=== PATIENT | female | born 1940 | race Caucasian/White ===

== ENCOUNTER 2018-03-06 11:32 | Emergency (ER) | payer OTHER, SELFPAY ==
--- NOTE | 2018-03-06 11:37 | PC.NURSE ---
States SX were on February 23 or . To BR prior to rooming as states uti sx
[2018-03-06 11:47] VITALS: BP 144/57; PULSE 60; RESP 12; O2SAT 98; BMI 25.4
--- NOTE | 2018-03-06 12:02 | DI.CT.S_ITS ---
PROCEDURE: CT HEAD/BRAIN WO CON INDICATIONS: States weakness and changes in ability to function, resolved TECHNIQUE: Noncontrast 4.5 mm thick angled axial sections acquired from the foramen magnum to the vertex, with coronal and sagittal reformats. For radiation dose reduction, the following was used: automated exposure control, adjustment of mA and/or kV according to patient size. COMPARISON: [facility], CT, HEAD WITHOUT CONTRAST, 06/03/2015, 12:02. FINDINGS: Image quality: Excellent. CSF spaces: Basal cisterns are patent. No extra-axial fluid collections. The ventricles are symmetric in size and shape. Brain: No intracranial bleeds or masses. There is cerebral volume loss for age, with resultant ventricular and sulcal prominence. There are periventricular and deep white matter chronic small vessel ischemic changes. There is intracranial internal carotid artery atherosclerosis. Skull and face: Calvarium and visualized facial bones appear intact, without suspicious lesions. Sinuses: Visualized sinuses and mastoids are clear. IMPRESSION: No acute intracranial disease process. Dictated by: Mayra Humphries MD, PhD on 03/06/2018 at 12:18 Approved by: Mayra Humphries MD, PhD on 03/06/2018 at 12:19
[2018-03-06 12:10] VITALS: BP 123/52; PULSE 60; RESP 16; O2SAT 99
[2018-03-06 12:13] LABS: Urine Amphetamines Negative (Negative); Urine Barbiturates Negative (Negative); Urine Benzodiazepines Negative (Negative); Urine Cocaine Negative (Negative); Urine MDMA Negative (Negative); Urine Methadone Negative (Negative); Urine Methamphetamines Negative (Negative); Urine Morphine/Opi cutoff 2000 Negative (Negative); Urine Oxycodone Negative (Negative); Urine Phencyclidine Negative (Negative); Urine Tetrahydrocannabinol Negative (Negative); Urine Tricyclic Antidepressant Negative (Negative)
[2018-03-06 12:17] LABS: RBC Urine 10-30/HPF (0-5/HPF); WBC Urine >100/HPF (0-5/HPF)
[2018-03-06 12:18] LABS: INR 3.2 (0.9-1.3); Prothrombin Time 33.9 SECONDS (10.1-12.7)
[2018-03-06 12:18] LABS: Bacteria Urine Many (>30); Culture Indicated Urine Specimen Cultured
[2018-03-06 12:21] LABS: PTT Partial Thromboplastin Tim 51 SECONDS (26.4-36.2)
[2018-03-06] MEDS: SODIUM CHLORIDE 0.9% 1,000 ML 150 ML IV (12:24)
[2018-03-06 12:26] LABS: BUN Creatinine Ratio 25.7 (6-22); Blood Urea Nitrogen 18 mg/dL (7-17); Calcium 8.7 mg/dL (8.4-10.2); Carbon Dioxide 27 mmol/L (22-32); Chloride 104 mmol/L (98-107); Estimated Glomerular Filt Rate > 60.0 mL/min (>60); Glucose 116 mg/dL (80-110); HEMOLYSIS < 15 (0-50); Potassium 3.9 mmol/L (3.4-5.1); Sodium 140 mmol/L (137-145)
[2018-03-06 13:00] VITALS: BP 138/62; PULSE 60; RESP 18; O2SAT 99
--- NOTE | 2018-03-06 13:19 | ED_ITS ---
HPI - Neuro Symptoms/Deficit <VIDHYA Hernandez - Last Filed: 03/06/18 19:41> General Chief Complaint: Neuro Symptoms/Deficit Stated Complaint: POSSIBLE STROKE Time Seen by Provider: 03/06/18 11:55 History of Present Illness HPI Narrative: 78-year-old female with history of pacemaker and mitral valve repair currently on Coumadin here for complaint of having a 5 min. Approximately on the 24 of February where she felt like she had a hard time controlling her head and felt weakness she states that this resolved. She was trying to get into her primary care provider and call the office and due to symptoms was told to come to the emergency room for further evaluation she denies any weakness at this time. She was able to ambulate into the emergency room with no complications. She states her symptoms felt as she was having weakness and a hard time holding her head up and also felt like her upper body was also having weakness. Her symptoms were bilateral. She denied any headache. She denied any stressors relievers of her symptoms when she had then. She has not had any symptoms since this timeframe. No shortness of breath no chest pain. She also has a complaint of having some urinary discomfort over the past few days. No fevers or chills no flank pain no abdominal pain On Anticoagulants: No Related Data Home Medications Medication Instructions Recorded Confirmed lisinopril 10 mg PO QNOON #0 03/30/11 03/06/18 Fish Oil 1,200 mg PO BID #0 04/08/13 03/06/18 Calcium Citrate + D 1 tab PO BID 03/06/18 03/06/18 metoprolol succinate 12.5 mg PO BEDTIME 03/06/18 03/06/18 multivitamin with minerals 1 tab PO DAILY 03/06/18 03/06/18 ropinirole [Requip] 0.5 mg PO BEDTIME 03/06/18 03/06/18 simvastatin [Zocor] 10 mg PO BEDTIME 03/06/18 03/06/18 vit C-vit S-vcetmc-igti-lutein 1 cap PO DAILY 03/06/18 03/06/18 [PreserVision Lutein] warfarin 1 tab PO SUMOTUWEFRSA 03/06/18 03/06/18 warfarin 3.75 mg PO TH 03/06/18 03/06/18 Previous Rx's Medication Instructions Recorded fluoxetine 10 mg PO QDAY #90 tab 09/30/17 trospium 60 mg PO QAM #90 cer 10/09/17 levothyroxine 88 mcg PO QDAY #30 tab 11/27/17 nitrofurantoin monohyd/m-cryst 1 cap PO Q12H 7 Days #14 cap 03/06/18 Allergies Allergy/AdvReac Type Severity Reaction Status Date / Time codeine [CODEINE] Allergy Mild NAUSEA Verified 03/06/18 12:23 tramadol [TRAMADOL] Allergy Unknown Verified 03/06/18 12:23 Review of Systems <VIDHYA Hernandez - Last Filed: 03/06/18 19:41> Constitutional Denies fatigue and Reports weakness Eyes Denies change in vision, Denies eye discharge, Denies irritation and Denies loss of vision ENT Ears, Nose, Mouth, and Throat: Denies change in voice, Denies neck pain and Denies sore throat Cardiovascular Denies dyspnea and Denies dyspnea on exertion Respiratory Denies cough, Denies dyspnea, Denies dyspnea on exertion and Denies wheezing Gastrointestinal Gastrointestinal: Denies abdominal pain, Denies change in bowel habits, Denies diarrhea, Denies nausea and Denies vomiting Genitourinary Denies hematuria, Denies flank pain, Denies urinary incontinence and Denies urinary urgency Musculoskeletal Denies neck pain Integumentary/Breasts Denies pruritus, Denies erythema, Denies rash and Denies wounds Neurologic Denies confusion, Denies loss of vision and Reports weakness Psychiatric Denies anxiety, Denies confusion, Denies depression, Denies homicidal ideation and Denies suicidal ideation Endocrine Denies fatigue and Denies flushing Hematologic/Lymphatic Denies easy bruising Allergic/Immunologic Denies wheezing Exam <VIDHYA Hernandez - Last Filed: 03/06/18 19:41> Initial Vital Signs Initial Vital Signs: Vital Signs Pulse Rate 60 03/06/18 11:47 Respiratory Rate 12 03/06/18 11:47 Blood Pressure 144/57 H 03/06/18 11:47 Pulse Oximetry 98 03/06/18 11:47 Const General: cooperative and well developed Nutritional Appearance: well nourished Orientation: alert, awake, oriented x3 and not confused HENTN Mouth: oral mucosae normal, oropharynx normal and moist mucous membranes Eyes General: appearance normal, both eyes and all related structures Eyelids: eyelids normal Conjunctivae: conjunctivae normal Sclera: sclerae normal Pupils: PERRL EOM: EOM intact bilaterally Neck Neck: normal visual inspection, trachea midline, No lymphadenopathy, No midline deformity and No JVD Lymphatic: No lymphedema Resp Effort & Inspection: normal respiratory effort, able to speak in complete sentences, no respiratory distress and no use of accessory muscles Auscultation: clear to auscultation bilaterally, no rales, no rhonchi and no wheezes Cardio Rate: regular rate Rhythm: regular rhythm Heart Sounds: no click, no gallops, no murmurs and no rubs Skin General: no rashes or lesions noted, No jaundice and No petechiae Neuro General: alert, awake and oriented x3 Cranial Nerves: CN's II-XI intact bilaterally Cognition: normal cognition Speech: speech normal Gait: normal gait Motor: muscle tone normal throughout and strength 5/5 throughout Sensory Exam: no sensory deficits noted <Christina Hernandez DO - Last Filed: 03/07/18 08:23> Initial Vital Signs Initial Vital Signs: Vital Signs Pulse Rate 60 03/06/18 11:47 Respiratory Rate 12 03/06/18 11:47 Blood Pressure 144/57 H 03/06/18 11:47 Pulse Oximetry 98 03/06/18 11:47 Scores <VIDHYA Hernandez - Last Filed: 03/06/18 19:41> HEART Score Heart Score history: Slightly Suspicious Heart Score EKG: Normal Heart Score Age: > or = 65 years old Heart Score risk factors: 1-2 risk factors Heart Score troponin: < or = to normal limit Heart Score Total: 3 NIH Stroke Scale Level of Conciousness: Alert, keenly responsive Ask month/age: Answers both questions correctly. Open/close eyes, close hand: Performs both tasks correctly Best gaze horizontal: Normal Visual carr: No visual loss Facial palsy: Normal symetrical movement Left arm drift: No drift for full 10 sec Right arm drift: No drift for full 10 sec Left leg drift: No drift for full 10 sec Right leg drift: No drift for full 10 sec Limb ataxia: Absent Sensory on face/arms/legs: Normal, no sensory loss Best language: No aphasia, normal Dysarthria: Normal Extinction or inattention: No abnormality Total NIH Stroke scale score: 0 Course <VIDHYA Hernandez - Last Filed: 03/06/18 19:41> Orders Ordered: Discontinued Medications Sodium Chloride (Normal Saline 0.9%) 1,000 mls @ 150 mls/hr IV CONT MAYRA Last Infusion: 03/06/18 15:27 Dose: 0 mls/hr Admin: 03/06/18 12:24 Dose: 150 mls/hr Vital Signs - 8 hr 03/06/18 11:47 03/06/18 12:10 03/06/18 13:00 Pulse Rate 60 60 60 Respiratory Rate 12 16 18 Blood Pressure 144/57 H Blood Pressure [Right Arm] 123/52 H 138/62 H Pulse Oximetry 98 99 99 03/06/18 14:00 03/06/18 15:05 Pulse Rate 60 60 Respiratory Rate 11 L 21 Blood Pressure Blood Pressure [Right Arm] 136/64 H 149/71 H Pulse Oximetry 97 100 <Christina Hernandez DO - Last Filed: 03/07/18 08:23> Orders Ordered: Discontinued Medications Sodium Chloride (Normal Saline 0.9%) 1,000 mls @ 150 mls/hr IV CONT MAYRA Last Infusion: 03/06/18 15:27 Dose: 0 mls/hr Admin: 03/06/18 12:24 Dose: 150 mls/hr Vital Signs - 8 hr 03/06/18 11:47 03/06/18 12:10 03/06/18 13:00 Pulse Rate 60 60 60 Respiratory Rate 12 16 18 Blood Pressure 144/57 H Blood Pressure [Right Arm] 123/52 H 138/62 H Pulse Oximetry 98 99 99 03/06/18 14:00 03/06/18 15:05 Pulse Rate 60 60 Respiratory Rate 11 L 21 Blood Pressure Blood Pressure [Right Arm] 136/64 H 149/71 H Pulse Oximetry 97 100 MDM - Neuro Symptoms/Deficit <VIDHYA Hernandez - Last Filed: 03/06/18 19:41> Lab Data Result diagrams: 03/06/18 12:00 Lab Results 03/06/18 03/06/18 03/06/18 Range/Units 11:57 11:57 12:00 PT 33.9 H (10.1-12.7) SECONDS INR 3.2 H (0.9-1.3) APTT 51 H (26.4-36.2) SECONDS Sodium (137-145) mmol/L Potassium (3.4-5.1) mmol/L Chloride (98-107) mmol/L Carbon Dioxide (22-32) mmol/L BUN (7-17) mg/dL Creatinine (0.52-1.04) mg/dL Estimated GFR (>60) mL/min BUN/Creatinine Ratio (6-22) Glucose (80-110) mg/dL Calcium (8.4-10.2) mg/dL Troponin I (0.01-0.034) ng/mL Urine RBC 10-30/hpf H (0-5/HPF) Urine WBC >100/hpf H (0-5/HPF) Urine Bacteria Many (>30) H (None) Ur Culture Indicated? Specimen cultured Micro UA Comment Not Reportable Urine Opiates Screen Negative (Negative) Ur Oxycodone Screen Negative (Negative) Urine Methadone Screen Negative (Negative) Ur Barbiturates Screen Negative (Negative) U Tricyclic Antidepress Negative (Negative) Ur Phencyclidine Scrn Negative (Negative) Ur Amphetamines Screen Negative (Negative) U Methamphetamines Scrn Negative (Negative) Ur MDMA Scrn (Ecstasy) Negative (Negative) U Benzodiazepines Scrn Negative (Negative) Urine Cocaine Screen Negative (Negative) U Marijuana (THC) Screen Negative (Negative) 03/06/18 03/06/18 Range/Units 12:00 13:43 PT (10.1-12.7) SECONDS INR (0.9-1.3) APTT (26.4-36.2) SECONDS Sodium 140 (137-145) mmol/L Potassium 3.9 (3.4-5.1) mmol/L Chloride 104 (98-107) mmol/L Carbon Dioxide 27 (22-32) mmol/L BUN 18 H (7-17) mg/dL Creatinine 0.70 (0.52-1.04) mg/dL Estimated GFR > 60.0 (>60) mL/min BUN/Creatinine Ratio 25.7 H (6-22) Glucose 116 H (80-110) mg/dL Calcium 8.7 (8.4-10.2) mg/dL Troponin I < 0.012 (0.01-0.034) ng/mL Urine RBC (0-5/HPF) Urine WBC (0-5/HPF) Urine Bacteria (None) Ur Culture Indicated? Micro UA Comment Urine Opiates Screen (Negative) Ur Oxycodone Screen (Negative) Urine Methadone Screen (Negative) Ur Barbiturates Screen (Negative) U Tricyclic Antidepress (Negative) Ur Phencyclidine Scrn (Negative) Ur Amphetamines Screen (Negative) U Methamphetamines Scrn (Negative) Ur MDMA Scrn (Ecstasy) (Negative) U Benzodiazepines Scrn (Negative) Urine Cocaine Screen (Negative) U Marijuana (THC) Screen (Negative) Imaging Data CT scan - head: Radiologist's impression: PROCEDURE: CT HEAD/BRAIN WO CON INDICATIONS: States weakness and changes in ability to function, resolved TECHNIQUE: Noncontrast 4.5 mm thick angled axial sections acquired from the foramen magnum to the vertex, with coronal and sagittal reformats. For radiation dose reduction, the following was used: automated exposure control, adjustment of mA and/or kV according to patient size. COMPARISON: [facility], CT, HEAD WITHOUT CONTRAST, 06/03/2015, 12:02. FINDINGS: Image quality: Excellent. CSF spaces: Basal cisterns are patent. No extra-axial fluid collections. The ventricles are symmetric in size and shape. Brain: No intracranial bleeds or masses. There is cerebral volume loss for age , with resultant ventricular and sulcal prominence. There are periventricular and deep white matter chronic small vessel ischemic changes. There is intracranial internal carotid artery atherosclerosis. Skull and face: Calvarium and visualized facial bones appear intact, without suspicious lesions. Sinuses: Visualized sinuses and mastoids are clear. IMPRESSION: No acute intracranial disease process. Dictated by: Mayra Humphries MD, PhD on 03/06/2018 at 12:18 Approved by: Mayra Humphries MD, PhD on 03/06/2018 at 12:19 Chest x-ray: Radiologist's impression: PROCEDURE: XR CHEST 1V INDICATIONS: weakness TECHNIQUE: One view of the chest was acquired. COMPARISON: [facility], CR, CHEST 2 VIEW, 04/09/2012, 12:01. FINDINGS: Surgical changes and devices: Pacemaker, valve replacement and sternal wires are again noted. Lungs and pleura: No pleural effusions or pneumothorax. Mild increased pulmonary vascularity is present. Mediastinum: Mediastinal contours appear normal. Heart size is minimally prominent. Bones and chest wall: No suspicious bony lesions. Overlying soft tissues appear unremarkable. IMPRESSION: Mild increased pulmonary vascularity suggestive of edema. Dictated by: Dina Valle M.D. on 03/06/2018 at 14:14 Approved by: Dina Valle M.D. on 03/06/2018 at 14:16 ECG Data Interpretation: EKG shows paced rhythm with no ST elevation or depression. Ventricular rate of 60. Pr interval of 287. QRS duration of 102. QT of 427. MDM Narrative Medical decision making narrative: Head CT was obtained was negative for any acute findings. Chest x-ray shows increased vascularity suggestive of mild edema. Patient was in no acute distress. EKG shows paced rhythm with no ST elevation or depression. CBC and Chem panel were obtained were unremarkable. INR was at 3.2. Signs and symptoms presents as a TIA 10 days ago. She is referred to her primary care provider here in the next few days for re- evaluation. Recommend obtaining Doppler of her carotids and also echo if no recent echo has been performed. For any worsening symptoms return to the emergency room. Urinalysis indicates urinary tract infection. She is placed on Macrobid. <Christina Hernandez, - Last Filed: 03/07/18 08:23> Medical Records Attestation: I reviewed the patient's medical records. Lab Data Attestation: I reviewed the patient's lab results. Lab Results 03/06/18 03/06/18 03/06/18 Range/Units 11:57 11:57 12:00 PT 33.9 H (10.1-12.7) SECONDS INR 3.2 H (0.9-1.3) APTT 51 H (26.4-36.2) SECONDS Sodium (137-145) mmol/L Potassium (3.4-5.1) mmol/L Chloride (98-107) mmol/L Carbon Dioxide (22-32) mmol/L BUN (7-17) mg/dL Creatinine (0.52-1.04) mg/dL Estimated GFR (>60) mL/min BUN/Creatinine Ratio (6-22) Glucose (80-110) mg/dL Calcium (8.4-10.2) mg/dL Troponin I (0.01-0.034) ng/mL Urine RBC 10-30/hpf H (0-5/HPF) Urine WBC >100/hpf H (0-5/HPF) Urine Bacteria Many (>30) H (None) Ur Culture Indicated? Specimen cultured Micro UA Comment Not Reportable Urine Opiates Screen Negative (Negative) Ur Oxycodone Screen Negative (Negative) Urine Methadone Screen Negative (Negative) Ur Barbiturates Screen Negative (Negative) U Tricyclic Antidepress Negative (Negative) Ur Phencyclidine Scrn Negative (Negative) Ur Amphetamines Screen Negative (Negative) U Methamphetamines Scrn Negative (Negative) Ur MDMA Scrn (Ecstasy) Negative (Negative) U Benzodiazepines Scrn Negative (Negative) Urine Cocaine Screen Negative (Negative) U Marijuana (THC) Screen Negative (Negative) 03/06/18 03/06/18 Range/Units 12:00 13:43 PT (10.1-12.7) SECONDS INR (0.9-1.3) APTT (26.4-36.2) SECONDS Sodium 140 (137-145) mmol/L Potassium 3.9 (3.4-5.1) mmol/L Chloride 104 (98-107) mmol/L Carbon Dioxide 27 (22-32) mmol/L BUN 18 H (7-17) mg/dL Creatinine 0.70 (0.52-1.04) mg/dL Estimated GFR > 60.0 (>60) mL/min BUN/Creatinine Ratio 25.7 H (6-22) Glucose 116 H (80-110) mg/dL Calcium 8.7 (8.4-10.2) mg/dL Troponin I < 0.012 (0.01-0.034) ng/mL Urine RBC (0-5/HPF) Urine WBC (0-5/HPF) Urine Bacteria (None) Ur Culture Indicated? Micro UA Comment Urine Opiates Screen (Negative) Ur Oxycodone Screen (Negative) Urine Methadone Screen (Negative) Ur Barbiturates Screen (Negative) U Tricyclic Antidepress (Negative) Ur Phencyclidine Scrn (Negative) Ur Amphetamines Screen (Negative) U Methamphetamines Scrn (Negative) Ur MDMA Scrn (Ecstasy) (Negative) U Benzodiazepines Scrn (Negative) Urine Cocaine Screen (Negative) U Marijuana (THC) Screen (Negative) ECG Data Attestation: I personally reviewed and interpreted this ECG as follows: Prior ECG tracings: available for review Interpretation: Paced rhythm rate 60 similar to previous no ST changes Discharge Plan Departure Patient Disposition: Home, Self-Care Clinical Impression: TIA (transient ischemic attack), Urinary tract infection Discharge Date/Time: 03/06/18 15:27 Interventions: ED Discharge Assessment Last Done: 03/06/18 15:26 Instructions: DI for Transient Ischemic Attack Activity Restrictions/Additional Instructions: CT the head was obtained today and was unremarkable. EKG was normal. Laboratory results were unremarkable. With exception of urinary tract infection. Signs and symptoms presents as a transient ischemic attack. Follow up with her primary care provider in the next few days for further evaluation and treatment such as Doppler of the carotid arteries and also echo cardiogram if not recent. To treat the urinary tract infection been placed on an antibiotic called Macrobid use as directed. For any worsening symptoms return to the emergency room. Prescriptions: New nitrofurantoin monohyd/m-cryst 100 mg capsule 1 cap PO Q12H 7 Days Qty: 14 RF: 0 No Action lisinopril 10 MG tablet 10 mg PO QNOON Qty: 0 RF: 0 Fish Oil 1,200 mg PO BID Qty: 0 RF: 0 fluoxetine 10 MG tablet 10 mg PO QDAY Qty: 90 RF: 3 trospium 60 MG capsule,extended release 24hr 60 mg PO QAM Qty: 90 RF: 3 levothyroxine 88 MCG tablet 88 mcg PO QDAY Qty: 30 RF: 5 warfarin 2.5 mg tablet 1 tab PO SUMOTUWEFRSA RF: 0 warfarin 2.5 mg Tablet 3.75 mg PO TH RF: 0 metoprolol succinate 25 mg tablet extended release 24 hr 12.5 mg PO BEDTIME RF: 0 multivitamin with minerals Tablet 1 tab PO DAILY RF: 0 vit C-vit N-atuhaq-okae-lutein [PreserVision Lutein] 226 mg-200 unit -5 mg- 0.8 mg Capsule 1 cap PO DAILY RF: 0 Calcium Citrate + D 1 tab PO BID RF: 0 simvastatin [Zocor] 10 MG tablet 10 mg PO BEDTIME RF: 0 ropinirole [Requip] 0.5 MG tablet 0.5 mg PO BEDTIME RF: 0 Referrals: Peyton Roy DO [Primary Care Provider] - <Christina Hernandez DO - Last Filed: 03/07/18 08:23> Cosign ED Attending [place] Attestation: I was immediately available in the department for consultation. Documentation has been reviewed. I agree with assessment and plan.
[2018-03-06 14:00] VITALS: BP 136/64; PULSE 60; RESP 11; O2SAT 97
[2018-03-06 14:32] LABS: Troponin I < 0.012 ng/mL (0.01-0.034)
[2018-03-06 15:05] VITALS: BP 149/71; PULSE 60; RESP 21; O2SAT 100
--- NOTE | 2018-03-10 11:50 | PC.NURSE ---
Called patient to follow up and ensure antibiotics. Pt is on Macrobid 100 mg capsules and has been taking since 03/06. Reports still feeling very tired, no focal neuro symptoms or weakness. No fever. Has not been able to get into Dr. Roy for follow up. Called Dr. Roy's nurse (Jamil, x [phone]) and requested pt be seen by Dr. Roy. He will call pt and arrange follow up.
== END 2018-03-06 15:27 | disposition home or self-care (01) ==
PROVIDERS: Emergency Medicine; Emergency Provider Nurse Practitioner Family; PCP Family Medicine
DX: G45.9 Transient cerebral ischemic attack, unspecified (principal); N39.0 Urinary tract infection, site not specified
CPT/HCPCS: 36415; 36591; 70450; 71045; 80048; 80305; 81003; 81015; 82962; 84484; 85610; 85730; 87077; 87086; 87186; 93005; 93041; 96360; 96361; 99285; 99291

== ENCOUNTER → 2018-05-05 16:49 | Outpatient (CLI) | payer SELFPAY | PROVIDERS: PCP Family Medicine; Visit Provider Family Medicine | DX: R30.0 Dysuria (principal) ==

== ENCOUNTER → 2018-05-22 13:48 | Outpatient (CLI) | payer OTHER, SELFPAY ==
--- NOTE | 2018-05-22 13:50 | DI.US.S_ITS ---
PROCEDURE: US PELVIC COMPLETE INDICATIONS: PAIN TECHNIQUE: Real-time scanning was performed of the pelvic organs, with image documentation. Additional endovaginal scanning was necessary due to incomplete visualization of the adnexal and endometrial structures by transabdominal scanning. COMPARISON: [facility], , BREAST RIGHT, 05/03/2011, 15:04. FINDINGS: Transabdominal scanning: Limited scanning through the kidneys shows no hydronephrosis. No pathologic free abdominal or pelvic fluid. Endovaginal scanning: Uterus: Surgically absent. Ovaries: Not seen IMPRESSION: Hysterectomy. The ovaries are not identified and cannot be evaluated. Dictated by: Nam Nino M.D. on 05/22/2018 at 14:54 Approved by: Nam Nino M.D. on 05/22/2018 at 14:54
== END ==
PROVIDERS: PCP Family Medicine; Visit Provider Specialist
DX: R10.2 Pelvic and perineal pain (principal); Z90.710 Acquired absence of both cervix and uterus
CPT/HCPCS: 76830; 76856

== ENCOUNTER → 2018-05-28 11:20 | Outpatient (CLI) | payer OTHER, SELFPAY ==
[2018-05-28 12:20] LABS: Appearance Urine UA CLOUDY; Bilirubin Urine UA NEGATIVE (NEGATIVE); Color Urine UA YELLOW; Glucose Urine UA NEGATIVE (Normal); Ketones Urine UA NEGATIVE (NEGATIVE); Leukocyte Esterase Urine UA 3+ (NEGATIVE); Nitrite Urine UA Negative (Negative); Occult Blood Urine UA 2+ (Negative); Protein Urine UA TRACE (Negative); Urobilinogen Urine UA 0.2 E.U./dL (0.2); pH Urine UA 5.5 (4.5-8.0)
[2018-05-28 12:33] LABS: Bacteria Urine Many (>30); Culture Indicated Urine Specimen Cultured; RBC Urine 10-30/HPF (0-5/HPF); WBC Urine >100/HPF (0-5/HPF)
[2018-05-28 15:57] LABS: TSH w/ Reflex to FT4 2.09 uIU/mL (0.47-4.68)
== END ==
PROVIDERS: PCP Family Medicine; Visit Provider Family Medicine
DX: E03.9 Hypothyroidism, unspecified (principal); Z87.440 Personal history of urinary (tract) infections
CPT/HCPCS: 36415; 81001; 84443; 87077; 87086

== ENCOUNTER → 2018-07-03 17:03 | Outpatient (CLI) | payer OTHER, SELFPAY ==
[2018-07-03 17:15] LABS: Bilirubin Urine UA NEGATIVE (NEGATIVE); Color Urine UA YELLOW; Glucose Urine UA NEGATIVE (Normal); Ketones Urine UA TRACE (NEGATIVE); Leukocyte Esterase Urine UA 3+ (NEGATIVE); Nitrite Urine UA POSITIVE (Negative); Occult Blood Urine UA 2+ (Negative); Protein Urine UA TRACE (Negative); Specific Gravity Urine UA 1.025 (1.000-1.035); Urobilinogen Urine UA 0.2 E.U./dL (0.2); pH Urine UA 5.5 (4.5-8.0)
[2018-07-03 18:17] LABS: Appearance Urine UA Slightly Cloudy
[2018-07-03 18:18] LABS: Bacteria Urine Many (>30); Culture Indicated Urine Specimen Cultured; Mucus Urine 1+ (Negative); RBC Urine 5-10/HPF (0-5/HPF); Squamous Epithelial Cell Urine 0-1 /HPF; WBC Urine >100/HPF (0-5/HPF)
== END ==
PROVIDERS: PCP Family Medicine; Visit Provider Family Medicine
DX: R39.89 Other symptoms and signs involving the genitourinary system (principal)
CPT/HCPCS: 81001; 87077; 87086; 87186

== ENCOUNTER → 2018-08-05 10:55 | Outpatient (CLI) | payer OTHER, SELFPAY ==
[2018-08-05 12:00] LABS: Erythrocyte Sedimentation Rate 11 MM/HR (0-20)
[2018-08-05 12:21] LABS: Appearance Urine UA CLOUDY; Bilirubin Urine UA NEGATIVE (NEGATIVE); Color Urine UA YELLOW; Glucose Urine UA NEGATIVE (Normal); Ketones Urine UA TRACE (NEGATIVE); Leukocyte Esterase Urine UA 2+ (NEGATIVE); Nitrite Urine UA NEGATIVE (Negative); Occult Blood Urine UA 2+ (Negative); Protein Urine UA TRACE (Negative); Specific Gravity Urine UA 1.025 (1.000-1.035); Urobilinogen Urine UA 0.2 E.U./dL (0.2)
[2018-08-05 13:06] LABS: Bacteria Urine Moderate (10-30); RBC Urine 1-5/HPF (0-5/HPF); Squamous Epithelial Cell Urine 0-1 /HPF; WBC Urine >100/HPF (0-5/HPF)
[2018-08-05 13:07] LABS: Culture Indicated Urine Specimen Cultured
[2018-08-05 13:29] LABS: C-Reactive Protein Quant 1.9 mg/dL (<1.0)
== END ==
PROVIDERS: PCP Family Medicine; Visit Provider Registered Nurse
DX: G45.3 Amaurosis fugax (principal); N39.0 Urinary tract infection, site not specified
CPT/HCPCS: 36415; 81001; 85651; 86140; 87077; 87086; 87186

== ENCOUNTER → 2018-08-06 11:27 | Outpatient (CLI) | payer OTHER, SELFPAY | PROVIDERS: PCP Family Medicine; Visit Provider Family Medicine | DX: Z53.8 Procedure and treatment not carried out for other reasons (principal) ==

== ENCOUNTER → 2018-08-13 11:33 | Outpatient (CLI) | payer OTHER, SELFPAY ==
[2018-08-13 13:17] LABS: BUN Creatinine Ratio 18.8 (6-22); Blood Urea Nitrogen 15 mg/dL (7-17); Estimated Glomerular Filt Rate > 60.0 mL/min (>60)
== END ==
PROVIDERS: PCP Family Medicine; Visit Provider Psychiatry & Neurology Neurology
DX: R42 Dizziness and giddiness (principal); G45.3 Amaurosis fugax; R25.1 Tremor, unspecified
CPT/HCPCS: 82565; 84520

== ENCOUNTER → 2018-08-18 15:38 | Outpatient (CLI) | payer OTHER, SELFPAY ==
--- NOTE | 2018-08-18 | DI.CT.S_ITS ---
PROCEDURE: CT ANGIO HEAD AND NECK INDICATIONS: AMAUROSIS FUGAX OF LEFT EYE, ALSO EPISODE OF VERTIGO TECHNIQUE: Pre-contrast 4.5 mm thick sections acquired from the foramen magnum to the vertex. After the administration of intravenous contrast, 1 mm thick sections acquired from the aortic arch through the [place] of [place]. Post-contrast 4.5 mm thick sections then re-acquired from the foramen magnum to the vertex. 3-dimensional avgovhe-eubcsjtaz-sojwapgfms (MIP) and/or volume rendering reformats were acquired of the central intracranial vasculature and neck separately. COMPARISON: [facility], CT, CT HEAD/BRAIN WO CON, 03/06/2018, 12:01. [facility], CT, HEAD WITHOUT CONTRAST, 06/20/2017, 1:34. [facility], [place], CAROTID ARTERY DOPPLER BILAT, 07/27/2010, 8:40. FINDINGS: Image quality: Excellent. BRAIN: CSF spaces: Ventricles are normal in size and shape. Basal cisterns are patent. No extra-axial fluid collections. Brain: No midline shift. No intracranial bleeds or masses. [place]-white matter interface appears intact. Skull and face: Calvarium and facial bones appear intact, without suspicious lesions. Orbits appear normal. Sinuses: Sinuses and mastoids are clear. HEAD CT ANGIOGRAPHY: Anterior circulation: Intracranial internal carotid arteries are normal in size and flow. The flow within the paired anterior cerebral arteries is normal and symmetric. The flow within the middle cerebral arteries is normal and symmetric. The anterior communicating artery is seen. No aneurysms are seen. Posterior circulation: Visualized portions of the vertebral arteries demonstrate asymmetric caliber, right vertebral artery dominant, and join to form a normal appearing basilar artery. Flow within the posterior cerebral arteries is normal, with a normal anatomic variant origin of the left posterior cerebral artery, and symmetric in size. No aneurysms are seen. NECK CT ANGIOGRAPHY: Carotid system: The great vessels demonstrate a conventional anatomy as they arise from the aortic arch. The origins of the common carotid arteries appear patent. The common carotid arteries demonstrate normal caliber and courses. The bifurcation regions are both widely patent. The internal carotid arteries demonstrate normal calibers and courses with mild atherosclerotic plaquing and no significant stenosis. Posterior circulation: The origins of the vertebral arteries both appear widely patent. The more superior extracranial portions of both vertebral arteries also demonstrate normal courses and normal anatomic variant asymmetric right vertebral dominant calibers. They join to form a normal appearing basilar artery. Soft tissues: Visualized neck soft tissues demonstrate no suspicious abnormalities. Bones: No suspicious bony lesions. Visualized cervical spine appears normally aligned. IMPRESSION: The brain parenchyma appears excellent for age. No prior stroke is found. No aneurysm or vascular malformation through the brain parenchyma is seen. Note is made of a normal anatomic variant dominance of the right vertebral artery, and posterior circulation arterial flow is patent bilaterally. A normal variant origin of the left posterior cerebral artery is present, without stenosis bilaterally into the posterior circulation. Source of reported amaurosis fugax is not identified. Any quantitative measurements of stenosis were performed using NASCET criteria. Dictated by: Kahlil Sahu M.D. on 08/18/2018 at 16:54 Approved by: Kahlil Sahu M.D. on 08/18/2018 at 17:06
== END ==
PROVIDERS: PCP Family Medicine; Visit Provider Psychiatry & Neurology Neurology
DX: G45.3 Amaurosis fugax (principal); R42 Dizziness and giddiness
CPT/HCPCS: 70496; 70498; Q9967

== ENCOUNTER → 2018-08-20 11:39 | Outpatient (CLI) | payer OTHER, SELFPAY ==
[2018-08-20 12:43] LABS: BUN Creatinine Ratio 23.8 (6-22); Blood Urea Nitrogen 19 mg/dL (7-17); Estimated Glomerular Filt Rate > 60.0 mL/min (>60)
== END ==
PROVIDERS: PCP Family Medicine; Visit Provider Psychiatry & Neurology Neurology
DX: R42 Dizziness and giddiness (principal); G45.3 Amaurosis fugax; R25.1 Tremor, unspecified
CPT/HCPCS: 36415; 82565; 84520

== ENCOUNTER → 2018-08-21 10:58 | Outpatient (CLI) | payer OTHER, SELFPAY ==
[2018-08-21 13:10] LABS: Appearance Urine UA CLEAR; Bilirubin Urine UA NEGATIVE (NEGATIVE); Color Urine UA YELLOW; Glucose Urine UA NEGATIVE (Normal); Ketones Urine UA NEGATIVE (NEGATIVE); Leukocyte Esterase Urine UA NEGATIVE (NEGATIVE); Nitrite Urine UA NEGATIVE (Negative); Occult Blood Urine UA 1+ (Negative); Protein Urine UA NEGATIVE (Negative); Specific Gravity Urine UA 1.025 (1.000-1.035); Urobilinogen Urine UA 0.2 E.U./dL (0.2); pH Urine UA 5.5 (4.5-8.0)
[2018-08-21 13:26] LABS: RBC Urine 1-5/HPF (0-5/HPF); Renal Epithelial Cells Urine 0-1/HPF; Squamous Epithelial Cell Urine 1-5 /HPF; WBC Urine 1-5/HPF (0-5/HPF)
[2018-08-21 13:27] LABS: Amorphous Sediment Urine 1+; Bacteria Urine Occasional (0-1); Culture Indicated Urine Cult Not Indicated; Mucus Urine 1+ (Negative)
== END ==
PROVIDERS: PCP Family Medicine; Visit Provider Registered Nurse
DX: Z87.440 Personal history of urinary (tract) infections (principal); R31.9 Hematuria, unspecified
CPT/HCPCS: 81001

== ENCOUNTER → 2018-10-08 12:11 | Outpatient (CLI) | payer OTHER, SELFPAY ==
--- NOTE | 2018-10-08 | DI.MG.S_ITS ---
BILATERAL DIGITAL SCREENING MAMMOGRAM 3D/2D WITH CAD: 10/08/2018 CLINICAL: Routine screening. Family history of breast cancer. Comparison is made to exams dated: 09/07/2017 mammogram, 09/03/2016 mammogram, and 09/01/2015 mammogram - [facility]. The tissue of both breasts is heterogeneously dense. This may lower the sensitivity of mammography. Current study was also evaluated with a Computer Aided Detection (CAD) system. There is a mole marker on the right breast. There are mole markers on the left breast. There are linear scar markers on both breasts. Left superior chest wall cardiac pacemaker results in imaging artifact that obscures the upper left breast. No significant masses, calcifications, or other findings are seen in either breast. There has been no significant interval change. IMPRESSION: NEGATIVE There is no mammographic evidence of malignancy. A 1 year screening mammogram is recommended. This exam was interpreted at Station ID: [id number]. NOTE: For mammograms, a report in lay terms will be sent to the patient. Approximately 15% of breast malignancies will not be visualized mammographically. In the management of a palpable breast mass, a negative mammogram must not discourage biopsy of a clinically suspicious lesion. Electronically Signed By: Momo Bond M.D. ecl/:10/09/2018 07:42:54 letter sent: Normal Exam ACR BI-RADS Category 1: Negative [id number]
== END ==
PROVIDERS: PCP Family Medicine; Visit Provider Family Medicine
DX: Z12.31 Encounter for screening mammogram for malignant neoplasm of breast (principal); Z80.3 Family history of malignant neoplasm of breast
CPT/HCPCS: 77063; 77067

== ENCOUNTER → 2018-11-07 11:01 | Outpatient (CLI) | payer OTHER, SELFPAY ==
[2018-11-07 12:35] LABS: BUN Creatinine Ratio 26.3 (6-22); Blood Urea Nitrogen 21 mg/dL (7-17); Estimated Glomerular Filt Rate > 60.0 mL/min (>60)
== END ==
PROVIDERS: PCP Family Medicine; Visit Provider Urology
DX: R31.29 Other microscopic hematuria (principal)
CPT/HCPCS: 36415; 82565; 84520

== ENCOUNTER → 2018-11-11 10:43 | Outpatient (CLI) | payer OTHER, SELFPAY ==
--- NOTE | 2018-11-11 | DI.CT.S_ITS ---
PROCEDURE: CT ABDOMEN PELVIS WO/W CON INDICATIONS: Painless, gross hematuria TECHNIQUE: Optional 5 mm thick noncontrast images acquired from the diaphragm to the symphysis pubis. After the administration of intravenous contrast, 5 mm thick images acquired from the diaphragm to the symphysis pubis after a 10-minute delay. 2 mm thick coronal and sagittal reformats were then performed of the kidneys and ureters. For radiation dose reduction, the following was used: automated exposure control, adjustment of mA and/or kV according to patient size. COMPARISON: None. FINDINGS: Image quality: Excellent. Lung bases: Lung bases are clear. Heart size is normal. Pacer leads are seen. Urinary system: Both kidneys are normal in size, without hydronephrosis or nephrolithiasis on pre-contrast images. No perinephric fat stranding. There is normal bilateral renal enhancement. Renal calyces appear normal in morphology when filled with contrast. Opacified portions of both ureters demonstrate normal caliber. Bladder wall thickness is normal. No calcified bladder stones. Other solid organs: Liver is normal in size and enhancement. Gallbladder demonstrates a lamellated gallstone within its lumen. Biliary system is non dilated. Pancreas enhances normally. Spleen is normal in size and enhancement. No adrenal nodules. Peritoneum and bowel: Bowel loops demonstrate normal wall thickness and caliber. No free fluid or air. Incidental note is made of a normal-appearing appendix. Nodes and vessels: No retroperitoneal or mesenteric adenopathy by size criteria. Aorta and inferior vena cava are normal in size. Atherosclerotic calcification is noted. Abdominal wall: A mild periumbilical hernia is seen, containing fat. Pelvis: No pathologic free pelvic fluid. No inguinal hernias or adenopathy. This patient is status post hysterectomy. No adnexal masses are seen. Bones: No suspicious bony lesions. No vertebral body compression fractures. Age-appropriate bony degenerative changes are seen. IMPRESSION: A cause of hematuria is not observed. Specifically, no renal stones or masses are seen. No ureteral or bladder abnormality is seen. Incidental note is made of: Pacer leads Gallstone Mild periumbilical hernia Normal appendix Hysterectomy Dictated by: eTddy Worrell M.D. on 11/11/2018 at 15:11 Approved by: Teddy Worrell M.D. on 11/11/2018 at 15:15
== END ==
PROVIDERS: PCP Family Medicine; Visit Provider Urology
DX: R31.0 Gross hematuria (principal); K80.80 Other cholelithiasis without obstruction; K42.9 Umbilical hernia without obstruction or gangrene; Z95.0 Presence of cardiac pacemaker
CPT/HCPCS: 74178; Q9967

== ENCOUNTER → 2019-01-06 15:21 | Outpatient (CLI) | payer OTHER, SELFPAY ==
[2019-01-06 16:24] LABS: Erythrocyte Sedimentation Rate 7 MM/HR (0-20)
[2019-01-06 17:10] LABS: C-Reactive Protein Quant 0.6 mg/dL (<1.0)
== END ==
PROVIDERS: Family Provider Psychiatry & Neurology Neurology; PCP Family Medicine; Visit Provider Family Medicine
DX: H53.9 Unspecified visual disturbance (principal)
CPT/HCPCS: 36415; 85651; 86140

== ENCOUNTER → 2019-04-24 12:06 | Outpatient (CLI) | payer OTHER, SELFPAY ==
--- NOTE | 2019-04-24 12:10 | DI.US.S_ITS ---
PROCEDURE: US PERIPH VENOUS LOW EXTREM RT INDICATIONS: RT LOWER EXT PAIN, SWELLING, HX OF A-FIB TECHNIQUE: Real-time imaging, as well as color and pulse Doppler interrogation, were performed of the lower extremity deep veins from the inguinal ligament to the popliteal fossa. COMPARISON: None. FINDINGS: The common femoral, femoral and popliteal veins are normally compressible, and free of intraluminal thrombus. Color and pulse Doppler demonstrate normal phasic intraluminal flow. There is normal augmentation response to distal compression maneuver. The distal right lower extremity veins are noted to be enlarged. IMPRESSION: Negative for deep venous thrombosis. Dictated by: Teddy Worrell M.D. on 04/24/2019 at 12:35 Approved by: Teddy Worrell M.D. on 04/24/2019 at 12:37
== END ==
PROVIDERS: Family Provider Family Medicine; PCP Family Medicine; Visit Provider Nurse Practitioner Family
DX: M79.604 Pain in right leg (principal); M79.89 Other specified soft tissue disorders; M25.561 Pain in right knee; I48.91 Unspecified atrial fibrillation
CPT/HCPCS: 93971

== ENCOUNTER → 2019-08-14 11:43 | Outpatient (CLI) | payer OTHER, SELFPAY ==
[2019-08-14 12:53] LABS: Hemoglobin A1C% w Est Avg Glu 5.5 % (4.0-6.0)
[2019-08-14 13:12] LABS: Alanine Aminotransferase 21 IU/L (<35); Albumin 4.1 g/dL (3.5-5.0); Albumin Globulin Ratio 1.6 (1.0-2.8); Alkaline Phosphatase 104 U/L (38-126); Aspartate Aminotransferase 29 IU/L (14-36); BUN Creatinine Ratio 26.3 (6-22); Bilirubin Total 0.6 mg/dL (0.2-1.3); Blood Urea Nitrogen 21 mg/dL (7-17); Carbon Dioxide 33 mmol/L (22-32); Chloride 103 mmol/L (98-107); Cholesterol 135 mg/dL (140-199); Estimated Glomerular Filt Rate > 60.0 mL/min (>60); Globulin 2.6 g/dL (1.7-4.1); Glucose 81 mg/dL (80-110); HDL Cholesterol 52 mg/dL (40-60); HEMOLYSIS < 15 (0-50); LDL Cholesterol Calculated 58 mg/dL (<100); Potassium 5.5 mmol/L (3.4-5.1); Sodium 143 mmol/L (137-145); Total Protein 6.7 g/dL (6.3-8.2); Triglycerides 127 mg/dL (35-150)
[2019-08-14 13:27] LABS: Free T3, Triiodothyronine Free 3.06 pg/mL (2.77-5.27); Free T4, Direct Thyroxine 1.38 ng/dL (0.78-2.19)
[2019-08-14 13:40] LABS: Thyroid Stimulating Hormone 1.71 uIU/mL (0.47-4.68)
== END ==
PROVIDERS: PCP Family Medicine; Visit Provider Family Medicine
DX: E03.9 Hypothyroidism, unspecified (principal); E78.5 Hyperlipidemia, unspecified; I48.91 Unspecified atrial fibrillation
CPT/HCPCS: 36415; 80053; 80061; 83036; 84439; 84443; 84481

== ENCOUNTER → 2019-09-01 12:15 | Outpatient (CLI) | payer OTHER, SELFPAY ==
[2019-09-01 13:05] LABS: Blood Urea Nitrogen 20 mg/dL (7-17); Calcium 9.2 mg/dL (8.4-10.2); Carbon Dioxide 31 mmol/L (22-32); Chloride 103 mmol/L (98-107); Estimated Glomerular Filt Rate > 60.0 mL/min (>60); Glucose 80 mg/dL (80-110); HEMOLYSIS < 15 (0-50); Potassium 4.3 mmol/L (3.4-5.1); Sodium 139 mmol/L (137-145)
== END ==
PROVIDERS: PCP Family Medicine; Visit Provider Family Medicine
DX: E03.9 Hypothyroidism, unspecified (principal); E78.5 Hyperlipidemia, unspecified; I48.91 Unspecified atrial fibrillation
CPT/HCPCS: 36415; 80048

== ENCOUNTER → 2019-10-12 11:38 | Outpatient (CLI) | payer OTHER, SELFPAY ==
[2019-10-12 13:19] LABS: Appearance Urine UA CLEAR; Bilirubin Urine UA NEGATIVE (NEGATIVE); Color Urine UA YELLOW; Glucose Urine UA NEGATIVE (Negative); Ketones Urine UA NEGATIVE (NEGATIVE); Leukocyte Esterase Urine UA TRACE (NEGATIVE); Nitrite Urine UA NEGATIVE (Negative); Occult Blood Urine UA 1+ (Negative); Protein Urine UA NEGATIVE (Negative); Urobilinogen Urine UA 0.2 E.U./dL (0.2)
[2019-10-12 13:55] LABS: Bacteria Urine Few (2-10); Culture Indicated Urine Specimen Cultured; RBC Urine 0-1/HPF (0-5/HPF); Squamous Epithelial Cell Urine 1-5 /HPF (0-5/HPF); WBC Urine 30-100/HPF (0-5/HPF)
== END ==
PROVIDERS: PCP Family Medicine; Visit Provider Family Medicine
DX: R30.0 Dysuria (principal)
CPT/HCPCS: 81001; 87077; 87086; 87186

== ENCOUNTER 2019-10-21 13:29 | Day surgery (SDC) | payer OTHER, SELFPAY ==
[2019-10-21 13:50] VITALS: BMI 24.6
[2019-10-21 14:14] VITALS: BP 145/63; PULSE 63; RESP 15; TEMP 36.2; O2SAT 98
[2019-10-21] MEDS: LACTATED RINGERS 1,000 ML 42 ML IV (14:15)
--- NOTE | 2019-10-21 16:15 | PM.HP.1 ---
History of Present Illness History of Present Illness Date Patient Seen: 10/21/19 Time Patient Seen: 16:15 Chief complaint: [id number] Narrative: This is an 79-year-old woman with history of hemorrhoids, atrial fibrillation recently switched from Eliquis to Coumadin, mitral valve repair, pacemaker in place, urinary incontinence, and chronic constipation. About 2 months ago she had food poisoning which led to significant diarrhea which was bloody per her report. She reports hard stools and stabbing pain in her anal area on a frequent basis. She occasionally sees some blood on the toilet paper. She denies any prolapsing anal tissue. She does sit on the toilet for prolonged periods of time to have a bowel movement. Usually after she has had a hard stool that she then has diarrhea afterwards. She denies using any bowel regimen, specifically no fiber supplement. She denies unexplained weight loss, night sweats or other abdominal pain. On her last visit to see me I recommended Metamucil. She has not started it, and has had no change in her constipation. She denies any further episodes of rectal bleeding. ROS: She does report fatigue joint pain muscle aches dizziness weakness anxiety depression and easy bruising. Thirteen system review is negative other than as mentioned below and in HPI. PE: GENERAL: Well groomed and cooperative. Appears stated age. Answers questions promptly and appropriately. Vital signs noted. HENT: Normocephalic, atraumatic. Hearing intact. Oral mucosa is pink and moist. EYES: Conjunctiva pink, sclera white, no periorbital swelling. CARDIOVASCULAR: Regular rate. No pedal edema. RESPIRATORY: Non tachypneic, breathing comfortably on room air. GASTROINTESTINAL: Abdomen soft and non-distended; no masses Perianal: Very small external hemorrhoids, no stool staining, no blood present JORDAN: Normal tone, no tenderness, no masses GENITALURINARY: No flank tenderness. MUSCULOSKELETAL: Equal tone and mass bilaterally. SKIN: Warm, dry, soft, appropriate color for ethnicity. No other lesions, rashes, or wounds. NEURO: Alert and Oriented X 3. No gross sensory deficits, or cognitive issues. PSYCH: Appropriate affect and mood. 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) Mumps (Resolved 1944) 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) RLS (restless legs syndrome) (Chronic 1969) Sleep apnea (Chronic 2012) Stroke (Resolved 2015) Tinnitus (Chronic 1969) Urinary incontinence (Chronic 2007) Vertigo (Chronic 1969) Vitiligo (Chronic 1977) Surgical History (Updated 09/10/19 @ 13:36 by Taylor Weaver RN) Anesthesia (Resolved) H/O mitral valve repair (Resolved 10/2009) History of cardiac radiofrequency ablation (RFA) (Resolved 2015) Hx of tonsillectomy (Acute) Presence of cardiac pacemaker (Resolved 2014) Status post hysterectomy (Resolved) Family & Social History Family History (Updated 09/10/19 @ 13:43 by Taylor Weaver RN) Brother Age: 80 Heart disease Prostate disease Irregular heartbeat Father Heart disease Hypertension Gallstones Diabetes mellitus Mother Ovarian cancer Heart disease Grandfather Tuberculosis Family/Other Colon cancer Social History: household members spouse Tobacco & Substance use: Smoking Status Never smoker alcohol intake current alcohol intake frequency a few times a month Substance Use Type does not use Meds Home Medications and Allergies Home Medications Medication Instructions Recorded Confirmed Type lisinopril 10 mg PO QNOON #0 03/30/11 10/21/19 History Fish Oil 1,200 mg PO BID #0 04/08/13 10/21/19 History Calcium Citrate + D 1 tab PO BID 03/06/18 10/21/19 History multivitamin with minerals 1 tab PO DAILY 03/06/18 10/21/19 History vit C-vit R-dbmoix-mxwx-lutein 1 cap PO DAILY 03/06/18 10/21/19 History [PreserVision Lutein] metoprolol succinate 25 mg See Rx Instructions PO .COMPLEX 10/18/18 10/21/19 History tablet,extended release 24 hr tab ropinirole 0.5 mg tablet 0.5 mg PO BEDTIME #90 tab 01/06/19 10/21/19 Rx simvastatin 40 mg tablet 40 mg PO BEDTIME #90 tab 03/19/19 10/21/19 Rx flunisolide 25 mcg (0.025 %) nasal 1 spray NASAL BID PRN ml 04/24/19 10/21/19 History spray levothyroxine 88 mcg tablet 88 mcg PO QDAY #90 tab 06/22/19 10/21/19 Rx trospium 60 mg capsule,extended 60 mg PO QAM #90 cer 07/16/19 10/21/19 Rx release 24 hr fluoxetine 10 mg capsule 10 mg PO DAILY #90 cap 09/28/19 10/21/19 Rx Allergies Allergy/AdvReac Type Severity Reaction Status Date / Time codeine [CODEINE] Allergy Mild NAUSEA Verified 10/21/19 14:16 tramadol [TRAMADOL] Allergy Unknown Verified 10/21/19 14:16 Exam Vital Signs (past 8 hours): - 10/21/19 14:14 Temperature 97.1 F L Pulse Rate 63 Respiratory Rate 15 Blood Pressure 145/63 H Pulse Oximetry 98 Oxygen Delivery Method Room Air Assessment & Plan Assessment and plan (1) Internal hemorrhoids: Current visit: No Status: Acute (2) Pain with bowel movements: Current visit: No Status: Acute (3) Hard stool: Current visit: No Status: Acute (4) Constipation: Current visit: No Status: Acute (5) Rectal bleeding: Current visit: No Status: Acute (6) Anal pain: Current visit: No Status: Acute (7) Atrial fibrillation: Problem details: cardioversion 07/2013, 02/2014 Does not tolerate beta blockers with bradycardia Qualifiers: Atrial fibrillation type: chronic Qualified Code(s): I48.2 - Chronic atrial fibrillation Current visit: No Status: None (8) Anticoagulated by anticoagulation treatment: Current visit: Yes Status: Acute Assessment & Plan narrative: Risks and benefits of colonoscopy and polypectomy were discussed, including bleeding, perforation, need for additional procedures, risk of anesthesia. The patient desires to proceed with her colonoscopy procedure Time Spent With Patient Time with patient: 15-24 minutes Quality VTE Deep Vein Thrombosis/Pulmonary Embolism Present on Admission: No
--- NOTE | 2019-10-21 16:51 | PM.OP.ENDO ---
Operative Date/Time/Diagnoses Date of procedure: 10/21/19 Time of procedure: 16:51 Pre-op diagnosis: rectal bleeding Post-op diagnosis: other (diverticulosis, non bleeding hemorrhoids, no polyps or masses seen, no source of active bleeding) Procedure & Clinicians Study performed: Diagnostic colonoscopy Same procedure as scheduled: Yes Indications: Rectal bleeding, constipation Surgeon: Josette Sandhu Procedure Notes SCOAP/Timeout: Performed Procedure in detail: The patient was brought to the room and placed in left lateral decubitus position with all bony prominences padded. A time-out was performed and then the patient was put under monitored anesthesia care by the anesthesiologist. Vitals were monitored throughout the procedure and remained stable. Once adequately sedated the procedure was begun. A rectal exam was performed revealing moderate external hemorrhoids, with no thrombosis, no sign of bleeding, no obvious fissure. The colonoscope was then introduced to the rectum and advanced to the cecum in the usual fashion. []The cecum was identified by the appendiceal orifice, the mucosal tri-fold, and the ileocecal valve. The scope was then retracted while rotating side to side and examining each mucosal fold. [Moderate diverticulosis seen in the descending and sigmoid colon. No signs of active bleeding, or stigmata of recent bleeding were seen.] At the conclusion of the procedure retroflexion was performed and [grade 2-3 internal hemorrhoids without stigmata of bleeding were seen]. The scope was then withdrawn from the rectum the procedure was concluded. The patient tolerated the procedure well and was transferred to the PACU in stable condition. Scope withdrawal time: 10 Findings: diverticulosis and internal hemorrhoids Specimen(s): none sent Complications: none Impression: The patient is rectal bleeding is likely from irritation of her hemorrhoids. Post-procedure Recommendations: Colonscopy in 10 years (If patient is an appropriate health for colonoscopy at that time, or sooner if any new symptoms arise.) and Other recommendation (Recommend to the patient that she use fiber supplement such as Metamucil 1-2 times daily) Follow up: as needed Disposition: PACU
[2019-10-21 16:52] VITALS: BP 130/58; PULSE 60; RESP 13; TEMP 36.2; O2SAT 98
[2019-10-21 16:57] VITALS: BP 140/60; PULSE 60; RESP 14; O2SAT 98
[2019-10-21 17:02] VITALS: BP 149/62; PULSE 60; RESP 15; O2SAT 97
[2019-10-21 17:44] VITALS: BP 161/67; PULSE 60; RESP 15; TEMP 36.8; O2SAT 100
== END 2019-10-21 18:00 | disposition home or self-care (01) ==
PROVIDERS: Family Provider Family Medicine; PCP Family Medicine; Visit Provider Surgery
PROC: 0DJD8ZZ Inspection of Lower Intestinal Tract, Via Natural or Artificial Opening Endoscopic (ICD-10-PCS; CPT 45378; principal; 2019-10-21 14:45)
DX: K62.5 Hemorrhage of anus and rectum (principal); K59.00 Constipation, unspecified; Z79.01 Long term (current) use of anticoagulants; E03.9 Hypothyroidism, unspecified; E78.5 Hyperlipidemia, unspecified; G25.81 Restless legs syndrome; Z95.0 Presence of cardiac pacemaker; I49.5 Sick sinus syndrome; I48.20 Chronic atrial fibrillation, unspecified; K64.1 Second degree hemorrhoids; K57.30 Diverticulosis of large intestine without perforation or abscess without bleeding
CPT/HCPCS: 45378; J2704; J3010

== ENCOUNTER → 2019-10-29 10:59 | Outpatient (CLI) | payer OTHER, SELFPAY ==
--- NOTE | 2019-10-29 | DI.MG.S_ITS ---
BILATERAL DIGITAL SCREENING MAMMOGRAM 3D/2D WITH CAD: 10/29/2019 CLINICAL: Routine screening. Family history of breast cancer. Comparison is made to exams dated: 10/08/2018 mammogram, 09/07/2017 mammogram, and 09/03/2016 mammogram - [facility]. The tissue of both breasts is heterogeneously dense. This may lower the sensitivity of mammography. Current study was also evaluated with a Computer Aided Detection (CAD) system. There are mole markers on the left breast. No significant masses, calcifications, or other findings are seen in either breast. There has been no significant interval change. IMPRESSION: NEGATIVE There is no mammographic evidence of malignancy. A 1 year screening mammogram is recommended. This exam was interpreted at Station ID: [id number]. NOTE: For mammograms, a report in lay terms will be sent to the patient. Approximately 15% of breast malignancies will not be visualized mammographically. In the management of a palpable breast mass, a negative mammogram must not discourage biopsy of a clinically suspicious lesion. Electronically Signed By: Vinita chang/norm:10/30/2019 13:56:41 letter sent: Normal Exam ACR BI-RADS Category 1: Negative [id number]
--- NOTE | 2019-10-29 11:01 | DI.US.S_ITS ---
PROCEDURE: US ABDOMEN LIMITED INDICATIONS: RULE OUT HERNIA TECHNIQUE: Real-time focused scanning was performed of the abdomen, with image documentation. COMPARISON: None. FINDINGS: On the right, there is a small fat containing indirect inguinal hernia seen, which changes minimally with Valsalva maneuver. It is not reducible. Noncompressible with probe pressure. IMPRESSION: Small fat-containing right indirect inguinal hernia. Dictated by: Teddy Worrell M.D. on 10/29/2019 at 13:01 Approved by: Teddy Worrell M.D. on 10/29/2019 at 13:02
== END ==
PROVIDERS: Family Provider Family Medicine; PCP Family Medicine; Referring Provider Family Medicine; Visit Provider Family Medicine
DX: Z12.31 Encounter for screening mammogram for malignant neoplasm of breast (principal); Z80.3 Family history of malignant neoplasm of breast; R10.31 Right lower quadrant pain; K40.90 Unilateral inguinal hernia, without obstruction or gangrene, not specified as recurrent; G89.29 Other chronic pain
CPT/HCPCS: 76705; 77063; 77067

== ENCOUNTER → 2019-11-02 14:48 | Outpatient (CLI) | payer OTHER, SELFPAY | PROVIDERS: Family Provider Family Medicine; PCP Family Medicine; Referring Provider Family Medicine; Visit Provider Family Medicine | DX: N39.0 Urinary tract infection, site not specified (principal) | CPT/HCPCS: 87086 ==

== ENCOUNTER 2019-11-03 10:31 | Day surgery (SDC) | payer OTHER, SELFPAY ==
[2019-11-03 10:54] VITALS: BP 140/66; PULSE 69; RESP 15; TEMP 36.7; O2SAT 100
[2019-11-03] MEDS: PROPARACAINE 0.5% OPHTH SOL 2 DROPS EYE-OP (11:10)
[2019-11-03] MEDS: CATARACT EYE COMPOUND (10 DROPS/SYRINGE) 3 DROPS EYE-OP (11:12)
--- NOTE | 2019-11-03 11:34 | PM.PREOP ---
Pre-operative Note Interval Note History & Physical reviewed/Exam performed by Physician: Yes Changes to H&P: No
--- NOTE | 2019-11-03 11:34 | PM.OP.1 ---
Operative Date/Time/Diagnoses Pre-op diagnosis: Nuclear Cataract Left eye Post-op diagnosis: same Procedure & Clinicians Same procedure as scheduled: Yes Surgeon: Oscar Wilson Anesthesia Type: MAC +/- and Sedation Operative Notes Procedure in detail: Patient brought to the operating suite. Tetracaine drops placed in the left eye. The vertical and horizontal meridians were marked with marking instrument. Patient was prepped and draped in sterile manner. Wire lid speculum was placed in the eye. Betadine drops were placed on the eye. This was irrigated. Lidocaine jelly was placed on the eye. A paracentesis port was created with a side-port blade. 0.1 mL 1% preservative free lidocaine was injected into the anterior chamber. The anterior chamber was deepened with viscoelastic. 2.6 mm keratome was used to create a temporal clear corneal incision. Cystotome and Utrata forceps were used to create continuous tear capsulorrhexis. Balanced salt solution was used to hydro dissect the nucleus. The phacoemulsification handpiece was inserted and the nucleus was removed using the stop and chop technique. The irrigation aspiration handpiece was inserted and the remaining cortex was removed. Anterior chamber was deepened with viscoelastic. An Morrell [id number] intraocular lens with a power of 23.0 was injected into the capsular bag. Irrigation aspiration handpiece was inserted and the remaining viscoelastic was removed. The lens was rotated to the 180 degree meridian. Incision was hydrated with balanced salt solution and found to be leak free with pressure with Weck-Kaia sponges. 0.1 mL Vigamox injected anterior chamber. 0.3 mL Kenalog 10 mg was injected subconjunctivally. Lid speculum was removed. The patient left the operating room in excellent condition. Complications: none Post-operative Condition: stable Disposition: same day surgery
[2019-11-03] MEDS: MOXIFLOXACIN INJ 5 MG/ML VIAL EYE-OP (11:52)
[2019-11-03] MEDS: LIDOCAINE JELLY 2% 5 ML 1 APPLIC TOP (11:52)
[2019-11-03] MEDS: CHONDROIDTIN/SOD HYALURONATE 1.05 ML SYRINGE INTRAOCULA (11:52)
[2019-11-03] MEDS: TRIAMCINOLONE 50 MG/5 ML VIAL INJ (11:53)
[2019-11-03] MEDS: PHENYLEPHRINE/LIDOCAINE VIAL (OR) 0.2 ML EYE-OP (11:53)
[2019-11-03] MEDS: TETRACAINE 0.5% OPHTH DROPS 4 ML 2 DROPS EYE-OP (11:53)
[2019-11-03] MEDS: BALANCED SALT IRRIG SOLN NO.2 500 ML, EPINEPHrine 1 MG IRR (11:54)
[2019-11-03 12:09] VITALS: BP 142/80; PULSE 60; RESP 16; TEMP 36.9; O2SAT 98
--- NOTE | 2019-11-03 12:10 | SUR.PHASEII ---
returned from the OR on a stretcher, very sleepy, arouses easily to voice. Allowed to sleep.
--- NOTE | 2019-11-03 12:16 | SUR.PHASEII ---
Pt drank 4 oz juice, very sleepy, desires to sleep prior to calling for ride. Call light given. Report off to Marichuy James RN
[2019-11-03 13:15] VITALS: BP 157/78; PULSE 60; RESP 16; TEMP 36.4; O2SAT 100
== END 2019-11-03 13:20 | disposition home or self-care (01) ==
PROVIDERS: Family Provider Family Medicine; PCP Family Medicine; Referring Provider Ophthalmology; Visit Provider Ophthalmology
PROC: (CPT 66984; principal; 2019-11-03 12:15)
DX: H25.12 Age-related nuclear cataract, left eye (principal)
CPT/HCPCS: 66984; J0171; J2250; J3010; J3301; V2787

== ENCOUNTER 2019-11-17 08:24 | Day surgery (SDC) | payer OTHER, SELFPAY ==
[2019-11-17] MEDS: PROPARACAINE 0.5% OPHTH SOL 2 DROPS EYE-OP (09:25)
[2019-11-17] MEDS: CATARACT EYE COMPOUND (10 DROPS/SYRINGE) 3 DROPS EYE-OP (09:27)
[2019-11-17 09:30] VITALS: BP 123/68; PULSE 60; RESP 18; TEMP 36.4; O2SAT 98
[2019-11-17 09:31] VITALS: BMI 25.0
[2019-11-17 09:52] VITALS: BMI 25.0
--- NOTE | 2019-11-17 10:02 | PM.PREOP ---
Pre-operative Note Interval Note History & Physical reviewed/Exam performed by Physician: Yes Changes to H&P: No
--- NOTE | 2019-11-17 10:02 | PM.OP.1 ---
Operative Date/Time/Diagnoses Pre-op diagnosis: Nuclear cataract right eye Procedure & Clinicians Procedure: Cataract Surgery Same procedure as scheduled: Yes Surgeon: Oscar Wilson Anesthesia Type: MAC +/- and Sedation Operative Notes Procedure in detail: Patient brought to the operating suite. Tetracaine drops placed in the right eye. Marking instrument was used to jessica the vertical and horizontal merdians. Patient was prepped and draped in sterile manner. Wire lid speculum was placed in the eye. Marking instrument was used to jessica the 10 degree meridian. Betadine drops were placed on the eye. This was irrigated. Lidocaine jelly was placed on the eye. A paracentesis port was created with a side-port blade. 0.1 mL 1% preservative free lidocaine was injected into the anterior chamber. The anterior chamber was deepened with viscoelastic. 2.6 mm keratome was used to create a temporal clear corneal incision. Cystotome and Utrata forceps were used to create continuous tear capsulorrhexis. Balanced salt solution was used to hydro dissect the nucleus. The phacoemulsification handpiece was inserted and the nucleus was removed using the stop and chop technique. The irrigation aspiration handpiece was inserted and the remaining cortex was removed. Anterior chamber was deepened with viscoelastic. An Morrell [id number] intraocular lens with a power of 23.0 was injected into the capsular bag. Irrigation aspiration handpiece was inserted and the remaining viscoelastic was removed. The lens was rotated to the 10 degree meridian. Incision was hydrated with balanced salt solution and found to be leak free with pressure with Weck-Kaia sponges. 0.1 mL Vigamox injected anterior chamber. 0.3 mL Kenalog 10 mg was injected subconjunctivally. Lid speculum was removed. The patient left the operating room in excellent condition. Complications: none Post-operative Condition: stable Disposition: same day surgery
[2019-11-17] MEDS: PHENYLEPHRINE/LIDOCAINE VIAL (OR) 0.2 ML EYE-OP (10:20)
[2019-11-17] MEDS: CHONDROIDTIN/SOD HYALURONATE 1.05 ML SYRINGE INTRAOCULA (10:21)
[2019-11-17] MEDS: TETRACAINE 0.5% OPHTH DROPS 4 ML 2 DROPS EYE-OP (10:21)
[2019-11-17] MEDS: LIDOCAINE JELLY 2% 5 ML 1 APPLIC TOP (10:21)
[2019-11-17] MEDS: MOXIFLOXACIN INJ 5 MG/ML VIAL EYE-OP (10:21)
[2019-11-17] MEDS: TRIAMCINOLONE 50 MG/5 ML VIAL INJ (10:21)
[2019-11-17] MEDS: BALANCED SALT IRRIG SOLN NO.2 500 ML, EPINEPHrine 1 MG IRR (10:22)
[2019-11-17 10:32] VITALS: BP 118/68; PULSE 60; RESP 12; TEMP 36.3; O2SAT 93
[2019-11-17 10:50] VITALS: BP 107/67; PULSE 60; RESP 12; TEMP 36.4; O2SAT 95
[2019-11-17 11:20] VITALS: BP 122/68; PULSE 60; RESP 12; TEMP 36.2; O2SAT 99
[2019-11-17 11:40] VITALS: BP 120/60; PULSE 60; RESP 16; TEMP 36.2; O2SAT 99
== END 2019-11-17 11:45 | disposition home or self-care (01) ==
PROVIDERS: Family Provider Family Medicine; PCP Family Medicine; Referring Provider Family Medicine; Visit Provider Ophthalmology
PROC: (CPT 66984; principal; 2019-11-17 10:15)
DX: H25.11 Age-related nuclear cataract, right eye (principal)
CPT/HCPCS: 66984; J0171; J2250; J3010; J3301; V2787

== ENCOUNTER → 2020-03-28 13:57 | Outpatient (CLI) | payer OTHER, SELFPAY ==
[2020-03-28 16:35] LABS: TSH w/ Reflex to FT4 1.72 uIU/mL (0.47-4.68)
== END ==
PROVIDERS: Family Provider Family Medicine; PCP Family Medicine; Referring Provider Family Medicine; Visit Provider Family Medicine
DX: E03.9 Hypothyroidism, unspecified (principal)
CPT/HCPCS: 36415; 84443

== ENCOUNTER → 2020-03-29 15:01 | Outpatient (CLI) | payer OTHER, SELFPAY ==
[2020-03-29 19:15] LABS: Bilirubin Urine UA NEGATIVE (NEGATIVE); Color Urine UA YELLOW; Glucose Urine UA NEGATIVE (Negative); Ketones Urine UA NEGATIVE (NEGATIVE); Leukocyte Esterase Urine UA 3+ (NEGATIVE); Nitrite Urine UA NEGATIVE (Negative); Occult Blood Urine UA 1+ (Negative); Protein Urine UA NEGATIVE (Negative); Specific Gravity Urine UA 1.025 (1.000-1.035); Urobilinogen Urine UA 0.2 E.U./dL (0.2)
[2020-03-29 20:17] LABS: Appearance Urine UA Cloudy; RBC Urine 1-5/HPF (0-5/HPF)
[2020-03-29 20:18] LABS: Amorphous Sediment Urine 2+; Bacteria Urine Many (>30); Calcium Oxalate Crystals Urine Moderate; Culture Indicated Urine Specimen Cultured; Renal Epithelial Cells Urine 1-5/HPF (0-1/HPF); Squamous Epithelial Cell Urine 0-1 /HPF (0-5/HPF); Transitional Epi Cells Urine 1-5/HPF (0-5/HPF); WBC Urine 30-100/HPF (0-5/HPF)
== END ==
PROVIDERS: Family Provider Family Medicine; PCP Family Medicine; Visit Provider Nurse Practitioner
DX: R82.90 Unspecified abnormal findings in urine (principal); R82.998 Other abnormal findings in urine
CPT/HCPCS: 81001; 87086

== ENCOUNTER → 2020-04-20 12:20 | Outpatient (CLI) | payer OTHER, SELFPAY ==
[2020-04-20 19:04] LABS: Appearance Urine UA SL CLOUDY; Bilirubin Urine UA NEGATIVE (NEGATIVE); Color Urine UA YELLOW; Glucose Urine UA NEGATIVE (Negative); Ketones Urine UA NEGATIVE (NEGATIVE); Leukocyte Esterase Urine UA 1+ (NEGATIVE); Nitrite Urine UA POSITIVE (Negative); Occult Blood Urine UA 1+ (Negative); Protein Urine UA NEGATIVE (Negative); Urobilinogen Urine UA 0.2 E.U./dL (0.2)
[2020-04-20 19:05] LABS: pH Urine UA 5.5 (4.5-8.0)
[2020-04-20 19:08] LABS: RBC Urine 5-10/HPF (0-5/HPF)
[2020-04-20 19:09] LABS: Bacteria Urine Many (>30); Culture Indicated Urine Specimen Cultured; WBC Urine 10-30/HPF (0-5/HPF)
== END ==
PROVIDERS: Family Provider Family Medicine; PCP Family Medicine; Visit Provider Nurse Practitioner
DX: N39.0 Urinary tract infection, site not specified (principal)
CPT/HCPCS: 81001; 87077; 87086; 87186

== ENCOUNTER → 2020-04-22 14:16 | Outpatient (CLI) | payer OTHER, SELFPAY ==
--- NOTE | 2020-04-22 14:19 | DI.US.S_ITS ---
PROCEDURE: US ABDOMEN LIMITED INDICATIONS: RIGHT FLANK LUMP TECHNIQUE: Real-time focused scanning was performed of the abdomen, with image documentation. COMPARISON: [facility], , US ABDOMEN LIMITED, 10/29/2019, 11:33. FINDINGS: 1.1 x 1.2 x 2.3 cm isoechoic subcutaneous soft tissue mass corresponding to the palpable abnormality. Color-flow Doppler demonstrates no vascularity. IMPRESSION: Possible subcutaneous lipoma; however differential diagnosis would include both benign and malignant etiologies. Recommend clinical correlation and management. Dictated by: Tico Cherry [facility] Interpreted: Warner Bhardwaj MD on 04/22/2020 at 14:45 Approved by: Warner Bhardwaj M.D. on 04/22/2020 at 15:03
== END ==
PROVIDERS: Family Provider Family Medicine; PCP Family Medicine; Referring Provider Nurse Practitioner; Visit Provider Nurse Practitioner
DX: R22.2 Localized swelling, mass and lump, trunk (principal)
CPT/HCPCS: 76705

== ENCOUNTER → 2020-05-25 11:31 | Outpatient (CLI) | payer OTHER, SELFPAY ==
[2020-05-25 12:21] LABS: Appearance Urine UA CLEAR; Bilirubin Urine UA NEGATIVE (NEGATIVE); Color Urine UA YELLOW; Glucose Urine UA NEGATIVE (Negative); Ketones Urine UA NEGATIVE (NEGATIVE); Leukocyte Esterase Urine UA NEGATIVE (NEGATIVE); Nitrite Urine UA NEGATIVE (Negative); Occult Blood Urine UA 1+ (Negative); Protein Urine UA NEGATIVE (Negative); Specific Gravity Urine UA 1.025 (1.000-1.035); Urobilinogen Urine UA 0.2 E.U./dL (0.2)
[2020-05-25 12:59] LABS: Bacteria Urine Occasional (0-1); Culture Indicated Urine Cult Not Indicated; RBC Urine 0-1/HPF (0-5/HPF); Squamous Epithelial Cell Urine 0-1 /HPF (0-5/HPF); WBC Urine 0-1/HPF (0-5/HPF)
== END ==
PROVIDERS: Family Provider Family Medicine; PCP Family Medicine; Referring Provider Nurse Practitioner; Visit Provider Nurse Practitioner
DX: Z87.440 Personal history of urinary (tract) infections (principal)
CPT/HCPCS: 81003; 81015

== ENCOUNTER → 2020-08-15 09:59 | Outpatient (CLI) | payer OTHER, SELFPAY ==
[2020-08-15 11:22] LABS: BUN Creatinine Ratio 21.3 (6-22); Blood Urea Nitrogen 17 mg/dL (7-17); Calcium 9.4 mg/dL (8.4-10.2); Carbon Dioxide 32 mmol/L (22-32); Chloride 103 mmol/L (98-107); Estimated Glomerular Filt Rate > 60.0 mL/min (>60); Glucose 85 mg/dL (80-110); HEMOLYSIS < 15 (0-50); Potassium 4.2 mmol/L (3.4-5.1); Sodium 139 mmol/L (137-145)
== END ==
PROVIDERS: Family Provider Family Medicine; PCP Family Medicine; Referring Provider Specialist; Visit Provider Specialist
DX: N28.9 Disorder of kidney and ureter, unspecified (principal)
CPT/HCPCS: 36415; 80048

== ENCOUNTER → 2020-08-15 10:03 | Outpatient (CLI) | payer OTHER, SELFPAY ==
--- NOTE | 2020-08-15 11:27 | DI.CT.S_ITS ---
PROCEDURE: CT ABDOMEN PELVIS WO/W CON INDICATIONS: hematuria TECHNIQUE: Optional 5 mm thick noncontrast images acquired from the diaphragm to the symphysis pubis. After the administration of intravenous contrast, 5 mm thick images acquired from the diaphragm to the symphysis pubis after a 10-minute delay. 2 mm thick coronal and sagittal reformats were then performed of the kidneys and ureters. For radiation dose reduction, the following was used: automated exposure control, adjustment of mA and/or kV according to patient size. COMPARISON: [facility], CT, CT ABDOMEN PELVIS WO/W CON, 11/11/2018, 10:52. FINDINGS: Image quality: Excellent. Lung bases: Lung bases are clear. Heart size is normal. Urinary system: Both kidneys are normal in size, without hydronephrosis or nephrolithiasis on pre-contrast images. No perinephric fat stranding. There is normal bilateral renal enhancement. Renal calyces appear normal in morphology when filled with contrast. Opacified portions of both ureters demonstrate normal caliber. Bladder wall thickness is normal. No calcified bladder stones. Other solid organs: Liver is normal in size and enhancement. Gallbladder contains a 2.2 cm maximal dimension peripherally calcified gallstone without evidence of acute cholecystitis or biliary obstruction. Biliary system is non dilated. Pancreas enhances normally. Spleen is normal in size and enhancement. No adrenal nodules. Peritoneum and bowel: Bowel loops demonstrate normal wall thickness and caliber. No free fluid or air. Nodes and vessels: No retroperitoneal or mesenteric adenopathy by size criteria. Aorta and inferior vena cava are normal in size. Abdominal wall: No ventral hernias. Pelvis: No pathologic free pelvic fluid. No inguinal hernias or adenopathy. Bones: No suspicious bony lesions. No vertebral body compression fractures. IMPRESSION: No hydronephrosis or nephrolithiasis found. There is no evidence of renal cortical mass lesion or urothelial neoplasm. A urinary tract stone is not seen. Incidental note is made of a 2.2 cm large gallstone within the gallbladder lumen which shows no evidence of acute cholecystitis or associated biliary obstruction. Dictated by: Kahlil Sahu M.D. on 08/15/2020 at 12:43 Approved by: Kahlil Sahu M.D. on 08/15/2020 at 12:46
== END ==
PROVIDERS: Family Provider Family Medicine; PCP Family Medicine; Referring Provider Specialist; Visit Provider Specialist
DX: R31.9 Hematuria, unspecified (principal); N28.9 Disorder of kidney and ureter, unspecified; K80.20 Calculus of gallbladder without cholecystitis without obstruction
CPT/HCPCS: 36415; 74178; 80048; Q9967

== ENCOUNTER → 2020-12-29 11:17 | Outpatient (CLI) | payer OTHER, SELFPAY ==
--- NOTE | 2020-12-29 | DI.MG.S_ITS ---
BILATERAL DIGITAL SCREENING MAMMOGRAM 3D/2D WITH CAD: 12/29/2020 CLINICAL: Routine screening. Family history of breast cancer. Comparison is made to exams dated: 10/29/2019 mammogram, 10/08/2018 mammogram, and 09/07/2017 mammogram - [facility]. The tissue of both breasts is heterogeneously dense. This may lower the sensitivity of mammography. Current study was also evaluated with a Computer Aided Detection (CAD) system. There are benign calcifications in both breasts. There are mole markers on the left breast. No significant masses, calcifications, or other findings are seen in either breast. There has been no significant interval change. IMPRESSION: BENIGN There is no mammographic evidence of malignancy. A 1 year screening mammogram is recommended. This exam was interpreted at Station ID: [id number]. NOTE: For mammograms, a report in lay terms will be sent to the patient. Approximately 15% of breast malignancies will not be visualized mammographically. In the management of a palpable breast mass, a negative mammogram must not discourage biopsy of a clinically suspicious lesion. Electronically Signed By: Hiro olmedo/norm:12/29/2020 11:45:39 letter sent: Normal Exam ACR BI-RADS Category 2: Benign Finding(s) 3342F
== END ==
PROVIDERS: Family Provider Family Medicine; PCP Family Medicine; Referring Provider Family Medicine; Visit Provider Family Medicine
DX: Z12.31 Encounter for screening mammogram for malignant neoplasm of breast (principal); Z80.3 Family history of malignant neoplasm of breast
CPT/HCPCS: 77063; 77067

== ENCOUNTER → 2021-05-12 08:22 | Outpatient (CLI) | payer OTHER, SELFPAY ==
--- NOTE | 2021-05-12 08:23 | DI.RAD.S_ITS ---
PROCEDURE: XR KNEE LT 3V INDICATIONS: left knee pain TECHNIQUE: 3 views of the knee were acquired. COMPARISON: [place], [place], BONE SCAN WHOLE BODY, 05/27/2014, 12:53. [facility], FEMUR TWO OR MORE VIEWS LEFT, 01/13/2018, 14:51. [place], [place] BONE SCAN WHOLE BODY, 01/22/2018, 11:59. FINDINGS: Bones: No acute fractures or dislocations. Chronic bowing, subcortical lucency and cortical thickening of the posterior medial cortex of the distal femoral metadiaphysis appear unchanged from 01/13/2018. Bone scan showed no abnormal uptake in the area. No periosteal reaction. Moderate osteoarthritic changes, most pronounced in the medial femorotibial compartment and patellofemoral compartment. Soft tissues: No joint effusion. No suspicious soft tissue calcifications. IMPRESSION: 1. Moderate osteoarthritis. 2. Chronic abnormality posterior medial aspect of the distal femoral metadiaphysis, stable since 01/16/2018. Previous comparison bone scan showed no abnormal uptake in the area. The findings likely benign and may be secondary to fibrous cortical defect, enchondroma or nonossifying fibroma. Dictated by: Mikey Hughes M.D. on 05/12/2021 at 10:24 Approved by: Mikey Hughes M.D. on 05/12/2021 at 10:32
== END ==
PROVIDERS: Family Provider Family Medicine; PCP Family Medicine; Referring Provider Family Medicine; Visit Provider Family Medicine
DX: M25.562 Pain in left knee (principal); M17.12 Unilateral primary osteoarthritis, left knee
CPT/HCPCS: 73562

== ENCOUNTER → 2021-07-12 13:43 | Outpatient (CLI) | payer OTHER, SELFPAY ==
--- NOTE | 2021-07-12 13:44 | DI.CT.S_ITS ---
PROCEDURE: CT HEAD/BRAIN WO CON INDICATIONS: fall, anticoagulation TECHNIQUE: Noncontrast 4.5 mm thick angled axial sections acquired from the foramen magnum to the vertex, with coronal and sagittal reformats. For radiation dose reduction, the following was used: automated exposure control, adjustment of mA and/or kV according to patient size. COMPARISON: CT, CT ANGIO HEAD AND NECK, 08/18/2018, 15:44. [facility], CT, CT HEAD/BRAIN WO CON, 03/06/2018, 12:01. Former[facility], CT, HEAD WITHOUT CONTRAST, 06/20/2017, 1:34. FINDINGS: Image quality: Excellent. CSF spaces: Basal cisterns are patent. No extra-axial fluid collections. The ventricles are symmetric in size and shape. Brain: No intracranial bleeds or masses. There is cerebral volume loss for age, with resultant ventricular and sulcal prominence. There are periventricular and deep white matter chronic small vessel ischemic changes. There is intracranial internal carotid artery atherosclerosis. Skull and face: Calvarium and visualized facial bones appear intact, without suspicious lesions. Sinuses: Visualized sinuses and mastoids are clear. IMPRESSION: No acute intracranial disease process. Dictated by: Mayra Humphries MD, PhD on 07/12/2021 at 15:34 Approved by: Mayra Humphries MD, PhD on 07/12/2021 at 15:36
== END ==
PROVIDERS: PCP Family Medicine; Referring Provider Family Medicine; Visit Provider Family Medicine
DX: S09.90XA Unspecified injury of head, initial encounter (principal); I48.91 Unspecified atrial fibrillation; Z79.01 Long term (current) use of anticoagulants; W19.XXXA Unspecified fall, initial encounter
CPT/HCPCS: 70450

== ENCOUNTER → 2021-07-19 13:55 | Outpatient (CLI) | payer OTHER, SELFPAY ==
[2021-07-19 15:51] LABS: TSH w/ Reflex to FT4 8.63 uIU/mL (0.47-4.68)
[2021-07-19 17:52] LABS: Free T4, Direct Thyroxine 1.34 ng/dL (0.78-2.19)
== END ==
PROVIDERS: PCP Family Medicine; Referring Provider Family Medicine; Visit Provider Family Medicine
DX: E03.9 Hypothyroidism, unspecified (principal)
CPT/HCPCS: 36415; 84439; 84443

== ENCOUNTER 2021-08-01 10:30 | Outpatient (RCR) | payer OTHER, SELFPAY ==
--- NOTE | 2021-05-23 18:00 | PT.OPPOC ---
Physical, Occupational & Speech Therapy At [facility] Current Diagnoses Other chronic pain (05/23/21) Pain in left knee (05/23/21) Muscle weakness (generalized) (05/23/21) Other bursitis of knee, left knee (05/23/21) Unsteadiness on feet (05/23/21) Visit Care Team Role Provider Type Peyton Roy DO Primary Care Provider Physician Specialty: [facility] Address: [address] [place] [address], [address], [place], [facility] Email: [email or web address] Woody Telels MD Attending Provider Physician Referring Provider Specialty: [facility] Address: [address] [place] [address], [facility] Email: [email or web address] Plan Of Care PT-OP-T Assessment and Plan Start: 05/21/21 13:18 Freq: Status: Active Protocol: Document 05/23/21 08:17 LRN (Rec: 05/23/21 09:09 LRN [id number]) Physical Therapy Assessment Rehab Potential Rehabilitation Potential Excellent Evaluation Complexity Number of Personal Factors/Comorbidities 0 Number of Body Systems Impaired 4 or More Clinical Presentation at Evaluation Evolving Impairments Impairments Activity Tolerance,Gait,Pain, ROM,Soft Tissue Mobility, Strength Goals Three Impairment Decreased L knee AROM Impairment L knee AROM: flex - 75 deg's, ext - lacks 10 deg's Short Term Goal (STG) Improve L knee AROM 0-90 deg's for improved ablity to dress and to be able to lay with legs straight at nighttime. normalize gait. STG Duration 07/03/21 Correction Goal (LTG) Improve L knee AROM 0-125 with pt able to sleep at night at prior level and improve function per TUG or gait speed . LTG Duration 08/21/21 Two Impairment L medial knee pain rated 7/10 limiting mobility. Short Term Goal (STG) Decrease L medial knee pain to 4/10 with pt able to move easier getting out of bed. STG Duration 07/03/21 Correction Goal (LTG) Decrease pain to 3/10, with pt able to ambulate on level or stairs with normal gait pattern. LTG Duration 08/21/21 One Impairment HEP Correction Goal (LTG) Pt will be educated in a self care HEP. LTG Duration 08/21/21 Assessment Summary Assessment Pt presents with possible MCL or meniscus injury per Valgus Stress Test and Kayy Test. Further medical testing would be needed to rule out soft tissue dysfunction. Functionally she is limited ( mobility/gait) due to limitation L knee AROM and strength, and swelling in the L knee is visible present. The pt will benefit from skilled physical therapy to achieve the above stated goals . Physical Therapy Plan Frequency and Duration Frequency of Treatment 2x/Week Plan of Care Start Date 05/23/21 Plan of Care End Date 08/21/21 Therapeutic Interventions Therapeutic Interventions Aquatic Therapy,Balance Training,Gait Training,Home Exercise Program,Manual Therapy,Neuromuscular Re- education,Patient/Caregiver Education,Self-Care/Home Management,Soft Tissue Mobilization,Taping, Therapeutic Activities, Therapeutic Exercises Modalities Cold Pack/Ice Massage,Hot Packs Other Referrals/Consults Referrals/Consults Recommended Further medical testing of the L knee if poor progression in physical therapy rehabilitation. Next Visit Focus/Plan Next Note Type Treatment Note Next Visit Plan Educate pt in L LE self care lymphedema massage, start gentle L knee AROM and isometric strengthening progressing to Conc/ECC. Start ankle ROM & strengthening ex's (PF/DF/EV). Gait training with cane. Progressive gait & balance training on level and stairs when appropriate. End modalities of ice (Note: pt has pacemaker) Plan of Care Dates Plan of Care Start Date 05/23/21 Plan of Care End Date 08/21/21 Electronically Signed by: Vinita Weaver, PT 05/23/21 [id number] Please Sign and Return: I have reviewed this Plan of Care and certify that the skilled therapy services above are required to meet the patient?s needs. Physician Signature Date Printed Name and Credentials Clinical Instructor Signature Printed Name and Credentials
--- NOTE | 2021-05-23 18:00 | PT.OIE ---
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) Depression (1968) Disorder of nasal sinus Dry eye syndrome Family history of nephrolithiasis Foot arch pain (1984) H/O breast biopsy H/O hernia repair H/O mitral valve repair (10/2009) Hematuria Hemorrhoids Hx of tonsillectomy Hyperlipidemia Hypertension Hypothyroidism Infertility Inguinal hernia of right side without obstruction or gangrene Lower urinary tract symptoms (LUTS) Measles (1945) Meniere's disease Migraines 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) Mumps (1944) Nuclear sclerosis of both eyes Postmenopausal atrophic vaginitis Postmenopausal status (03/30/11) Ptosis Retinal drusen of both eyes Right thigh pain RLS (restless legs syndrome) (1969) Sleep apnea (2012) Somatic dysfunction of lower extremity Stroke (2015) Tinnitus (1969) Urinary incontinence (2007) Uterine prolapse Vaginal stricture Vertigo (1969) Vitiligo (1977) Past Surgical History (Last Reviewed 08/25/20 @ 13:32 by Gray Limon MD) Anesthesia H/O breast biopsy H/O hernia repair H/O mitral valve repair (10/2009) History of cardiac radiofrequency ablation (RFA) (2015) Hx of tonsillectomy Presence of cardiac pacemaker (2014) Status post hysterectomy Visit Care Team Role Provider Type Peyton oRy DO Primary Care Provider Physician Specialty: Family Practice Address: [address] [place] [address], [address], [place], [address] Email: [email or web address] Woody Telles MD Attending Provider Physician Referring Provider Specialty: [facility] Practice Address: [address] [place] [address], [id number] Email: [email or web address] Physical Therapy Initial Evaluation PT-OP-A Visit Information Start: 05/21/21 13:18 Freq: Status: Active Protocol: Document 05/23/21 08:17 LRN (Rec: 05/23/21 09:09 LRN [id number]) Out-Patient Physical Therapy Visit Information Visit Information Visit Type Initial Evaluation Visit Start Time 08:17 Visit Stop Time 09:07 Total Visit Minutes 52 Visit Number 1 Evaluation Information Evaluation Date 05/23/21 Precautions Precautions Pacemaker, Easily becomes SOB, arthritis, Mitral valve repair 2009, head surgery 2007 PT-OP-B Current Condition Start: 05/21/21 13:18 Freq: Status: Active Protocol: Document 05/23/21 08:17 LRN (Rec: 05/23/21 09:09 LRN [id number]) Current Condition History of Current Condition Onset Date 1 month ago Current Complaints L posteromedial & anteriomedial knee pain History of Current Condition Pain off/on through the years after falling off a horse 17 yrs ago. Has had gradual onset for the past year and all of a sudden a month ago, insidious onset, pain became severe in L medial or posterior knee that radiated into lower leg. Pain around medial tibial plateau. 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 Treatment Goals Patient/Caregiver Goals Pt goals: -Get rid of pain to be able to roll over in bed and touch knee without pain, -Improve ability to sleep at night (now lays on back and leg straight, but used to be able to lie on sides and bend knee. -Improve ease of getting out of bed (used to be able to get out of bed without worry) -Improve walking on level and stair (normal gait) -Improve gait speed or TUG Prior Functional Status Baseline Function- ADL's Independent Baseline Function- Mobility Independent Baseline Function- Gait Independent without antalgic gait. Baseline Function- Recreation/Hobbies Mentally difficulty getting up off the floor/gardening. Current Functional Impairments (Reported) Functional Limitations- ADL's Ambs with antalgic gait (stiff R knee) Difficulty getting out of bed, out of chair. Difficulty picking up objects or getting up off the floor/ gardening. Difficulty putting on underwear, pants, socks, shoes . Difficulty sleeping. Functional Limitations- Mobility/Gait Antalgic gait due to L knee pain. Personal Factors Other Personal Factors That May Effect , Mitral valve repaired Therapy/Recovery in 2009 with dizziness and SOB easily - controlled by medications, pacemaker, arthritis. PT-OP-C Subjective Start: 05/21/21 13:18 Freq: Status: Active Protocol: Document 05/23/21 08:17 LRN (Rec: 05/23/21 09:09 LRN [id number]) Patient Questionnaires Lower Extremity Functional Scale LEFS Score 16 LEFS Impairment 80 to 99% Impaired (Score 1-16 ) OP-PT Pain Assessment Pain Assessment Grid Paper Pain Assessment Grid Completed Yes Location L knee Pain Location Details L medial and posterior KNEE Intensity 7 Scale Used Numeric (0 - 10) Description Sharp Frequency Frequent Variations/Patterns Pain with any movement. Pain Aggravating Factors Changing Position,Activity Other Pain Alleviating Factors No movement. Tylenol & mineral ice. PT-OP-G Mobility & Gait Start: 05/21/21 13:18 Freq: Status: Active Protocol: Document 05/23/21 08:17 LRN (Rec: 05/23/21 09:09 LRN [id number]) OP Gait Assessment Gait Gait Assistance Required: Independent Assistive Devices Assistive Device None Gait Deviations General Gait Pattern Antalgic,Decreased Stride Length Factors Limiting Gait Function Factors Limiting Gait Function Pain Comments Gait Comments Ambs slowly with stiff R knee to decrease jarring on painful L knee. Stair Climbing Evaluation Evaluation Level of Assist On Stairs Independent Technique/Endurance Stair Climbing Direction Ascend and Descend Stair Climbing Technique Step to Step Comments Stair Climbing Comments Railing or hand hold on 1 side used (R side ascending). PT-OP-H Neuro Start: 05/21/21 13:18 Freq: Status: Active Protocol: Document 05/23/21 08:17 LRN (Rec: 05/23/21 09:09 LRN [id number]) Sensation Evaluation Comments Summary Comments L LE - Normal sensation except at medial knee at medial fat pad location. PT-OP-J Posture/Palpation/Skin Start: 05/21/21 13:18 Freq: Status: Active Protocol: Document 05/23/21 08:17 LRN (Rec: 05/23/21 09:09 LRN [id number]) Palpation Assessment Location L knee Palpation Location Medial to patella and posterior knee/hamstring tendon, medial jt Palpation Findings Edema,Tenderness PT-OP-K Range of Motion Start: 05/21/21 13:18 Freq: Status: Active Protocol: Document 05/23/21 08:17 LRN (Rec: 05/23/21 09:09 LRN [id number]) Knee Goniometric Range of Motion Knee Right Knee ROM WFL Yes Patient Position Supine Flexion Active (degrees) 125 Flexion Passive (degrees) 128 Extension Active (degrees) 0 Extension Passive (degrees) 0 Left Knee ROM WFL No Patient Position Supine Flexion Active (degrees) 75 Flexion Passive (degrees) 75 Extension Passive (degrees) 0 Comments L knee extension ROM is lacking 10 deg's to neutral. Ankle and Foot Goniometric Range of Motion Ankle and Foot Right Active Ankle/Foot ROM WFL Yes Testing Position Supine Dorsiflexion with Knee Extended 8 Plantarflexion 47 Inversion 25 Eversion 20 Left Active Ankle/Foot ROM WFL No Testing Position Supine Plantarflexion 40 Inversion 25 Eversion 10 Comments Ankle DF lacks 10 deg's PT-OP-L Special Tests Start: 05/21/21 13:18 Freq: Status: Active Protocol: Document 05/23/21 08:17 LRN (Rec: 05/23/21 09:09 LRN [id number]) Special Tests Knee Special Tests Patellar Grind Test Test Results - left Kayy Test Test Results + left Comments Pain medial knee with pt noting a click indicates possible meniscus injury Galo's Test Results - left Anterior Draw Test Results - left Posterior Draw Test Results - left Valgus- 25 Degrees Test Results + left Comments Pain medial and lateral knee indicating possible MCL injury PT-OP-M Strength Start: 05/21/21 13:18 Freq: Status: Active Protocol: Document 05/23/21 08:17 LRN (Rec: 05/23/21 09:09 LRN [id number]) Knee Strength Knee Manual Muscle Testing Right Flexion (S2) 5 Normal Extension (L3) 4+ Good+ Left Flexion (S2) 3- Fair- Extension (L3) 3- Fair- Comments Deferred formal testing due to pain, but pt had trouble moving knee against gravity ( due to pain) Ankle/Foot Strength Ankle and Foot Manual Muscle Testing Right Comments Generally 5/5 Left Comments Generally 5/5 PT-OP-Q Treatments Start: 05/21/21 13:18 Freq: Status: Active Protocol: Document 05/23/21 08:17 LRN (Rec: 05/23/21 09:09 LRN [id number]) Self-Care/Home Management Treatment Education Other Education Discussed at length results of evaluation, and goals. Discusse plan of care and care if further testing is needed. Activities Self-Care/Home Management Activities Issued & reviewed self care with written HEP on Edema management handout (MALLIKA). Home ex's of ankle pumps and EV/IV AROM, and Quad sets with discussion of reps and times per day. PT-OP-T Assessment and Plan Start: 05/21/21 13:18 Freq: Status: Active Protocol: Document 05/23/21 08:17 LRN (Rec: 05/23/21 09:09 LRN [id number]) Physical Therapy Assessment Rehab Potential Rehabilitation Potential Excellent Evaluation Complexity Number of Personal Factors/Comorbidities 0 Number of Body Systems Impaired 4 or More Clinical Presentation at Evaluation Evolving Impairments Impairments Activity Tolerance,Gait,Pain, ROM,Soft Tissue Mobility, Strength Goals Three Impairment Decreased L knee AROM Impairment L knee AROM: flex - 75 deg's, ext - lacks 10 deg's Short Term Goal (STG) Improve L knee AROM 0-90 deg's for improved ablity to dress and to be able to lay with legs straight at nighttime. normalize gait. STG Duration 07/03/21 Physical Therapy Asst Goal (LTG) Improve L knee AROM 0-125 with pt able to sleep at night at prior level and improve function per TUG or gait speed . LTG Duration 08/21/21 Two Impairment L medial knee pain rated 7/10 limiting mobility. Short Term Goal (STG) Decrease L medial knee pain to 4/10 with pt able to move easier getting out of bed. STG Duration 07/03/21 Physical Therapy Asst Goal (LTG) Decrease pain to 3/10, with pt able to ambulate on level or stairs with normal gait pattern. LTG Duration 08/21/21 One Impairment HEP Physical Therapy Asst Goal (LTG) Pt will be educated in a self care HEP. LTG Duration 08/21/21 Assessment Summary Assessment Pt presents with possible MCL or meniscus injury per Valgus Stress Test and Kayy Test. Further medical testing would be needed to rule out soft tissue dysfunction. Functionally she is limited ( mobility/gait) due to limitation L knee AROM and strength, and swelling in the L knee is visible present. The pt will benefit from skilled physical therapy to achieve the above stated goals . Physical Therapy Plan Frequency and Duration Frequency of Treatment 2x/Week Plan of Care Start Date 05/23/21 Plan of Care End Date 08/21/21 Therapeutic Interventions Therapeutic Interventions Aquatic Therapy,Balance Training,Gait Training,Home Exercise Program,Manual Therapy,Neuromuscular Re- education,Patient/Caregiver Education,Self-Care/Home Management,Soft Tissue Mobilization,Taping, Therapeutic Activities, Therapeutic Exercises Modalities Cold Pack/Ice Massage,Hot Packs Other Referrals/Consults Referrals/Consults Recommended Further medical testing of the L knee if poor progression in physical therapy rehabilitation. Next Visit Focus/Plan Next Note Type Treatment Note Next Visit Plan Educate pt in L LE self care lymphedema massage, start gentle L knee AROM and isometric strengthening progressing to Conc/ECC. Start ankle ROM & strengthening ex's (PF/DF/EV). Gait training with cane. Progressive gait & balance training on level and stairs when appropriate. End modalities of ice (Note: pt has pacemaker)
--- NOTE | 2021-05-25 17:00 | PT.OTN ---
Current Diagnoses Other chronic pain (05/25/21) Pain in left knee (05/25/21) Muscle weakness (generalized) (05/25/21) Other bursitis of knee, left knee (05/25/21) Unsteadiness on feet (05/25/21) Physical Therapy Treatment Note PT-OP-A Visit Information Start: 05/21/21 13:18 Freq: Status: Active Protocol: Document 05/25/21 09:05 LRN (Rec: 05/25/21 10:36 LRN [id number]) Out-Patient Physical Therapy Visit Information Visit Information Visit Type Treatment Note Visit Start Time 09:05 Visit Stop Time 09:45 Total Visit Minutes 40 Visit Number 2 Evaluation Information Evaluation Date 05/23/21 Precautions Precautions Pacemaker, Easily becomes SOB, arthritis, Mitral valve repair 2009, head surgery 2007 PT-OP-B Current Condition Start: 05/21/21 13:18 Freq: Status: Active Protocol: Document 05/23/21 08:17 LRN (Rec: 05/23/21 09:09 LRN [id number]) Current Condition History of Current Condition Onset Date 1 month ago Current Complaints L posteromedial & anteriomedial knee pain History of Current Condition Pain off/on through the years after falling off a horse 17 yrs ago. Has had gradual onset for the past year and all of a sudden a month ago, insidious onset, pain became severe in L medial or posterior knee that radiated into lower leg. Pain around medial tibial plateau. 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 Treatment Goals Patient/Caregiver Goals Pt goals: -Get rid of pain to be able to roll over in bed and touch knee without pain, -Improve ability to sleep at night (now lays on back and leg straight, but used to be able to lie on sides and bend knee. -Improve ease of getting out of bed (used to be able to get out of bed without worry) -Improve walking on level and stair (normal gait) -Improve gait speed or TUG Prior Functional Status Baseline Function- ADL's Independent Baseline Function- Mobility Independent Baseline Function- Gait Independent without antalgic gait. Baseline Function- Recreation/Hobbies Mentally difficulty getting up off the floor/gardening. Current Functional Impairments (Reported) Functional Limitations- ADL's Ambs with antalgic gait (stiff R knee) Difficulty getting out of bed, out of chair. Difficulty picking up objects or getting up off the floor/ gardening. Difficulty putting on underwear, pants, socks, shoes . Difficulty sleeping. Functional Limitations- Mobility/Gait Antalgic gait due to L knee pain. Personal Factors Other Personal Factors That May Effect , Mitral valve repaired Therapy/Recovery in 2009 with dizziness and SOB easily - controlled by medications, pacemaker, arthritis. PT-OP-C Subjective Start: 05/21/21 13:18 Freq: Status: Active Protocol: Document 05/25/21 09:05 LRN (Rec: 05/25/21 10:36 LRN [id number]) OP-PT Subjective Patient Comments Patient Comments Same. Was moving toes up/down the night before and it caused sudden onset of pain at the L knee. Ice helped with pain. States she has horrible dreams and kicks at night. PT-OP-G Mobility & Gait Start: 05/21/21 13:18 Freq: Status: Active Protocol: Document 05/23/21 08:17 LRN (Rec: 05/23/21 09:09 LRN [id number]) OP Gait Assessment Gait Gait Assistance Required: Independent Assistive Devices Assistive Device None Gait Deviations General Gait Pattern Antalgic,Decreased Stride Length Factors Limiting Gait Function Factors Limiting Gait Function Pain Comments Gait Comments Ambs slowly with stiff R knee to decrease jarring on painful L knee. Stair Climbing Evaluation Evaluation Level of Assist On Stairs Independent Technique/Endurance Stair Climbing Direction Ascend and Descend Stair Climbing Technique Step to Step Comments Stair Climbing Comments Railing or hand hold on 1 side used (R side ascending). PT-OP-H Neuro Start: 05/21/21 13:18 Freq: Status: Active Protocol: Document 05/23/21 08:17 LRN (Rec: 05/23/21 09:09 LRN [id number]) Sensation Evaluation Comments Summary Comments L LE - Normal sensation except at medial knee at medial fat pad location. PT-OP-J Posture/Palpation/Skin Start: 05/21/21 13:18 Freq: Status: Active Protocol: Document 05/23/21 08:17 LRN (Rec: 05/23/21 09:09 LRN [id number]) Palpation Assessment Location L knee Palpation Location Medial to patella and posterior knee/hamstring tendon, medial jt Palpation Findings Edema,Tenderness PT-OP-K Range of Motion Start: 05/21/21 13:18 Freq: Status: Active Protocol: Document 05/25/21 09:05 LRN (Rec: 05/25/21 10:36 LRN [id number]) Knee Goniometric Range of Motion Knee Left Knee ROM WFL No Patient Position Supine Flexion Active (degrees) 85 Comments PSLR 20-40 deg's causes increased L medial knee pain. PT-OP-L Special Tests Start: 05/21/21 13:18 Freq: Status: Active Protocol: Document 05/23/21 08:17 LRN (Rec: 05/23/21 09:09 LRN [id number]) Special Tests Knee Special Tests Patellar Grind Test Test Results - left Kayy Test Test Results + left Comments Pain medial knee with pt noting a click indicates possible meniscus injury Galo's Test Results - left Anterior Draw Test Results - left Posterior Draw Test Results - left Valgus- 25 Degrees Test Results + left Comments Pain medial and lateral knee indicating possible MCL injury PT-OP-M Strength Start: 05/21/21 13:18 Freq: Status: Active Protocol: Document 05/23/21 08:17 LRN (Rec: 05/23/21 09:09 LRN [id number]) Knee Strength Knee Manual Muscle Testing Right Flexion (S2) 5 Normal Extension (L3) 4+ Good+ Left Flexion (S2) 3- Fair- Extension (L3) 3- Fair- Comments Deferred formal testing due to pain, but pt had trouble moving knee against gravity ( due to pain) Ankle/Foot Strength Ankle and Foot Manual Muscle Testing Right Comments Generally 5/5 Left Comments Generally 5/5 PT-OP-Q Treatments Start: 05/21/21 13:18 Freq: Status: Active Protocol: Document 05/25/21 09:05 LRN (Rec: 05/25/21 10:36 LRN [id number]) Therapeutic Exercises Supine Exercises LE lymphedema massage Supine Exercise Name LE lympedema massage protocol Side left Reps/Minutes 28' Heel slides Supine Exercise Name Assisted heel slide Side left Equipment Used Gait belt Reps/Minutes 20 x 8 Comments Extra time taken to determine max ROM and cuing needed throughout ex QS Supine Exercise Name Quad Set Side left Reps/Minutes 10 x 10 Comments Extra time taken to determine max jennifer contraction w/multi position changes Self-Care/Home Management Treatment Education Patient Education Home Exercise Program Activities Self-Care/Home Management Activities Issued & reviewed HEP: Self care LLE lymphedema massage PT-OP-T Assessment and Plan Start: 05/21/21 13:18 Freq: Status: Active Protocol: Document 05/25/21 09:05 LRN (Rec: 05/25/21 10:36 LRN [id number]) Physical Therapy Assessment Goals Three Impairment Decreased L knee AROM Impairment L knee AROM: flex - 75 deg's, ext - lacks 10 deg's Short Term Goal (STG) Improve L knee AROM 0-90 deg's for improved ablity to dress and to be able to lay with legs straight at nighttime. normalize gait. STG Duration 07/03/21 Records Administrator Goal (LTG) Improve L knee AROM 0-125 with pt able to sleep at night at prior level and improve function per TUG or gait speed . LTG Duration 08/21/21 Two Impairment L medial knee pain rated 7/10 limiting mobility. Short Term Goal (STG) Decrease L medial knee pain to 4/10 with pt able to move easier getting out of bed. STG Duration 07/03/21 Records Administrator Goal (LTG) Decrease pain to 3/10, with pt able to ambulate on level or stairs with normal gait pattern. LTG Duration 08/21/21 One Impairment HEP Usp Goal (LTG) Pt will be educated in a self care HEP. LTG Duration 08/21/21 (05/25/21: Progressed ) Progress Towards Goals Progress Comments Progressed home program Assessment Summary Assessment Pt has possible L knee MCL or meniscus injury that may need further assessment if not able to progress with therapy. Pt may need soft brace to knee to improve stability. Fair tolerance to ex, questionable understanding of LLE lymphedema self care HEP. Will need to review next visit . Pt limited with L knee ext and flex; very painful. Physical Therapy Plan Frequency and Duration Frequency of Treatment 2x/Week Plan of Care Start Date 05/23/21 Plan of Care End Date 08/21/21 Next Visit Focus/Plan Next Note Type Treatment Note Next Visit Plan Gait training with cane, Review L LE self care lymphedema massage, start gentle L knee AROM and isometric strengthening progressing to Conc/ECC. Start ankle ROM & strengthening ex's (PF/DF/EV). Progressive gait & balance training on level and stairs when appropriate. End modalities of ice (Note: pt has pacemaker)
--- NOTE | 2021-06-05 14:35 | PT.OTN ---
Current Diagnoses Other chronic pain (06/05/21) Pain in left knee (06/05/21) Muscle weakness (generalized) (06/05/21) Other bursitis of knee, left knee (06/05/21) Unsteadiness on feet (06/05/21) Physical Therapy Treatment Note PT-OP-A Visit Information Start: 05/21/21 13:18 Freq: Status: Active Protocol: Document 06/05/21 13:49 SP (Rec: 06/05/21 14:36 SP [id number]) Out-Patient Physical Therapy Visit Information Visit Information Visit Type Treatment Note Visit Start Time 13:49 Visit Stop Time 14:35 Total Visit Minutes 46 Visit Number 3 Number of BRAIDER TENDER Visits 1 Evaluation Information Evaluation Date 05/23/21 Precautions Precautions Pacemaker, Easily becomes SOB, arthritis, Mitral valve repair 2009, head surgery 2007 PT-OP-B Current Condition Start: 05/21/21 13:18 Freq: Status: Active Protocol: Document 05/23/21 08:17 LRN (Rec: 05/23/21 09:09 LRN [id number]) Current Condition History of Current Condition Onset Date 1 month ago Current Complaints L posteromedial & anteriomedial knee pain History of Current Condition Pain off/on through the years after falling off a horse 17 yrs ago. Has had gradual onset for the past year and all of a sudden a month ago, insidious onset, pain became severe in L medial or posterior knee that radiated into lower leg. Pain around medial tibial plateau. 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 Treatment Goals Patient/Caregiver Goals Pt goals: -Get rid of pain to be able to roll over in bed and touch knee without pain, -Improve ability to sleep at night (now lays on back and leg straight, but used to be able to lie on sides and bend knee. -Improve ease of getting out of bed (used to be able to get out of bed without worry) -Improve walking on level and stair (normal gait) -Improve gait speed or TUG Prior Functional Status Baseline Function- ADL's Independent Baseline Function- Mobility Independent Baseline Function- Gait Independent without antalgic gait. Baseline Function- Recreation/Hobbies Mentally difficulty getting up off the floor/gardening. Current Functional Impairments (Reported) Functional Limitations- ADL's Ambs with antalgic gait (stiff R knee) Difficulty getting out of bed, out of chair. Difficulty picking up objects or getting up off the floor/ gardening. Difficulty putting on underwear, pants, socks, shoes . Difficulty sleeping. Functional Limitations- Mobility/Gait Antalgic gait due to L knee pain. Personal Factors Other Personal Factors That May Effect , Mitral valve repaired Therapy/Recovery in 2009 with dizziness and SOB easily - controlled by medications, pacemaker, arthritis. PT-OP-C Subjective Start: 05/21/21 13:18 Freq: Status: Active Protocol: Document 06/05/21 13:49 SP (Rec: 06/05/21 14:36 SP [id number]) OP-PT Subjective Patient Comments Patient Comments Pt states her leg is about the same, swelling isn't much different from last tx but is able to bend knee little more today and doesn't hurt as much standing. Did try to proper it up last night on pillow full length of her leg and was pretty painful when woke up after 3 hrs. Pt states does proper her leg up occasionally during day and helps with pain relief. Compliant with HEp and no adverse affects. Pt states is out of town [place] app[place]. PT-OP-G Mobility & Gait Start: 05/21/21 13:18 Freq: Status: Active Protocol: Document 05/23/21 08:17 LRN (Rec: 05/23/21 09:09 LRN [id number]) OP Gait Assessment Gait Gait Assistance Required: Independent Assistive Devices Assistive Device None Gait Deviations General Gait Pattern Antalgic,Decreased Stride Length Factors Limiting Gait Function Factors Limiting Gait Function Pain Comments Gait Comments Ambs slowly with stiff R knee to decrease jarring on painful L knee. Stair Climbing Evaluation Evaluation Level of Assist On Stairs Independent Technique/Endurance Stair Climbing Direction Ascend and Descend Stair Climbing Technique Step to Step Comments Stair Climbing Comments Railing or hand hold on 1 side used (R side ascending). PT-OP-H Neuro Start: 05/21/21 13:18 Freq: Status: Active Protocol: Document 05/23/21 08:17 LRN (Rec: 05/23/21 09:09 LRN [id number]) Sensation Evaluation Comments Summary Comments L LE - Normal sensation except at medial knee at medial fat pad location. PT-OP-J Posture/Palpation/Skin Start: 05/21/21 13:18 Freq: Status: Active Protocol: Document 05/23/21 08:17 LRN (Rec: 05/23/21 09:09 LRN [id number]) Palpation Assessment Location L knee Palpation Location Medial to patella and posterior knee/hamstring tendon, medial jt Palpation Findings Edema,Tenderness PT-OP-K Range of Motion Start: 05/21/21 13:18 Freq: Status: Active Protocol: Document 05/25/21 09:05 LRN (Rec: 05/25/21 10:36 LRN [id number]) Knee Goniometric Range of Motion Knee Left Knee ROM WFL No Patient Position Supine Flexion Active (degrees) 85 Comments PSLR 20-40 deg's causes increased L medial knee pain. PT-OP-L Special Tests Start: 05/21/21 13:18 Freq: Status: Active Protocol: Document 05/23/21 08:17 LRN (Rec: 05/23/21 09:09 LRN [id number]) Special Tests Knee Special Tests Patellar Grind Test Test Results - left Kayy Test Test Results + left Comments Pain medial knee with pt noting a click indicates possible meniscus injury Galo's Test Results - left Anterior Draw Test Results - left Posterior Draw Test Results - left Valgus- 25 Degrees Test Results + left Comments Pain medial and lateral knee indicating possible MCL injury PT-OP-M Strength Start: 05/21/21 13:18 Freq: Status: Active Protocol: Document 05/23/21 08:17 LRN (Rec: 05/23/21 09:09 LRN [id number]) Knee Strength Knee Manual Muscle Testing Right Flexion (S2) 5 Normal Extension (L3) 4+ Good+ Left Flexion (S2) 3- Fair- Extension (L3) 3- Fair- Comments Deferred formal testing due to pain, but pt had trouble moving knee against gravity ( due to pain) Ankle/Foot Strength Ankle and Foot Manual Muscle Testing Right Comments Generally 5/5 Left Comments Generally 5/5 PT-OP-Q Treatments Start: 05/21/21 13:18 Freq: Status: Active Protocol: Document 06/05/21 13:49 SP (Rec: 06/05/21 14:36 SP [id number]) Therapeutic Exercises Supine Exercises ankle ROM Supine Exercise Name IV/ EV supine Side left Resistance AROM Equipment Used HEP review Reps/Minutes x5 Comments cued knee straight, thigh still, painfree ROM SLR Supine Exercise Name HEP review Side left Resistance AROM Reps/Minutes 2 sec hold 5 reps 2x/day Comments cued quad fac BKFO> adductor stretch Supine Exercise Name HEP review Side bilateral Reps/Minutes AROM x2 reps, then hold stretch 10 sec + diaphramatic breath Supine Exercise Name HEP review Reps/Minutes 5 reps, rest 1-2 sec Comments hands on belly LE lymphedema massage Supine Exercise Name LE lympedema massage protocol Side left Resistance HEp review Reps/Minutes 5 min Heel slides Supine Exercise Name HEP review Side left Resistance AROM Reps/Minutes x5 reps Comments good form, pain free Manual Therapy Treatment Taping K taping Body Location L vinicio medial knee Treatment Focus lymphedema circulation return Type of Tape Kinesio Tape Skin Inspection intact, normal color Comments basket weave, very light tension 10% tension. PT-OP-T Assessment and Plan Start: 05/21/21 13:18 Freq: Status: Active Protocol: Document 06/05/21 13:49 SP (Rec: 06/05/21 14:36 SP [id number]) Physical Therapy Assessment Goals Three Impairment Decreased L knee AROM Impairment L knee AROM: flex - 75 deg's, ext - lacks 10 deg's Short Term Goal (STG) Improve L knee AROM 0-90 deg's for improved ablity to dress and to be able to lay with legs straight at nighttime. normalize gait. STG Duration 07/03/21 Detention Goal (LTG) Improve L knee AROM 0-125 with pt able to sleep at night at prior level and improve function per TUG or gait speed . LTG Duration 08/21/21 Two Impairment L medial knee pain rated 7/10 limiting mobility. Short Term Goal (STG) Decrease L medial knee pain to 4/10 with pt able to move easier getting out of bed. STG Duration 07/03/21 Outside Salesman Goal (LTG) Decrease pain to 3/10, with pt able to ambulate on level or stairs with normal gait pattern. LTG Duration 08/21/21 One Impairment HEP Outside Salesman Goal (LTG) Pt will be educated in a self care HEP. LTG Duration 08/21/21 (05/25/21: Progressed ) Assessment Summary Assessment , better understanding. Tx focused on HEP review including self care massage for increased confidence. Cued at times for set up and proper form. Provided cuing and added comments to pt's hand outs for assist in performance and recall, improved demonstration and understanding. Initiated K taping basketweave for swelling anteromedial L knee with 15% tension, no adverse affects end tx post ther ex. Pt understood side affects to taping and remove immediately if experiences: redness, itchy , discomfort otherwise can leave on for 2 days and wear in shower to assist lymphedema . Provided instruction when donning and pt will take a pic when gets home to reapply if prefers with 1 day rest between if wishes. If not beneficial then not to use. Pt responded well to HEP review, very minimal discomfort during heel slide and once came to standing end of tx. Pt stated felt pretty good end of tx. Physical Therapy Plan Frequency and Duration Frequency of Treatment 2x/Week Plan of Care Start Date 05/23/21 Plan of Care End Date 08/21/21 Therapeutic Interventions Therapeutic Interventions Aquatic Therapy,Balance Training,Gait Training,Home Exercise Program,Manual Therapy,Neuromuscular Re- education,Patient/Caregiver Education,Self-Care/Home Management,Soft Tissue Mobilization,Taping, Therapeutic Activities, Therapeutic Exercises Modalities Cold Pack/Ice Massage,Hot Packs Next Visit Focus/Plan Next Note Type Treatment Note Next Visit Plan Next tx: HEP review including self care massage, ask how K taping if helpful for swelling . POC: Gait training with cane, start gentle L knee AROM and isometric strengthening progressing to Conc/ECC. Start ankle ROM & strengthening ex's (PF/DF/EV). Progressive gait & balance training on level and stairs when appropriate. End modalities of ice (Note: pt has pacemaker)
--- NOTE | 2021-06-13 14:02 | PT.OTN ---
Current Diagnoses Other chronic pain (06/13/21) Pain in left knee (06/13/21) Muscle weakness (generalized) (06/13/21) Other bursitis of knee, left knee (06/13/21) Unsteadiness on feet (06/13/21) Physical Therapy Treatment Note PT-OP-A Visit Information Start: 05/21/21 13:18 Freq: Status: Active Protocol: Document 06/13/21 08:16 LRN (Rec: 06/13/21 09:49 LRN [id number]) Out-Patient Physical Therapy Visit Information Visit Information Visit Type Treatment Note Visit Start Time 08:16 Visit Stop Time 09:00 Total Visit Minutes 45 Visit Number 4 Evaluation Information Evaluation Date 05/23/21 Precautions Precautions Pacemaker, Easily becomes SOB, arthritis, Mitral valve repair 2009, head surgery 2007 PT-OP-B Current Condition Start: 05/21/21 13:18 Freq: Status: Active Protocol: Document 05/23/21 08:17 LRN (Rec: 05/23/21 09:09 LRN [id number]) Current Condition History of Current Condition Onset Date 1 month ago Current Complaints L posteromedial & anteriomedial knee pain History of Current Condition Pain off/on through the years after falling off a horse 17 yrs ago. Has had gradual onset for the past year and all of a sudden a month ago, insidious onset, pain became severe in L medial or posterior knee that radiated into lower leg. Pain around medial tibial plateau. 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 Treatment Goals Patient/Caregiver Goals Pt goals: -Get rid of pain to be able to roll over in bed and touch knee without pain, -Improve ability to sleep at night (now lays on back and leg straight, but used to be able to lie on sides and bend knee. -Improve ease of getting out of bed (used to be able to get out of bed without worry) -Improve walking on level and stair (normal gait) -Improve gait speed or TUG Prior Functional Status Baseline Function- ADL's Independent Baseline Function- Mobility Independent Baseline Function- Gait Independent without antalgic gait. Baseline Function- Recreation/Hobbies Mentally difficulty getting up off the floor/gardening. Current Functional Impairments (Reported) Functional Limitations- ADL's Ambs with antalgic gait (stiff R knee) Difficulty getting out of bed, out of chair. Difficulty picking up objects or getting up off the floor/ gardening. Difficulty putting on underwear, pants, socks, shoes . Difficulty sleeping. Functional Limitations- Mobility/Gait Antalgic gait due to L knee pain. Personal Factors Other Personal Factors That May Effect , Mitral valve repaired Therapy/Recovery in 2009 with dizziness and SOB easily - controlled by medications, pacemaker, arthritis. PT-OP-C Subjective Start: 05/21/21 13:18 Freq: Status: Active Protocol: Document 06/13/21 08:16 LRN (Rec: 06/13/21 09:49 LRN [id number]) OP-PT Subjective Patient Comments Patient Comments Got back from [place] yesterday and drove. L leg bothered, not as much as expected. At night it hurts. Had to go up/ down tri-level house. PT-OP-G Mobility & Gait Start: 05/21/21 13:18 Freq: Status: Active Protocol: Document 05/23/21 08:17 LRN (Rec: 05/23/21 09:09 LRN [id number]) OP Gait Assessment Gait Gait Assistance Required: Independent Assistive Devices Assistive Device None Gait Deviations General Gait Pattern Antalgic,Decreased Stride Length Factors Limiting Gait Function Factors Limiting Gait Function Pain Comments Gait Comments Ambs slowly with stiff R knee to decrease jarring on painful L knee. Stair Climbing Evaluation Evaluation Level of Assist On Stairs Independent Technique/Endurance Stair Climbing Direction Ascend and Descend Stair Climbing Technique Step to Step Comments Stair Climbing Comments Railing or hand hold on 1 side used (R side ascending). PT-OP-H Neuro Start: 05/21/21 13:18 Freq: Status: Active Protocol: Document 05/23/21 08:17 LRN (Rec: 05/23/21 09:09 LRN [id number]) Sensation Evaluation Comments Summary Comments L LE - Normal sensation except at medial knee at medial fat pad location. PT-OP-J Posture/Palpation/Skin Start: 05/21/21 13:18 Freq: Status: Active Protocol: Document 05/23/21 08:17 LRN (Rec: 05/23/21 09:09 LRN [id number]) Palpation Assessment Location L knee Palpation Location Medial to patella and posterior knee/hamstring tendon, medial jt Palpation Findings Edema,Tenderness PT-OP-K Range of Motion Start: 05/21/21 13:18 Freq: Status: Active Protocol: Document 05/25/21 09:05 LRN (Rec: 05/25/21 10:36 LRN [id number]) Knee Goniometric Range of Motion Knee Left Knee ROM WFL No Patient Position Supine Flexion Active (degrees) 85 Comments PSLR 20-40 deg's causes increased L medial knee pain. PT-OP-L Special Tests Start: 05/21/21 13:18 Freq: Status: Active Protocol: Document 05/23/21 08:17 LRN (Rec: 05/23/21 09:09 LRN [id number]) Special Tests Knee Special Tests Patellar Grind Test Test Results - left Kayy Test Test Results + left Comments Pain medial knee with pt noting a click indicates possible meniscus injury Galo's Test Results - left Anterior Draw Test Results - left Posterior Draw Test Results - left Valgus- 25 Degrees Test Results + left Comments Pain medial and lateral knee indicating possible MCL injury PT-OP-M Strength Start: 05/21/21 13:18 Freq: Status: Active Protocol: Document 05/23/21 08:17 LRN (Rec: 05/23/21 09:09 LRN [id number]) Knee Strength Knee Manual Muscle Testing Right Flexion (S2) 5 Normal Extension (L3) 4+ Good+ Left Flexion (S2) 3- Fair- Extension (L3) 3- Fair- Comments Deferred formal testing due to pain, but pt had trouble moving knee against gravity ( due to pain) Ankle/Foot Strength Ankle and Foot Manual Muscle Testing Right Comments Generally 5/5 Left Comments Generally 5/5 PT-OP-Q Treatments Start: 05/21/21 13:18 Freq: Status: Active Protocol: Document 06/13/21 08:16 LRN (Rec: 06/13/21 09:49 LRN [id number]) Therapeutic Exercises Supine Exercises ankle ROM Supine Exercise Name IV/ EV supine Side left Resistance AROM Equipment Used HEP review Reps/Minutes x5 Comments cued knee straight, thigh still, painfree ROM SLR Supine Exercise Name SLR @ 12 & 10 O'Clock Side left Resistance AROM Reps/Minutes 2 sec hold 5 reps Comments cued quad fac Heel slides Side left Resistance AROM Reps/Minutes x5 reps Comments good form, pain free Sitting Exercises Ankle IV/EV strengthening Side left Equipment Used Lev 1 TB Reps/Minutes 10x Comments Extra time needed for proper movement and use of TB Ankle DF strengthening Side left Equipment Used Lev 1 TB Reps/Minutes 10x Comments Extra time needed for proper movement and use of TB Manual Therapy Treatment Taping K taping Body Location L anteromedial & medial knee Treatment Focus Stability & lymphedema circulation return Type of Tape Kinesio Tape Skin Inspection intact, normal color Comments 2 fan strips at anteromedial L knee, very light tension 10% tension. & 2 I-strips for mechanical correction at medial knee. Self-Care/Home Management Treatment Education Patient Education Home Exercise Program Other Education Reviewed manual strokes for LE lymph massage section of the exercise program. Pt has good understanding after education . Discussed different bed mattresses for comfort at night. Activities Self-Care/Home Management Activities Issued & reviewed HEP: Ankle DF, IV, EV with TB and issued Lev 1 TB. PT-OP-T Assessment and Plan Start: 05/21/21 13:18 Freq: Status: Active Protocol: Document 06/13/21 08:16 LRN (Rec: 06/13/21 09:49 LRN [id number]) Physical Therapy Assessment Goals Three Impairment Decreased L knee AROM Impairment L knee AROM: flex - 75 deg's, ext - lacks 10 deg's Short Term Goal (STG) Improve L knee AROM 0-90 deg's for improved ablity to dress and to be able to lay with legs straight at nighttime. normalize gait. STG Duration 07/03/21 Brand Engineer Goal (LTG) Improve L knee AROM 0-125 with pt able to sleep at night at prior level and improve function per TUG or gait speed . LTG Duration 08/21/21 Two Impairment L medial knee pain rated 7/10 limiting mobility. Short Term Goal (STG) Decrease L medial knee pain to 4/10 with pt able to move easier getting out of bed. STG Duration 07/03/21 Senior Care Goal (LTG) Decrease pain to 3/10, with pt able to ambulate on level or stairs with normal gait pattern. LTG Duration 08/21/21 One Impairment HEP Senior Care Goal (LTG) Pt will be educated in a self care HEP. (06/13/21: HEP for ankle strengthening issued) LTG Duration 08/21/21 (06/13/21: Progressed) Progress Towards Goals Progress Comments Progresssed HEP Assessment Summary Assessment Slow progress, ?age related. K-tape was helpful for pain, pt thought there is decreased swelling. Pt has good understanding of current HEP. L knee mobility is still painful. Physical Therapy Plan Frequency and Duration Frequency of Treatment 2x/Week Plan of Care Start Date 05/23/21 Plan of Care End Date 08/21/21 Next Visit Focus/Plan Next Note Type Treatment Note Next Visit Plan Review ankle ROM & strengthening ex's (PF/DF/EV). Gait training with cane, start gentle L knee AROM and isometric strengthening progressing to Conc/ECC. Progressive gait & balance training on level and stairs when appropriate. End modalities of ice (Note: pt has pacemaker)
--- NOTE | 2021-06-15 14:51 | PT.OTN ---
Current Diagnoses Other chronic pain (06/15/21) Pain in left knee (06/15/21) Muscle weakness (generalized) (06/15/21) Other bursitis of knee, left knee (06/15/21) Unsteadiness on feet (06/15/21) Physical Therapy Treatment Note PT-OP-A Visit Information Start: 05/21/21 13:18 Freq: Status: Active Protocol: Document 06/15/21 09:49 LRN (Rec: 06/15/21 10:33 LRN [id number]) Out-Patient Physical Therapy Visit Information Visit Information Visit Type Treatment Note Visit Start Time 09:49 Visit Stop Time 10:30 Total Visit Minutes 45 Visit Number 5 Evaluation Information Evaluation Date 05/23/21 Precautions Precautions Pacemaker, Easily becomes SOB, arthritis, Mitral valve repair 2009, head surgery 2007 PT-OP-B Current Condition Start: 05/21/21 13:18 Freq: Status: Active Protocol: Document 05/23/21 08:17 LRN (Rec: 05/23/21 09:09 LRN [id number]) Current Condition History of Current Condition Onset Date 1 month ago Current Complaints L posteromedial & anteriomedial knee pain History of Current Condition Pain off/on through the years after falling off a horse 17 yrs ago. Has had gradual onset for the past year and all of a sudden a month ago, insidious onset, pain became severe in L medial or posterior knee that radiated into lower leg. Pain around medial tibial plateau. 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 Treatment Goals Patient/Caregiver Goals Pt goals: -Get rid of pain to be able to roll over in bed and touch knee without pain, -Improve ability to sleep at night (now lays on back and leg straight, but used to be able to lie on sides and bend knee. -Improve ease of getting out of bed (used to be able to get out of bed without worry) -Improve walking on level and stair (normal gait) -Improve gait speed or TUG Prior Functional Status Baseline Function- ADL's Independent Baseline Function- Mobility Independent Baseline Function- Gait Independent without antalgic gait. Baseline Function- Recreation/Hobbies Mentally difficulty getting up off the floor/gardening. Current Functional Impairments (Reported) Functional Limitations- ADL's Ambs with antalgic gait (stiff R knee) Difficulty getting out of bed, out of chair. Difficulty picking up objects or getting up off the floor/ gardening. Difficulty putting on underwear, pants, socks, shoes . Difficulty sleeping. Functional Limitations- Mobility/Gait Antalgic gait due to L knee pain. Personal Factors Other Personal Factors That May Effect , Mitral valve repaired Therapy/Recovery in 2009 with dizziness and SOB easily - controlled by medications, pacemaker, arthritis. PT-OP-C Subjective Start: 05/21/21 13:18 Freq: Status: Active Protocol: Document 06/15/21 09:49 LRN (Rec: 06/15/21 10:33 LRN [id number]) OP-PT Subjective Patient Comments Patient Comments Fell out of bed 2 nights ago and hurt her L hip, L UE and hit her head on table leg. PT-OP-G Mobility & Gait Start: 05/21/21 13:18 Freq: Status: Active Protocol: Document 05/23/21 08:17 LRN (Rec: 05/23/21 09:09 LRN [id number]) OP Gait Assessment Gait Gait Assistance Required: Independent Assistive Devices Assistive Device None Gait Deviations General Gait Pattern Antalgic,Decreased Stride Length Factors Limiting Gait Function Factors Limiting Gait Function Pain Comments Gait Comments Ambs slowly with stiff R knee to decrease jarring on painful L knee. Stair Climbing Evaluation Evaluation Level of Assist On Stairs Independent Technique/Endurance Stair Climbing Direction Ascend and Descend Stair Climbing Technique Step to Step Comments Stair Climbing Comments Railing or hand hold on 1 side used (R side ascending). PT-OP-H Neuro Start: 05/21/21 13:18 Freq: Status: Active Protocol: Document 05/23/21 08:17 LRN (Rec: 05/23/21 09:09 LRN [id number]) Sensation Evaluation Comments Summary Comments L LE - Normal sensation except at medial knee at medial fat pad location. PT-OP-J Posture/Palpation/Skin Start: 05/21/21 13:18 Freq: Status: Active Protocol: Document 05/23/21 08:17 LRN (Rec: 05/23/21 09:09 LRN [id number]) Palpation Assessment Location L knee Palpation Location Medial to patella and posterior knee/hamstring tendon, medial jt Palpation Findings Edema,Tenderness PT-OP-K Range of Motion Start: 05/21/21 13:18 Freq: Status: Active Protocol: Document 05/25/21 09:05 LRN (Rec: 05/25/21 10:36 LRN [id number]) Knee Goniometric Range of Motion Knee Left Knee ROM WFL No Patient Position Supine Flexion Active (degrees) 85 Comments PSLR 20-40 deg's causes increased L medial knee pain. PT-OP-L Special Tests Start: 05/21/21 13:18 Freq: Status: Active Protocol: Document 05/23/21 08:17 LRN (Rec: 05/23/21 09:09 LRN [id number]) Special Tests Knee Special Tests Patellar Grind Test Test Results - left Kayy Test Test Results + left Comments Pain medial knee with pt noting a click indicates possible meniscus injury Galo's Test Results - left Anterior Draw Test Results - left Posterior Draw Test Results - left Valgus- 25 Degrees Test Results + left Comments Pain medial and lateral knee indicating possible MCL injury PT-OP-M Strength Start: 05/21/21 13:18 Freq: Status: Active Protocol: Document 05/23/21 08:17 LRN (Rec: 05/23/21 09:09 LRN [id number]) Knee Strength Knee Manual Muscle Testing Right Flexion (S2) 5 Normal Extension (L3) 4+ Good+ Left Flexion (S2) 3- Fair- Extension (L3) 3- Fair- Comments Deferred formal testing due to pain, but pt had trouble moving knee against gravity ( due to pain) Ankle/Foot Strength Ankle and Foot Manual Muscle Testing Right Comments Generally 5/5 Left Comments Generally 5/5 PT-OP-Q Treatments Start: 05/21/21 13:18 Freq: Status: Active Protocol: Document 06/15/21 09:49 LRN (Rec: 06/15/21 10:33 LRN [id number]) Therapeutic Exercises Supine Exercises SAQ Supine Exercise Name SAQ Side left Reps/Minutes 15x 0H, 15x 5H Heel slides Supine Exercise Name Stretch Side left Resistance AROM Equipment Used Strap Reps/Minutes 15x reps Comments good form, pain free Sitting Exercises L knee flex Sitting Exercise Name Active flex strengthening Side left Reps/Minutes 15x 2 Ankle IV/EV strengthening Side left Equipment Used Lev 1 TB Reps/Minutes 10x 3 Comments Extra time needed for proper movement and use of TB Ankle DF strengthening Side left Equipment Used Lev 1 TB Reps/Minutes 10x 3 Comments Extra time needed for proper movement and use of TB Standing Exercises L knee flex Standing Exercise Name Active flex strengthening Side left Reps/Minutes 15x Self-Care/Home Management Treatment Education Patient Education Safety Other Education Discussed pt's fall from bed and discussed symptoms that pt should monitor for and symptoms that would need immediate medical assessment for. (brain bleed or stroke). Activities Self-Care/Home Management Activities Issued & reviewed HEP: Active knee flex strengthening in supine, sit & stand: and active L knee ROM in supine ( heel slide). PT-OP-T Assessment and Plan Start: 05/21/21 13:18 Freq: Status: Active Protocol: Document 06/15/21 09:49 LRN (Rec: 06/15/21 10:33 LRN [id number]) Physical Therapy Assessment Goals Three Impairment Decreased L knee AROM Impairment L knee AROM: flex - 75 deg's, ext - lacks 10 deg's Short Term Goal (STG) Improve L knee AROM 0-90 deg's for improved ablity to dress and to be able to lay with legs straight at nighttime. normalize gait. STG Duration 07/03/21 Fpc Goal (LTG) Improve L knee AROM 0-125 with pt able to sleep at night at prior level and improve function per TUG or gait speed . LTG Duration 08/21/21 Two Impairment L medial knee pain rated 7/10 limiting mobility. Short Term Goal (STG) Decrease L medial knee pain to 4/10 with pt able to move easier getting out of bed. STG Duration 07/03/21 Customer Resolution Specialist Goal (LTG) Decrease pain to 3/10, with pt able to ambulate on level or stairs with normal gait pattern. LTG Duration 08/21/21 One Impairment HEP Customer Resolution Specialist Goal (LTG) Pt will be educated in a self care HEP. (06/15/21: HEP added: knee flex/ext AROM in sup, sit & stand) LTG Duration 08/21/21 (06/13/21: Progressed) Progress Towards Goals Progress Comments Progressed HEP. Assessment Summary Assessment Pt needed extra time with ankle ex's due to poor recall of positioning for the exercises. She moves slowly and cautiously through ex's. Physical Therapy Plan Frequency and Duration Frequency of Treatment 2x/Week Plan of Care Start Date 05/23/21 Plan of Care End Date 08/21/21 Next Visit Focus/Plan Next Note Type Treatment Note Next Visit Plan Review ankle ROM & strengthening ex's (PF/DF/EV) until independent and last issued home ex's. Gait training with cane, continue gentle L knee AROM and Conc/ ECC strengthening if tolerated (if not do isometric strengthening). Progressive gait & balance training on level and stairs when appropriate. End modalities of ice if needed (Note: pt has pacemaker)
--- NOTE | 2021-06-20 11:20 | PT.OTN ---
Current Diagnoses Other chronic pain (06/20/21) Pain in left knee (06/20/21) Muscle weakness (generalized) (06/20/21) Other bursitis of knee, left knee (06/20/21) Unsteadiness on feet (06/20/21) Physical Therapy Treatment Note PT-OP-A Visit Information Start: 05/21/21 13:18 Freq: Status: Active Protocol: Document 06/20/21 10:33 SP (Rec: 06/20/21 11:33 SP [id number]) Out-Patient Physical Therapy Visit Information Visit Information Visit Type Treatment Note Visit Note pt 10 min late for appt. Visit Start Time 10:40 Visit Stop Time 11:20 Total Visit Minutes 40 Visit Number 6 Number of HELICOPTER ENGINEER Visits 1 Evaluation Information Evaluation Date 05/23/21 Precautions Precautions Pacemaker, Easily becomes SOB, arthritis, Mitral valve repair 2009, head surgery 2007 PT-OP-B Current Condition Start: 05/21/21 13:18 Freq: Status: Active Protocol: Document 05/23/21 08:17 LRN (Rec: 05/23/21 09:09 LRN [id number]) Current Condition History of Current Condition Onset Date 1 month ago Current Complaints L posteromedial & anteriomedial knee pain History of Current Condition Pain off/on through the years after falling off a horse 17 yrs ago. Has had gradual onset for the past year and all of a sudden a month ago, insidious onset, pain became severe in L medial or posterior knee that radiated into lower leg. Pain around medial tibial plateau. 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 Treatment Goals Patient/Caregiver Goals Pt goals: -Get rid of pain to be able to roll over in bed and touch knee without pain, -Improve ability to sleep at night (now lays on back and leg straight, but used to be able to lie on sides and bend knee. -Improve ease of getting out of bed (used to be able to get out of bed without worry) -Improve walking on level and stair (normal gait) -Improve gait speed or TUG Prior Functional Status Baseline Function- ADL's Independent Baseline Function- Mobility Independent Baseline Function- Gait Independent without antalgic gait. Baseline Function- Recreation/Hobbies Mentally difficulty getting up off the floor/gardening. Current Functional Impairments (Reported) Functional Limitations- ADL's Ambs with antalgic gait (stiff R knee) Difficulty getting out of bed, out of chair. Difficulty picking up objects or getting up off the floor/ gardening. Difficulty putting on underwear, pants, socks, shoes . Difficulty sleeping. Functional Limitations- Mobility/Gait Antalgic gait due to L knee pain. Personal Factors Other Personal Factors That May Effect , Mitral valve repaired Therapy/Recovery in 2009 with dizziness and SOB easily - controlled by medications, pacemaker, arthritis. PT-OP-C Subjective Start: 05/21/21 13:18 Freq: Status: Active Protocol: Document 06/20/21 10:33 SP (Rec: 06/20/21 11:33 SP [id number]) OP-PT Subjective Patient Comments Patient Comments Pt arrived without AD. She stated L hip still sore and pretty bruised but compliant with HEP with no adverse affects, utilizes hand outs for recall as needed. I can bend my L knee with alot less pain. Patient Reported Progress Improving PT-OP-G Mobility & Gait Start: 05/21/21 13:18 Freq: Status: Active Protocol: Document 05/23/21 08:17 LRN (Rec: 05/23/21 09:09 LRN [id number]) OP Gait Assessment Gait Gait Assistance Required: Independent Assistive Devices Assistive Device None Gait Deviations General Gait Pattern Antalgic,Decreased Stride Length Factors Limiting Gait Function Factors Limiting Gait Function Pain Comments Gait Comments Ambs slowly with stiff R knee to decrease jarring on painful L knee. Stair Climbing Evaluation Evaluation Level of Assist On Stairs Independent Technique/Endurance Stair Climbing Direction Ascend and Descend Stair Climbing Technique Step to Step Comments Stair Climbing Comments Railing or hand hold on 1 side used (R side ascending). PT-OP-H Neuro Start: 05/21/21 13:18 Freq: Status: Active Protocol: Document 05/23/21 08:17 LRN (Rec: 05/23/21 09:09 LRN [id number]) Sensation Evaluation Comments Summary Comments L LE - Normal sensation except at medial knee at medial fat pad location. PT-OP-J Posture/Palpation/Skin Start: 05/21/21 13:18 Freq: Status: Active Protocol: Document 05/23/21 08:17 LRN (Rec: 05/23/21 09:09 LRN [id number]) Palpation Assessment Location L knee Palpation Location Medial to patella and posterior knee/hamstring tendon, medial jt Palpation Findings Edema,Tenderness PT-OP-K Range of Motion Start: 05/21/21 13:18 Freq: Status: Active Protocol: Document 05/25/21 09:05 LRN (Rec: 05/25/21 10:36 LRN [id number]) Knee Goniometric Range of Motion Knee Left Knee ROM WFL No Patient Position Supine Flexion Active (degrees) 85 Comments PSLR 20-40 deg's causes increased L medial knee pain. PT-OP-L Special Tests Start: 05/21/21 13:18 Freq: Status: Active Protocol: Document 05/23/21 08:17 LRN (Rec: 05/23/21 09:09 LRN [id number]) Special Tests Knee Special Tests Patellar Grind Test Test Results - left Kayy Test Test Results + left Comments Pain medial knee with pt noting a click indicates possible meniscus injury Galo's Test Results - left Anterior Draw Test Results - left Posterior Draw Test Results - left Valgus- 25 Degrees Test Results + left Comments Pain medial and lateral knee indicating possible MCL injury PT-OP-M Strength Start: 05/21/21 13:18 Freq: Status: Active Protocol: Document 05/23/21 08:17 LRN (Rec: 05/23/21 09:09 LRN [id number]) Knee Strength Knee Manual Muscle Testing Right Flexion (S2) 5 Normal Extension (L3) 4+ Good+ Left Flexion (S2) 3- Fair- Extension (L3) 3- Fair- Comments Deferred formal testing due to pain, but pt had trouble moving knee against gravity ( due to pain) Ankle/Foot Strength Ankle and Foot Manual Muscle Testing Right Comments Generally 5/5 Left Comments Generally 5/5 PT-OP-Q Treatments Start: 05/21/21 13:18 Freq: Status: Active Protocol: Document 06/20/21 10:33 SP (Rec: 06/20/21 11:33 SP [id number]) Therapeutic Exercises Supine Exercises SLR Supine Exercise Name SLR @ 12 & 10 O'Clock Side left Resistance AROM Reps/Minutes 2 sec hold 5 reps Comments cued quad fac BKFO> adductor stretch Supine Exercise Name HEP review Side bilateral Reps/Minutes AROM x2 reps, then hold stretch 10 sec + diaphramatic breath Supine Exercise Name HEP review Reps/Minutes 5 reps, rest 1-2 sec Comments hands on belly LE lymphedema massage Supine Exercise Name LE lympedema massage protocol Side left Resistance HEp review Reps/Minutes 5 min Heel slides Supine Exercise Name Stretch Side left Resistance AROM Equipment Used not needed strap Reps/Minutes 15x reps Comments good form, tolerant range ( approx 90 deg L knee) Sitting Exercises Ankle IV/EV strengthening Side left Equipment Used Lev 1 TB Reps/Minutes 10x 3 Comments occasional cue for set up, keep heel down/ knee still Ankle DF strengthening Side left Equipment Used Lev 1 TB Reps/Minutes 10x 3 Comments occasional cue for set up, keep heel down/ knee still Gait Training Gait Activity stair Description assess stair mgt Device Used L HR (modified rail on R at home) Level of Assistance S Surface 4 stairs x4 reps Treatment Focus eccentric control and ROM Comments Initial assessment step over step ascend/ step to descending due to lack strength and pain L knee eccentric step over step, increased pain to 5/ 10 but able to do with RHR descend. Cued heel press ascend with noted decreased momentum quick push with posterior chain support. PT-OP-T Assessment and Plan Start: 05/21/21 13:18 Freq: Status: Active Protocol: Document 06/20/21 10:33 SP (Rec: 06/20/21 11:33 SP [id number]) Physical Therapy Assessment Goals Three Impairment Decreased L knee AROM Impairment L knee AROM: flex - 75 deg's, ext - lacks 10 deg's Short Term Goal (STG) Improve L knee AROM 0-90 deg's for improved ablity to dress and to be able to lay with legs straight at nighttime. normalize gait. 06/20/21: progressing - L knee AROM 1-133deg STG Duration 07/03/21 (Progressing 06/20/21) Take Away Worker Goal (LTG) Improve L knee AROM 0-125 with pt able to sleep at night at prior level and improve function per TUG or gait speed . 06/20/21: progressing - L knee AROM 1-133deg LTG Duration 08/21/21 (Progressing 06/20/21) Two Impairment L medial knee pain rated 7/10 limiting mobility. Short Term Goal (STG) Decrease L medial knee pain to 4/10 with pt able to move easier getting out of bed. 06/20/21: Goal MET: 4/10 bending on/ of table and during AROM heel slides. STG Duration 07/03/21 (GOAL MET 06/20/21) Take Away Worker Goal (LTG) Decrease pain to 3/10, with pt able to ambulate on level or stairs with normal gait pattern. 06/20/21: progressing 4/10 bending on/ of table and during AROM heel slides. LTG Duration 08/21/21 (Progressing 06/20/21) One Impairment HEP Take Away Worker Goal (LTG) Pt will be educated in a self care HEP. (06/15/21: HEP added: knee flex/ext AROM in sup, sit & stand) LTG Duration 08/21/21 (06/13/21: Progressed) Progress Towards Goals Progress Towards Goals Progressing Toward Goals Progress Comments Pt progressing in L knee AROM 10-75 deg previously measured to 1-133 deg this tx. Her pain has decreased to 4/10 MET STG #2 Assessment Summary Assessment Pt improving in ROM and pain. Not screaming in pain anymore when move my L knee. Pt improved recall to HEP. Condensed HEP handouts, duplicates and numbered for assist completing all. Pt states little discomfort end feel 133 deg L knee flexion 4/ 10 but this is much better. Assessment stair mgt L HR receiprocal step ascend/ step to down very little pain but ableto perform receiprocal descend but causes pain and limited range/ strength on L. Physical Therapy Plan Frequency and Duration Frequency of Treatment 2x/Week Plan of Care Start Date 05/23/21 Plan of Care End Date 08/21/21 Therapeutic Interventions Therapeutic Interventions Aquatic Therapy,Balance Training,Gait Training,Home Exercise Program,Manual Therapy,Neuromuscular Re- education,Patient/Caregiver Education,Self-Care/Home Management,Soft Tissue Mobilization,Taping, Therapeutic Activities, Therapeutic Exercises Modalities Cold Pack/Ice Massage,Hot Packs Next Visit Focus/Plan Next Note Type Treatment Note Next Visit Plan Next tx: review stand, ankle ex until I, Initiate TKE standing, sit<>stands if toleranted. Assess TUG, 6MWT. POC: Gait training with cane, continue gentle L knee AROM and Conc/ECC strengthening if tolerated (if not do isometric strengthening). Progressive gait & balance training on level and stairs when appropriate. End modalities of ice if needed (Note: pt has pacemaker)
--- NOTE | 2021-06-22 09:23 | PT.OTN ---
Current Diagnoses Other chronic pain (06/22/21) Pain in left knee (06/22/21) Muscle weakness (generalized) (06/22/21) Other bursitis of knee, left knee (06/22/21) Unsteadiness on feet (06/22/21) Physical Therapy Treatment Note PT-OP-A Visit Information Start: 05/21/21 13:18 Freq: Status: Active Protocol: Document 06/22/21 08:21 LRN (Rec: 06/22/21 09:22 LRN [id number]) Out-Patient Physical Therapy Visit Information Visit Information Visit Type Treatment Note Visit Start Time 08:21 Visit Stop Time 09:11 Total Visit Minutes 50 Visit Number 7 Evaluation Information Evaluation Date 05/23/21 Precautions Precautions Pacemaker, Easily becomes SOB, arthritis, Mitral valve repair 2009, head surgery 2007 PT-OP-B Current Condition Start: 05/21/21 13:18 Freq: Status: Active Protocol: Document 05/23/21 08:17 LRN (Rec: 05/23/21 09:09 LRN [id number]) Current Condition History of Current Condition Onset Date 1 month ago Current Complaints L posteromedial & anteriomedial knee pain History of Current Condition Pain off/on through the years after falling off a horse 17 yrs ago. Has had gradual onset for the past year and all of a sudden a month ago, insidious onset, pain became severe in L medial or posterior knee that radiated into lower leg. Pain around medial tibial plateau. 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 Treatment Goals Patient/Caregiver Goals Pt goals: -Get rid of pain to be able to roll over in bed and touch knee without pain, -Improve ability to sleep at night (now lays on back and leg straight, but used to be able to lie on sides and bend knee. -Improve ease of getting out of bed (used to be able to get out of bed without worry) -Improve walking on level and stair (normal gait) -Improve gait speed or TUG Prior Functional Status Baseline Function- ADL's Independent Baseline Function- Mobility Independent Baseline Function- Gait Independent without antalgic gait. Baseline Function- Recreation/Hobbies Mentally difficulty getting up off the floor/gardening. Current Functional Impairments (Reported) Functional Limitations- ADL's Ambs with antalgic gait (stiff R knee) Difficulty getting out of bed, out of chair. Difficulty picking up objects or getting up off the floor/ gardening. Difficulty putting on underwear, pants, socks, shoes . Difficulty sleeping. Functional Limitations- Mobility/Gait Antalgic gait due to L knee pain. Personal Factors Other Personal Factors That May Effect , Mitral valve repaired Therapy/Recovery in 2009 with dizziness and SOB easily - controlled by medications, pacemaker, arthritis. PT-OP-C Subjective Start: 05/21/21 13:18 Freq: Status: Active Protocol: Document 06/22/21 08:21 LRN (Rec: 06/22/21 09:22 LRN [id number]) OP-PT Subjective Patient Comments Patient Comments Doing pretty good. Not using AD. Ex's are allowing more mobility, but pain is still in L medial knee, rated 4-5/10. C/O medial hamstring tendon pain. Had COVID booster shot yesterday. PT-OP-G Mobility & Gait Start: 05/21/21 13:18 Freq: Status: Active Protocol: Document 05/23/21 08:17 LRN (Rec: 05/23/21 09:09 LRN [id number]) OP Gait Assessment Gait Gait Assistance Required: Independent Assistive Devices Assistive Device None Gait Deviations General Gait Pattern Antalgic,Decreased Stride Length Factors Limiting Gait Function Factors Limiting Gait Function Pain Comments Gait Comments Ambs slowly with stiff R knee to decrease jarring on painful L knee. Stair Climbing Evaluation Evaluation Level of Assist On Stairs Independent Technique/Endurance Stair Climbing Direction Ascend and Descend Stair Climbing Technique Step to Step Comments Stair Climbing Comments Railing or hand hold on 1 side used (R side ascending). PT-OP-H Neuro Start: 05/21/21 13:18 Freq: Status: Active Protocol: Document 05/23/21 08:17 LRN (Rec: 05/23/21 09:09 LRN [id number]) Sensation Evaluation Comments Summary Comments L LE - Normal sensation except at medial knee at medial fat pad location. PT-OP-J Posture/Palpation/Skin Start: 05/21/21 13:18 Freq: Status: Active Protocol: Document 05/23/21 08:17 LRN (Rec: 05/23/21 09:09 LRN [id number]) Palpation Assessment Location L knee Palpation Location Medial to patella and posterior knee/hamstring tendon, medial jt Palpation Findings Edema,Tenderness PT-OP-K Range of Motion Start: 05/21/21 13:18 Freq: Status: Active Protocol: Document 06/22/21 08:21 LRN (Rec: 06/22/21 09:22 LRN [id number]) Knee Goniometric Range of Motion Knee Right Knee ROM WFL Yes Patient Position Supine Flexion Active (degrees) 125 Flexion Passive (degrees) 128 Extension Active (degrees) 0 Extension Passive (degrees) 0 Left Knee ROM WFL No Patient Position Supine Flexion Active (degrees) 120 Flexion Passive (degrees) 124 Extension Active (degrees) 0 Extension Passive (degrees) 0 PT-OP-L Special Tests Start: 05/21/21 13:18 Freq: Status: Active Protocol: Document 05/23/21 08:17 LRN (Rec: 05/23/21 09:09 LRN [id number]) Special Tests Knee Special Tests Patellar Grind Test Test Results - left Kayy Test Test Results + left Comments Pain medial knee with pt noting a click indicates possible meniscus injury Galo's Test Results - left Anterior Draw Test Results - left Posterior Draw Test Results - left Valgus- 25 Degrees Test Results + left Comments Pain medial and lateral knee indicating possible MCL injury PT-OP-M Strength Start: 05/21/21 13:18 Freq: Status: Active Protocol: Document 05/23/21 08:17 LRN (Rec: 05/23/21 09:09 LRN [id number]) Knee Strength Knee Manual Muscle Testing Right Flexion (S2) 5 Normal Extension (L3) 4+ Good+ Left Flexion (S2) 3- Fair- Extension (L3) 3- Fair- Comments Deferred formal testing due to pain, but pt had trouble moving knee against gravity ( due to pain) Ankle/Foot Strength Ankle and Foot Manual Muscle Testing Right Comments Generally 5/5 Left Comments Generally 5/5 PT-OP-Q Treatments Start: 05/21/21 13:18 Freq: Status: Active Protocol: Document 06/22/21 08:21 LRN (Rec: 06/22/21 09:22 LR [id number]) Therapeutic Exercises Supine Exercises SLR Supine Exercise Name SLR @ 12 & 10 O'Clock Side left Resistance AROM Reps/Minutes 15x, 6x @ 12 O'Clock & 6x3 at 10 O'Clock Comments cued quad fac Heel slides Supine Exercise Name Stretch Side left Resistance AROM Equipment Used not needed strap Reps/Minutes 15x reps Comments good form, tolerant range ( approx 90 deg L knee) Standing Exercises Soleus stretch Side left Reps/Minutes 3' Gastroc Stretch Side left Reps/Minutes 3' Manual Therapy Treatment Soft Tissue Mobilization L Medial Gastro/Soleus Body Location L medial gastroc/soleus Mobilization Type Myofascial Release,Strumming, Sustained Pressure Intensity/Depth Moderate Body Position Supine L medial hamstring Body Location L lateral & medial hamstring muscle & tendons Mobilization Type Strumming Intensity/Depth Moderate L knee Body Location Medial joint line Mobilization Type Myofascial Release,Strumming Intensity/Depth Superficial Body Position Supine Self-Care/Home Management Treatment Education Patient Education Home Exercise Program Activities Self-Care/Home Management Activities Issued & reviewed HEP: SLR at 12 & 10 O'Clock; and Gastroc/ soleus stretch. PT-OP-T Assessment and Plan Start: 05/21/21 13:18 Freq: Status: Active Protocol: Document 06/22/21 08:21 [facility] (Rec: 06/22/21 09:22 [facility] [id number]) Physical Therapy Assessment Goals Three Impairment Decreased L knee AROM Impairment L knee AROM: flex - 75 deg's, ext - lacks 10 deg's Short Term Goal (STG) Improve L knee AROM 0-90 deg's for improved ablity to dress and to be able to lay with legs straight at nighttime. normalize gait. (06/22/21: L knee AROM: 0-124 deg's, R is 0-125 deg's) 06/20/21: progressing - L knee AROM 1-133deg STG Duration 07/03/21 (06/22/21: MET GOAL) Geospatial Information Scientist Goal (LTG) Improve L knee AROM 0-125 with pt able to sleep at night at prior level and improve function per TUG or gait speed . 06/20/21: progressing - L knee AROM 1-133deg LTG Duration 08/21/21 (Progressing 06/22/21) Two Impairment L medial knee pain rated 7/10 limiting mobility. Short Term Goal (STG) Decrease L medial knee pain to 4/10 with pt able to move easier getting out of bed. 06/20/21: Goal MET: 4/10 bending on/ of table and during AROM heel slides. STG Duration 07/03/21 (GOAL MET 06/20/21) Geospatial Information Scientist Goal (LTG) Decrease pain to 3/10, with pt able to ambulate on level or stairs with normal gait pattern. 06/20/21: progressing 4/10 bending on/ of table and during AROM heel slides. LTG Duration 08/21/21 (Progressing 06/20/21) One Impairment HEP Geospatial Information Scientist Goal (LTG) Pt will be educated in a self care HEP. (06/15/21: HEP added: knee flex/ext AROM in sup, sit & stand) LTG Duration 08/21/21 (06/13/21: Progressed) Progress Towards Goals Progress Comments L knee AROM: 0-124 deg's, R is 0-125 deg's; initially was 10 -75 deg's. Assessment Summary Assessment L knee AROM improved (see above). + response to STM and LE stretch with pt having no c/o pain in medial L knee at end of treatment. Lateral L knee pain with active bending of knee in standing greater than ~60 deg's. Pt had no questions with ankle ex's. Physical Therapy Plan Frequency and Duration Frequency of Treatment 2x/Week Plan of Care Start Date 05/23/21 Plan of Care End Date 08/21/21 Next Visit Focus/Plan Next Note Type Treatment Note Next Visit Plan If pt pain is still down, assess TUG, 6MWT. Next tx: review standing gastoc/soleus stretch & SLR in different leg positions (12 & 10'OClock), Initiate TKE standing, sit<> stands if toleranted. POC: L knee AROM and Conc/ECC strengthening when tolerated. Progressive gait & balance training on level and stairs. End modalities of ice if needed (Note: pt has pacemaker ).
--- NOTE | 2021-06-27 10:30 | PT.OTN ---
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 Has had gradual onset for the past year and all of a sudden a month ago, insidious onset, pain became severe in L medial or posterior knee that radiated into lower leg. Pain around medial tibial plateau. 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 Treatment Goals Patient/Caregiver Goals Pt goals: -Get rid of pain to be able to roll over in bed and touch knee without pain, -Improve ability to sleep at night (now lays on back and leg straight, but used to be able to lie on sides and bend knee. -Improve ease of getting out of bed (used to be able to get out of bed without worry) -Improve walking on level and stair (normal gait) -Improve gait speed or TUG Prior Functional Status Baseline Function- ADL's Independent Baseline Function- Mobility Independent Baseline Function- Gait Independent without antalgic gait. Baseline Function- Recreation/Hobbies Mentally difficulty getting up off the floor/gardening. Current Functional Impairments (Reported) Functional Limitations- ADL's Ambs with antalgic gait (stiff R knee) Difficulty getting out of bed, out of chair. Difficulty picking up objects or getting up off the floor/ gardening. Difficulty putting on underwear, pants, socks, shoes . Difficulty sleeping. Functional Limitations- Mobility/Gait Antalgic gait due to L knee pain. Personal Factors Other Personal Factors That May Effect , Mitral valve repaired Therapy/Recovery in 2009 with dizziness and SOB easily - controlled by medications, pacemaker, arthritis. PT-OP-C Subjective Start: 05/21/21 13:18 Freq: Status: Active Protocol: Document 06/27/21 09:48 SP (Rec: 06/27/21 10:44 SP [id number]) OP-PT Subjective Patient Comments Patient Comments Pt stated thinks walking better, a bela. She states still has pain but better, and able to lay on her side with no pain. Pt states is so excited about to put pants on instanding while holding onto something. PT-OP-E Functional Tests Start: 05/21/21 13:18 Freq: Status: Active Protocol: Document 06/27/21 09:48 SP (Rec: 06/27/21 10:47 SP [id number]) Functional Tests 6 Minute Walk Test Distance 1334 Device Used 0 Comments deviations to R w/ L head turn looking, dev R during R turns , self recovery Timed Up and Go (TUG) Score 9s, 9s, 8s Comments slight L medial knee pain TUG Impairment Rating 0% Impaired (Score 10) PT-OP-G Mobility & Gait Start: 05/21/21 13:18 Freq: Status: Active Protocol: Document 05/23/21 08:17 LRN (Rec: 05/23/21 09:09 LRN [id number]) OP Gait Assessment Gait Gait Assistance Required: Independent Assistive Devices Assistive Device None Gait Deviations General Gait Pattern Antalgic,Decreased Stride Length Factors Limiting Gait Function Factors Limiting Gait Function Pain Comments Gait Comments Ambs slowly with stiff R knee to decrease jarring on painful L knee. Stair Climbing Evaluation Evaluation Level of Assist On Stairs Independent Technique/Endurance Stair Climbing Direction Ascend and Descend Stair Climbing Technique Step to Step Comments Stair Climbing Comments Railing or hand hold on 1 side used (R side ascending). PT-OP-H Neuro Start: 05/21/21 13:18 Freq: Status: Active Protocol: Document 05/23/21 08:17 LRN (Rec: 05/23/21 09:09 LRN [id number]) Sensation Evaluation Comments Summary Comments L LE - Normal sensation except at medial knee at medial fat pad location. PT-OP-J Posture/Palpation/Skin Start: 05/21/21 13:18 Freq: Status: Active Protocol: Document 05/23/21 08:17 LRN (Rec: 05/23/21 09:09 LRN [id number]) Palpation Assessment Location L knee Palpation Location Medial to patella and posterior knee/hamstring tendon, medial jt Palpation Findings Edema,Tenderness PT-OP-K Range of Motion Start: 05/21/21 13:18 Freq: Status: Active Protocol: Document 06/27/21 09:48 SP (Rec: 06/27/21 10:44 SP [id number]) Knee Goniometric Range of Motion Knee Right Knee ROM WFL Yes Patient Position Supine Flexion Active (degrees) 130 Flexion Passive (degrees) 134 Extension Active (degrees) 0 Extension Passive (degrees) 0 Left Knee ROM WFL No Patient Position Supine Flexion Active (degrees) 128 Flexion Passive (degrees) 133 Extension Active (degrees) 0 Extension Passive (degrees) 0 PT-OP-L Special Tests Start: 05/21/21 13:18 Freq: Status: Active Protocol: Document 05/23/21 08:17 LRN (Rec: 05/23/21 09:09 LRN [id number]) Special Tests Knee Special Tests Patellar Grind Test Test Results - left Kayy Test Test Results + left Comments Pain medial knee with pt noting a click indicates possible meniscus injury Galo's Test Results - left Anterior Draw Test Results - left Posterior Draw Test Results - left Valgus- 25 Degrees Test Results + left Comments Pain medial and lateral knee indicating possible MCL injury PT-OP-M Strength Start: 05/21/21 13:18 Freq: Status: Active Protocol: Document 05/23/21 08:17 LRN (Rec: 05/23/21 09:09 LRN [id number]) Knee Strength Knee Manual Muscle Testing Right Flexion (S2) 5 Normal Extension (L3) 4+ Good+ Left Flexion (S2) 3- Fair- Extension (L3) 3- Fair- Comments Deferred formal testing due to pain, but pt had trouble moving knee against gravity ( due to pain) Ankle/Foot Strength Ankle and Foot Manual Muscle Testing Right Comments Generally 5/5 Left Comments Generally 5/5 PT-OP-Q Treatments Start: 05/21/21 13:18 Freq: Status: Active Protocol: Document 06/27/21 09:48 SP (Rec: 06/27/21 10:44 SP [id number]) Therapeutic Exercises Supine Exercises SLR Supine Exercise Name SLR @ 12 & 10 O'Clock Side left Resistance AROM Reps/Minutes 20x, 6x @ 12 O'Clock & 6x3 at 10 O'Clock Comments cued hip rotation to 10 and quad fac- muscle work painfree L knee Heel slides Supine Exercise Name Stretch Side left Resistance AROM Equipment Used not needed strap Reps/Minutes 15x reps Comments good form, tolerant range ( approx 123 deg L knee) Sitting Exercises Ankle IV/EV strengthening Side left Equipment Used Tb Lev 1 TB> Lv 2 Reps/Minutes 10x 3 Comments cue xheel down/ knee still Ankle DF strengthening Side left Equipment Used Lev 1 TB> Lv 2 Reps/Minutes 10x 3 Comments cued x1 keep heel down/ knee still Gait Training Gait Activity 6MWT Device Used 0 Level of Assistance S- Mod I Surface firm Distance/Duration 1334 ft Treatment Focus endurance, gait assessment, balance Comments pt at times wt deviation to R when looks left and deviation to L during R turns self recovery. Initially challenged with elevated breath rate, improved with slow pacing control and awareness of slower controlled breath, improved stability at end. Neuro Re-Education Treatment Balance Activities TUG Surface firm Comments 9s, 9s, 8s (0% impaired) PT-OP-T Assessment and Plan Start: 05/21/21 13:18 Freq: Status: Active Protocol: Document 06/27/21 09:48 SP (Rec: 06/27/21 10:44 SP [id number]) Physical Therapy Assessment Goals Three Impairment Decreased L knee AROM Impairment L knee AROM: flex - 75 deg's, ext - lacks 10 deg's Short Term Goal (STG) Improve L knee AROM 0-90 deg's for improved ablity to dress and to be able to lay with legs straight at nighttime. normalize gait. (06/22/21: L knee AROM: 0-124 deg's, R is 0-125 deg's) 06/20/21: progressing - L knee AROM 1-133deg STG Duration 07/03/21 (06/22/21: MET GOAL) [facility] Goal (LTG) Improve L knee AROM 0-125 with pt able to sleep at night at prior level and improve function per TUG or gait speed . 06/20/21: progressing - L knee AROM 1-133deg 06/27/21: progressing L knee 0- 128 deg AROM and TUG 9s, 9s, 8s (0% impaired). LTG Duration 08/21/21 (Progressing 06/26/21) Two Impairment L medial knee pain rated 7/10 limiting mobility. Short Term Goal (STG) Decrease L medial knee pain to 4/10 with pt able to move easier getting out of bed. 06/20/21: Goal MET: 4/10 bending on/ of table and during AROM heel slides. STG Duration 07/03/21 (GOAL MET 06/20/21) [facility] Goal (LTG) Decrease pain to 3/10, with pt able to ambulate on level or stairs with normal gait pattern. 06/20/21: progressing 4/10 bending on/ of table and during AROM heel slides. 06/26/21: progressing: slight 2 -3/10 medial L knee pain end of 6MWT 1334 ft. LTG Duration 08/21/21 (Progressing 06/26/21) One Impairment HEP [facility] Goal (LTG) Pt will be educated in a self care HEP. (06/15/21: HEP added: knee flex/ext AROM in sup, sit & stand) LTG Duration 08/21/21 (06/13/21: Progressed) Progress Towards Goals Progress Towards Goals Progressing Toward Goals Progress Comments L knee AROM 0-128 degs, R 0- 130 deg. Assessment Summary Assessment Pt improving ROm and functional mobility. L knee improving: AROM 0-128, PROM 0- 133, TUG 9s, 9s, 8s (0% impaired), 6MWT 1334 ft with report of slight medial pain reported, improved . Pt able to stand with contact support to don pants. Physical Therapy Plan Frequency and Duration Frequency of Treatment 2x/Week Plan of Care Start Date 05/23/21 Plan of Care End Date 08/21/21 Therapeutic Interventions Therapeutic Interventions Aquatic Therapy,Balance Training,Gait Training,Home Exercise Program,Manual Therapy,Neuromuscular Re- education,Patient/Caregiver Education,Self-Care/Home Management,Soft Tissue Mobilization,Taping, Therapeutic Activities, Therapeutic Exercises Modalities Cold Pack/Ice Massage,Hot Packs Next Visit Focus/Plan Next Note Type Treatment Note Next Visit Plan Assess response to TUG, 6MWT. Next tx: review standing gastoc/soleus stretch & SLR in different leg positions (12 & 10'OClock), Initiate TKE standing, sit<>stands if toleranted. POC: L knee AROM and Conc/ECC strengthening when tolerated. Progressive gait & balance training on level and stairs. End modalities of ice if needed (Note: pt has pacemaker ).
--- NOTE | 2021-06-29 10:35 | PT.OTN ---
Current Diagnoses Other chronic pain (06/29/21) Pain in left knee (06/29/21) Muscle weakness (generalized) (06/29/21) Other bursitis of knee, left knee (06/29/21) Unsteadiness on feet (06/29/21) Physical Therapy Treatment Note PT-OP-A Visit Information Start: 05/21/21 13:18 Freq: Status: Active Protocol: Document 06/29/21 09:48 SP (Rec: 06/29/21 12:00 SP [id number]) Out-Patient Physical Therapy Visit Information Visit Information Visit Type Treatment Note Visit Start Time 09:48 Visit Stop Time 10:35 Total Visit Minutes 48 Visit Number 9 Number of VASCULAR SURGERY PHYSICIAN Visits 2 Evaluation Information Evaluation Date 05/23/21 Precautions Precautions Pacemaker, Easily becomes SOB, arthritis, Mitral valve repair 2009, head surgery 2007 PT-OP-B Current Condition Start: 05/21/21 13:18 Freq: Status: Active Protocol: Document 05/23/21 08:17 LRN (Rec: 05/23/21 09:09 LRN [id number]) Current Condition History of Current Condition Onset Date 1 month ago Current Complaints L posteromedial & anteriomedial knee pain History of Current Condition Pain off/on through the years after falling off a horse 17 yrs ago. Has had gradual onset for the past year and all of a sudden a month ago, insidious onset, pain became severe in L medial or posterior knee that radiated into lower leg. Pain around medial tibial plateau. 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 Treatment Goals Patient/Caregiver Goals Pt goals: -Get rid of pain to be able to roll over in bed and touch knee without pain, -Improve ability to sleep at night (now lays on back and leg straight, but used to be able to lie on sides and bend knee. -Improve ease of getting out of bed (used to be able to get out of bed without worry) -Improve walking on level and stair (normal gait) -Improve gait speed or TUG Prior Functional Status Baseline Function- ADL's Independent Baseline Function- Mobility Independent Baseline Function- Gait Independent without antalgic gait. Baseline Function- Recreation/Hobbies Mentally difficulty getting up off the floor/gardening. Current Functional Impairments (Reported) Functional Limitations- ADL's Ambs with antalgic gait (stiff R knee) Difficulty getting out of bed, out of chair. Difficulty picking up objects or getting up off the floor/ gardening. Difficulty putting on underwear, pants, socks, shoes . Difficulty sleeping. Functional Limitations- Mobility/Gait Antalgic gait due to L knee pain. Personal Factors Other Personal Factors That May Effect , Mitral valve repaired Therapy/Recovery in 2009 with dizziness and SOB easily - controlled by medications, pacemaker, arthritis. PT-OP-C Subjective Start: 05/21/21 13:18 Freq: Status: Active Protocol: Document 06/29/21 09:48 SP (Rec: 06/29/21 12:00 SP [id number]) OP-PT Subjective Patient Comments Patient Comments Pt stated her was seeing [facility] and hoped that can make appts at same time to help travel. Pt states was pretty sore in evening after last tx over medial L knee, found sleeping on her side was worsening her pain and affected her quality of sleep. PT-OP-E Functional Tests Start: 05/21/21 13:18 Freq: Status: Active Protocol: Document 06/27/21 09:48 SP (Rec: 06/27/21 10:47 SP [id number]) Functional Tests 6 Minute Walk Test Distance 1334 Device Used 0 Comments deviations to R w/ L head turn looking, dev R during R turns , self recovery Timed Up and Go (TUG) Score 9s, 9s, 8s Comments slight L medial knee pain TUG Impairment Rating 0% Impaired (Score 10) PT-OP-G Mobility & Gait Start: 05/21/21 13:18 Freq: Status: Active Protocol: Document 05/23/21 08:17 LRN (Rec: 05/23/21 09:09 LRN [id number]) OP Gait Assessment Gait Gait Assistance Required: Independent Assistive Devices Assistive Device None Gait Deviations General Gait Pattern Antalgic,Decreased Stride Length Factors Limiting Gait Function Factors Limiting Gait Function Pain Comments Gait Comments Ambs slowly with stiff R knee to decrease jarring on painful L knee. Stair Climbing Evaluation Evaluation Level of Assist On Stairs Independent Technique/Endurance Stair Climbing Direction Ascend and Descend Stair Climbing Technique Step to Step Comments Stair Climbing Comments Railing or hand hold on 1 side used (R side ascending). PT-OP-H Neuro Start: 05/21/21 13:18 Freq: Status: Active Protocol: Document 05/23/21 08:17 LRN (Rec: 05/23/21 09:09 LRN [id number]) Sensation Evaluation Comments Summary Comments L LE - Normal sensation except at medial knee at medial fat pad location. PT-OP-J Posture/Palpation/Skin Start: 05/21/21 13:18 Freq: Status: Active Protocol: Document 05/23/21 08:17 LRN (Rec: 05/23/21 09:09 LRN [id number]) Palpation Assessment Location L knee Palpation Location Medial to patella and posterior knee/hamstring tendon, medial jt Palpation Findings Edema,Tenderness PT-OP-K Range of Motion Start: 05/21/21 13:18 Freq: Status: Active Protocol: Document 06/29/21 09:48 SP (Rec: 06/29/21 12:00 SP [id number]) Knee Goniometric Range of Motion Knee Right Knee ROM WFL Yes Patient Position Supine Flexion Active (degrees) 137 Flexion Passive (degrees) 140 Extension Active (degrees) 0 Extension Passive (degrees) 0 Left Knee ROM WFL No Patient Position Supine Flexion Active (degrees) 133 Flexion Passive (degrees) 135 Extension Active (degrees) 0 Extension Passive (degrees) 0 PT-OP-L Special Tests Start: 05/21/21 13:18 Freq: Status: Active Protocol: Document 05/23/21 08:17 LRN (Rec: 05/23/21 09:09 LRN [id number]) Special Tests Knee Special Tests Patellar Grind Test Test Results - left Kayy Test Test Results + left Comments Pain medial knee with pt noting a click indicates possible meniscus injury Galo's Test Results - left Anterior Draw Test Results - left Posterior Draw Test Results - left Valgus- 25 Degrees Test Results + left Comments Pain medial and lateral knee indicating possible MCL injury PT-OP-M Strength Start: 05/21/21 13:18 Freq: Status: Active Protocol: Document 05/23/21 08:17 LRN (Rec: 05/23/21 09:09 LRN [id number]) Knee Strength Knee Manual Muscle Testing Right Flexion (S2) 5 Normal Extension (L3) 4+ Good+ Left Flexion (S2) 3- Fair- Extension (L3) 3- Fair- Comments Deferred formal testing due to pain, but pt had trouble moving knee against gravity ( due to pain) Ankle/Foot Strength Ankle and Foot Manual Muscle Testing Right Comments Generally 5/5 Left Comments Generally 5/5 PT-OP-Q Treatments Start: 05/21/21 13:18 Freq: Status: Active Protocol: Document 06/29/21 09:48 SP (Rec: 06/29/21 12:00 SP [id number]) Cardio Equipment Bicycle (Upright) Duration (Minutes) 6 Resistance 3 Seat Position 7 Other improved decreased tightness, painfree with time: 2.13 miles Therapeutic Exercises Supine Exercises SLR Supine Exercise Name SLR @ 12 & 10 O'Clock Side left Resistance AROM Reps/Minutes 20x, 6x @ 12 O'Clock & 6x3 at 10 O'Clock Comments cued hip rotation to 10 and quad fac- muscle work painfree L knee BKFO> adductor stretch Supine Exercise Name HEP review Side bilateral Reps/Minutes AROM x2 reps, then hold stretch 10 sec for 5 reps Heel slides Supine Exercise Name Stretch Side left Resistance AROM Equipment Used not needed strap Reps/Minutes 15x reps Comments good form, tolerant range ( approx 133 deg L knee, 140 deg RLE) Sitting Exercises sit to stands Sitting Exercise Name 5 STS for time (added to HEP) Resistance added to HEP Equipment Used arms across chest Reps/Minutes 17 s, 17s ( 5 reps x2 at home) Comments improved hip hinge and knee alignment post ed, painfree and no hip IR comp Manual Therapy Treatment Soft Tissue Mobilization L medial hamstring Body Location L lateral & medial hamstring muscle & tendons Mobilization Type Strumming Intensity/Depth Moderate L knee Body Location Medial joint line Mobilization Type Instrument Assisted,Myofascial Release,Strumming Intensity/Depth Superficial Body Position Supine Comments manual and instruction on self use of rolling pin with good feedback results. Self-Care/Home Management Treatment Education Patient Education Home Exercise Program Other Education HEP review, more confident. Initiated manual STMs and instruction on self use of rolling pin with good results, Added sit<>stands with cues for knee alignment, improved knees apart and hip hinge painfree w/ arms across chest (17s 5 STS assessment). PT-OP-T Assessment and Plan Start: 05/21/21 13:18 Freq: Status: Active Protocol: Document 06/29/21 09:48 SP (Rec: 06/29/21 12:00 SP [id number]) Physical Therapy Assessment Goals Three Impairment Decreased L knee AROM Impairment L knee AROM: flex - 75 deg's, ext - lacks 10 deg's Short Term Goal (STG) Improve L knee AROM 0-90 deg's for improved ablity to dress and to be able to lay with legs straight at nighttime. normalize gait. (06/22/21: L knee AROM: 0-124 deg's, R is 0-125 deg's) 06/20/21: progressing - L knee AROM 1-133deg STG Duration 07/03/21 (06/22/21: MET GOAL) Stewardess Supervisor Goal (LTG) Improve L knee AROM 0-125 with pt able to sleep at night at prior level and improve function per TUG or gait speed . 06/20/21: progressing - L knee AROM 1-133deg 06/27/21: progressing L knee 0- 128 deg AROM and TUG 9s, 9s, 8s. 06/29/21: GOAL MET: AROM supine : LLE 0-133 deg, RLE 0-140 deg LTG Duration 08/21/21 (GOAL MET 06/29/21) Two Impairment L medial knee pain rated 7/10 limiting mobility. Short Term Goal (STG) Decrease L medial knee pain to 4/10 with pt able to move easier getting out of bed. 06/20/21: Goal MET: 4/10 bending on/ of table and during AROM heel slides. STG Duration 07/03/21 (GOAL MET 06/20/21) Stewardess Supervisor Goal (LTG) Decrease pain to 3/10, with pt able to ambulate on level or stairs with normal gait pattern. 06/20/21: progressing 4/10 bending on/ of table and during AROM heel slides. 06/26/21: progressing: slight 2 -3/10 medial L knee pain end of 6MWT 1334 ft. LTG Duration 08/21/21 (Progressing 06/26/21) One Impairment HEP Long-Term Goal (LTG) Pt will be educated in a self care HEP. (06/15/21: HEP added: knee flex/ext AROM in sup, sit & stand) LTG Duration 08/21/21 (06/13/21: Progressed) Progress Towards Goals Progress Towards Goals Progressing Toward Goals Progress Comments Pt progressed in L knee AROM flexion by 5 deg 0- 133 deg, R knee 7 deg 0-137deg. Assessment Summary Assessment Pt progressing in AROM, continues to have pain over medial L knee, improved post manual and instruction on self use of rolling pin with no adverse affects. Pt had no pain medial during initiated STS and end of tx. Discussed use of CP or MHP for pain with verbalized will do. Physical Therapy Plan Frequency and Duration Frequency of Treatment 2x/Week Plan of Care Start Date 05/23/21 Plan of Care End Date 08/21/21 Therapeutic Interventions Therapeutic Interventions Aquatic Therapy,Balance Training,Gait Training,Home Exercise Program,Manual Therapy,Neuromuscular Re- education,Patient/Caregiver Education,Self-Care/Home Management,Soft Tissue Mobilization,Taping, Therapeutic Activities, Therapeutic Exercises Modalities Cold Pack/Ice Massage,Hot Packs Next Visit Focus/Plan Next Note Type Treatment Note Next Visit Plan Assess response to added STS, manual and self use of rolling pin. Next tx: review standing gastoc/soleus stretch & SLR in different leg positions (12 & 10'OClock), Initiate TKE standing. POC: L knee AROM and Conc/ECC strengthening when tolerated. Progressive gait & balance training on level and stairs. End modalities of ice if needed (Note: pt has pacemaker ).
[2021-07-04 09:05] VITALS: BP 144/68; BP 159/60; O2SAT 97
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
--- NOTE | 2021-07-06 11:36 | PT.OTN ---
Current Diagnoses Other chronic pain (07/06/21) Pain in left knee (07/06/21) Muscle weakness (generalized) (07/06/21) Other bursitis of knee, left knee (07/06/21) Unsteadiness on feet (07/06/21) Physical Therapy Treatment Note PT-OP-A Visit Information Start: 05/21/21 13:18 Freq: Status: Active Protocol: Document 07/06/21 09:49 LRN (Rec: 07/06/21 10:32 LRN [id number]) Out-Patient Physical Therapy Visit Information Visit Information Visit Type Treatment Note Visit Note 1 after PN Visit Start Time 09:49 Visit Stop Time 10:30 Total Visit Minutes 42 Visit Number 11 Evaluation Information Evaluation Date 05/23/21 Precautions Precautions Pacemaker, Easily becomes SOB, arthritis, Mitral valve repair 2009, head surgery 2007 PT-OP-B Current Condition Start: 05/21/21 13:18 Freq: Status: Active Protocol: Document 05/23/21 08:17 LRN (Rec: 05/23/21 09:09 LRN [id number]) Current Condition History of Current Condition Onset Date 1 month ago Current Complaints L posteromedial & anteriomedial knee pain History of Current Condition Pain off/on through the years after falling off a horse 17 yrs ago. Has had gradual onset for the past year and all of a sudden a month ago, insidious onset, pain became severe in L medial or posterior knee that radiated into lower leg. Pain around medial tibial plateau. 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 Treatment Goals Patient/Caregiver Goals Pt goals: -Get rid of pain to be able to roll over in bed and touch knee without pain, -Improve ability to sleep at night (now lays on back and leg straight, but used to be able to lie on sides and bend knee. -Improve ease of getting out of bed (used to be able to get out of bed without worry) -Improve walking on level and stair (normal gait) -Improve gait speed or TUG Prior Functional Status Baseline Function- ADL's Independent Baseline Function- Mobility Independent Baseline Function- Gait Independent without antalgic gait. Baseline Function- Recreation/Hobbies Mentally difficulty getting up off the floor/gardening. Current Functional Impairments (Reported) Functional Limitations- ADL's Ambs with antalgic gait (stiff R knee) Difficulty getting out of bed, out of chair. Difficulty picking up objects or getting up off the floor/ gardening. Difficulty putting on underwear, pants, socks, shoes . Difficulty sleeping. Functional Limitations- Mobility/Gait Antalgic gait due to L knee pain. Personal Factors Other Personal Factors That May Effect , Mitral valve repaired Therapy/Recovery in 2009 with dizziness and SOB easily - controlled by medications, pacemaker, arthritis. PT-OP-C Subjective Start: 05/21/21 13:18 Freq: Status: Active Protocol: Document 07/06/21 09:49 LRN (Rec: 07/06/21 10:32 LRN [id number]) OP-PT Subjective Patient Comments Patient Comments No changes to reaport. Driving very little. PT-OP-E Functional Tests Start: 05/21/21 13:18 Freq: Status: Active Protocol: Document 06/27/21 09:48 SP (Rec: 06/27/21 10:47 SP [id number]) Functional Tests 6 Minute Walk Test Distance 1334 Device Used 0 Comments deviations to R w/ L head turn looking, dev R during R turns , self recovery Timed Up and Go (TUG) Score 9s, 9s, 8s Comments slight L medial knee pain TUG Impairment Rating 0% Impaired (Score 10) PT-OP-G Mobility & Gait Start: 05/21/21 13:18 Freq: Status: Active Protocol: Document 05/23/21 08:17 LRN (Rec: 05/23/21 09:09 LRN [id number]) OP Gait Assessment Gait Gait Assistance Required: Independent Assistive Devices Assistive Device None Gait Deviations General Gait Pattern Antalgic,Decreased Stride Length Factors Limiting Gait Function Factors Limiting Gait Function Pain Comments Gait Comments Ambs slowly with stiff R knee to decrease jarring on painful L knee. Stair Climbing Evaluation Evaluation Level of Assist On Stairs Independent Technique/Endurance Stair Climbing Direction Ascend and Descend Stair Climbing Technique Step to Step Comments Stair Climbing Comments Railing or hand hold on 1 side used (R side ascending). PT-OP-H Neuro Start: 05/21/21 13:18 Freq: Status: Active Protocol: Document 07/04/21 09:05 LRN (Rec: 07/04/21 09:50 LRN [id number]) Vital Signs Blood Pressure Sitting after therapy Blood Pressure (90/60-120/80 mmHg) 159/60 H Blood Pressure Source Manual Cuff,Left Upper Extremity Sitting Blood Pressure (90/60-120/80 mmHg) 144/68 H Blood Pressure Source Manual Cuff,Left Upper Extremity Oxygen Pulse Oximetry at Rest (%) (95-100 %) 97 Comments Vital Signs Comments Pulse at rest sittin bpm PT-OP-J Posture/Palpation/Skin Start: 05/21/21 13:18 Freq: Status: Active Protocol: Document 05/23/21 08:17 LRN (Rec: 05/23/21 09:09 LRN [id number]) Palpation Assessment Location L knee Palpation Location Medial to patella and posterior knee/hamstring tendon, medial jt Palpation Findings Edema,Tenderness PT-OP-K Range of Motion Start: 05/21/21 13:18 Freq: Status: Active Protocol: Document 07/06/21 09:49 LRN (Rec: 07/06/21 10:32 LRN [id number]) Knee Goniometric Range of Motion Knee Right Knee ROM WFL Yes Patient Position Supine Flexion Active (degrees) 137 Flexion Passive (degrees) 140 Extension Active (degrees) 0 Extension Passive (degrees) 0 Left Knee ROM WFL No Patient Position Supine Flexion Active (degrees) 133 Flexion Passive (degrees) 135 Extension Active (degrees) 0 Extension Passive (degrees) 0 PT-OP-L Special Tests Start: 05/21/21 13:18 Freq: Status: Active Protocol: Document 05/23/21 08:17 LRN (Rec: 05/23/21 09:09 LRN [id number]) Special Tests Knee Special Tests Patellar Grind Test Test Results - left Kayy Test Test Results + left Comments Pain medial knee with pt noting a click indicates possible meniscus injury Galo's Test Results - left Anterior Draw Test Results - left Posterior Draw Test Results - left Valgus- 25 Degrees Test Results + left Comments Pain medial and lateral knee indicating possible MCL injury PT-OP-M Strength Start: 05/21/21 13:18 Freq: Status: Active Protocol: Document 05/23/21 08:17 LRN (Rec: 05/23/21 09:09 LRN [id number]) Knee Strength Knee Manual Muscle Testing Right Flexion (S2) 5 Normal Extension (L3) 4+ Good+ Left Flexion (S2) 3- Fair- Extension (L3) 3- Fair- Comments Deferred formal testing due to pain, but pt had trouble moving knee against gravity ( due to pain) Ankle/Foot Strength Ankle and Foot Manual Muscle Testing Right Comments Generally 5/5 Left Comments Generally 5/5 PT-OP-Q Treatments Start: 05/21/21 13:18 Freq: Status: Active Protocol: Document 07/06/21 09:49 LRN (Rec: 07/06/21 10:32 LRN [id number]) Cardio Equipment Bicycle (Upright) Duration (Minutes) 8 Resistance 3 Seat Position 7 Other With 1' cool down, painfree with time: 3.61 miles Therapeutic Exercises Supine Exercises SLR Supine Exercise Name SLR @ 12 & 10 O'Clock Side left Resistance AROM Equipment Used 1# foot @ 12 OI'Clock, 0# foot @ 10 OI'Clock Reps/Minutes 10x 2 @ 12 O'Clock & 10 O' Clock Comments Rests btwn sets, and every 2 reps on 2nd rep. Breathing cuing needed. Sitting Exercises sit to stands Sitting Exercise Name Sit<>Stands, training w/TBand around knees Resistance added to HEP Equipment Used arms across chest Reps/Minutes 10x 2 with multiple rests and assist Comments Much phys assist & cuing for positioning to safely stand. Standing Exercises Soleus stretch Standing Exercise Name HEP - review, pt doing properly Side left Reps/Minutes 3' Gastroc Stretch Standing Exercise Name HEP - review, pt doing properly Side left Reps/Minutes 2' L knee flex Standing Exercise Name Active flex strengthening Side left Equipment Used Lev 2 TB Reps/Minutes 15x Self-Care/Home Management Treatment Education Patient Education Home Exercise Program Activities Self-Care/Home Management Activities Issued & reviewed HEP: Sit to stands with T-Band around knees. PT-OP-T Assessment and Plan Start: 05/21/21 13:18 Freq: Status: Active Protocol: Document 07/06/21 09:49 LRN (Rec: 07/06/21 10:32 LRN [id number]) Physical Therapy Assessment Goals Three Impairment Decreased L knee AROM Impairment L knee AROM: flex - 75 deg's, ext - lacks 10 deg's Short Term Goal (STG) Improve L knee AROM 0-90 deg's for improved ablity to dress and to be able to lay with legs straight at nighttime. normalize gait. (06/22/21: L knee AROM: 0-124 deg's, R is 0-125 deg's) 06/20/21: progressing - L knee AROM 1-133deg STG Duration 07/03/21 (06/22/21: MET GOAL) Packaging Inspector Goal (LTG) Improve L knee AROM 0-125 with pt able to sleep at night at prior level and improve function per TUG or gait speed . 06/20/21: progressing - L knee AROM 1-133deg 06/27/21: progressing L knee 0- 128 deg AROM and TUG 9s, 9s, 8s. 06/29/21: GOAL MET: AROM supine : LLE 0-133 deg, RLE 0-140 deg 07/04/21: L knee pain wakes her up at night. LTG Duration 08/21/21 (ROM GOAL MET 06/29/21 ) Two Impairment L medial knee pain rated 7/10 limiting mobility. Short Term Goal (STG) Decrease L medial knee pain to 4/10 with pt able to move easier getting out of bed. 06/20/21: Goal MET: 4/10 bending on/ of table and during AROM heel slides. STG Duration 07/03/21 (GOAL MET 06/20/21) Packaging Inspector Goal (LTG) Decrease pain to 3/10, with pt able to ambulate on level or stairs with normal gait pattern. 06/20/21: progressing 4/10 bending on/ of table and during AROM heel slides. 06/26/21: progressing: slight 2 -3/10 medial L knee pain end of 6MWT 1334 ft. 07/04/21: LTG Duration 08/21/21 (Progressing 06/26/21) One Impairment HEP Packaging Inspector Goal (LTG) Pt will be educated in a self care HEP. (06/15/21: HEP added: knee flex/ext AROM in sup, sit & stand) LTG Duration 08/21/21 (06/13/21: Progressed) Assessment Summary Assessment Pt need much training and cuing for STS with use of T- Band around knees. Pt very slow to progress in strength of L Quad, but was able to increase tolerance with SLR. Sit to stands difficult due to feeling of decreased balance. Pt R knee WBing more; therefore R medial knee discomfort with greater reps. Physical Therapy Plan Frequency and Duration Frequency of Treatment 2x/Week Plan of Care Start Date 05/23/21 Plan of Care End Date 08/21/21 Next Visit Focus/Plan Next Note Type Treatment Note Next Visit Plan Review sit to stands with TB, standing knee flexion strengthening & Initiate TKE standing strengthening. Continue L knee AROM and Conc/ ECC strengthening. Start gait on level and stairs & balance training. End modalities of ice if needed (Note: pt has pacemaker).
--- NOTE | 2021-07-11 10:51 | PT.OTN ---
Current Diagnoses Other chronic pain (07/11/21) Pain in left knee (07/11/21) Muscle weakness (generalized) (07/11/21) Other bursitis of knee, left knee (07/11/21) Unsteadiness on feet (07/11/21) Physical Therapy Treatment Note PT-OP-A Visit Information Start: 05/21/21 13:18 Freq: Status: Active Protocol: Document 07/11/21 09:46 LRN (Rec: 07/11/21 10:50 LRN [id number]) Out-Patient Physical Therapy Visit Information Visit Information Visit Type Treatment Note Visit Start Time 09:47 Visit Stop Time 10:44 Total Visit Minutes 57 Visit Number 12 Evaluation Information Evaluation Date 05/23/21 Precautions Precautions Pacemaker, Easily becomes SOB, arthritis, Mitral valve repair 2009, head surgery 2007 PT-OP-B Current Condition Start: 05/21/21 13:18 Freq: Status: Active Protocol: Document 05/23/21 08:17 LRN (Rec: 05/23/21 09:09 LRN [id number]) Current Condition History of Current Condition Onset Date 1 month ago Current Complaints L posteromedial & anteriomedial knee pain History of Current Condition Pain off/on through the years after falling off a horse 17 yrs ago. Has had gradual onset for the past year and all of a sudden a month ago, insidious onset, pain became severe in L medial or posterior knee that radiated into lower leg. Pain around medial tibial plateau. 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 Treatment Goals Patient/Caregiver Goals Pt goals: -Get rid of pain to be able to roll over in bed and touch knee without pain, -Improve ability to sleep at night (now lays on back and leg straight, but used to be able to lie on sides and bend knee. -Improve ease of getting out of bed (used to be able to get out of bed without worry) -Improve walking on level and stair (normal gait) -Improve gait speed or TUG Prior Functional Status Baseline Function- ADL's Independent Baseline Function- Mobility Independent Baseline Function- Gait Independent without antalgic gait. Baseline Function- Recreation/Hobbies Mentally difficulty getting up off the floor/gardening. Current Functional Impairments (Reported) Functional Limitations- ADL's Ambs with antalgic gait (stiff R knee) Difficulty getting out of bed, out of chair. Difficulty picking up objects or getting up off the floor/ gardening. Difficulty putting on underwear, pants, socks, shoes . Difficulty sleeping. Functional Limitations- Mobility/Gait Antalgic gait due to L knee pain. Personal Factors Other Personal Factors That May Effect , Mitral valve repaired Therapy/Recovery in 2009 with dizziness and SOB easily - controlled by medications, pacemaker, arthritis. PT-OP-C Subjective Start: 05/21/21 13:18 Freq: Status: Active Protocol: Document 07/11/21 09:46 LRN (Rec: 07/11/21 10:50 LRN [id number]) OP-PT Subjective Patient Comments Patient Comments CAT scan tomorrow for head. The knee was sore during the night and had to ice it down yesterday after exercise because it was sore. PT-OP-E Functional Tests Start: 05/21/21 13:18 Freq: Status: Active Protocol: Document 06/27/21 09:48 SP (Rec: 06/27/21 10:47 SP [id number]) Functional Tests 6 Minute Walk Test Distance 1334 Device Used 0 Comments deviations to R w/ L head turn looking, dev R during R turns , self recovery Timed Up and Go (TUG) Score 9s, 9s, 8s Comments slight L medial knee pain TUG Impairment Rating 0% Impaired (Score 10) PT-OP-G Mobility & Gait Start: 05/21/21 13:18 Freq: Status: Active Protocol: Document 05/23/21 08:17 LRN (Rec: 05/23/21 09:09 LRN [id number]) OP Gait Assessment Gait Gait Assistance Required: Independent Assistive Devices Assistive Device None Gait Deviations General Gait Pattern Antalgic,Decreased Stride Length Factors Limiting Gait Function Factors Limiting Gait Function Pain Comments Gait Comments Ambs slowly with stiff R knee to decrease jarring on painful L knee. Stair Climbing Evaluation Evaluation Level of Assist On Stairs Independent Technique/Endurance Stair Climbing Direction Ascend and Descend Stair Climbing Technique Step to Step Comments Stair Climbing Comments Railing or hand hold on 1 side used (R side ascending). PT-OP-H Neuro Start: 05/21/21 13:18 Freq: Status: Active Protocol: Document 07/04/21 09:05 LRN (Rec: 07/04/21 09:50 LRN [id number]) Vital Signs Blood Pressure Sitting after therapy Blood Pressure (90/60-120/80 mmHg) 159/60 H Blood Pressure Source Manual Cuff,Left Upper Extremity Sitting Blood Pressure (90/60-120/80 mmHg) 144/68 H Blood Pressure Source Manual Cuff,Left Upper Extremity Oxygen Pulse Oximetry at Rest (%) (95-100 %) 97 Comments Vital Signs Comments Pulse at rest sittin bpm PT-OP-J Posture/Palpation/Skin Start: 05/21/21 13:18 Freq: Status: Active Protocol: Document 05/23/21 08:17 LRN (Rec: 05/23/21 09:09 LRN [id number]) Palpation Assessment Location L knee Palpation Location Medial to patella and posterior knee/hamstring tendon, medial jt Palpation Findings Edema,Tenderness PT-OP-K Range of Motion Start: 05/21/21 13:18 Freq: Status: Active Protocol: Document 07/11/21 09:46 LRN (Rec: 07/11/21 10:50 LRN [id number]) Knee Goniometric Range of Motion Knee Right Knee ROM WFL Yes Patient Position Supine Flexion Active (degrees) 130 Extension Active (degrees) 0 Left Knee ROM WFL No Patient Position Supine Flexion Active (degrees) 135 Extension Active (degrees) 0 PT-OP-L Special Tests Start: 05/21/21 13:18 Freq: Status: Active Protocol: Document 05/23/21 08:17 LRN (Rec: 05/23/21 09:09 LRN [id number]) Special Tests Knee Special Tests Patellar Grind Test Test Results - left Kayy Test Test Results + left Comments Pain medial knee with pt noting a click indicates possible meniscus injury Galo's Test Results - left Anterior Draw Test Results - left Posterior Draw Test Results - left Valgus- 25 Degrees Test Results + left Comments Pain medial and lateral knee indicating possible MCL injury PT-OP-M Strength Start: 05/21/21 13:18 Freq: Status: Active Protocol: Document 05/23/21 08:17 LRN (Rec: 05/23/21 09:09 LRN [id number]) Knee Strength Knee Manual Muscle Testing Right Flexion (S2) 5 Normal Extension (L3) 4+ Good+ Left Flexion (S2) 3- Fair- Extension (L3) 3- Fair- Comments Deferred formal testing due to pain, but pt had trouble moving knee against gravity ( due to pain) Ankle/Foot Strength Ankle and Foot Manual Muscle Testing Right Comments Generally 5/5 Left Comments Generally 5/5 PT-OP-Q Treatments Start: 05/21/21 13:18 Freq: Status: Active Protocol: Document 07/11/21 09:46 LRN (Rec: 07/11/21 10:50 LRN [id number]) Therapeutic Exercises Supine Exercises SLR Supine Exercise Name SLR @ 12 & 10 O'Clock Side left Resistance AROM Equipment Used 2#, 1# foot @ 12 OI'Clock & @ 10 OI'Clock Reps/Minutes 10x each @ 12 O'Clock & 10 O 'Clock Comments Rests btwn sets, and every 2 reps on 2nd rep. Breathing cuing needed. Heel slides Supine Exercise Name Stretch & ROM taken Side left Resistance AROM/PROM Equipment Used strap Reps/Minutes 10 H x 10 Comments good form, tolerant range ( approx 135 deg L knee, 130 deg RLE) Sitting Exercises sit to stands Sitting Exercise Name Sit<>Stands, training w/TBand around knees Resistance added to HEP Equipment Used arms across chest, tape on floor for feet position Reps/Minutes 10x 2 with multiple rests and assist Comments Much phys assist & cuing for keeping knees abducted and over ankles Standing Exercises Step ups Standing Exercise Name Step up/down 6 step Side bilateral Equipment Used 6 step Reps/Minutes 7' Comments Extra time for correcting L foot positioning & for ECC strengthening Isometric TKE Standing Exercise Name Isometric TKE Side left Equipment Used Lev 2 TB with hand towel padding behind the knee Reps/Minutes 10 H x 10 Comments Extra time taken to modify for comfort Stair ambulation Standing Exercise Name Stair ambulation 6 Reps/Minutes 3' Comments Pain 1/10 on lateral L knee L knee flex Standing Exercise Name Active flex strengthening Side left Equipment Used Lev 2 TB Reps/Minutes 15x PT-OP-R Modalities Start: 05/21/21 13:18 Freq: Status: Active Protocol: Document 07/11/21 09:46 LRN (Rec: 07/11/21 10:50 LRN [id number]) Hot Pack/Cold Pack Treatment Cold Pack Location L knee Patient Position Supine Treatment Duration (minutes) 10 Patient Tolerance Good Comments L leg on boster PT-OP-T Assessment and Plan Start: 05/21/21 13:18 Freq: Status: Active Protocol: Document 07/11/21 09:46 LRN (Rec: 07/11/21 10:50 LRN [id number]) Physical Therapy Assessment Goals Three Impairment Decreased L knee AROM Impairment L knee AROM: flex - 75 deg's, ext - lacks 10 deg's Short Term Goal (STG) Improve L knee AROM 0-90 deg's for improved ablity to dress and to be able to lay with legs straight at nighttime. normalize gait. (06/22/21: L knee AROM: 0-124 deg's, R is 0-125 deg's) 06/20/21: progressing - L knee AROM 1-133deg STG Duration 07/03/21 (06/22/21: MET GOAL) Senior Living Goal (LTG) Improve L knee AROM 0-125 with pt able to sleep at night at prior level and improve function per TUG or gait speed . 06/20/21: progressing - L knee AROM 1-133deg 06/27/21: progressing L knee 0- 128 deg AROM and TUG 9s, 9s, 8s. 06/29/21: GOAL MET: AROM supine : LLE 0-133 deg, RLE 0-140 deg 07/04/21: L knee pain wakes her up at night. LTG Duration 08/21/21 (ROM GOAL MET 06/29/21 ) Two Impairment L medial knee pain rated 7/10 limiting mobility. Short Term Goal (STG) Decrease L medial knee pain to 4/10 with pt able to move easier getting out of bed. 06/20/21: Goal MET: 4/10 bending on/ of table and during AROM heel slides. STG Duration 07/03/21 (GOAL MET 06/20/21) Senior Living Goal (LTG) Decrease pain to 3/10, with pt able to ambulate on level or stairs with normal gait pattern. 06/20/21: progressing 4/10 bending on/ of table and during AROM heel slides. 06/26/21: progressing: slight 2 -3/10 medial L knee pain end of 6MWT 1334 ft. 07/11/21: Pain rated verbally 1/10 with stairs and gait. LTG Duration 08/21/21 (07/11/21: MET GOAL) One Impairment HEP Software Quality Assurance Specialist Goal (LTG) Pt will be educated in a self care HEP. (06/15/21: HEP added: knee flex/ext AROM in sup, sit & stand) LTG Duration 08/21/21 (06/13/21: Progressed) Progress Towards Goals Progress Comments Pain goal with gait and stairs met, with pain rated 1/10. Assessment Summary Assessment Pt improved ability to sit to stand without knees collapsing . Pt on sit needs to have knees over ankles. L knee girth appears greater than R, but no temperature change. Pt demonstrates weakness of L knee on stairs with giving way when standing on LLE on descent and difficulty with ascending on LLE. Physical Therapy Plan Frequency and Duration Frequency of Treatment 2x/Week Plan of Care Start Date 05/23/21 Plan of Care End Date 08/21/21 Next Visit Focus/Plan Next Note Type Treatment Note Next Visit Plan Review L TKE standing w/TB strengthening and with ECC strengthening on stairs. Recheck for normal L knee AROM . Focus on ECC L knee strengthening. Gait training on level and & balance training. End modalities of ice if needed ( Note: pt has pacemaker).
--- NOTE | 2021-07-13 11:08 | PT.OTN ---
Current Diagnoses Other chronic pain (07/13/21) Pain in left knee (07/13/21) Muscle weakness (generalized) (07/13/21) Other bursitis of knee, left knee (07/13/21) Unsteadiness on feet (07/13/21) Physical Therapy Treatment Note PT-OP-A Visit Information Start: 05/21/21 13:18 Freq: Status: Active Protocol: Document 07/13/21 09:47 LRN (Rec: 07/13/21 11:08 LRN [id number]) Out-Patient Physical Therapy Visit Information Visit Information Visit Type Treatment Note Visit Note 3 after PN Visit Start Time 09:47 Visit Stop Time 10:47 Total Visit Minutes 60 Visit Number 13 Evaluation Information Evaluation Date 05/23/21 Precautions Precautions Pacemaker, Easily becomes SOB, arthritis, Mitral valve repair 2009, head surgery 2007 PT-OP-B Current Condition Start: 05/21/21 13:18 Freq: Status: Active Protocol: Document 05/23/21 08:17 LRN (Rec: 05/23/21 09:09 LRN [id number]) Current Condition History of Current Condition Onset Date 1 month ago Current Complaints L posteromedial & anteriomedial knee pain History of Current Condition Pain off/on through the years after falling off a horse 17 yrs ago. Has had gradual onset for the past year and all of a sudden a month ago, insidious onset, pain became severe in L medial or posterior knee that radiated into lower leg. Pain around medial tibial plateau. 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 Treatment Goals Patient/Caregiver Goals Pt goals: -Get rid of pain to be able to roll over in bed and touch knee without pain, -Improve ability to sleep at night (now lays on back and leg straight, but used to be able to lie on sides and bend knee. -Improve ease of getting out of bed (used to be able to get out of bed without worry) -Improve walking on level and stair (normal gait) -Improve gait speed or TUG Prior Functional Status Baseline Function- ADL's Independent Baseline Function- Mobility Independent Baseline Function- Gait Independent without antalgic gait. Baseline Function- Recreation/Hobbies Mentally difficulty getting up off the floor/gardening. Current Functional Impairments (Reported) Functional Limitations- ADL's Ambs with antalgic gait (stiff R knee) Difficulty getting out of bed, out of chair. Difficulty picking up objects or getting up off the floor/ gardening. Difficulty putting on underwear, pants, socks, shoes . Difficulty sleeping. Functional Limitations- Mobility/Gait Antalgic gait due to L knee pain. Personal Factors Other Personal Factors That May Effect , Mitral valve repaired Therapy/Recovery in 2009 with dizziness and SOB easily - controlled by medications, pacemaker, arthritis. PT-OP-C Subjective Start: 05/21/21 13:18 Freq: Status: Active Protocol: Document 07/13/21 09:47 LRN (Rec: 07/13/21 11:08 LRN [id number]) OP-PT Subjective Patient Comments Patient Comments States her L knee pain is 2/10 intermittent, happens every night and sometimes during the day. She typically has no knee pain with gait. No knee pain this morning. PT-OP-E Functional Tests Start: 05/21/21 13:18 Freq: Status: Active Protocol: Document 06/27/21 09:48 SP (Rec: 06/27/21 10:47 SP [id number]) Functional Tests 6 Minute Walk Test Distance 1334 Device Used 0 Comments deviations to R w/ L head turn looking, dev R during R turns , self recovery Timed Up and Go (TUG) Score 9s, 9s, 8s Comments slight L medial knee pain TUG Impairment Rating 0% Impaired (Score 10) PT-OP-G Mobility & Gait Start: 05/21/21 13:18 Freq: Status: Active Protocol: Document 05/23/21 08:17 LRN (Rec: 05/23/21 09:09 LRN [id number]) OP Gait Assessment Gait Gait Assistance Required: Independent Assistive Devices Assistive Device None Gait Deviations General Gait Pattern Antalgic,Decreased Stride Length Factors Limiting Gait Function Factors Limiting Gait Function Pain Comments Gait Comments Ambs slowly with stiff R knee to decrease jarring on painful L knee. Stair Climbing Evaluation Evaluation Level of Assist On Stairs Independent Technique/Endurance Stair Climbing Direction Ascend and Descend Stair Climbing Technique Step to Step Comments Stair Climbing Comments Railing or hand hold on 1 side used (R side ascending). PT-OP-H Neuro Start: 05/21/21 13:18 Freq: Status: Active Protocol: Document 07/04/21 09:05 LRN (Rec: 07/04/21 09:50 LRN [id number]) Vital Signs Blood Pressure Sitting after therapy Blood Pressure (90/60-120/80 mmHg) 159/60 H Blood Pressure Source Manual Cuff,Left Upper Extremity Sitting Blood Pressure (90/60-120/80 mmHg) 144/68 H Blood Pressure Source Manual Cuff,Left Upper Extremity Oxygen Pulse Oximetry at Rest (%) (95-100 %) 97 Comments Vital Signs Comments Pulse at rest sittin bpm PT-OP-J Posture/Palpation/Skin Start: 05/21/21 13:18 Freq: Status: Active Protocol: Document 05/23/21 08:17 LRN (Rec: 05/23/21 09:09 LRN [id number]) Palpation Assessment Location L knee Palpation Location Medial to patella and posterior knee/hamstring tendon, medial jt Palpation Findings Edema,Tenderness PT-OP-K Range of Motion Start: 05/21/21 13:18 Freq: Status: Active Protocol: Document 07/13/21 09:47 LRN (Rec: 07/13/21 11:08 LRN [id number]) Knee Goniometric Range of Motion Knee Right Knee ROM WFL Yes Patient Position Supine Flexion Active (degrees) 128 Extension Active (degrees) 3 Left Knee ROM WFL No Patient Position Supine Flexion Active (degrees) 130 Flexion Passive (degrees) 137 Extension Active (degrees) 5 PT-OP-L Special Tests Start: 05/21/21 13:18 Freq: Status: Active Protocol: Document 05/23/21 08:17 LRN (Rec: 05/23/21 09:09 LRN [id number]) Special Tests Knee Special Tests Patellar Grind Test Test Results - left Kayy Test Test Results + left Comments Pain medial knee with pt noting a click indicates possible meniscus injury Galo's Test Results - left Anterior Draw Test Results - left Posterior Draw Test Results - left Valgus- 25 Degrees Test Results + left Comments Pain medial and lateral knee indicating possible MCL injury PT-OP-M Strength Start: 05/21/21 13:18 Freq: Status: Active Protocol: Document 05/23/21 08:17 LRN (Rec: 05/23/21 09:09 LRN [id number]) Knee Strength Knee Manual Muscle Testing Right Flexion (S2) 5 Normal Extension (L3) 4+ Good+ Left Flexion (S2) 3- Fair- Extension (L3) 3- Fair- Comments Deferred formal testing due to pain, but pt had trouble moving knee against gravity ( due to pain) Ankle/Foot Strength Ankle and Foot Manual Muscle Testing Right Comments Generally 5/5 Left Comments Generally 5/5 PT-OP-Q Treatments Start: 05/21/21 13:18 Freq: Status: Active Protocol: Document 07/13/21 09:47 LRN (Rec: 07/13/21 11:08 LRN [id number]) Cardio Equipment Bicycle (Upright) Duration (Minutes) 9 Resistance 3 Seat Position 7 Other With 1' cool down, painfree with time: 3.61 miles Therapeutic Exercises Supine Exercises Positional knee ext stretch Side left Reps/Minutes 3' Comments Leg on flat surface for stretch with breaks of knee flexion needed SLR Supine Exercise Name SLR @ 12 & 10 O'Clock Side left Resistance AROM Equipment Used See Manual MWM Reps/Minutes 10x each @ 12 O'Clock & 10 O 'Clock Heel slides Supine Exercise Name Stretch & ROM taken Side left Resistance AROM/PROM Equipment Used strap Reps/Minutes 10 H x 10 Comments good form, tolerant range ( approx 135 deg L knee, 130 deg RLE) Standing Exercises Step ups Standing Exercise Name Verbal review - HEP Isometric TKE Standing Exercise Name Isometric TKE Side left Equipment Used Lev 2 TB with hand towel padding behind the knee Reps/Minutes 10 H x 10 Comments Extra time for proper set up L knee flex Standing Exercise Name Active flex strengthening Side left Equipment Used Lev 2 TB Reps/Minutes 15x Manual Therapy Treatment Manual Techniques MWM R side L1-L3 PA glids Type MWM R side L1-L3 Trp PA glide during SLR ex Reps/Duration 15' Comments Multiple treatment positions needed to determine maximal benefit positioning for PA glide of R facets/transverse processes. Self-Care/Home Management Treatment Education Patient Education Body Mechanics,Home Exercise Program Other Education Transfer training multiple times for supine to sit with stabilization of care (focus on L1-L4) into extension to control L knee pain. Activities Self-Care/Home Management Activities Issued & reviewed HEP: Standing knee flexion w/TBand, step ups/downs for ECC Quad strengthening & L knee Quad sets. PT-OP-R Modalities Start: 05/21/21 13:18 Freq: Status: Active Protocol: Document 07/13/21 09:47 LRN (Rec: 07/13/21 11:08 LRN [id number]) Hot Pack/Cold Pack Treatment Cold Pack Location L knee Patient Position Supine Treatment Duration (minutes) 10 Patient Tolerance Good Comments L leg on boster PT-OP-T Assessment and Plan Start: 05/21/21 13:18 Freq: Status: Active Protocol: Document 07/13/21 09:47 LRN (Rec: 07/13/21 11:08 LRN [id number]) Physical Therapy Assessment Goals Three Impairment Decreased L knee AROM Impairment L knee AROM: flex - 75 deg's, ext - lacks 10 deg's Short Term Goal (STG) Improve L knee AROM 0-90 deg's for improved ablity to dress and to be able to lay with legs straight at nighttime. normalize gait. (06/22/21: L knee AROM: 0-124 deg's, R is 0-125 deg's) 06/20/21: progressing - L knee AROM 1-133deg STG Duration 07/03/21 (06/22/21: MET GOAL) Custodial Goal (LTG) Improve L knee AROM 0-125 with pt able to sleep at night at prior level and improve function per TUG or gait speed . 06/20/21: progressing - L knee AROM 1-133deg 06/27/21: progressing L knee 0- 128 deg AROM and TUG 9s, 9s, 8s. 06/29/21: GOAL MET: AROM supine : LLE 0-133 deg, RLE 0-140 deg 07/04/21: L knee pain wakes her up at night. LTG Duration 08/21/21 (ROM GOAL MET 06/29/21 ) Two Impairment L medial knee pain rated 7/10 limiting mobility. Short Term Goal (STG) Decrease L medial knee pain to 4/10 with pt able to move easier getting out of bed. 06/20/21: Goal MET: 4/10 bending on/ of table and during AROM heel slides. STG Duration 07/03/21 (GOAL MET 06/20/21) Custodial Goal (LTG) Decrease pain to 3/10, with pt able to ambulate on level or stairs with normal gait pattern. 06/20/21: progressing 4/10 bending on/ of table and during AROM heel slides. 06/26/21: progressing: slight 2 -3/10 medial L knee pain end of 6MWT 1334 ft. 07/11/21: Pain rated verbally 1/10 with stairs and gait. LTG Duration 08/21/21 (07/11/21: MET GOAL) One Impairment HEP Ui Lead Developer Goal (LTG) Pt will be educated in a self care HEP. (06/15/21: HEP added: knee flex/ext AROM in sup, sit & stand) LTG Duration 08/21/21 (07/13/21: Current for condition to date) Assessment Summary Assessment Pt has decreased L knee extension mobility (normal flexion), sore in L medial knee on full extension, probably due to shopping on feet for 3 hours a couple days ago. Pt had less pain with MWM during SLR exercise with PA of L TrP/facets of upper L/ S; therefore pt has possible upper lumbar neural involvement. Her L knee pain is mainly at night when she lies on her back and sometimes during the day during activities. Pt would benefit from further assessment for internal derangement of the L knee. Physical Therapy Plan Frequency and Duration Frequency of Treatment 2x/Week Plan of Care Start Date 05/23/21 Plan of Care End Date 08/21/21 Other Referrals/Consults Referrals/Consults Recommended Recommend if possible further testing for L knee soft tissue derangement and probable referral to orthopedic physician for options of care. Next Visit Focus/Plan Next Note Type Treatment Note Next Visit Plan Hold chart open until further plan is determined by primary care physician. Pt to recheck with referring physician for possible further soft tissue assessment for internal derangement of the L knee. Pt to continue with L knee ROM and strengthening ex's on her HEP. We will continue per primary care physician recommendations. If pt returns to therapy for L knee stabilization in abscence of internal derangement of the knee, then focus on ECC L knee strengthening, Gait on level and & balance training. End modalities of ice if needed (Note: pt has pacemaker).
--- NOTE | 2021-07-20 10:00 | PT-OP ANOTE ---
Per phone conversation, pt cancelled today per PT conversation, but would like to come back next week because knee isn't feeling as good as when she has therapy. Pt is to make follow up visit with referring physician.
--- NOTE | 2021-07-25 11:03 | PT.OTN ---
Current Diagnoses Other chronic pain (07/25/21) Pain in left knee (07/25/21) Muscle weakness (generalized) (07/25/21) Other bursitis of knee, left knee (07/25/21) Unsteadiness on feet (07/25/21) Physical Therapy Treatment Note PT-OP-A Visit Information Start: 05/21/21 13:18 Freq: Status: Active Protocol: Document 07/25/21 09:53 LRN (Rec: 07/25/21 10:39 LRN [id number]) Out-Patient Physical Therapy Visit Information Visit Information Visit Type Treatment Note Visit Note 4 after PN Visit Start Time 09:53 Visit Stop Time 10:43 Total Visit Minutes 50 Visit Number 14 Evaluation Information Evaluation Date 05/23/21 Precautions Precautions Pacemaker, Easily becomes SOB, arthritis, Mitral valve repair 2009, head surgery 2007 PT-OP-B Current Condition Start: 05/21/21 13:18 Freq: Status: Active Protocol: Document 05/23/21 08:17 LRN (Rec: 05/23/21 09:09 LRN [id number]) Current Condition History of Current Condition Onset Date 1 month ago Current Complaints L posteromedial & anteriomedial knee pain History of Current Condition Pain off/on through the years after falling off a horse 17 yrs ago. Has had gradual onset for the past year and all of a sudden a month ago, insidious onset, pain became severe in L medial or posterior knee that radiated into lower leg. Pain around medial tibial plateau. 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 Treatment Goals Patient/Caregiver Goals Pt goals: -Get rid of pain to be able to roll over in bed and touch knee without pain, -Improve ability to sleep at night (now lays on back and leg straight, but used to be able to lie on sides and bend knee. -Improve ease of getting out of bed (used to be able to get out of bed without worry) -Improve walking on level and stair (normal gait) -Improve gait speed or TUG Prior Functional Status Baseline Function- ADL's Independent Baseline Function- Mobility Independent Baseline Function- Gait Independent without antalgic gait. Baseline Function- Recreation/Hobbies Mentally difficulty getting up off the floor/gardening. Current Functional Impairments (Reported) Functional Limitations- ADL's Ambs with antalgic gait (stiff R knee) Difficulty getting out of bed, out of chair. Difficulty picking up objects or getting up off the floor/ gardening. Difficulty putting on underwear, pants, socks, shoes . Difficulty sleeping. Functional Limitations- Mobility/Gait Antalgic gait due to L knee pain. Personal Factors Other Personal Factors That May Effect , Mitral valve repaired Therapy/Recovery in 2009 with dizziness and SOB easily - controlled by medications, pacemaker, arthritis. PT-OP-C Subjective Start: 05/21/21 13:18 Freq: Status: Active Protocol: Document 07/25/21 09:53 LRN (Rec: 07/25/21 10:39 LRN [id number]) OP-PT Subjective Patient Comments Patient Comments Can't get into Dr until Aug 02 or , with Dr. Roy. L knee is doing pretty good. Pain is 5/10 when hurting, otherwise pain is 2/10 intermittent. for 3-4 days had to take Tylenol because of a spot (medial knee) where it hurts. Thyroid is quite elevated. PT-OP-E Functional Tests Start: 05/21/21 13:18 Freq: Status: Active Protocol: Document 07/25/21 09:53 LRN (Rec: 07/25/21 10:39 LRN [id number]) Functional Tests Timed Up and Go (TUG) Score 10 TUG Impairment Rating 0% Impaired (Score 10) PT-OP-G Mobility & Gait Start: 05/21/21 13:18 Freq: Status: Active Protocol: Document 05/23/21 08:17 LRN (Rec: 05/23/21 09:09 LRN [id number]) OP Gait Assessment Gait Gait Assistance Required: Independent Assistive Devices Assistive Device None Gait Deviations General Gait Pattern Antalgic,Decreased Stride Length Factors Limiting Gait Function Factors Limiting Gait Function Pain Comments Gait Comments Ambs slowly with stiff R knee to decrease jarring on painful L knee. Stair Climbing Evaluation Evaluation Level of Assist On Stairs Independent Technique/Endurance Stair Climbing Direction Ascend and Descend Stair Climbing Technique Step to Step Comments Stair Climbing Comments Railing or hand hold on 1 side used (R side ascending). PT-OP-H Neuro Start: 05/21/21 13:18 Freq: Status: Active Protocol: Document 07/04/21 09:05 LRN (Rec: 07/04/21 09:50 LRN [id number]) Vital Signs Blood Pressure Sitting after therapy Blood Pressure (90/60-120/80 mmHg) 159/60 H Blood Pressure Source Manual Cuff,Left Upper Extremity Sitting Blood Pressure (90/60-120/80 mmHg) 144/68 H Blood Pressure Source Manual Cuff,Left Upper Extremity Oxygen Pulse Oximetry at Rest (%) (95-100 %) 97 Comments Vital Signs Comments Pulse at rest sittin bpm PT-OP-J Posture/Palpation/Skin Start: 05/21/21 13:18 Freq: Status: Active Protocol: Document 05/23/21 08:17 LRN (Rec: 05/23/21 09:09 LRN [id number]) Palpation Assessment Location L knee Palpation Location Medial to patella and posterior knee/hamstring tendon, medial jt Palpation Findings Edema,Tenderness PT-OP-K Range of Motion Start: 05/21/21 13:18 Freq: Status: Active Protocol: Document 07/25/21 09:53 LRN (Rec: 07/25/21 10:39 LRN [id number]) Knee Goniometric Range of Motion Knee Right Knee ROM WFL Yes Patient Position Supine Flexion Active (degrees) 128 Extension Active (degrees) 3 Left Patient Position Supine Flexion Active (degrees) 125 PT-OP-L Special Tests Start: 05/21/21 13:18 Freq: Status: Active Protocol: Document 05/23/21 08:17 LRN (Rec: 05/23/21 09:09 LRN [id number]) Special Tests Knee Special Tests Patellar Grind Test Test Results - left Kayy Test Test Results + left Comments Pain medial knee with pt noting a click indicates possible meniscus injury Galo's Test Results - left Anterior Draw Test Results - left Posterior Draw Test Results - left Valgus- 25 Degrees Test Results + left Comments Pain medial and lateral knee indicating possible MCL injury PT-OP-M Strength Start: 05/21/21 13:18 Freq: Status: Active Protocol: Document 05/23/21 08:17 LRN (Rec: 05/23/21 09:09 LRN [id number]) Knee Strength Knee Manual Muscle Testing Right Flexion (S2) 5 Normal Extension (L3) 4+ Good+ Left Flexion (S2) 3- Fair- Extension (L3) 3- Fair- Comments Deferred formal testing due to pain, but pt had trouble moving knee against gravity ( due to pain) Ankle/Foot Strength Ankle and Foot Manual Muscle Testing Right Comments Generally 5/5 Left Comments Generally 5/5 PT-OP-Q Treatments Start: 05/21/21 13:18 Freq: Status: Active Protocol: Document 07/25/21 09:53 LRN (Rec: 07/25/21 10:39 LRN [id number]) Cardio Equipment Bicycle (Upright) Duration (Minutes) 10 Resistance 3 Seat Position 7 Therapeutic Exercises Supine Exercises Positional knee ext stretch Side left Reps/Minutes 3' Comments Leg on flat surface for stretch with breaks of knee flexion needed Heel slides Supine Exercise Name Stretch & ROM taken Side left Resistance AROM/PROM Equipment Used strap Reps/Minutes 10 H x 10 Comments good form, tolerant range ( approx 135 deg L knee, 130 deg RLE) Standing Exercises Step ups Standing Exercise Name Step up/down 6 step with increased speed of elvia Side bilateral Equipment Used 6 step Reps/Minutes 12' (15x 2 starting left, 15x 2 starting right) Comments Extra time for standing rests between sets of 15 Isometric TKE Standing Exercise Name Isometric TKE Side left Equipment Used Lev 2 TB with hand towel padding behind the knee Reps/Minutes 10 H x 10 Comments Extra time for proper set up L knee flex Standing Exercise Name Active flex strengthening Side left Equipment Used Lev 2 TB Reps/Minutes 15x Comments Extra time needed to determine max resistance tolerated Neuro Re-Education Treatment Balance Activities Corner balance Details EO/EC standing, EO toe/heel program, I/S for EO marching program Surface Level Equipment Corner & chair in front Reps/Duration 10 - EO, EC, EC:holding chair , hands by side, hands, across chest Comments Pt needed wall/chair assist for standing EC with movement (toe/heel & march) TUG Details TUG 10 secs Reps/Duration 2x Comments 10 secs each. I/S reviewed before each attempt and rest between bouts. Self-Care/Home Management Treatment Education Patient Education Home Exercise Program Activities Self-Care/Home Management Activities .............balance PT-OP-R Modalities Start: 05/21/21 13:18 Freq: Status: Active Protocol: Document 07/13/21 09:47 LRN (Rec: 07/13/21 11:08 LRN [id number]) Hot Pack/Cold Pack Treatment Cold Pack Location L knee Patient Position Supine Treatment Duration (minutes) 10 Patient Tolerance Good Comments L leg on boster PT-OP-T Assessment and Plan Start: 05/21/21 13:18 Freq: Status: Active Protocol: Document 07/25/21 09:53 LRN (Rec: 07/25/21 10:39 LRN [id number]) Physical Therapy Assessment Goals Three Impairment Decreased L knee AROM Impairment L knee AROM: flex - 75 deg's, ext - lacks 10 deg's Short Term Goal (STG) Improve L knee AROM 0-90 deg's for improved ablity to dress and to be able to lay with legs straight at nighttime. normalize gait. (06/22/21: L knee AROM: 0-124 deg's, R is 0-125 deg's) 06/20/21: progressing - L knee AROM 1-133deg STG Duration 07/03/21 (06/22/21: MET GOAL) Fdc Goal (LTG) Improve L knee AROM 0-125 with pt able to sleep at night at prior level and improve function per TUG or gait speed . 06/20/21: progressing - L knee AROM 1-133deg 06/27/21: progressing L knee 0- 128 deg AROM and TUG 9s, 9s, 8s. 06/29/21: GOAL MET: AROM supine : LLE 0-133 deg, RLE 0-140 deg 07/04/21: L knee pain wakes her up at night. (07/25/11: TUG of 10 secs) LTG Duration 08/21/21 (ROM GOAL MET 06/29/21 ) Two Impairment L medial knee pain rated 7/10 limiting mobility. Short Term Goal (STG) Decrease L medial knee pain to 4/10 with pt able to move easier getting out of bed. 06/20/21: Goal MET: 4/10 bending on/ of table and during AROM heel slides. 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 06/20/21: progressing 4/10 bending on/ of table and during AROM heel slides. 06/26/21: progressing: slight 2 -3/10 medial L knee pain end of 6MWT 1334 ft. 07/11/21: Pain rated verbally 1/10 with stairs and gait. LTG Duration 08/21/21 (07/11/21: MET GOAL) One Impairment HEP Fdc Goal (LTG) Pt will be educated in a self care HEP. (06/15/21: HEP added: knee flex/ext AROM in sup, sit & stand) (07/25/21: HEP added: Corner standing balance - EO, EC) LTG Duration 08/21/21 (07/25/21: Current for condition to date) Assessment Summary Assessment Pt L knee AROM is slightly decreased (125 deg's) compared to the right (128 deg's), after stretch ex L knee AROM achieved normal - 130 deg's. Pt TUG shows good stability with gait. Pt has not been consistent with HEP, and balance ex's added; therefore review needed before DC to HEP . Pt feels she will be able to continue with a HEP as she waits for her appointment with her referring physician to assess for further treatment options. Physical Therapy Plan Frequency and Duration Frequency of Treatment 2x/Week Plan of Care Start Date 05/23/21 Plan of Care End Date 08/21/21 Other Referrals/Consults Referrals/Consults Recommended Recommend (if possible considering her pacemaker), further testing for probable L knee internal derangement and referral to orthopedic physician for options of care. Next Visit Focus/Plan Next Note Type Discharge Summary Next Visit Plan Review HEP (strengthening, ROM , balance, recheck TUG). DC to HEP per agreement with patient. If pt needs further therapy after seeing referring physician, a new referral will be needed. (Note: pt has pacemaker).
--- NOTE | 2021-08-01 11:40 | PT.OTN ---
Current Diagnoses Other chronic pain (08/01/21) Pain in left knee (08/01/21) Muscle weakness (generalized) (08/01/21) Other bursitis of knee, left knee (08/01/21) Unsteadiness on feet (08/01/21) Physical Therapy Treatment Note PT-OP-A Visit Information Start: 05/21/21 13:18 Freq: Status: Active Protocol: Document 08/01/21 10:36 LRN (Rec: 08/01/21 11:19 LRN [id number]) Out-Patient Physical Therapy Visit Information Visit Information Visit Type Treatment Note Visit Start Time 10:36 Visit Stop Time 11:14 Total Visit Minutes 38 Visit Number 15 Evaluation Information Evaluation Date 05/23/21 Precautions Precautions Pacemaker, Easily becomes SOB, arthritis, Mitral valve repair 2009, head surgery 2007 PT-OP-B Current Condition Start: 05/21/21 13:18 Freq: Status: Active Protocol: Document 05/23/21 08:17 LRN (Rec: 05/23/21 09:09 LRN [id number]) Current Condition History of Current Condition Onset Date 1 month ago Current Complaints L posteromedial & anteriomedial knee pain History of Current Condition Pain off/on through the years after falling off a horse 17 yrs ago. Has had gradual onset for the past year and all of a sudden a month ago, insidious onset, pain became severe in L medial or posterior knee that radiated into lower leg. Pain around medial tibial plateau. 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 Treatment Goals Patient/Caregiver Goals Pt goals: -Get rid of pain to be able to roll over in bed and touch knee without pain, -Improve ability to sleep at night (now lays on back and leg straight, but used to be able to lie on sides and bend knee. -Improve ease of getting out of bed (used to be able to get out of bed without worry) -Improve walking on level and stair (normal gait) -Improve gait speed or TUG Prior Functional Status Baseline Function- ADL's Independent Baseline Function- Mobility Independent Baseline Function- Gait Independent without antalgic gait. Baseline Function- Recreation/Hobbies Mentally difficulty getting up off the floor/gardening. Current Functional Impairments (Reported) Functional Limitations- ADL's Ambs with antalgic gait (stiff R knee) Difficulty getting out of bed, out of chair. Difficulty picking up objects or getting up off the floor/ gardening. Difficulty putting on underwear, pants, socks, shoes . Difficulty sleeping. Functional Limitations- Mobility/Gait Antalgic gait due to L knee pain. Personal Factors Other Personal Factors That May Effect , Mitral valve repaired Therapy/Recovery in 2009 with dizziness and SOB easily - controlled by medications, pacemaker, arthritis. PT-OP-C Subjective Start: 05/21/21 13:18 Freq: Status: Active Protocol: Document 08/01/21 10:36 LRN (Rec: 08/01/21 11:19 LRN [id number]) OP-PT Subjective Patient Comments Patient Comments States she is doing pretty good. Did digging in garden so L knee is slightly sore. Nighttime sometimes hurts. PT-OP-E Functional Tests Start: 05/21/21 13:18 Freq: Status: Active Protocol: Document 07/25/21 09:53 LRN (Rec: 07/25/21 10:39 LRN [id number]) Functional Tests Timed Up and Go (TUG) Score 10 TUG Impairment Rating 0% Impaired (Score 10) PT-OP-G Mobility & Gait Start: 05/21/21 13:18 Freq: Status: Active Protocol: Document 05/23/21 08:17 LRN (Rec: 05/23/21 09:09 LRN [id number]) OP Gait Assessment Gait Gait Assistance Required: Independent Assistive Devices Assistive Device None Gait Deviations General Gait Pattern Antalgic,Decreased Stride Length Factors Limiting Gait Function Factors Limiting Gait Function Pain Comments Gait Comments Ambs slowly with stiff R knee to decrease jarring on painful L knee. Stair Climbing Evaluation Evaluation Level of Assist On Stairs Independent Technique/Endurance Stair Climbing Direction Ascend and Descend Stair Climbing Technique Step to Step Comments Stair Climbing Comments Railing or hand hold on 1 side used (R side ascending). PT-OP-H Neuro Start: 05/21/21 13:18 Freq: Status: Active Protocol: Document 07/04/21 09:05 LRN (Rec: 07/04/21 09:50 LRN [id number]) Vital Signs Blood Pressure Sitting after therapy Blood Pressure (90/60-120/80 mmHg) 159/60 H Blood Pressure Source Manual Cuff,Left Upper Extremity Sitting Blood Pressure (90/60-120/80 mmHg) 144/68 H Blood Pressure Source Manual Cuff,Left Upper Extremity Oxygen Pulse Oximetry at Rest (%) (95-100 %) 97 Comments Vital Signs Comments Pulse at rest sittin bpm PT-OP-J Posture/Palpation/Skin Start: 05/21/21 13:18 Freq: Status: Active Protocol: Document 05/23/21 08:17 LRN (Rec: 05/23/21 09:09 LRN [id number]) Palpation Assessment Location L knee Palpation Location Medial to patella and posterior knee/hamstring tendon, medial jt Palpation Findings Edema,Tenderness PT-OP-K Range of Motion Start: 05/21/21 13:18 Freq: Status: Active Protocol: Document 08/01/21 10:36 LRN (Rec: 08/01/21 11:19 LRN [id number]) Knee Goniometric Range of Motion Knee Right Knee ROM WFL Yes Patient Position Supine Flexion Active (degrees) 130 Extension Active (degrees) 0 Left Knee ROM WFL Yes Patient Position Supine Flexion Active (degrees) 130 Extension Active (degrees) 0 PT-OP-L Special Tests Start: 05/21/21 13:18 Freq: Status: Active Protocol: Document 05/23/21 08:17 LRN (Rec: 05/23/21 09:09 LRN [id number]) Special Tests Knee Special Tests Patellar Grind Test Test Results - left Kayy Test Test Results + left Comments Pain medial knee with pt noting a click indicates possible meniscus injury Galo's Test Results - left Anterior Draw Test Results - left Posterior Draw Test Results - left Valgus- 25 Degrees Test Results + left Comments Pain medial and lateral knee indicating possible MCL injury PT-OP-M Strength Start: 05/21/21 13:18 Freq: Status: Active Protocol: Document 05/23/21 08:17 LRN (Rec: 05/23/21 09:09 LRN [id number]) Knee Strength Knee Manual Muscle Testing Right Flexion (S2) 5 Normal Extension (L3) 4+ Good+ Left Flexion (S2) 3- Fair- Extension (L3) 3- Fair- Comments Deferred formal testing due to pain, but pt had trouble moving knee against gravity ( due to pain) Ankle/Foot Strength Ankle and Foot Manual Muscle Testing Right Comments Generally 5/5 Left Comments Generally 5/5 PT-OP-Q Treatments Start: 05/21/21 13:18 Freq: Status: Active Protocol: Document 08/01/21 10:36 LRN (Rec: 08/01/21 11:19 LRN [id number]) Gym Equipment Shuttle Rebound Standing balance Exercise Details Standing, weight shifting side to side and forward/backward Reps/Duration 3' Therapeutic Exercises Supine Exercises Heel slides Supine Exercise Name Stretch & ROM taken Side left Resistance AROM/PROM Equipment Used strap Reps/Minutes 10 H x 2 Comments good form, tolerant range Sitting Exercises Knee ext Sitting Exercise Name Active knee ext Side bilateral Comments MMT taken sit to stands Sitting Exercise Name Sit<>Stands, training w/TBand around knees Equipment Used arms across chest, tape on floor for feet position Reps/Minutes 10x Comments Much phys assist & cuing for keeping knees abducted and over ankles L knee flex Sitting Exercise Name Active flex strengthening Side left Equipment Used TB Lev 2 Reps/Minutes 15x 2 Comments MMT taken bilaterallly Ankle IV/EV strengthening Side left Equipment Used Tb Lev 2 TB> Lv 2 Reps/Minutes 10x 3 Comments cue xheel down/ knee still Ankle DF strengthening Sitting Exercise Name Ankle DF strengthening & I/S with gait. Side left Equipment Used Lev 1 TB> Lv 2 Reps/Minutes 10x 3 Comments cued x1 keep heel down/ knee still. I/S in ankle DF w/ swing through w/gt Standing Exercises Step ups Standing Exercise Name Step up/down 6 step with increased speed of elvia Side bilateral Equipment Used 6 step Reps/Minutes 12' (15x 1 starting left, 15x 1 starting right) Comments Extra time for standing rests between sets of 15 Isometric TKE Standing Exercise Name Isometric TKE Side left Equipment Used Lev 2 TB with hand towel padding behind the knee Reps/Minutes 10 H x 10 Comments Extra time for proper set up Soleus stretch Standing Exercise Name HEP - review Side bilateral Reps/Minutes 3' Gastroc Stretch Standing Exercise Name HEP - review Side bilateral Reps/Minutes 3' L knee flex Standing Exercise Name Active flex strengthening Side left Equipment Used Lev 2 TB Reps/Minutes 10x Comments Extra time needed to determine max resistance tolerated PT-OP-R Modalities Start: 05/21/21 13:18 Freq: Status: Active Protocol: Document 07/13/21 09:47 LRN (Rec: 07/13/21 11:08 LRN [id number]) Hot Pack/Cold Pack Treatment Cold Pack Location L knee Patient Position Supine Treatment Duration (minutes) 10 Patient Tolerance Good Comments L leg on boster PT-OP-T Assessment and Plan Start: 05/21/21 13:18 Freq: Status: Active Protocol: Document 08/01/21 10:36 LRN (Rec: 08/01/21 11:19 LRN [id number]) Physical Therapy Assessment Goals Three Impairment Decreased L knee AROM Impairment L knee AROM: flex - 75 deg's, ext - lacks 10 deg's Short Term Goal (STG) Improve L knee AROM 0-90 deg's for improved ablity to dress and to be able to lay with legs straight at nighttime. normalize gait. (06/22/21: L knee AROM: 0-124 deg's, R is 0-125 deg's) 06/20/21: progressing - L knee AROM 1-133deg STG Duration 07/03/21 (06/22/21: MET GOAL) Snf Goal (LTG) Improve L knee AROM 0-125 with pt able to sleep at night at prior level and improve function per TUG or gait speed . 06/20/21: progressing - L knee AROM 1-133deg 06/27/21: progressing L knee 0- 128 deg AROM and TUG 9s, 9s, 8s. 06/29/21: GOAL MET: AROM supine : LLE 0-133 deg, RLE 0-140 deg 07/04/21: L knee pain wakes her up at night. (07/25/11: TUG of 10 secs) LTG Duration 08/21/21 (ROM GOAL MET 06/29/21 ) Two Impairment L medial knee pain rated 7/10 limiting mobility. Short Term Goal (STG) Decrease L medial knee pain to 4/10 with pt able to move easier getting out of bed. 06/20/21: Goal MET: 4/10 bending on/ of table and during AROM heel slides. 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 06/20/21: progressing 4/10 bending on/ of table and during AROM heel slides. 06/26/21: progressing: slight 2 -3/10 medial L knee pain end of 6MWT 1334 ft. 07/11/21: Pain rated verbally 1/10 with stairs and gait. LTG Duration 08/21/21 (07/11/21: MET GOAL) One Impairment HEP Snf Goal (LTG) Pt will be educated in a self care HEP. (06/15/21: HEP added: knee flex/ext AROM in sup, sit & stand) (07/25/21: HEP added: Corner standing balance - EO, EC) LTG Duration 08/21/21 (08/01/21: MET GOAL) Assessment Summary Assessment The pt returns today for final review of her independent self intermediate ex's. She had fairly good recall of her HEP , with some extra time needed for ankle and knee ex's. Pt's L knee AROM is WNL and strength is 5/5. Pt has reports of her balance worsening; therefore pt was given corner balance ex's. Pt may need therapy in the future for gait training if she develops loss of balance with gait from her toes catching on swing through phase. It wasn't visible during therapy but the pt complained of this while in therapy. The pt is ready for discharge to her independent self care HEP. Physical Therapy Plan Discharge Physical Therapy Discharge Reasons Goals Met Discharge Comments Pt has intermittent L knee pain, mostly at night in bed. If twisting at knee she still experiences L medial knee pain. The pt has gained stability at the L knee and has returned to some of prior activities (gardening). Further imaging and physical therapy in the future would be appropriate if pain returns. Thank you for your referral.
== END 2021-10-24 09:44 ==
LOC: PHYS 10:30
PROVIDERS: PCP Family Medicine; Referring Provider Family Medicine; Visit Provider Family Medicine
DX: M25.562 Pain in left knee (principal); G89.29 Other chronic pain; M70.52 Other bursitis of knee, left knee; M62.81 Muscle weakness (generalized); R26.81 Unsteadiness on feet
CPT/HCPCS: 97110; 97112; 97116; 97140; 97162; 97535

== ENCOUNTER → 2021-09-14 10:53 | Outpatient (CLI) | payer OTHER, SELFPAY ==
[2021-09-14 12:51] LABS: Alanine Aminotransferase 25 IU/L (<35); Albumin 3.9 g/dL (3.5-5.0); Albumin Globulin Ratio 1.6 (1.0-2.8); Alkaline Phosphatase 87 U/L (38-126); Aspartate Aminotransferase 31 IU/L (14-36); BUN Creatinine Ratio 24.4 (6-22); Bilirubin Total 0.6 mg/dL (0.2-1.3); Blood Urea Nitrogen 19 mg/dL (7-17); Calcium 9.1 mg/dL (8.4-10.2); Carbon Dioxide 30 mmol/L (22-32); Chloride 105 mmol/L (98-107); Cholesterol 129 mg/dL (140-199); Estimated Glomerular Filt Rate > 60.0 mL/min (>60); Globulin 2.4 g/dL (1.7-4.1); Glucose 92 mg/dL (80-110); HDL Cholesterol 56 mg/dL (40-60); HEMOLYSIS < 15 (0-50); LDL Cholesterol Calculated 53 mg/dL (<100); Potassium 4.5 mmol/L (3.4-5.1); Sodium 139 mmol/L (137-145); Total Protein 6.3 g/dL (6.3-8.2); Triglycerides 101 mg/dL (35-150)
[2021-09-14 13:20] LABS: TSH w/ Reflex to FT4 3.61 uIU/mL (0.47-4.68)
== END ==
PROVIDERS: PCP Family Medicine; Referring Provider Family Medicine; Visit Provider Family Medicine
DX: E78.5 Hyperlipidemia, unspecified (principal); E03.9 Hypothyroidism, unspecified
CPT/HCPCS: 36415; 80053; 80061; 84443

== ENCOUNTER → 2022-01-19 12:59 | Outpatient (CLI) | payer OTHER, SELFPAY ==
--- NOTE | 2022-01-19 | DI.MG.S_ITS ---
BILATERAL DIGITAL SCREENING MAMMOGRAM 3D/2D WITH CAD: 01/19/2022 CLINICAL: Routine screening. Family history of breast cancer. Comparison is made to exams dated: 12/29/2020 mammogram, 10/29/2019 mammogram, and 10/08/2018 mammogram - [facility]. The tissue of both breasts is heterogeneously dense. This may lower the sensitivity of mammography. Current study was also evaluated with a Computer Aided Detection (CAD) system. There are mole markers on the left breast. No significant masses, calcifications, or other findings are seen in either breast. There has been no significant interval change. IMPRESSION: NEGATIVE There is no mammographic evidence of malignancy. A 1 year screening mammogram is recommended. This exam was interpreted at Station ID: [id number]. NOTE: For mammograms, a report in lay terms will be sent to the patient. Approximately 15% of breast malignancies will not be visualized mammographically. In the management of a palpable breast mass, a negative mammogram must not discourage biopsy of a clinically suspicious lesion. Electronically Signed By: Vinita chang/norm:01/19/2022 13:59:51 letter sent: Normal Exam ACR BI-RADS Category 1: Negative 3341F
== END ==
PROVIDERS: PCP Family Medicine; Referring Provider Family Medicine; Visit Provider Family Medicine
DX: Z12.31 Encounter for screening mammogram for malignant neoplasm of breast (principal); Z80.3 Family history of malignant neoplasm of breast
CPT/HCPCS: 77063; 77067

== ENCOUNTER → 2022-11-01 16:34 | Outpatient (CLI) | payer OTHER, SELFPAY ==
--- NOTE | 2022-11-01 16:36 | DI.RAD.S_ITS ---
PROCEDURE: XR KNEE LT 3V INDICATIONS: chronic knee pain TECHNIQUE: 3 views of the knee were acquired. COMPARISON: [facility], [place], TIB/FIB 2V LEFT, 09/26/2007, 10:16. [place], BONE SCAN WHOLE BODY, 05/27/2014, 12:53. [facility], [place], XR KNEE LT 3V, 05/12/2021, 8:30. FINDINGS: Bones: No fractures or dislocations. There is progressive enlargement of a sclerotic lesion within the distal femur now measuring 7.5 x 2.9 cm compared to 3.9 x 0.7 cm. There is a bowing deformity of the cortex. No pathologic fracture is present. Tricompartmental arthritic change of the knee is present. Soft tissues: No joint effusion. No suspicious soft tissue calcifications. IMPRESSION: Progressive enlargement of sclerotic lesion within the femur compared to 2020. MRI is recommended for further evaluation. Dictated by: Dina Valle M.D. on 11/02/2022 at 12:20 Approved by: Dina Valle M.D. on 11/02/2022 at 12:23
--- NOTE | 2022-11-01 16:36 | DI.RAD.S_ITS ---
PROCEDURE: XR ANKLE RT MIN 3V INDICATIONS: injury TECHNIQUE: 3 views of the ankle were acquired. COMPARISON: [facility], [place], XR TIBIA FIBULA RT 2V, 11/01/2022, 16:34. FINDINGS: Bones: There is ossification along the distal medial malleolus without adjacent soft tissue edema. Ankle mortise is normally aligned. No suspicious bony lesions. Soft tissues: No tibiotalar joint effusion. Achilles tendon appears normal. IMPRESSION: Ossification adjacent to the medial malleolus without adjacent soft tissue edema suggestive of prior injury/degenerative change. However, if clinical concern and/or pain persist, short interval imaging followup in 7-10 days is recommended, as occult injury cannot be definitively excluded. Dictated by: Dina Valle M.D. on 11/02/2022 at 12:16 Approved by: Dina Valle M.D. on 11/02/2022 at 12:20
--- NOTE | 2022-11-01 16:36 | DI.RAD.S_ITS ---
PROCEDURE: XR TIBIA FUBULA RT 2V INDICATIONS: injury TECHNIQUE: 2 views of the tibia and fibula were acquired. COMPARISON: [facility], [place], TIB/FIB 2V LEFT, 09/26/2007, 10:16. FINDINGS: Bones: No fractures or dislocations. No suspicious bony lesions. Arthritic changes at the knee are present. Soft tissues: No suspicious soft tissue calcifications or masses. IMPRESSION: No visualized acute fracture or dislocation. However, if clinical concern and/or pain persist, short interval imaging followup in 7-10 days is recommended, as occult injury cannot be definitively excluded. Dictated by: Dina Valle M.D. on 11/02/2022 at 12:23 Approved by: Dina Valle M.D. on 11/02/2022 at 12:23
== END ==
PROVIDERS: PCP Family Medicine; Referring Provider Nurse Practitioner Family; Visit Provider Nurse Practitioner Family
DX: M25.562 Pain in left knee (principal); M79.661 Pain in right lower leg; S96.911A Strain of unspecified muscle and tendon at ankle and foot level, right foot, initial encounter; M89.9 Disorder of bone, unspecified
CPT/HCPCS: 73562; 73590; 73610

== ENCOUNTER → 2022-12-07 11:03 | Outpatient (CLI) | payer OTHER, SELFPAY ==
[2022-12-07 11:25] LABS: Hematocrit 39.2 % (36-46); Mean Corpuscular HGB Conc 33.1 % (30-36); Mean Corpuscular Hemoglobin 29.4 PG (26-34); Mean Corpuscular Volume 88.9 fL (80-100); Platelet Count 179 X10^3/uL (150-400); Red Blood Cell Count 4.41 X10^6/uL (4.0-5.2); Red Cell Distribution Width 14.2 % (11.6-14.8); White Blood Cell Count 4.3 X10^3/uL (4.5-11.0)
[2022-12-07 12:03] LABS: Alanine Aminotransferase 28 IU/L (<35); Albumin Globulin Ratio 1.4 (1.0-2.8); Alkaline Phosphatase 115 U/L (38-126); Aspartate Aminotransferase 33 IU/L (14-36); Bilirubin Total 0.7 mg/dL (0.2-1.3); Blood Urea Nitrogen 17 mg/dL (7-17); Calcium 8.8 mg/dL (8.4-10.2); Carbon Dioxide 32 mmol/L (22-32); Chloride 102 mmol/L (98-107); Cholesterol 136 mg/dL (140-199); Estimated Glomerular Filt Rate > 60 mL/min (>60); Globulin 2.8 g/dL (1.7-4.1); Glucose 96 mg/dL (80-110); HDL Cholesterol 48 mg/dL (40-60); HEMOLYSIS < 15 (0-50); LDL Cholesterol Calculated 64 mg/dL (<100); Potassium 4.1 mmol/L (3.4-5.1); Sodium 139 mmol/L (137-145); Total Protein 6.8 g/dL (6.3-8.2); Triglycerides 119 mg/dL (35-150)
[2022-12-07 12:33] LABS: TSH w/ Reflex to FT4 1.85 uIU/mL (0.47-4.68)
== END ==
PROVIDERS: PCP Family Medicine; Referring Provider Family Medicine; Visit Provider Family Medicine
DX: E78.00 Pure hypercholesterolemia, unspecified (principal); G45.9 Transient cerebral ischemic attack, unspecified; I10 Essential (primary) hypertension; I48.20 Chronic atrial fibrillation, unspecified
CPT/HCPCS: 36415; 80053; 80061; 84443; 85027

== ENCOUNTER → 2022-12-14 16:29 | Outpatient (CLI) | payer OTHER, SELFPAY ==
--- NOTE | 2022-12-14 16:31 | DI.RAD.S_ITS ---
PROCEDURE: XR KNEE RT 3V INDICATIONS: right knee pain TECHNIQUE: 3 views of the knee were acquired. COMPARISON: [facility], , FEMUR TWO OR MORE VIEWS LEFT, 01/13/2018, 14:51. [facility], [place], [place] BONE SCAN WHOLE BODY, 01/22/2018, 11:59. [facility], , XR KNEE LT 3V, 11/01/2022, 16:34. FINDINGS: Bones: Right knee without acute fracture or dislocation. Tricompartmental degenerative changes with marginal osteophytes. Mild joint space loss of the medial lateral femorotibial compartment. There is an ill-defined minimally sclerotic lesion noted within the distal right femoral diaphysis with suggestion of mild expansion. This measures approximately 3.9 x 6.4 cm in size. This appears similar and nearly symmetric in location compared to the distal left femoral lesion described in previous evaluations. Soft tissues: No joint effusion. No suspicious soft tissue calcifications. IMPRESSION: 1. Right knee without acute fracture or dislocation. 2. Tricompartmental degenerative changes of the right knee. 3. Ill-defined, minimally sclerotic lesion with suggestion of contour bulge involving the lateral, distal right femoral diaphysis. This appears very similar and nearly symmetric to a similar finding of the left distal femur previously evaluated. Although there were no suspicious abnormalities were identified on previous imaging of the left femur, chronicity of this finding cannot be established. Consider further evaluation with nuclear medicine bone scan to evaluate for activity as well as symmetry with contralateral side. Alternatively, further characterization with contrast enhanced MRI of the distal right femur can be considered. Dictated by: Tomas Cleaning M.D. on 12/14/2022 at 17:40 Approved by: Tomas Cleaning M.D. on 12/14/2022 at 17:48
== END ==
PROVIDERS: PCP Family Medicine; Referring Provider Family Medicine; Visit Provider Family Medicine
DX: M17.9 Osteoarthritis of knee, unspecified (principal); M89.9 Disorder of bone, unspecified; M25.561 Pain in right knee
CPT/HCPCS: 73562

== ENCOUNTER → 2022-12-24 13:01 | Outpatient (CLI) | payer OTHER, SELFPAY ==
--- NOTE | 2022-12-24 | DI.MG.S_ITS ---
BILATERAL DIGITAL SCREENING MAMMOGRAM 3D/2D WITH CAD: 12/24/2022 CLINICAL: Routine screening. Family history of breast cancer. Comparison is made to exams dated: 01/19/2022 mammogram, 12/29/2020 mammogram, 10/29/2019 mammogram, and 10/08/2018 mammogram - [facility]. Both breasts are heterogeneously dense, which may obscure small masses (category c / 51-75% glandular tissue). Current study was also evaluated with a Computer Aided Detection (CAD) system. There are benign post operative findings in both breasts. No significant masses, calcifications, or other findings are seen in either breast. There has been no significant interval change. IMPRESSION: BENIGN There is no mammographic evidence of malignancy. A 1 year screening mammogram is recommended. Based on the Tyrer Cuzick model (a risk assessment model) the patient's lifetime risk is 1.2% and her 10 year risk is 0.0%. According to the ACR, ACS, and NCCN guidelines, an annual breast MRI exam along with mammogram is recommended if the patient's lifetime risk is 20% or greater. This exam was interpreted at Station ID: [id number]. NOTE: For mammograms, a report in lay terms will be sent to the patient. Approximately 15% of breast malignancies will not be visualized mammographically. In the management of a palpable breast mass, a negative mammogram must not discourage biopsy of a clinically suspicious lesion. Electronically Signed By: Jose Roberto king/norm:12/24/2022 13:31:17 letter sent: Normal Exam ACR BI-RADS Category 2: Benign Finding(s) 3342F
== END ==
PROVIDERS: PCP Family Medicine; Referring Provider Family Medicine; Visit Provider Family Medicine
DX: Z12.31 Encounter for screening mammogram for malignant neoplasm of breast (principal); Z80.3 Family history of malignant neoplasm of breast
CPT/HCPCS: 77063; 77067

== ENCOUNTER → 2023-01-10 10:20 | Outpatient (CLI) | payer OTHER, SELFPAY ==
--- NOTE | 2023-01-10 10:21 | DI.US.S_ITS ---
PROCEDURE: US EXTREMITY NONVASC LOWER RT INDICATIONS: right knee pain TECHNIQUE: Real-time scanning was performed of the right knee, with image documentation. COMPARISON: None. FINDINGS: Focused ultrasound examination of posterior right knee shows no fluid collection or soft tissue mass. IMPRESSION: No abnormality is seen in posterior right knee. Dictated by: Warner Bhardwaj M.D. on 01/10/2023 at 14:02 Approved by: Warner Bhardwaj M.D. on 01/10/2023 at 14:03
== END ==
PROVIDERS: PCP Family Medicine; Referring Provider Family Medicine; Visit Provider Family Medicine
DX: M25.561 Pain in right knee (principal)
CPT/HCPCS: 76882

== ENCOUNTER → 2023-01-17 16:06 | Outpatient (CLI) | payer OTHER, SELFPAY ==
[2023-01-17 17:32] LABS: Bilirubin Urine UA NEGATIVE (NEGATIVE); Color Urine UA YELLOW; Glucose Urine UA NEGATIVE (Negative); Ketones Urine UA NEGATIVE (NEGATIVE); Leukocyte Esterase Urine UA 3+ (NEGATIVE); Nitrite Urine UA NEGATIVE (Negative); Occult Blood Urine UA 2+ (Negative); Protein Urine UA 1+ (Negative); Urobilinogen Urine UA 0.2 E.U./dL (0.2)
[2023-01-17 18:06] LABS: Appearance Urine UA Cloudy
[2023-01-17 18:56] LABS: Bacteria Urine Many (>30); Culture Indicated Urine Specimen Cultured; RBC Urine None Seen (0-5/HPF); WBC Urine >100/HPF (0-5/HPF)
== END ==
PROVIDERS: PCP Family Medicine; Referring Provider Family Medicine; Visit Provider Family Medicine
DX: R30.0 Dysuria (principal); R82.90 Unspecified abnormal findings in urine; R82.998 Other abnormal findings in urine
CPT/HCPCS: 81001; 87077; 87086; 87186

== ENCOUNTER 2023-04-10 14:00 | Emergency (ER) | payer OTHER, SELFPAY ==
[2023-04-10] VITALS (10 sets, daily range): BP systolic 169–195; BP diastolic 72–79; PULSE 60–65; RESP 16–20; TEMP 36.5; O2SAT 96–100; BMI 25.8
--- NOTE | 2023-04-10 14:31 | DI.CT.S_ITS ---
PROCEDURE: CT HEAD/BRAIN WO CON INDICATIONS: fall on coumadin TECHNIQUE: Noncontrast 4.5 mm thick angled axial sections acquired from the foramen magnum to the vertex, with coronal and sagittal reformats. For radiation dose reduction, the following was used: automated exposure control, adjustment of mA and/or kV according to patient size. COMPARISON: [facility], CT, CT HEAD/BRAIN WO CON, 07/12/2021, 14:11. FINDINGS: Image quality: Excellent. CSF spaces: Basal cisterns are patent. No extra-axial fluid collections. The ventricles are symmetric in size and shape. Brain: No intracranial bleeds or masses. There is cerebral volume loss for age, with resultant ventricular and sulcal prominence. There are periventricular and deep white matter chronic small vessel ischemic changes. There is intracranial internal carotid artery atherosclerosis. Skull and face: Calvarium and visualized facial bones appear intact, without suspicious lesions. Sinuses: Visualized sinuses and mastoids are clear. IMPRESSION: 1. No acute intracranial process. 2. Moderate atrophy and chronic microvascular ischemic changes. Dictated by: Dina Valle M.D. on 04/10/2023 at 15:46 Approved by: Dina Valle M.D. on 04/10/2023 at 15:47
--- NOTE | 2023-04-10 14:31 | DI.CT.S_ITS ---
PROCEDURE: CT CERVICAL SPINE WO CON INDICATIONS: fall on coumadin TECHNIQUE: Noncontrast 3 mm thick sections acquired from the skull base to the T4 level. Sagittal and coronal reformats were then constructed. For radiation dose reduction, the following was used: automated exposure control, adjustment of mA and/or kV according to patient size. COMPARISON: None. FINDINGS: Image quality: Excellent. Bones: No fractures or dislocations. Visualized superior ribs are intact. Multilevel degenerative changes are present. Soft tissues: Prevertebral soft tissues are normal in thickness. No paravertebral hematomas. No apical pneumothoraces. IMPRESSION: Degenerative changes without visualized fracture. Dictated by: Dina Valle M.D. on 04/10/2023 at 15:47 Approved by: Dina Valle M.D. on 04/10/2023 at 15:48
[2023-04-10 15:03] LABS: Add Manual Diff / Slide Review NO; Basophils Absolute Auto 0 /uL (0-100); Basophils Percent Auto 0.3 % (0-2); Eosinophils Absolute Auto 100 /uL (0-450); Eosinophils Percent Auto 2.4 % (2-4); Hematocrit 38.3 % (36-46); Hemoglobin 12.7 g/dL (12.0-16.0); Lymphocytes Absolute Auto 1400 /uL (1100-4500); Lymphocytes Percent Auto 26.9 % (25-40); Mean Corpuscular HGB Conc 33.2 % (30-36); Mean Corpuscular Hemoglobin 29.9 PG (26-34); Monocytes Absolute Auto 500 /uL (0-900); Monocytes Percent Auto 8.7 % (3-14); Neutrophils Absolute Auto 3200 /uL (1500-7000); Neutrophils Percent Auto 61.7 % (50-75); Platelet Count 166 X10^3/uL (150-400); Red Blood Cell Count 4.25 X10^6/uL (4.0-5.2); Red Cell Distribution Width 14.2 % (11.6-14.8); White Blood Cell Count 5.2 X10^3/uL (4.5-11.0)
[2023-04-10 15:12] LABS: INR 2.7 (0.9-1.3); Prothrombin Time 31.3 SECONDS (10.1-12.7)
[2023-04-10 15:15] LABS: PTT Partial Thromboplastin Tim 47 SECONDS (26-36)
[2023-04-10 15:17] LABS: Alanine Aminotransferase 30 IU/L (<35); Albumin Globulin Ratio 1.4 (1.0-2.8); Alkaline Phosphatase 120 U/L (38-126); Aspartate Aminotransferase 33 IU/L (14-36); BUN Creatinine Ratio 22.9 (6-22); Bilirubin Total 0.6 mg/dL (0.2-1.3); Blood Urea Nitrogen 16 mg/dL (7-17); Calcium 8.8 mg/dL (8.4-10.2); Carbon Dioxide 30 mmol/L (22-32); Chloride 102 mmol/L (98-107); Estimated Glomerular Filt Rate > 60 mL/min (>60); Globulin 2.8 g/dL (1.7-4.1); Glucose 99 mg/dL (80-110); HEMOLYSIS < 15 (0-50); Potassium 4.2 mmol/L (3.4-5.1); Sodium 137 mmol/L (137-145); Total Protein 6.8 g/dL (6.3-8.2)
--- NOTE | 2023-04-10 17:05 | ED.HEATRA ---
HPI - Head Injury General Chief complaint: Head Injury Stated complaint: fell/head inj Time Seen by Provider: 04/10/23 14:25 Source: patient Mode of arrival: Ambulatory Limitations: no limitations History of Present Illness HPI Narrative: This is a 83-year-old female with history of atrial fibrillation, mitral valve prolapse with repair, pacemaker on warfarin. Patient was at home she tripped while working between 2 ponds in her yard fell backwards striking the back of her head. She denies loss of consciousness she is had a little bit of bleeding. She denies neck pain currently but states she had some initially. She did have a headache initially but states it is improved. She denies any back pain. No chest or shortness of breath, no nausea or vomiting, she felt a little dizzy initially but has improved. No vision changes. No numbness, tingling or weakness. No abdominal back or flank pain. Patient has been able to ambulate to the bathroom 2 times without issue. She notes that she is had valve replacement, pacemaker and hysterectomy. States she is allergic to codeine and tramadol. No tobacco, alcohol or illicit. Dr. Leonarda Lopez is her primary care. Related Data Home Medications Medication Instructions Recorded Confirmed Fish Oil 1,200 mg PO BID ##0 04/08/13 12/14/22 Calcium Citrate + D 1 tab PO BID 03/06/18 12/14/22 multivitamin with minerals 1 tab PO DAILY 03/06/18 12/14/22 vit C 226 mg-vit E 90 mg-copper 1 cap PO DAILY 03/06/18 12/14/22 0.8 mg-zinc oxide-lutein 5 mg capsule (PreserVision Lutein) flunisolide 25 mcg (0.025 %) nasal 1 spray intranasal BID PRN Nasal 04/24/19 12/14/22 spray Congestion warfarin 2.5 mg tablet 2.5 mg PO DAILY 10/23/19 12/14/22 Previous Rx's Medication Instructions Recorded Estriol 1mg Vaginal [place] See Rx Instructions .Route 03/29/20 .COMPLEX #30 ea trospium 60 mg capsule,extended See Rx Instructions .Route 04/30/22 release 24 hr .COMPLEX #90 caps metoprolol tartrate 25 mg tablet 25 mg PO BID #180 tabs 12/14/22 fluoxetine 20 mg capsule See Rx Instructions .Route 01/08/23 .COMPLEX #90 caps levothyroxine 88 mcg tablet See Rx Instructions .Route 01/25/23 .COMPLEX #90 tabs rosuvastatin 10 mg tablet See Rx Instructions .Route 02/25/23 .COMPLEX #90 tabs ropinirole 0.5 mg tablet See Rx Instructions .Route 03/21/23 .COMPLEX #180 tabs Allergies Allergy/AdvReac Type Severity Reaction Status Date / Time codeine [CODEINE] Allergy Mild NAUSEA Verified 04/10/23 14:18 tramadol [TRAMADOL] Allergy Unknown Verified 04/10/23 14:18 Review of Systems Review of Systems ROS Unobtainable: All systems reviewed & are unremarkable except as noted in HPI and below Patient History Medical History Anxiety (1966) Atrial fibrillation (2009) Chicken pox (1946) Chronic back pain (1961) Chronic headaches (2003) Chronic right hip pain Chronotropic incompetence (09/29/14) Depression (1967) Disorder of nasal sinus Dry eye syndrome Family history of nephrolithiasis Foot arch pain (1984) Hematuria Hemorrhoids Hyperlipidemia Hypertension Hypothyroidism Infertility Inguinal hernia of right side without obstruction or gangrene Lower urinary tract symptoms (LUTS) Measles (1945) Meniere's disease Migraines 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) Mumps (1944) Nuclear sclerosis of both eyes Postmenopausal atrophic vaginitis Postmenopausal status (03/30/11) Ptosis Retinal drusen of both eyes Right thigh pain RLS (restless legs syndrome) (1969) Sleep apnea (2012) Somatic dysfunction of lower extremity Stroke (2015) Tinnitus (1969) Urinary incontinence (2007) Uterine prolapse Vaginal stricture Vertigo (1969) Vitiligo (1977) Surgical History Anesthesia H/O breast biopsy H/O mitral valve repair (10/2009) History of cardiac radiofrequency ablation (RFA) (2015) Hx of tonsillectomy Presence of cardiac pacemaker (2014) Status post hysterectomy Family History Brother Age: 83 Heart disease Prostate disease Irregular heartbeat Father Heart disease Hypertension Gallstones Diabetes mellitus Mother Ovarian cancer Heart disease Rheumatoid arthritis Grandfather Tuberculosis Family/Other Colon cancer Social History marital status: household members: spouse Smoking Status: Never smoker alcohol intake: current substance use type: does not use Smoking Status: Never smoker alcohol intake frequency: a few times a month Substance Use Type: does not use Exam Narrative Exam Narrative: GEN: Patient appears in mild distress. HEAD: Small 0.5 cm laceration on the posterior left scalp, no raccoon/Zuleta sign. NECK: Nontender, painless range of motion, trachea midline Negative for Nexus criteria, no midline line tenderness, distracting injury, altered mental status, neuro deficit, recent EtOH. EYES: PERRLA, EOMI ENT: External inspection normal, trachea is midline, TM's are normal no hemotypanum, Nares are clear, no septal hematoma, no dental or oral injury, airway is normal and with normal occlusion, No bony tenderness RESP: Chest is nontender and has symmetric movement, no ecchymosis, breath sounds are normal no crackles, wheezes or rales CVS: Heart sounds are normal, no murmur noted, No JVD. ABG/GI: Nontender, soft, normal bowel sounds, no distention, no organomegaly, pelvic rock is negative. NEURO: Oriented AOx3, neuro is grossly intact, sensation and motor is normal all 4 extremities moving, cranial nerves II through XII are intact, GCS is 15 PSYCH: Normal mood and affect SKIN: Intact, warm and dry, no crepitus and without decubitus BACK: No CVA tenderness, no vertebral tenderness, no step-off's, no crepitus EXT: Atraumatic, hips are nontender, no pedal edema, normal color and temperature, normal range of motion of extremities with normal tendon exam, 2+ pulses in all four extremities Initial Vital Signs Initial Vital Signs: Vital Signs Temperature 97.7 F 04/10/23 14:11 Pulse Rate 60 04/10/23 14:11 Respiratory Rate 20 04/10/23 14:11 Blood Pressure 169/77 H 04/10/23 14:11 Pulse Oximetry 96 04/10/23 14:11 Oxygen Delivery Method Room Air 04/10/23 14:11 Procedures Laceration Repair Laceration 1: Site: scalp Side (If applicable): left Size (cm): 1 Description: irregular Depth: simple, single layer Local Anesthetic: lidocaine 2% Amount of anesthesia used (mL): 3 Pre-repair: wound explored, irrigated extensively and deep structures intact Skin layer closed with: deborah Number of sutures: 2 Scores GCS Michael coma scale eye opening: Spontaneous [place] coma scale verbal response: Orientated Michael coma scale motor response: Obey commands Michael coma scale total score: 15 Nexus Score for C-Spine Focal Neurologic deficit present: No Midline spinal tenderness present: No Altered level of conciousness present: No Intoxication present: No Distracting Injury Present: No Nexus Criteria for C-spine: 0 Course Orders Ordered: ED Orders 04/10/23 14:31 CT cervical spine wo con Stat CT head/brain wo con Stat 04/10/23 14:45 Complete Blood Count AUTO DIFF Stat Comprehensive Metabolic Panel Stat PTT Partial Thromboplastin Jet Stat Prothrombin Time INR Stat Discontinued Medications Diphtheria/Tetanus/Acell Pertussis (Tet,Diph,Pertuss(Acell),Vac/Pf 0.5 Ml Syringe) 0.5 ml IM .ONCE ONE Stop: 04/10/23 17:46 Last Admin: 04/10/23 17:50 Dose: 0.5 ml Documented By: MARIANA Lidocaine HCl (Lidocaine 2% Inj Sdv 5ml) 5 ml INJ INTRA-OP ONE Stop: 04/10/23 17:22 Vital Signs Vital signs: Vital Signs - 8 hr 04/10/23 14:11 04/10/23 15:11 04/10/23 15:12 Temperature 97.7 F Pulse Rate 60 60 Respiratory Rate 20 Blood Pressure 169/77 H 195/76 H Pulse Oximetry 96 100 Oxygen Delivery Method Room Air 04/10/23 15:12 04/10/23 15:30 04/10/23 15:31 Temperature Pulse Rate 60 60 Respiratory Rate Blood Pressure 182/79 H Pulse Oximetry 99 99 Oxygen Delivery Method 04/10/23 15:31 04/10/23 16:00 04/10/23 16:00 Temperature Pulse Rate 60 60 Respiratory Rate Blood Pressure 179/77 H Pulse Oximetry 98 97 Oxygen Delivery Method 04/10/23 16:30 04/10/23 16:30 04/10/23 17:00 Temperature Pulse Rate 65 60 Respiratory Rate 16 Blood Pressure 183/77 H Pulse Oximetry 99 97 Oxygen Delivery Method Room Air 04/10/23 17:30 04/10/23 17:51 04/10/23 17:51 Temperature Pulse Rate 61 60 Respiratory Rate Blood Pressure 169/72 H Pulse Oximetry 97 98 Oxygen Delivery Method MDM - Head Injury Lab Data 04/10/23 14:45 04/10/23 14:45 Labs: Lab Results 04/10/23 04/10/23 04/10/23 Range/Units 14:45 14:45 14:45 WBC 5.2 (4.5-11.0) X10^3/uL RBC 4.25 (4.0-5.2) X10^6/uL Hgb 12.7 (12.0-16.0) g/dL Hct 38.3 (36-46) % MCV 90.0 (80-100) fL MCH 29.9 (26-34) PG MCHC 33.2 (30-36) % RDW 14.2 (11.6-14.8) % Plt Count 166 (150-400) X10^3/uL Neut % (Auto) 61.7 (50-75) % Lymph % (Auto) 26.9 (25-40) % [place] % (Auto) 8.7 (3-14) % Eos % (Auto) 2.4 (2-4) % Baso % (Auto) 0.3 (0-2) % Neut # (Auto) 3200 (8625-4146) /uL Lymph # (Auto) 1400 (1783-9498) /uL [place] # (Auto) 500 (0-900) /uL Eos # (Auto) 100 (0-450) /uL Baso # (Auto) 0 (0-100) /uL PT 31.3 H (10.1-12.7) SECONDS INR 2.7 H (0.9-1.3) APTT 47 H (26-36) SECONDS Sodium 137 (137-145) mmol/L Potassium 4.2 (3.4-5.1) mmol/L Chloride 102 (98-107) mmol/L Carbon Dioxide 30 (22-32) mmol/L BUN 16 (7-17) mg/dL Creatinine 0.70 (0.52-1.04) mg/dL Estimated GFR > 60 (>60) mL/min BUN/Creatinine Ratio 22.9 H (6-22) Glucose 99 (80-110) mg/dL Calcium 8.8 (8.4-10.2) mg/dL Total Bilirubin 0.6 (0.2-1.3) mg/dL AST 33 (14-36) IU/L ALT 30 (<35) IU/L Alkaline Phosphatase 120 (38-126) U/L Total Protein 6.8 (6.3-8.2) g/dL Albumin 4.0 (3.5-5.0) g/dL Globulin 2.8 (1.7-4.1) g/dL Albumin/Globulin Ratio 1.4 (1.0-2.8) Imaging Data CT scan - head: Radiologist's Impression: Close Head CT (Signed) Dina Valle - 04/10/[address] (Signed) Dina Valle - 04/10/23 Extremity Ultrasound (Signed) Warner Bhardwaj - 01/10/23 Mammogram Screening (Signed) Jose Roberto Gutierrez - 12/24/22 Knee X-Ray (Signed) Tomas Cleaning - 12/14/22 Tibia/Fibula X-Ray (Signed) Dina Valle - 11/01/22 Knee X-Ray (Signed) Dina Valle - 11/01/22 Ankle X-Ray (Signed) Dina Valle - 11/01/22 Ankle X-Ray (Cancelled) 11/01/22 Mammogram Screening (Signed) Vinita Mcdonnell - 01/19/22 DI Result CC 08/02/[address] (Signed) Mayra Humphries - 07/12/21 Knee X-Ray (Signed) Octavio Hughes - 05/12/21 Mammogram Screening (Signed) Hiro Barnett - 12/29/20 Abdomen/Pelvis CT (Signed) Kahlil Sahu - 08/15/20 Abdomen Ultrasound (Signed) Warner Bhardwaj - 04/22/20 Abdomen Ultrasound (Signed) Teddy Worrell - 10/29/19 Mammogram Screening (Signed) Vinita Mcdonnell - 10/29/19 Vascular Ultrasound (Signed) [place],Teddy - 04/24/19 Abdomen/Pelvis CT (Signed) Anaid,Teddy - 11/11/18 Mammogram Screening (Signed) Momo Bond - 10/08/18 Head/Neck CTA (Signed) Kahlil Sahu - 08/18/18 Pelvis Ultrasound (Signed) Syed Nino - 05/22/18 DI Result CC 05/14/18 Chest X-Ray (Signed) Dina Valle - 03/06/[address] (Signed) Mayra Humphries - 03/06/18 Bone Scan Nuclear Medicine (Signed) Kahlil Sahu - 01/22/18 Launch?Image [address] [address] [address] Scan Report Signed Patient: Isis Adan MR#: [id number] : 1940 Acct:[id number] Age/Sex: 83 / F Date of Service: 04/10/23 Loc: ED Accession Number: [id number] ?? Procedure: CT head/brain wo con Ordering Provider: Ann Diop D.O. PROCEDURE:? CT HEAD/BRAIN WO CON ? INDICATIONS:? fall on coumadin ? TECHNIQUE:? Noncontrast 4.5 mm thick angled axial sections acquired from the foramen magnum to the vertex, with coronal and sagittal reformats.? For radiation dose reduction, the following was used:? automated exposure control, adjustment of mA and/or kV according to patient size.? ? COMPARISON:? [facility], CT, CT HEAD/BRAIN WO CON, 07/12/2021, 14:11. ? FINDINGS:? Image quality:? Excellent.? ? CSF spaces:? Basal cisterns are patent.? No extra-axial fluid collections.? The ventricles are symmetric in size and shape.? ? Brain:? No intracranial bleeds or masses.? There is cerebral volume loss for age, with resultant ventricular and sulcal prominence.? There are periventricular and deep white matter chronic small vessel ischemic changes.? There is intracranial internal carotid artery atherosclerosis.? ? Skull and face:? Calvarium and visualized facial bones appear intact, without suspicious lesions.? ? Sinuses:? Visualized sinuses and mastoids are clear.? ? IMPRESSION:? ? 1. No acute intracranial process. ? 2. Moderate atrophy and chronic microvascular ischemic changes. ? ? ? Dictated by: Dina Valle M.D. on 04/10/2023 at 15:46 ? ? Approved by: Dina Valle M.D. on 04/10/2023 at 15:47? CT - cervical spine: Radiologist's Impression: [address] [address] [address] Scan Report Signed Patient: Isis Adan MR#: [id number] : 1940 Acct:[id number] Age/Sex: 83 / F Date of Service: 04/10/23 Loc: ED Accession Number: [id number] ?? Procedure: CT cervical spine wo con Ordering Provider: Ann Diop D.O. PROCEDURE:? CT CERVICAL SPINE WO CON ? INDICATIONS:? fall on coumadin ? TECHNIQUE:? Noncontrast 3 mm thick sections acquired from the skull base to the T4 level.? Sagittal and coronal reformats were then constructed.? For radiation dose reduction, the following was used:? automated exposure control, adjustment of mA and/or kV according to patient size.? ? COMPARISON:? None. ? FINDINGS:? Image quality:? Excellent.? ? Bones:? No fractures or dislocations.? Visualized superior ribs are intact.? Multilevel degenerative changes are present. ? Soft tissues:? Prevertebral soft tissues are normal in thickness.? No paravertebral hematomas.? No apical pneumothoraces.? ? ? IMPRESSION:? Degenerative changes without visualized fracture. ? Dictated by: Dina Valle M.D. on 04/10/2023 at 15:47 ? ? Approved by: Dina Valle M.D. on 04/10/2023 at 15:48?? MDM Narrative Medical decision making narrative: This is a 83-year-old female who presents with complaint of ground level fall with head injury small scalp laceration on warfarin. Head CT was obtained secondary to age, traumatic injury and anticoagulation, no acute change patient did have neck pain initially it has been improving but C-spine CT was also included no acute process. INR is 2.7 today, patient's CBC, CMP do not show other major changes. Patient had 1 staple placed. Discharge Plan Departure Patient Disposition: Home Clinical Impression: Laceration of scalp, Fall Instructions: Concussion Activity Restrictions/Additional Instructions: Please follow-up if your symptoms are persisting beyond several days. Follow-up for removal of your deborah in 7-10 days, with primary care, urgent care or the emergency department Your INR today is 2.7 Wound Care: Keep wound(s) clean and dry. Wash daily with soap and water only. Do not use over the counter products (alcohol or peroxide)on the wounds unless instructed by a physician. If wound condition worsens (increased/expanding redness, developing fluid blisters, or worsening pain), either contact your doctor for an urgent re-assessment , or return to the Emergency Department. Return if fever greater than 100.4 Fahrenheit, increased swelling, increasing pain or worsening symptoms such as increased discharge or spreading redness. Severe headaches, new dizziness, lightheadedness or passing out, new neck or back pain, chest pain or shortness of breath, persistent vomiting, new numbness, tingling weakness, difficulty with ambulation or other new or concerning changes. Prescriptions: No Action Fish Oil 1,200 mg PO BID Qty: 0 trospium 60 mg capsule,extended release 24hr See Rx Instructions .ROUTE .COMPLEX Qty: 90 3RF Dose Instruction: TAKE 1 CAPSULE BY MOUTH EVERY MORNING Rx Instructions: TAKE 1 CAPSULE BY MOUTH EVERY MORNING fluoxetine 20 mg capsule See Rx Instructions .ROUTE .COMPLEX Qty: 90 1RF Dose Instruction: TAKE 1 CAPSULE(20 MG) BY MOUTH DAILY FOR DEPRESSION OR ANXIETY Rx Instructions: TAKE 1 CAPSULE(20 MG) BY MOUTH DAILY FOR DEPRESSION OR ANXIETY levothyroxine 88 mcg tablet See Rx Instructions .ROUTE .COMPLEX Qty: 90 3RF Dose Instruction: TAKE 1 TABLET BY MOUTH EVERY DAY Rx Instructions: TAKE 1 TABLET BY MOUTH EVERY DAY rosuvastatin 10 mg tablet See Rx Instructions .ROUTE .COMPLEX Qty: 90 1RF Dose Instruction: TAKE 1 TABLET BY MOUTH DAILY Rx Instructions: TAKE 1 TABLET BY MOUTH DAILY ropinirole 0.5 mg tablet See Rx Instructions .ROUTE .COMPLEX Qty: 180 0RF Dose Instruction: TAKE ONE TO TWO TABLETS BY MOUTH AT BEDTIME; MAXIMUM DAILY DOSE IS 2 TABLETS Rx Instructions: TAKE ONE TO TWO TABLETS BY MOUTH AT BEDTIME; MAXIMUM DAILY DOSE IS 2 TABLETS flunisolide 25 mcg (0.025 %) spray,non-aerosol 1 spray NASAL BID PRN (Reason: Nasal Congestion) warfarin 2.5 mg tablet 2.5 mg PO DAILY Rx Instructions: Take 1 tab daily except take 1 and a half Estriol 1mg Vaginal [place] See Rx Instructions .ROUTE .COMPLEX Qty: 30 2RF Rx Instructions: Insert one [place] vaginally at bedtime for 2 weeks, then every other night metoprolol tartrate 25 mg tablet 25 mg PO BID Qty: 180 1RF multivitamin with minerals Tablet 1 tab PO DAILY PreserVision Lutein 226 mg-200 unit -5 mg-0.8 mg Capsule 1 cap PO DAILY Calcium Citrate + D 1 tab PO BID Patient Comments: 630 IU PLUS 500 IU VITAMIN D Referrals: Kendy Lopez DO [Primary Care Provider] - Stand Alone Forms: Patient Portal/API
[2023-04-10] MEDS: TET,DIPH,PERTUSS(ACELL),VAC/PF 0.5 ML SYRINGE IM (17:50)
== END 2023-04-10 18:12 | disposition home or self-care (01) ==
PROVIDERS: Emergency Provider Emergency Medicine; PCP Family Medicine
DX: S01.01XA Laceration without foreign body of scalp, initial encounter (principal); W18.30XA Fall on same level, unspecified, initial encounter; Z23 Encounter for immunization
CPT/HCPCS: 12001; 36415; 70450; 72125; 80053; 85025; 85610; 85730; 90471; 99284; 90715

== ENCOUNTER → 2023-05-20 17:13 | Outpatient (CLI) | payer OTHER, SELFPAY | PROVIDERS: PCP Family Medicine; Visit Provider Physician Assistant | DX: N89.8 Other specified noninflammatory disorders of vagina (principal); N39.0 Urinary tract infection, site not specified | CPT/HCPCS: 87077; 87086; 87186; 87210 ==

== ENCOUNTER → 2023-06-04 10:34 | Outpatient (CLI) | payer OTHER, SELFPAY ==
--- NOTE | 2023-06-04 10:35 | DI.RAD.S_ITS ---
PROCEDURE: XR SHOULDER LT MIN 2V INDICATIONS: shoulder pain TECHNIQUE: 3 views of the shoulder were acquired. COMPARISON: [facility], CR, XR CHEST 1V, 03/06/2018, 13:34. FINDINGS: Bones: No fractures or dislocations. No suspicious bony lesions. Moderate degenerative changes at the AC joint. [id number] degenerative changes at the glenohumeral joint. Visualized ribs appear intact. Soft tissues: No suspicious soft tissue calcifications. Left pacemaker. Post median sternotomy. IMPRESSION: [id number] left shoulder DJD. Dictated by: Jose Roberto Gutierrez M.D. on 06/04/2023 at 12:03 Approved by: Jose Roberto Gutierrez M.D. on 06/04/2023 at 12:04
== END ==
PROVIDERS: PCP Internal Medicine; Referring Provider Internal Medicine; Visit Provider Internal Medicine
DX: M19.012 Primary osteoarthritis, left shoulder (principal); M75.82 Other shoulder lesions, left shoulder
CPT/HCPCS: 73030

== ENCOUNTER → 2023-06-20 10:35 | Outpatient (CLI) | payer OTHER, SELFPAY ==
--- NOTE | 2023-06-20 10:38 | DI.CT.S_ITS ---
PROCEDURE: CT KNEE LEFT WITHOUT CON INDICATIONS: left knee pain TECHNIQUE: Noncontrast 1-1.5 mm axial sections acquired from the mid-patella to the proximal tibia, with coronal and sagittal reformats. COMPARISON: [facility], NM, NM BONE SCAN WHOLE BODY, 01/22/2018, 11:59. [facility], CR, XR KNEE LT 3V, 11/01/2022, 16:34. FINDINGS: Image quality: Excellent. Bones: Moderate to severe tricompartmental osteoarthritis is seen in left knee most notably involving medial femoral tibial pin compartment with significant joint space narrowing, subchondral sclerosis and cyst formation and prominent marginal osteophyte formation. No acute fracture or dislocation. No significant patellar subluxation. There is a mixed density structure involving medial medullary space of distal femoral shaft with slight outward bowing of the adjacent medial cortex and measures up to 2.3 x 2.2 x 6.2 cm in largest transverse, AP and craniocaudal dimensions series 2, image 126 and series 4, image 78. Side of calcifications are seen within this structure. No gross adjacent cortical erosion or destruction is seen. No abnormal periosteal reaction. No other bony lesion is seen. Soft tissues: There is no associated soft tissue mass along medial aspect of distal femoral shaft. No abnormal soft tissue calcifications. Small suprapatellar joint effusion is seen. No calcified intra-articular loose bodies. There is no full-thickness quadriceps tendon or patellar tendon rupture. Anterior and posterior cruciate ligaments are grossly intact. No soft tissue mass or drainable fluid collection. IMPRESSION: 1. Moderate to severe tricompartmental osteoarthritis in left knee most notably in medial femoral tibial compartment. No acute fracture or dislocation. 2. 2.3 x 2.2 x 6.2 cm mixed density lesion within medial medullary space of distal femoral shaft as described in detail above. Overall appearance of this lesion is suggestive of a benign process . No abnormal increased uptake is noted within this area on previous nuclear medicine bone scan. A slow growing malignant process cannot be entirely excluded. Continued annual radiographic follow-up is recommended. No pathologic fracture is seen. 3. No abnormal soft tissue calcifications. Small joint effusion. No full-thickness tendon or ligament rupture is seen. Dictated by: Warner Bhardwaj M.D. on 06/20/2023 at 12:22 Approved by: Warner Bhardwaj M.D. on 06/20/2023 at 12:36
== END ==
PROVIDERS: Family Provider Internal Medicine; PCP Internal Medicine; Referring Provider Internal Medicine; Visit Provider Internal Medicine
DX: M17.12 Unilateral primary osteoarthritis, left knee (principal); M25.562 Pain in left knee; M89.9 Disorder of bone, unspecified
CPT/HCPCS: 73700

== ENCOUNTER → 2023-07-04 11:44 | Outpatient (CLI) | payer OTHER, SELFPAY ==
--- NOTE | 2023-07-04 11:46 | DI.RAD.S_ITS ---
Bone Density Report Name: RUPESH DA SILVA Age: 83 Sex: Female Ethnicity: White Date of : 1940 Indication: postmenopausal; screening for osteoporosis; Referring Provider: XIMENA CHRISTENSEN Study: Bone densitometry was performed. Exam Date: July 04, 2023 Accession number: [id number] Bone Density: Region BMD T-score Z-score Classification AP Spine(L1-L4) 1.017 -0.3 2.6 Normal Femoral Neck (Left) 0.584 -2.4 0.1 Osteopenia Total Hip (Left) 0.840 -0.8 1.5 Normal Femoral Neck (Right) 0.595 -2.3 0.2 Osteopenia Total Hip (Right) 0.803 -1.1 1.2 Osteopenia Total Hip Mean 0.822 -1.0 1.4 Normal World Health Organization criteria for BMD impression classify patients as: Normal (T-score at or above -1.0), Osteopenia (T-score between -1.0 and -2.5), or Osteoporosis (T-score at or below -2.5). 10-year Fracture Risk(1): Major Osteoporotic Fracture 18% Hip Fracture 6.2% Reported Risk Factors: [place] (), Neck BMD=0.584, BMI=25.8 (1) FRAX(R) Version 3.08. Fracture probability calculated for an untreated patient. Fracture probability may be lower if the patient has received treatment. Previous Exams: -- Region Exam Age BMD T-score BMD Change BMD Change Date g/cm2 vs Baseline vs Previous -- AP Spine (L1-L4) 07/04/2023 83 1.017 -0.3 -0.063 (-5.9%)# -0.077 (-7.1%)# 09/03/2016 76 1.094 0.4 0.014 (1.3%) -0.034 (-3.0%)* 12/27/2008 68 1.128 0.7 0.048 (4.4%)* -0.004 (-0.4%) 07/15/2007 67 1.132 0.8 0.052 (4.8%)* 0.052 (4.8%)* 05/15/2005 65 1.080 0.3 Total Hip(Left) 07/04/2023 83 0.840 -0.8 0.038 (4.7%)# -0.011 (-1.3%)# 09/03/2016 76 0.851 -0.7 0.049 (6.1%)* 0.016 (1.9%) 12/27/2008 68 0.836 -0.9 0.033 (4.2%)* -0.024 (-2.8%) 07/15/2007 67 0.859 -0.7 0.057 (7.1%)* 0.057 (7.1%)* 05/15/2005 65 0.802 -1.1 Total Hip(Right) 07/04/2023 83 0.803 -1.1 0.017 (2.1%)# -0.025 (-3.1%)# 09/03/2016 76 0.829 -0.9 0.042 (5.3%)* 0.014 (1.7%) 12/27/2008 68 0.815 -1.0 0.028 (3.6%)* 0.000 (0.0%) 07/15/2007 67 0.815 -1.0 0.028 (3.6%)* 0.028 (3.6%)* 05/15/2005 65 0.787 -1.3 -- *Denotes significance at 95% confidence level, LSC for AP Spine = 0.022 g/cm2, LSC for Total Hip = 0.027 g/cm2 # Denotes dissimilar scan types or analysis methods Impression: The patient has low bone mass, based on the Left Femoral Neck T-score. The patient has an estimated ten-year risk of hip fracture of 6.2% and an estimated ten-year risk of major fracture of 18%, based on the WHO FRAX algorithm. No significant bone loss was observed. Discussion: BONE DENSITY IS LOW AT ONE OR MORE SKELETAL SITES. THE PATIENT'S BMD AND CLINICAL RISK FACTORS CONTRIBUTE TO THIS PATIENT'S INCREASED RISK OF FRACTURE. This patient's lowest T-score is low at one or more skeletal sites. It meets the World Health Organization's (WHO) criteria for low bone mass (T-score between -1.0 and -2.5). The patient's 10-year risk of hip fracture as calculated by FRAX exceeds the threshold where pharmacological therapy is recommended by the National Osteoporosis Foundation (NOF). However, all treatment decisions require clinical judgment and consideration of individual patient factors, including patient preferences, comorbidities, previous drug use, risk factors not captured in the FRAX model (e.g., frailty, falls, vitamin D deficiency, increased bone turnover, interval significant decline in bone density) and possible under or overestimation of fracture risk by FRAX. The patient should follow a healthful lifestyle (good nutrition with adequate calcium and vitamin D, and appropriate weight-bearing exercise). Follow-Up: Consider a repeat BMD and Vertebral Fracture Assessment (VFA) exam in 2 years or sooner if medically necessary, to reassess this patient's status. Reported by: DEVIN MCMANUS M.D. on 07/04/2023 12:15:00 PM.
== END ==
PROVIDERS: Family Provider Internal Medicine; PCP Internal Medicine; Referring Provider Internal Medicine; Visit Provider Internal Medicine
DX: Z78.0 Asymptomatic menopausal state (principal); M85.89 Other specified disorders of bone density and structure, multiple sites
CPT/HCPCS: 77080

== ENCOUNTER 2023-08-02 10:30 | Outpatient (RCR) | payer OTHER, SELFPAY ==
--- NOTE | 2023-06-26 15:19 | PT.OIE ---
Current Diagnoses Other shoulder lesions, left shoulder (06/26/23) Past Medical History (Last Updated 06/04/23 @ 09:49 by Eben Allen MD) Anxiety (1966) Cerebrovascular disease Chicken pox (1946) Chronic anticoagulation Chronic atrial fibrillation Chronic back pain (1961) Chronic headaches (2003) Chronotropic incompetence (09/29/14) Depression (1968) Depression, major, recurrent Disorder of nasal sinus Dry eye syndrome Essential hypertension Family history of nephrolithiasis Foot arch pain (1984) Generalized anxiety disorder Heart block atrioventricular Hematuria Hemorrhoids Infertility Inguinal hernia of right side without obstruction or gangrene Measles (1945) Meniere's disease Migraines Mixed hyperlipidemia Mumps (1944) Nuclear sclerosis of both eyes Postmenopausal atrophic vaginitis Postmenopausal status (03/30/11) Primary osteoarthritis involving multiple joints Ptosis Retinal drusen of both eyes RLS (restless legs syndrome) (1969) Sleep apnea (2012) Somatic dysfunction of lower extremity Tinnitus (1969) Urinary incontinence (2007) Uterine prolapse Vaginal stricture Vertigo (1969) Vitiligo (1977) Past Surgical History (Last Updated 06/04/23 @ 09:49 by Eben Allen MD) Anesthesia H/O breast biopsy H/O mitral valve repair (10/2009) History of cardiac radiofrequency ablation (RFA) (2015) Hx of tonsillectomy Presence of cardiac pacemaker (2014) Status post hysterectomy Visit Care Team Role Provider Type Eben Allen MD Attending Provider Physician Family Provider Primary Care Provider Referring Provider Specialty: Internal Medicine Address: [address] [place] [address] Email: [email or web address] Physical Therapy Initial Evaluation PT-OP-A Visit Information Start: 06/26/23 12:07 Freq: Status: Active Protocol: Document 06/26/23 15:19 AM (Rec: 06/26/23 17:21 AM [id number]) Out-Patient Physical Therapy Visit Information Visit Information Visit Type Initial Evaluation Visit Start Time 15:19 Visit Stop Time 16:02 Total Visit Minutes 43 Visit Number 1 Precautions Precautions pacemaker, fall risk PT-OP-B Current Condition Start: 06/26/23 12:07 Freq: Status: Active Protocol: Document 06/26/23 15:19 AM (Rec: 06/26/23 17:21 AM [id number]) Current Condition History of Current Condition Onset Date 2 months ago Current Complaints L shoulder pain History of Current Condition Pt reports that she has had shoulder issues for a while, though recently fell on her driveway on to that side. Pt reports that she had loose shoes on and that is what contributed to the fall. Pt reports this increased the pain even more. Pt reports that she falls a lot. 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 Pt reports that she falls 1-2x/month. Pt reports that sometimes she gets light-headed though unsure of the cause. Pt is followed by a house manager, who she saw today. Pt reports that she is having increased incidences of falls/balance issues. Prior Functional Status Baseline Function- ADL's Independent Baseline Function- Mobility Independent Current Functional Impairments (Reported) Functional Limitations- ADL's Independent Functional Limitations- Mobility/Gait Pt reports that she notices path deviation with walking. Functional Limitations- Recreation/ Pt reports some difficulty Hobbies with gardening. PT-OP-C Subjective Start: 06/26/23 12:07 Freq: Status: Active Protocol: Document 06/26/23 15:19 AM (Rec: 06/26/23 17:21 AM [id number]) Patient Questionnaires Quick Dash- Upper Extremity Quick Dash UE Score 34 Quick Dash UE Impairment 20 to 39% Impaired (Score 20- 39) PT-OP-J Posture/Palpation/Skin Start: 06/26/23 12:07 Freq: Status: Active Protocol: Document 06/26/23 15:19 AM (Rec: 06/26/23 17:21 AM [id number]) Posture Evaluation Position Sitting Shoulder Posture (L) Forward Palpation Assessment Location L shoulder Palpation Location L pecs and periscapular muscles Palpation Findings Soft Tissue Tightness, Tenderness PT-OP-K Range of Motion Start: 06/26/23 12:07 Freq: Status: Active Protocol: Document 06/26/23 15:19 AM (Rec: 06/26/23 17:21 AM [id number]) Shoulder Goniometric Range of Motion Shoulder Right Active Shoulder ROM WFL Yes Testing Position Sitting Flexion 150 Abduction 150 Internal Rotation Behind Back (text) T12 Comments Aply ER T5 Left Active Shoulder ROM WFL No Testing Position Sitting Flexion 132 Abduction 130 Internal Rotation Behind Back (text) T10 Comments Aply ER: T3 PT-OP-L Special Tests Start: 06/26/23 12:07 Freq: Status: Active Protocol: Document 06/26/23 15:19 AM (Rec: 06/26/23 17:21 AM [id number]) Special Tests Shoulder Special Tests Sylvester Mike Impingement Test Results L shoulder + Elevation Impingement Test Results L shoulder + PT-OP-M Strength Start: 06/26/23 12:07 Freq: Status: Active Protocol: Document 06/26/23 15:19 AM (Rec: 06/26/23 17:21 AM [id number]) Shoulder Strength Shoulder Manual Muscle Testing Right Flexion 5 Normal Extension 5 Normal Abduction (C5) 5 Normal External Rotation 5 Normal Internal Rotation 5 Normal Left Flexion 4 Good Extension 4 Good Abduction (C5) 4 Good External Rotation 4 Good Internal Rotation 4 Good PT-OP-Q Treatments Start: 06/26/23 12:07 Freq: Status: Active Protocol: Document 06/26/23 15:19 AM (Rec: 06/26/23 17:21 AM [id number]) Therapeutic Exercises Standing Exercises Shoulder extension Side bilateral Resistance Green TB Reps/Minutes x10 Row Side bilateral Resistance green TB Reps/Minutes x10 wall slide Side left Reps/Minutes x10 Comments with cues to avoid painful range PT-OP-T Assessment and Plan Start: 06/26/23 12:07 Freq: Status: Active Protocol: Document 06/26/23 15:19 AM (Rec: 06/26/23 17:21 AM [id number]) Physical Therapy Assessment Rehab Potential Rehabilitation Potential Good Evaluation Complexity Number of Personal Factors/Comorbidities 1-2 Number of Body Systems Impaired 1-2 Clinical Presentation at Evaluation Stable Impairments Impairments Balance,Functional Activities, Functional Mobility,Pain, Posture,ROM,Strength Goals Pain Impairment Pain rating at 5/10. Short Term Goal (STG) Pt to report pain at 3/10 at L shoulder. STG Duration 07/17/23 Regional Psychiatric Director Goal (LTG) Pt to report pain <1/10 at L shoulder. LTG Duration 08/07/23 ROM Impairment Pt with flexion and abduction mobility at 130 deg. Short Term Goal (STG) Pt with 10 degree improvement in flexion and abduction mobility. STG Duration 07/17/23 Retirement Goal (LTG) Pt with R=L shoulder ROM. LTG Duration 08/07/23 Strength Impairment Shoulder strength at 4/5 grossly on L. Short Term Goal (STG) Pt will demonstrate 4+/5 strength grossly at L shoulder . STG Duration 07/17/23 Retirement Goal (LTG) Pt will demonstrate 5/5 strength grossly at L shoulder . LTG Duration 08/07/23 Quick Dash Impairment Pt with 34% score on Quick Dash Retirement Goal (LTG) Pt with 15% score on Quick Dash. LTG Duration 08/07/23 Assessment Summary Assessment Isis Adan presents to PT today to address chronic shoulder pain with recent exacerbation. Pt reporting frequent falls and demonstrates difficulty with balance when in tandem stance and unable to do SLS without UE support. Pt demonstrates limitations at L shoulder flex /abd ROM compared to R. Pt with tenderness along pecs and periscapular muscles with palpation. Pt demonstrates weakness at L UE compared to R . Pt with positive shoulder impingement symptoms. Pt would benefit from continued PT to progress shoulder strength and mobility to improve tolerance to functional UE tasks. Physical Therapy Plan Frequency and Duration Frequency of Treatment 2x/Week Duration of treatment (weeks) 6 Plan of Care Start Date 06/26/23 Plan of Care End Date 08/07/23 Next Visit Focus/Plan Next Note Type Treatment Note Next Visit Plan Progress shoulder mobility, initiate manual techniques, assess PROM, scapular control
--- NOTE | 2023-06-26 15:19 | PT.OPPOC ---
Physical, Occupational & Speech Therapy At [facility] Current Diagnoses Other shoulder lesions, left shoulder (06/26/23) Visit Care Team Role Provider Type Eben Allen MD Attending Provider Physician Family Provider Primary Care Provider Referring Provider Specialty: Internal Medicine Address: [address] [place] [address], [address] Email: [email or web address] Plan Of Care PT-OP-T Assessment and Plan Start: 06/26/23 12:07 Freq: Status: Active Protocol: Document 06/26/23 15:19 AM (Rec: 06/26/23 17:21 AM [id number]) Physical Therapy Assessment Rehab Potential Rehabilitation Potential Good Evaluation Complexity Number of Personal Factors/Comorbidities 1-2 Number of Body Systems Impaired 1-2 Clinical Presentation at Evaluation Stable Impairments Impairments Balance,Functional Activities, Functional Mobility,Pain, Posture,ROM,Strength Goals Pain Impairment Pain rating at 5/10. Short Term Goal (STG) Pt to report pain at 3/10 at L shoulder. STG Duration 07/17/23 Snf Goal (LTG) Pt to report pain <1/10 at L shoulder. LTG Duration 08/07/23 ROM Impairment Pt with flexion and abduction mobility at 130 deg. Short Term Goal (STG) Pt with 10 degree improvement in flexion and abduction mobility. STG Duration 07/17/23 Snf Goal (LTG) Pt with R=L shoulder ROM. LTG Duration 08/07/23 Strength Impairment Shoulder strength at 4/5 grossly on L. Short Term Goal (STG) Pt will demonstrate 4+/5 strength grossly at L shoulder . STG Duration 07/17/23 Fondant Cooker Goal (LTG) Pt will demonstrate 5/5 strength grossly at L shoulder . LTG Duration 08/07/23 Quick Dash Impairment Pt with 34% score on Quick Dash Snf Goal (LTG) Pt with 15% score on Quick Dash. LTG Duration 08/07/23 Assessment Summary Assessment Isis Adan presents to PT today to address chronic shoulder pain with recent exacerbation. Pt reporting frequent falls and demonstrates difficulty with balance when in tandem stance and unable to do SLS without UE support. Pt demonstrates limitations at L shoulder flex /abd ROM compared to R. Pt with tenderness along pecs and periscapular muscles with palpation. Pt demonstrates weakness at L UE compared to R . Pt with positive shoulder impingement symptoms. Pt would benefit from continued PT to progress shoulder strength and mobility to improve tolerance to functional UE tasks. Physical Therapy Plan Frequency and Duration Frequency of Treatment 2x/Week Duration of treatment (weeks) 6 Plan of Care Start Date 06/26/23 Plan of Care End Date 08/07/23 Next Visit Focus/Plan Next Note Type Treatment Note Next Visit Plan Progress shoulder mobility, initiate manual techniques, assess PROM, scapular control Plan of Care Dates Plan of Care Start Date 06/26/23 Plan of Care End Date 08/07/23 Electronically Signed by: Neeta Jensen, PT 06/26/23 [id number] If you are in agreement with this Plan of Care, please return a signed and dated copy. I have reviewed this Plan of Care and certify that the skilled therapy services above are required to meet the patient?s needs. Physician Signature Date Printed Name and Credentials Clinical Instructor Signature Printed Name and Credentials
--- NOTE | 2023-06-28 14:17 | PT.OTN ---
Current Diagnoses Other shoulder lesions, left shoulder (06/28/23) Physical Therapy Treatment Note PT-OP-A Visit Information Start: 06/26/23 12:07 Freq: Status: Active Protocol: Document 06/28/23 14:17 AM (Rec: 06/28/23 14:23 AM [id number]) Out-Patient Physical Therapy Visit Information Visit Information Visit Type Treatment Note Visit Start Time 14:17 Visit Stop Time 15:00 Total Visit Minutes 43 Visit Number 2 Precautions Precautions pacemaker, fall risk PT-OP-B Current Condition Start: 06/26/23 12:07 Freq: Status: Active Protocol: Document 06/26/23 15:19 AM (Rec: 06/26/23 17:21 AM [id number]) Current Condition History of Current Condition Onset Date 2 months ago Current Complaints L shoulder pain History of Current Condition Pt reports that she has had shoulder issues for a while, though recently fell on her driveway on to that side. Pt reports that she had loose shoes on and that is what contributed to the fall. Pt reports this increased the pain even more. Pt reports that she falls a lot. 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 Pt reports that she falls 1-2x/month. Pt reports that sometimes she gets light-headed though unsure of the cause. Pt is followed by a stained glass joiner, who she saw today. Pt reports that she is having increased incidences of falls/balance issues. Prior Functional Status Baseline Function- ADL's Independent Baseline Function- Mobility Independent Current Functional Impairments (Reported) Functional Limitations- ADL's Independent Functional Limitations- Mobility/Gait Pt reports that she notices path deviation with walking. Functional Limitations- Recreation/ Pt reports some difficulty Hobbies with gardening. PT-OP-C Subjective Start: 06/26/23 12:07 Freq: Status: Active Protocol: Document 06/28/23 14:17 AM (Rec: 06/28/23 14:23 AM [id number]) OP-PT Subjective Patient Comments Patient Comments Pt reports that she does not have shoulder pain yet today, which is unusual per pt report . PT-OP-J Posture/Palpation/Skin Start: 06/26/23 12:07 Freq: Status: Active Protocol: Document 06/26/23 15:19 AM (Rec: 06/26/23 17:21 AM [id number]) Posture Evaluation Position Sitting Shoulder Posture (L) Forward Palpation Assessment Location L shoulder Palpation Location L pecs and periscapular muscles Palpation Findings Soft Tissue Tightness, Tenderness PT-OP-K Range of Motion Start: 06/26/23 12:07 Freq: Status: Active Protocol: Document 06/28/23 14:17 AM (Rec: 06/28/23 15:13 AM [id number]) Shoulder Goniometric Range of Motion Shoulder Left Passive Shoulder ROM WFL Yes Flexion 142 Abduction 155 External Rotation at 45 degrees 70 Abduction Right Passive Shoulder ROM WFL Yes Flexion 150 Abduction 165 External Rotation at 45 degrees 80 Abduction PT-OP-L Special Tests Start: 06/26/23 12:07 Freq: Status: Active Protocol: Document 06/26/23 15:19 AM (Rec: 06/26/23 17:21 AM [id number]) Special Tests Shoulder Special Tests Sylvester Mike Impingement Test Results L shoulder + Elevation Impingement Test Results L shoulder + PT-OP-M Strength Start: 06/26/23 12:07 Freq: Status: Active Protocol: Document 06/26/23 15:19 AM (Rec: 06/26/23 17:21 AM [id number]) Shoulder Strength Shoulder Manual Muscle Testing Right Flexion 5 Normal Extension 5 Normal Abduction (C5) 5 Normal External Rotation 5 Normal Internal Rotation 5 Normal Left Flexion 4 Good Extension 4 Good Abduction (C5) 4 Good External Rotation 4 Good Internal Rotation 4 Good PT-OP-Q Treatments Start: 06/26/23 12:07 Freq: Status: Active Protocol: Document 06/28/23 14:17 AM (Rec: 06/28/23 14:23 AM [id number]) Cardio Equipment Upper Body Ergometer (UBE) Duration (Minutes) 5 Seat Position 13 Other fwd/back Therapeutic Exercises Sidelying Exercises Abduction Side left Equipment Used towel roll at elbow Reps/Minutes x8 ER Side left Reps/Minutes x8 Flexion Side left Reps/Minutes x8 Standing Exercises Shoulder extension Side bilateral Resistance Green TB Reps/Minutes 2x10 Row Side bilateral Resistance green TB Reps/Minutes 2x10 wall slide Side left Reps/Minutes x10 Comments with cues to avoid painful range Manual Therapy Treatment Soft Tissue Mobilization Scapular muscles Body Location L scapular muscles, infraspinatus, teres major/ minor, UT Mobilization Type Myofascial Release,Trigger Point Release Intensity/Depth Moderate Body Position Sidelying Comments Pillow under R hip for comfort Joint Mobilizations S-I mobs Joint L shoulder Direction S-I Grade II Body Position Supine Manual Techniques L shoulder PROM Type All directions Body Position Supine PT-OP-T Assessment and Plan Start: 06/26/23 12:07 Freq: Status: Active Protocol: Document 06/28/23 14:17 AM (Rec: 06/28/23 14:23 AM [id number]) Physical Therapy Assessment Goals Pain Impairment Pain rating at 5/10. Short Term Goal (STG) Pt to report pain at 3/10 at L shoulder. STG Duration 07/17/23 Snf Goal (LTG) Pt to report pain <1/10 at L shoulder. LTG Duration 08/07/23 ROM Impairment Pt with flexion and abduction mobility at 130 deg. Short Term Goal (STG) Pt with 10 degree improvement in flexion and abduction mobility. STG Duration 07/17/23 Or Nurse Manager Goal (LTG) Pt with R=L shoulder ROM. LTG Duration 08/07/23 Strength Impairment Shoulder strength at 4/5 grossly on L. Short Term Goal (STG) Pt will demonstrate 4+/5 strength grossly at L shoulder . STG Duration 07/17/23 Snf Goal (LTG) Pt will demonstrate 5/5 strength grossly at L shoulder . LTG Duration 08/07/23 Quick Dash Impairment Pt with 34% score on Quick Dash Or Nurse Manager Goal (LTG) Pt with 15% score on Quick Dash. LTG Duration 08/07/23 Assessment Summary Assessment Pt with improved AAROM with wall slides without discomfort . Pt demonstrates tenderness along scapular muscles with STM. Pt demonstrates continued tenderness with end-range flexion and abduction A/PROM. Pt would benefit from continued PT to progress scapular and rotator cuff strength to improve tolerance to functional activities. Physical Therapy Plan Frequency and Duration Frequency of Treatment 2x/Week Duration of treatment (weeks) 6 Plan of Care Start Date 06/26/23 Plan of Care End Date 08/07/23 Therapeutic Interventions Therapeutic Interventions Balance Training,Home Exercise Program,Joint Mobilizations, Manual Therapy,Neuromuscular Re-education,Patient/Caregiver Education,Self-Care/Home Management,Soft Tissue Mobilization,Therapeutic Activities,Therapeutic Exercises Next Visit Focus/Plan Next Note Type Treatment Note Next Visit Plan Continue to progress shoulder mobility and strength as tolerated
--- NOTE | 2023-07-02 15:17 | PT.OTN ---
Current Diagnoses Other shoulder lesions, left shoulder (07/02/23) Physical Therapy Treatment Note PT-OP-A Visit Information Start: 06/26/23 12:07 Freq: Status: Active Protocol: Document 07/02/23 15:17 AM (Rec: 07/02/23 15:23 AM [id number]) Out-Patient Physical Therapy Visit Information Visit Information Visit Type Treatment Note Visit Start Time 15:17 Visit Stop Time 16:03 Total Visit Minutes 46 Visit Number 3 PT-OP-B Current Condition Start: 06/26/23 12:07 Freq: Status: Active Protocol: Document 07/02/23 15:17 AM (Rec: 07/02/23 15:23 AM [id number]) Current Condition History of Current Condition Onset Date 2 months ago Current Complaints L shoulder pain History of Current Condition Pt reports that she has had shoulder issues for a while, though recently fell on her driveway on to that side. Pt reports that she had loose shoes on and that is what contributed to the fall. Pt reports this increased the pain even more. Pt reports that she falls a lot. 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 Pt reports that she falls 1-2x/month. Pt reports that sometimes she gets light-headed though unsure of the cause. Pt is followed by a amusement machine mechanic, who she saw today. Pt reports that she is having increased incidences of falls/balance issues. PT-OP-C Subjective Start: 06/26/23 12:07 Freq: Status: Active Protocol: Document 07/02/23 15:17 AM (Rec: 07/02/23 15:23 AM [id number]) OP-PT Subjective Patient Comments Patient Comments Pt reports that her shoulder is feeling a little better. Pt reports that it has felt better with sleep and doing tasks around the house. PT-OP-J Posture/Palpation/Skin Start: 06/26/23 12:07 Freq: Status: Active Protocol: Document 06/26/23 15:19 AM (Rec: 06/26/23 17:21 AM [id number]) Posture Evaluation Position Sitting Shoulder Posture (L) Forward Palpation Assessment Location L shoulder Palpation Location L pecs and periscapular muscles Palpation Findings Soft Tissue Tightness, Tenderness PT-OP-K Range of Motion Start: 06/26/23 12:07 Freq: Status: Active Protocol: Document 06/28/23 14:17 AM (Rec: 06/28/23 15:13 AM [id number]) Shoulder Goniometric Range of Motion Shoulder Left Passive Shoulder ROM WFL Yes Flexion 142 Abduction 155 External Rotation at 45 degrees 70 Abduction Right Passive Shoulder ROM WFL Yes Flexion 150 Abduction 165 External Rotation at 45 degrees 80 Abduction PT-OP-L Special Tests Start: 06/26/23 12:07 Freq: Status: Active Protocol: Document 06/26/23 15:19 AM (Rec: 06/26/23 17:21 AM [id number]) Special Tests Shoulder Special Tests Sylvester Mike Impingement Test Results L shoulder + Elevation Impingement Test Results L shoulder + PT-OP-M Strength Start: 06/26/23 12:07 Freq: Status: Active Protocol: Document 06/26/23 15:19 AM (Rec: 06/26/23 17:21 AM [id number]) Shoulder Strength Shoulder Manual Muscle Testing Right Flexion 5 Normal Extension 5 Normal Abduction (C5) 5 Normal External Rotation 5 Normal Internal Rotation 5 Normal Left Flexion 4 Good Extension 4 Good Abduction (C5) 4 Good External Rotation 4 Good Internal Rotation 4 Good PT-OP-Q Treatments Start: 06/26/23 12:07 Freq: Status: Active Protocol: Document 07/02/23 15:17 AM (Rec: 07/02/23 15:24 AM [id number]) Cardio Equipment Upper Body Ergometer (UBE) Duration (Minutes) 5 Seat Position 13 Other fwd/back split Therapeutic Exercises Supine Exercises Isometrics Supine Exercise Name Shoulder IR/ER isometrics Side left Reps/Minutes 10x3 sec hold Comments manual resistance at 45 deg abd with 1/2 foam roll under elbow Rhythmic stab Supine Exercise Name Shoulder in 90 deg flex in supine Reps/Minutes 2x30 sec Ceiling punch Side left Reps/Minutes x10 Sidelying Exercises Abduction Side left Equipment Used towel roll at elbow Reps/Minutes 10 ER Side left Reps/Minutes 10 Flexion Side left Reps/Minutes 10 Comments manual cueing for upward rotation of scapula Standing Exercises Shoulder extension Side bilateral Resistance Green TB Reps/Minutes 2x10 Row Side bilateral Resistance green TB Reps/Minutes 2x10 wall slide Side left Reps/Minutes x10 Comments with cues to avoid painful range Manual Therapy Treatment Joint Mobilizations S-I mobs Joint L shoulder Direction S-I Grade II Body Position Supine PT-OP-T Assessment and Plan Start: 10/04/23 12:07 Freq: Status: Active Protocol: Document 07/02/23 15:17 AM (Rec: 07/02/23 15:23 AM [id number]) Physical Therapy Assessment Goals Pain Impairment Pain rating at 5/10. Short Term Goal (STG) Pt to report pain at 3/10 at L shoulder. STG Duration 07/17/23 Orchestrator Goal (LTG) Pt to report pain <1/10 at L shoulder. LTG Duration 08/07/23 ROM Impairment Pt with flexion and abduction mobility at 130 deg. Short Term Goal (STG) Pt with 10 degree improvement in flexion and abduction mobility. STG Duration 07/17/23 Half-Way Goal (LTG) Pt with R=L shoulder ROM. LTG Duration 08/07/23 Strength Impairment Shoulder strength at 4/5 grossly on L. Short Term Goal (STG) Pt will demonstrate 4+/5 strength grossly at L shoulder . STG Duration 07/17/23 Orchestrator Goal (LTG) Pt will demonstrate 5/5 strength grossly at L shoulder . LTG Duration 08/07/23 Quick Dash Impairment Pt with 34% score on Quick Dash Orchestrator Goal (LTG) Pt with 15% score on Quick Dash. LTG Duration 08/07/23 Assessment Summary Assessment Pt tolerated PRE well today. Pt required manual cueing for upward rotation of scapula with sidelying shoulder flexion. Pt demonstrated improved abduction mobility with S-I GHJ glides. Pt with tenderness along anterior deltoids with STM. Pt would benefit from continued PT to progress shoulder mobility and strength as tolerated. Physical Therapy Plan Frequency and Duration Frequency of Treatment 2x/Week Duration of treatment (weeks) 6 Plan of Care Start Date 06/26/23 Plan of Care End Date 08/07/23 Therapeutic Interventions Therapeutic Interventions Balance Training,Home Exercise Program,Joint Mobilizations, Manual Therapy,Neuromuscular Re-education,Patient/Caregiver Education,Self-Care/Home Management,Soft Tissue Mobilization,Therapeutic Activities,Therapeutic Exercises Next Visit Focus/Plan Next Note Type Treatment Note Next Visit Plan Continue to progress shoulder mobility and strength as tolerated
--- NOTE | 2023-07-04 11:35 | PT.OTN ---
Current Diagnoses Other shoulder lesions, left shoulder (07/04/23) Physical Therapy Treatment Note PT-OP-A Visit Information Start: 06/26/23 12:07 Freq: Status: Active Protocol: Document 07/04/23 10:45 SP (Rec: 07/04/23 11:38 SP [id number]) Out-Patient Physical Therapy Visit Information Visit Information Visit Type Treatment Note Visit Start Time 10:45 Visit Stop Time 11:35 Total Visit Minutes 50 Visit Number 4 Number of UPHOLSTERY TRIMMER Visits 1 Precautions Precautions pacemaker, fall risk PT-OP-B Current Condition Start: 06/26/23 12:07 Freq: Status: Active Protocol: Document 07/02/23 15:17 AM (Rec: 07/02/23 15:23 AM [id number]) Current Condition History of Current Condition Onset Date 2 months ago Current Complaints L shoulder pain History of Current Condition Pt reports that she has had shoulder issues for a while, though recently fell on her driveway on to that side. Pt reports that she had loose shoes on and that is what contributed to the fall. Pt reports this increased the pain even more. Pt reports that she falls a lot. 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 Pt reports that she falls 1-2x/month. Pt reports that sometimes she gets light-headed though unsure of the cause. Pt is followed by a penology teacher, who she saw today. Pt reports that she is having increased incidences of falls/balance issues. PT-OP-C Subjective Start: 06/26/23 12:07 Freq: Status: Active Protocol: Document 07/04/23 10:45 SP (Rec: 07/04/23 11:38 SP [id number]) OP-PT Subjective Patient Comments Patient Comments Pt reports feels ok upon arrival. She inquired reviewing sidelying ER, not sure doing correctly. She report able to sleep in L little more with less pain. Pt reports has TM at home and wants to start utilizing but side rails are low and finds self leaning over for support. She used to walk on 1.8 mph. Could we trial to see if ok for me to do at home for activity doctor suggested getting back to. PT-OP-J Posture/Palpation/Skin Start: 06/26/23 12:07 Freq: Status: Active Protocol: Document 06/26/23 15:19 AM (Rec: 06/26/23 17:21 AM [id number]) Posture Evaluation Position Sitting Shoulder Posture (L) Forward Palpation Assessment Location L shoulder Palpation Location L pecs and periscapular muscles Palpation Findings Soft Tissue Tightness, Tenderness PT-OP-K Range of Motion Start: 06/26/23 12:07 Freq: Status: Active Protocol: Document 06/28/23 14:17 AM (Rec: 06/28/23 15:13 AM [id number]) Shoulder Goniometric Range of Motion Shoulder Left Passive Shoulder ROM WFL Yes Flexion 142 Abduction 155 External Rotation at 45 degrees 70 Abduction Right Passive Shoulder ROM WFL Yes Flexion 150 Abduction 165 External Rotation at 45 degrees 80 Abduction PT-OP-L Special Tests Start: 06/26/23 12:07 Freq: Status: Active Protocol: Document 06/26/23 15:19 AM (Rec: 06/26/23 17:21 AM [id number]) Special Tests Shoulder Special Tests Sylvester Mike Impingement Test Results L shoulder + Elevation Impingement Test Results L shoulder + PT-OP-M Strength Start: 06/26/23 12:07 Freq: Status: Active Protocol: Document 06/26/23 15:19 AM (Rec: 06/26/23 17:21 AM [id number]) Shoulder Strength Shoulder Manual Muscle Testing Right Flexion 5 Normal Extension 5 Normal Abduction (C5) 5 Normal External Rotation 5 Normal Internal Rotation 5 Normal Left Flexion 4 Good Extension 4 Good Abduction (C5) 4 Good External Rotation 4 Good Internal Rotation 4 Good PT-OP-Q Treatments Start: 06/26/23 12:07 Freq: Status: Active Protocol: Document 07/04/23 10:45 SP (Rec: 07/04/23 11:38 SP [id number]) Cardio Equipment Upper Body Ergometer (UBE) Duration (Minutes) 6 RPM 75 Seat Position 10 Height 3 Other fwd/back 1 min each direction alternating Treadmill Duration (Minutes) 3 Speed 0.8- cue upright posturing better alignment/ LE clearance with 0.8 safe spd Incline 0 Other extra time discussion safety contact support and foot clearance for safety Therapeutic Exercises Sidelying Exercises Abduction Sidelying Exercise Name IN PT Side left Equipment Used towel roll at elbow Reps/Minutes 10 Comments manual cueing for upward rotation of scapula w/ LT fac/ no UT recruit ER Sidelying Exercise Name HEP reviewed Side left Resistance AROM> 1# DB Reps/Minutes 10 Comments occ cues no UT recruit Flexion Sidelying Exercise Name IN PT Side left Reps/Minutes 10 Comments manual cueing for upward rotation of scapula w/ LT fac/ no UT recruit Standing Exercises Shoulder extension Side bilateral Resistance Green TB Reps/Minutes 2x10 Comments cued upright posture, chin tuck for no UT- eccentric slower return Row Side bilateral Resistance green TB Reps/Minutes 2x10 Comments cued upright posture, chin tuck for no UT- eccentric slower return wall slide Standing Exercise Name added lift off wall- LT fac and neck alignment Side left Resistance AROM Reps/Minutes x10 Comments good form, painfree Manual Therapy Treatment Joint Mobilizations L scapulothoracic Comments retraction/depression Self-Care/Home Management Treatment Education Other Education Extra time spent ed/ performance use of pillows sidelying for neck/thorcic/LS neutral alignment, folded towel under upper lateral ribcage pillow btn BLEs, BUEs sidelying with report felt alot better on L for comfort/ painfree during LUE ther ex. Pt may get full body pillow vs multiple pillows for support. PT-OP-T Assessment and Plan Start: 06/26/23 12:07 Freq: Status: Active Protocol: Document 07/04/23 10:45 SP (Rec: 07/04/23 11:38 SP [id number]) Physical Therapy Assessment Goals Pain Impairment Pain rating at 5/10. Short Term Goal (STG) Pt to report pain at 3/10 at L shoulder. STG Duration 07/17/23 Longterm Goal (LTG) Pt to report pain <1/10 at L shoulder. LTG Duration 08/07/23 ROM Impairment Pt with flexion and abduction mobility at 130 deg. Short Term Goal (STG) Pt with 10 degree improvement in flexion and abduction mobility. STG Duration 07/17/23 Longterm Goal (LTG) Pt with R=L shoulder ROM. LTG Duration 08/07/23 Strength Impairment Shoulder strength at 4/5 grossly on L. Short Term Goal (STG) Pt will demonstrate 4+/5 strength grossly at L shoulder . STG Duration 07/17/23 Longterm Goal (LTG) Pt will demonstrate 5/5 strength grossly at L shoulder . LTG Duration 08/07/23 Quick Dash Impairment Pt with 34% score on Quick Dash Longterm Goal (LTG) Pt with 15% score on Quick Dash. LTG Duration 08/07/23 Assessment Summary Assessment Pt required cuing throughout standing resisted ther ex for elongated posturing, CS more ext/ neutral with chin tuck noted decrease UT recruitment. Pt tolerated increase resistance sidelying shld ER 1 # DB and improved LT engagement during FF wall slides added UE lift off wall painfree BUE. Pt improved understanding slower speed TM, posturing and use of side rail for stability support. Pt reported decreased L shld discomfort sidelying with use pillow support. Pt would benefit from continued PT for UE strengthening. Physical Therapy Plan Frequency and Duration Frequency of Treatment 2x/Week Duration of treatment (weeks) 6 Plan of Care Start Date 06/26/23 Plan of Care End Date 08/07/23 Therapeutic Interventions Therapeutic Interventions Balance Training,Home Exercise Program,Joint Mobilizations, Manual Therapy,Neuromuscular Re-education,Patient/Caregiver Education,Self-Care/Home Management,Soft Tissue Mobilization,Therapeutic Activities,Therapeutic Exercises Next Visit Focus/Plan Next Note Type Treatment Note Next Visit Plan Assess wall slide lift off wall addition and DB shld ER. Add neck stretching to next tx for comfort support. POC: Continue to progress shoulder mobility and strength as tolerated
--- NOTE | 2023-07-10 10:45 | PT.OTN ---
Current Diagnoses Other shoulder lesions, left shoulder (07/10/23) Physical Therapy Treatment Note PT-OP-A Visit Information Start: 06/26/23 12:07 Freq: Status: Active Protocol: Document 07/10/23 10:01 SP (Rec: 07/10/23 15:04 SP [id number]) Out-Patient Physical Therapy Visit Information Visit Information Visit Type Treatment Note Visit Start Time 10:01 Visit Stop Time 10:45 Total Visit Minutes 44 Visit Number 5 Number of CHEMICAL STRENGTH TESTER Visits 2 PT-OP-B Current Condition Start: 06/26/23 12:07 Freq: Status: Active Protocol: Document 07/02/23 15:17 AM (Rec: 07/02/23 15:23 AM [id number]) Current Condition History of Current Condition Onset Date 2 months ago Current Complaints L shoulder pain History of Current Condition Pt reports that she has had shoulder issues for a while, though recently fell on her driveway on to that side. Pt reports that she had loose shoes on and that is what contributed to the fall. Pt reports this increased the pain even more. Pt reports that she falls a lot. 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 Pt reports that she falls 1-2x/month. Pt reports that sometimes she gets light-headed though unsure of the cause. Pt is followed by a white hat hacker, who she saw today. Pt reports that she is having increased incidences of falls/balance issues. PT-OP-C Subjective Start: 06/26/23 12:07 Freq: Status: Active Protocol: Document 07/10/23 10:01 SP (Rec: 07/10/23 10:46 SP [id number]) OP-PT Subjective Patient Comments Patient Comments Pt reports feeling pretty good , didn't do HEP as much as should have since last tx. PT-OP-J Posture/Palpation/Skin Start: 06/26/23 12:07 Freq: Status: Active Protocol: Document 06/26/23 15:19 AM (Rec: 06/26/23 17:21 AM [id number]) Posture Evaluation Position Sitting Shoulder Posture (L) Forward Palpation Assessment Location L shoulder Palpation Location L pecs and periscapular muscles Palpation Findings Soft Tissue Tightness, Tenderness PT-OP-K Range of Motion Start: 06/26/23 12:07 Freq: Status: Active Protocol: Document 06/28/23 14:17 AM (Rec: 06/28/23 15:13 AM [id number]) Shoulder Goniometric Range of Motion Shoulder Left Passive Shoulder ROM WFL Yes Flexion 142 Abduction 155 External Rotation at 45 degrees 70 Abduction Right Passive Shoulder ROM WFL Yes Flexion 150 Abduction 165 External Rotation at 45 degrees 80 Abduction PT-OP-L Special Tests Start: 06/26/23 12:07 Freq: Status: Active Protocol: Document 06/26/23 15:19 AM (Rec: 06/26/23 17:21 AM [id number]) Special Tests Shoulder Special Tests Sylvester Mike Impingement Test Results L shoulder + Elevation Impingement Test Results L shoulder + PT-OP-M Strength Start: 06/26/23 12:07 Freq: Status: Active Protocol: Document 06/26/23 15:19 AM (Rec: 06/26/23 17:21 AM [id number]) Shoulder Strength Shoulder Manual Muscle Testing Right Flexion 5 Normal Extension 5 Normal Abduction (C5) 5 Normal External Rotation 5 Normal Internal Rotation 5 Normal Left Flexion 4 Good Extension 4 Good Abduction (C5) 4 Good External Rotation 4 Good Internal Rotation 4 Good PT-OP-Q Treatments Start: 06/26/23 12:07 Freq: Status: Active Protocol: Document 07/10/23 10:01 SP (Rec: 07/10/23 10:46 SP [id number]) Cardio Equipment Upper Body Ergometer (UBE) Duration (Minutes) 6 RPM 75 Seat Position 12 Height 3.5 Other fwd/back 1 min each direction alternating Therapeutic Exercises Sidelying Exercises open book Sidelying Exercise Name added to HEP Side left Resistance AROM Reps/Minutes x10 Comments tactile/VCs for LT fac into end feel- nice pec stretch/ pnfree Abduction Sidelying Exercise Name added to HEP Side left Equipment Used towel roll at elbow Reps/Minutes 10 Comments improved ROM post manual- less pec tension OH ER Sidelying Exercise Name HEP reviewed Side left Resistance AROM> 1# DB Reps/Minutes 10 Comments occ cues no UT recruit Flexion Sidelying Exercise Name added to HEP Side left Resistance AROM Reps/Minutes 10 Comments improved post cues looks like standing position then able maintain height Standing Exercises Shoulder extension Side bilateral Resistance Green TB Reps/Minutes x20 Comments cued upright posture, chin tuck for no UT- eccentric slower return Row Side bilateral Resistance green TB Reps/Minutes x20 Comments cued upright posture, chin tuck for no UT- eccentric slower return wall slide Standing Exercise Name BUE FF glide up wall, lift off wall Side left Resistance AROM- good tirng Reps/Minutes x10 Comments cued CS neutral chin tuck, painfree lift off wall Manual Therapy Treatment Soft Tissue Mobilization Scapular muscles Body Location L pec, deltoid, infraspinatus, teres major/minor, UT Mobilization Type Strumming Intensity/Depth Moderate Body Position Sidelying Comments manual and MWM FF, ABD Joint Mobilizations L scapulothoracic Direction retraction/depression Grade II Comments manual, then MWM ABD, HABD AAROM>AROM S-I mobs Joint L shoulder Direction S-I Grade II Body Position Supine PT-OP-T Assessment and Plan Start: 06/26/23 12:07 Freq: Status: Active Protocol: Document 07/10/23 10:01 SP (Rec: 07/10/23 10:46 SP [id number]) Physical Therapy Assessment Goals Pain Impairment Pain rating at 5/10. Short Term Goal (STG) Pt to report pain at 3/10 at L shoulder. STG Duration 07/17/23 Shelter Goal (LTG) Pt to report pain <1/10 at L shoulder. LTG Duration 08/07/23 ROM Impairment Pt with flexion and abduction mobility at 130 deg. Short Term Goal (STG) Pt with 10 degree improvement in flexion and abduction mobility. STG Duration 07/17/23 Stock Fitter Goal (LTG) Pt with R=L shoulder ROM. LTG Duration 08/07/23 Strength Impairment Shoulder strength at 4/5 grossly on L. Short Term Goal (STG) Pt will demonstrate 4+/5 strength grossly at L shoulder . STG Duration 07/17/23 Shelter Goal (LTG) Pt will demonstrate 5/5 strength grossly at L shoulder . LTG Duration 08/07/23 Quick Dash Impairment Pt with 34% score on Quick Dash Stock Fitter Goal (LTG) Pt with 15% score on Quick Dash. LTG Duration 08/07/23 Assessment Summary Assessment Pt improved scapular ROM with tactile cues initially, progressed to AROM LUE in sidelying HABD, ABD, flexion against gravity today with minimal vs/tacile cues for allowance scapular glide, decreased anterior and lateral shoulder discomfort. Progressed from AAROM previous treatments. Continues to have good response to added OH lift off wall during FF wall slides making gains toward reaching into cupboards. She would benefit from continued skilled PT to progress ROM and strength for with funcitional recreationasl tasks. Physical Therapy Plan Frequency and Duration Frequency of Treatment 2x/Week Duration of treatment (weeks) 6 Plan of Care Start Date 06/26/23 Plan of Care End Date 08/07/23 Therapeutic Interventions Therapeutic Interventions Balance Training,Home Exercise Program,Joint Mobilizations, Manual Therapy,Neuromuscular Re-education,Patient/Caregiver Education,Self-Care/Home Management,Soft Tissue Mobilization,Therapeutic Activities,Therapeutic Exercises Next Visit Focus/Plan Next Note Type Treatment Note Next Visit Plan Review sidelying LUE/scapular ROM/progress strength if able. Add neck stretching to next tx for comfort support. POC: Continue to progress shoulder mobility and strength as tolerated
--- NOTE | 2023-07-12 10:50 | PT.OTN ---
Current Diagnoses Other shoulder lesions, left shoulder (07/12/23) Physical Therapy Treatment Note PT-OP-A Visit Information Start: 06/26/23 12:07 Freq: Status: Active Protocol: Document 07/12/23 10:03 SP (Rec: 07/12/23 10:52 SP [id number]) Out-Patient Physical Therapy Visit Information Visit Information Visit Type Treatment Note Visit Start Time 10:03 Visit Stop Time 10:50 Total Visit Minutes 47 Visit Number 6 Number of ASSOCIATE QUALITY ENGINEER Visits 3 Precautions Precautions pacemaker, fall risk PT-OP-B Current Condition Start: 06/26/23 12:07 Freq: Status: Active Protocol: Document 07/02/23 15:17 AM (Rec: 07/02/23 15:23 AM [id number]) Current Condition History of Current Condition Onset Date 2 months ago Current Complaints L shoulder pain History of Current Condition Pt reports that she has had shoulder issues for a while, though recently fell on her driveway on to that side. Pt reports that she had loose shoes on and that is what contributed to the fall. Pt reports this increased the pain even more. Pt reports that she falls a lot. 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 Pt reports that she falls 1-2x/month. Pt reports that sometimes she gets light-headed though unsure of the cause. Pt is followed by a office worker, who she saw today. Pt reports that she is having increased incidences of falls/balance issues. PT-OP-C Subjective Start: 06/26/23 12:07 Freq: Status: Active Protocol: Document 07/12/23 10:03 SP (Rec: 07/12/23 10:52 SP [id number]) OP-PT Subjective Patient Comments Patient Comments Pt reports found a 1lb can of refried beans to use for her resistance strengthening but may look into a DB, fits better in her hand, reports. No adverse affects to HEP. She reports has an appt next week to look at her knee. PT-OP-J Posture/Palpation/Skin Start: 06/26/23 12:07 Freq: Status: Active Protocol: Document 06/26/23 15:19 AM (Rec: 06/26/23 17:21 AM [id number]) Posture Evaluation Position Sitting Shoulder Posture (L) Forward Palpation Assessment Location L shoulder Palpation Location L pecs and periscapular muscles Palpation Findings Soft Tissue Tightness, Tenderness PT-OP-K Range of Motion Start: 06/26/23 12:07 Freq: Status: Active Protocol: Document 06/28/23 14:17 AM (Rec: 06/28/23 15:13 AM [id number]) Shoulder Goniometric Range of Motion Shoulder Left Passive Shoulder ROM WFL Yes Flexion 142 Abduction 155 External Rotation at 45 degrees 70 Abduction Right Passive Shoulder ROM WFL Yes Flexion 150 Abduction 165 External Rotation at 45 degrees 80 Abduction PT-OP-L Special Tests Start: 06/26/23 12:07 Freq: Status: Active Protocol: Document 06/26/23 15:19 AM (Rec: 06/26/23 17:21 AM [id number]) Special Tests Shoulder Special Tests Sylvester Mike Impingement Test Results L shoulder + Elevation Impingement Test Results L shoulder + PT-OP-M Strength Start: 06/26/23 12:07 Freq: Status: Active Protocol: Document 06/26/23 15:19 AM (Rec: 06/26/23 17:21 AM [id number]) Shoulder Strength Shoulder Manual Muscle Testing Right Flexion 5 Normal Extension 5 Normal Abduction (C5) 5 Normal External Rotation 5 Normal Internal Rotation 5 Normal Left Flexion 4 Good Extension 4 Good Abduction (C5) 4 Good External Rotation 4 Good Internal Rotation 4 Good PT-OP-Q Treatments Start: 06/26/23 12:07 Freq: Status: Active Protocol: Document 07/12/23 10:03 SP (Rec: 07/12/23 10:52 SP [id number]) Cardio Equipment Upper Body Ergometer (UBE) Duration (Minutes) 6 RPM 75 Seat Position 12 Height 3.5- reports feels like a good warm up Other fwd/back 1 min each direction alternating Therapeutic Exercises Sidelying Exercises open book Sidelying Exercise Name HEP reviewed Side left Resistance AROM Reps/Minutes x10 Comments improved scapular retraction and inferior glide inc AROM Abduction Sidelying Exercise Name HEP reviewed Side left Resistance 1# dB Equipment Used towel roll at elbow Reps/Minutes 10 Comments improved ROM post manual- less pec tension OH ER Sidelying Exercise Name HEP reviewed Side left Resistance 1# DB Reps/Minutes 8 (UT recruitment so stopped) Comments occ cues no UT recruit Flexion Sidelying Exercise Name HEP reviewed Side left Resistance AROM Reps/Minutes 10 Comments good form, muscle tiring Standing Exercises L shld AROM Standing Exercise Name FF, ABD- added to HEP Side left Equipment Used mirror for self feedback corrections Reps/Minutes 5 reps x2 Comments cued L shld FF AAROM Standing Exercise Name added to HEP Equipment Used in doorway walk in Reps/Minutes 3 reps x 20 SH Shoulder extension Standing Exercise Name HEP reviewed Side bilateral Resistance Green TB Reps/Minutes x20 Comments cued upright posture and chin nod CS neutral Row Standing Exercise Name HEP reviewed Side bilateral Resistance green TB Reps/Minutes x20 Comments cued upright posture and chin nod CS neutral PT-OP-T Assessment and Plan Start: 06/26/23 12:07 Freq: Status: Active Protocol: Document 07/12/23 10:03 SP (Rec: 07/12/23 10:52 SP [id number]) Physical Therapy Assessment Goals Pain Impairment Pain rating at 5/10. Short Term Goal (STG) Pt to report pain at 3/10 at L shoulder. STG Duration 07/17/23 Mcc Goal (LTG) Pt to report pain <1/10 at L shoulder. LTG Duration 08/07/23 ROM Impairment Pt with flexion and abduction mobility at 130 deg. Short Term Goal (STG) Pt with 10 degree improvement in flexion and abduction mobility. STG Duration 07/17/23 Mcc Goal (LTG) Pt with R=L shoulder ROM. LTG Duration 08/07/23 Strength Impairment Shoulder strength at 4/5 grossly on L. Short Term Goal (STG) Pt will demonstrate 4+/5 strength grossly at L shoulder . STG Duration 07/17/23 Bone Process Operator Goal (LTG) Pt will demonstrate 5/5 strength grossly at L shoulder . LTG Duration 08/07/23 Quick Dash Impairment Pt with 34% score on Quick Dash Bone Process Operator Goal (LTG) Pt with 15% score on Quick Dash. LTG Duration 08/07/23 Assessment Summary Assessment Pt continues to show improvement in ROM HEP with no adverse affects to increase 1 # DB sidelying and GTB standing. Added FF at wall for increase AAROM OH with occasional cues for not allowing shld elevated to far recruitment. She improves with AROM FF and ABD in mirror with improved understanding form/alignment, low reps for recovery tiring and decrease UT recruitment, for progression in her HEP. Provided HOs for recall/form. Physical Therapy Plan Frequency and Duration Frequency of Treatment 2x/Week Duration of treatment (weeks) 6 Plan of Care Start Date 06/26/23 Plan of Care End Date 08/07/23 Therapeutic Interventions Therapeutic Interventions Balance Training,Home Exercise Program,Joint Mobilizations, Manual Therapy,Neuromuscular Re-education,Patient/Caregiver Education,Self-Care/Home Management,Soft Tissue Mobilization,Therapeutic Activities,Therapeutic Exercises Next Visit Focus/Plan Next Note Type Treatment Note Next Visit Plan Review sidelying LUE/scapular ROM/progress strength, standing AROM and wall FF AAROM. Add neck stretching to next tx for comfort support. POC: Continue to progress shoulder mobility and strength as tolerated
--- NOTE | 2023-07-16 12:50 | PT.OTN ---
Current Diagnoses Other shoulder lesions, left shoulder (07/16/23) Physical Therapy Treatment Note PT-OP-A Visit Information Start: 06/26/23 12:07 Freq: Status: Active Protocol: Document 07/16/23 12:04 SP (Rec: 07/16/23 12:52 SP [id number]) Out-Patient Physical Therapy Visit Information Visit Information Visit Type Treatment Note Visit Start Time 12:04 Visit Stop Time 12:50 Total Visit Minutes 46 Visit Number 7 Number of BENCH SCIENTIST Visits 4 Precautions Precautions pacemaker, fall risk PT-OP-B Current Condition Start: 06/26/23 12:07 Freq: Status: Active Protocol: Document 07/02/23 15:17 AM (Rec: 07/02/23 15:23 AM [id number]) Current Condition History of Current Condition Onset Date 2 months ago Current Complaints L shoulder pain History of Current Condition Pt reports that she has had shoulder issues for a while, though recently fell on her driveway on to that side. Pt reports that she had loose shoes on and that is what contributed to the fall. Pt reports this increased the pain even more. Pt reports that she falls a lot. 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 Pt reports that she falls 1-2x/month. Pt reports that sometimes she gets light-headed though unsure of the cause. Pt is followed by a excel expert, who she saw today. Pt reports that she is having increased incidences of falls/balance issues. PT-OP-C Subjective Start: 06/26/23 12:07 Freq: Status: Active Protocol: Document 07/16/23 12:04 SP (Rec: 07/16/23 12:52 SP [id number]) OP-PT Subjective Patient Comments Patient Comments Pt reports doing ok with the AROM newly added HEP last tx. PT-OP-J Posture/Palpation/Skin Start: 06/26/23 12:07 Freq: Status: Active Protocol: Document 06/26/23 15:19 AM (Rec: 06/26/23 17:21 AM [id number]) Posture Evaluation Position Sitting Shoulder Posture (L) Forward Palpation Assessment Location L shoulder Palpation Location L pecs and periscapular muscles Palpation Findings Soft Tissue Tightness, Tenderness PT-OP-K Range of Motion Start: 06/26/23 12:07 Freq: Status: Active Protocol: Document 07/16/23 12:04 SP (Rec: 07/16/23 12:52 SP [id number]) Shoulder Goniometric Range of Motion Shoulder Left Active Shoulder ROM WFL No Testing Position Sitting Flexion 132 Abduction 144 Internal Rotation Behind Back (text) T8 Comments L shld AROM seated: Improved ABD 14 deg 144* and IR behind back T10> T8. PT-OP-L Special Tests Start: 06/26/23 12:07 Freq: Status: Active Protocol: Document 06/26/23 15:19 AM (Rec: 06/26/23 17:21 AM [id number]) Special Tests Shoulder Special Tests Sylvester Mike Impingement Test Results L shoulder + Elevation Impingement Test Results L shoulder + PT-OP-M Strength Start: 06/26/23 12:07 Freq: Status: Active Protocol: Document 06/26/23 15:19 AM (Rec: 06/26/23 17:21 AM [id number]) Shoulder Strength Shoulder Manual Muscle Testing Right Flexion 5 Normal Extension 5 Normal Abduction (C5) 5 Normal External Rotation 5 Normal Internal Rotation 5 Normal Left Flexion 4 Good Extension 4 Good Abduction (C5) 4 Good External Rotation 4 Good Internal Rotation 4 Good PT-OP-Q Treatments Start: 06/26/23 12:07 Freq: Status: Active Protocol: Document 07/16/23 12:04 SP (Rec: 07/16/23 12:52 SP [id number]) Cardio Equipment Upper Body Ergometer (UBE) Duration (Minutes) 6 RPM 75 Seat Position 12 Height 3.5- reports feels like a good warm up Other fwd/back 1 min each direction alternating Therapeutic Exercises Sidelying Exercises ER Sidelying Exercise Name DC (progressed to stand TB) Sitting Exercises eccentric FF & ABD Sitting Exercise Name added to HEP (pic in her phone ) Side left Resistance TB #3 green TB Reps/Minutes 2x10 Comments cued slow eccentric control FF & ABD painfree reported Standing Exercises TB shld IR & ER Standing Exercise Name added to HEP Side left Resistance TB #3 green Reps/Minutes 2x10 each Comments good form, painfree- little muscle PT-OP-T Assessment and Plan Start: 06/26/23 12:07 Freq: Status: Active Protocol: Document 07/16/23 12:04 SP (Rec: 07/16/23 12:52 SP [id number]) Physical Therapy Assessment Goals Pain Impairment Pain rating at 5/10. Short Term Goal (STG) Pt to report pain at 3/10 at L shoulder. 07/16/23: MET GOAL: reports 2- 3/10, is ableto put seat belt on without pain now. STG Duration 07/17/23 GOAL MET Greaser Helper Goal (LTG) Pt to report pain <1/10 at L shoulder. LTG Duration 08/07/23 ROM Impairment Pt with flexion and abduction mobility at 130 deg. Short Term Goal (STG) Pt with 10 degree improvement in flexion and abduction mobility. 07/16/23: progressing: L shld AROM FF 133* standing 132 * seated, ABD 145* standing, 144 * seated (slight fwd), IR behind back T8 (improved from T10). STG Duration 07/17/23 progressing Greaser Helper Goal (LTG) Pt with R=L shoulder ROM. LTG Duration 08/07/23 Strength Impairment Shoulder strength at 4/5 grossly on L. Short Term Goal (STG) Pt will demonstrate 4+/5 strength grossly at L shoulder . STG Duration 07/17/23 Prison Goal (LTG) Pt will demonstrate 5/5 strength grossly at L shoulder . LTG Duration 08/07/23 Quick Dash Impairment Pt with 34% score on Quick Dash Prison Goal (LTG) Pt with 15% score on Quick Dash. LTG Duration 08/07/23 Progress Towards Goals Progress Comments L shld AROM seated: Improved ABD 14 deg 144* and IR behind back T10> T8. Assessment Summary Assessment Pt good response to ther ex today. Still limited in AROM, responded well to added eccentric resisted AAROM OH FF and ABD with no adverse affects. She is pleased with ROM gains making. Pt would benefit from continued PT to progress ROM and strength to return to personal activities of interest. Physical Therapy Plan Frequency and Duration Frequency of Treatment 2x/Week Duration of treatment (weeks) 6 Plan of Care Start Date 06/26/23 Plan of Care End Date 08/07/23 Therapeutic Interventions Therapeutic Interventions Balance Training,Home Exercise Program,Joint Mobilizations, Manual Therapy,Neuromuscular Re-education,Patient/Caregiver Education,Self-Care/Home Management,Soft Tissue Mobilization,Therapeutic Activities,Therapeutic Exercises Next Visit Focus/Plan Next Note Type Treatment Note Next Visit Plan Updated POC 08/02. REview HEP added resisted IR/ ER, eccentric FF/ ABD, condense if needed. Add neck stretching to next tx for comfort support. POC: Continue to progress shoulder mobility and strength as tolerated
--- NOTE | 2023-07-26 10:30 | PT.OTN ---
Current Diagnoses Other shoulder lesions, left shoulder (07/26/23) Physical Therapy Treatment Note PT-OP-A Visit Information Start: 06/26/23 12:07 Freq: Status: Active Protocol: Document 07/26/23 10:30 AM (Rec: 07/26/23 17:22 AM [id number]) Out-Patient Physical Therapy Visit Information Visit Information Visit Type Progress Note Visit Start Time 10:30 Visit Stop Time 11:15 Total Visit Minutes 45 Visit Number 8 PT-OP-B Current Condition Start: 06/26/23 12:07 Freq: Status: Active Protocol: Document 07/02/23 15:17 AM (Rec: 07/02/23 15:23 AM [id number]) Current Condition History of Current Condition Onset Date 2 months ago Current Complaints L shoulder pain History of Current Condition Pt reports that she has had shoulder issues for a while, though recently fell on her driveway on to that side. Pt reports that she had loose shoes on and that is what contributed to the fall. Pt reports this increased the pain even more. Pt reports that she falls a lot. 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 Pt reports that she falls 1-2x/month. Pt reports that sometimes she gets light-headed though unsure of the cause. Pt is followed by a collar padder blindstitch, who she saw today. Pt reports that she is having increased incidences of falls/balance issues. PT-OP-C Subjective Start: 06/26/23 12:07 Freq: Status: Active Protocol: Document 07/26/23 10:30 AM (Rec: 07/26/23 17:22 AM [id number]) OP-PT Subjective Patient Comments Patient Comments Pt reports that she notices decrease in shoulder pain and improved function since start of PT. Pt reports that she had an episode of dizziness a few days ago. She contacted a [place] physician with telehealth that recommended that she f/u with provider in person. Pt reports that the dizziness did resolve and she is feeling ok today. Pt reports that she got a vaccine at her L arm earlier this week and her arm feels sore from that. PT-OP-J Posture/Palpation/Skin Start: 06/26/23 12:07 Freq: Status: Active Protocol: Document 06/26/23 15:19 AM (Rec: 06/26/23 17:21 AM [id number]) Posture Evaluation Position Sitting Shoulder Posture (L) Forward Palpation Assessment Location L shoulder Palpation Location L pecs and periscapular muscles Palpation Findings Soft Tissue Tightness, Tenderness PT-OP-K Range of Motion Start: 06/26/23 12:07 Freq: Status: Active Protocol: Document 07/26/23 10:30 AM (Rec: 07/26/23 17:22 AM [id number]) Shoulder Goniometric Range of Motion Shoulder Left Active Flexion 140 Abduction 140 Comments Abd measurement is scaption PT-OP-L Special Tests Start: 06/26/23 12:07 Freq: Status: Active Protocol: Document 06/26/23 15:19 AM (Rec: 06/26/23 17:21 AM [id number]) Special Tests Shoulder Special Tests Sylvester Mike Impingement Test Results L shoulder + Elevation Impingement Test Results L shoulder + PT-OP-M Strength Start: 06/26/23 12:07 Freq: Status: Active Protocol: Document 06/26/23 15:19 AM (Rec: 06/26/23 17:21 AM [id number]) Shoulder Strength Shoulder Manual Muscle Testing Right Flexion 5 Normal Extension 5 Normal Abduction (C5) 5 Normal External Rotation 5 Normal Internal Rotation 5 Normal Left Flexion 4 Good Extension 4 Good Abduction (C5) 4 Good External Rotation 4 Good Internal Rotation 4 Good PT-OP-Q Treatments Start: 06/26/23 12:07 Freq: Status: Active Protocol: Document 07/26/23 10:30 AM (Rec: 07/26/23 17:22 AM [id number]) Cardio Equipment Upper Body Ergometer (UBE) Duration (Minutes) 5 RPM 75 Seat Position 12 Height 3.5- reports feels like a good warm up Other fwd/back 1 min each direction alternating Therapeutic Exercises Standing Exercises TB shld IR & ER Side left Resistance TB #3 green Reps/Minutes 2x10 each Comments cues for scap control Shoulder extension Side bilateral Resistance Blue TB Reps/Minutes x20 Comments cued upright posture and chin nod CS neutral Row Side bilateral Resistance blue TB Reps/Minutes x20 Comments cued upright posture and chin nod CS neutral wall slide Side left Reps/Minutes x10 Manual Therapy Treatment Joint Mobilizations L scapulothoracic Joint scapulothoracic Direction all directions Grade II Body Position Sidelying Manual Techniques L shoulder PROM Type All directions Body Position Supine PT-OP-T Assessment and Plan Start: 06/26/23 12:07 Freq: Status: Active Protocol: Document 07/26/23 10:30 AM (Rec: 07/26/23 17:22 AM [id number]) Physical Therapy Assessment Goals Pain Impairment Pain rating at 5/10. Short Term Goal (STG) Pt to report pain at 3/10 at L shoulder. 07/16/23: MET GOAL: reports 2- 3/10, is ableto put seat belt on without pain now. STG Duration 07/17/23 GOAL MET Care Home Goal (LTG) Pt to report pain <1/10 at L shoulder. LTG Duration 08/14/23 ROM Impairment Pt with flexion and abduction mobility at 130 deg. Short Term Goal (STG) Pt with 10 degree improvement in flexion and abduction mobility. 07/16/23: progressing: L shld AROM FF 133* standing 132 * seated, ABD 145* standing, 144 * seated (slight fwd), IR behind back T8 (improved from T10). STG Duration 07/17/23 progressing Care Home Goal (LTG) Pt with R=L shoulder ROM. LTG Duration 08/14/23 Strength Impairment Shoulder strength at 4/5 grossly on L. Short Term Goal (STG) Pt will demonstrate 4+/5 strength grossly at L shoulder . 07/26/23:Progressing; Pt with 4/5 to 4+/5 L shoulder strength grossly. STG Duration 07/17/23 Information Resources Director Goal (LTG) Pt will demonstrate 5/5 strength grossly at L shoulder . LTG Duration 08/14/23 Quick Dash Impairment Pt with 34% score on Quick Dash Information Resources Director Goal (LTG) Pt with 15% score on Quick Dash. LTG Duration 08/14/23 Assessment Summary Assessment Pt demonstrates improving shoulder mobility and strength since start of PT. Pt with decreased overall c/o pain. Pt tolerating rotator cuff strengthening, though requires cueing for scapular stab. Pt would benefit from continued PT to progress shoulder mobility and strength as tolerated. Physical Therapy Plan Frequency and Duration Frequency of Treatment 2x/Week Duration of treatment (weeks) 7 Plan of Care Start Date 06/26/23 Plan of Care End Date 08/14/23 Therapeutic Interventions Therapeutic Interventions Balance Training,Home Exercise Program,Joint Mobilizations, Manual Therapy,Neuromuscular Re-education,Patient/Caregiver Education,Self-Care/Home Management,Soft Tissue Mobilization,Therapeutic Activities,Therapeutic Exercises Next Visit Focus/Plan Next Note Type Treatment Note Next Visit Plan Updated POC 08/02. REview HEP added resisted IR/ ER, eccentric FF/ ABD, condense if needed. Add neck stretching to next tx for comfort support. POC: Continue to progress shoulder mobility and strength as tolerated
--- NOTE | 2023-07-30 15:19 | PT.OTN ---
Current Diagnoses Other shoulder lesions, left shoulder (07/30/23) Physical Therapy Treatment Note PT-OP-A Visit Information Start: 06/26/23 12:07 Freq: Status: Active Protocol: Document 07/30/23 14:34 SP (Rec: 07/30/23 15:39 SP [id number]) Out-Patient Physical Therapy Visit Information Visit Information Visit Type Treatment Note Visit Note 11/02 post PN Visit Start Time 14:34 Visit Stop Time 15:19 Total Visit Minutes 45 Visit Number 9 Number of POWER SYSTEM DISPATCHER Visits 1 Precautions Precautions pacemaker, fall risk PT-OP-B Current Condition Start: 06/26/23 12:07 Freq: Status: Active Protocol: Document 07/02/23 15:17 AM (Rec: 07/02/23 15:23 AM [id number]) Current Condition History of Current Condition Onset Date 2 months ago Current Complaints L shoulder pain History of Current Condition Pt reports that she has had shoulder issues for a while, though recently fell on her driveway on to that side. Pt reports that she had loose shoes on and that is what contributed to the fall. Pt reports this increased the pain even more. Pt reports that she falls a lot. 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 Pt reports that she falls 1-2x/month. Pt reports that sometimes she gets light-headed though unsure of the cause. Pt is followed by a information technology program manager, who she saw today. Pt reports that she is having increased incidences of falls/balance issues. PT-OP-C Subjective Start: 06/26/23 12:07 Freq: Status: Active Protocol: Document 07/30/23 14:34 SP (Rec: 07/30/23 15:39 SP [id number]) OP-PT Subjective Patient Comments Patient Comments Pt reports has been really pleased driving down to [place] for a family wedding, shoulder felt pretty good, last 10 min before got back home L wrist was sore. She reports feels doing better, wants to condense HEP. She isn 't sure she can take down holiday boxes off face to [place] level shelves with height and wt of the boxes. PT-OP-J Posture/Palpation/Skin Start: 06/26/23 12:07 Freq: Status: Active Protocol: Document 06/26/23 15:19 AM (Rec: 06/26/23 17:21 AM [id number]) Posture Evaluation Position Sitting Shoulder Posture (L) Forward Palpation Assessment Location L shoulder Palpation Location L pecs and periscapular muscles Palpation Findings Soft Tissue Tightness, Tenderness PT-OP-K Range of Motion Start: 06/26/23 12:07 Freq: Status: Active Protocol: Document 07/30/23 14:34 SP (Rec: 07/30/23 15:39 SP [id number]) Shoulder Goniometric Range of Motion Shoulder Left Active Shoulder ROM WFL No Testing Position Standing Flexion 150 Abduction 155 Internal Rotation Behind Back (text) T8 Comments AROM L shld: FF 150 gained 10 deg ABD (modified scaption): 155 gained 15 deg PT-OP-L Special Tests Start: 06/26/23 12:07 Freq: Status: Active Protocol: Document 06/26/23 15:19 AM (Rec: 06/26/23 17:21 AM [id number]) Special Tests Shoulder Special Tests Sylvester Mike Impingement Test Results L shoulder + Elevation Impingement Test Results L shoulder + PT-OP-M Strength Start: 06/26/23 12:07 Freq: Status: Active Protocol: Document 06/26/23 15:19 AM (Rec: 06/26/23 17:21 AM [id number]) Shoulder Strength Shoulder Manual Muscle Testing Right Flexion 5 Normal Extension 5 Normal Abduction (C5) 5 Normal External Rotation 5 Normal Internal Rotation 5 Normal Left Flexion 4 Good Extension 4 Good Abduction (C5) 4 Good External Rotation 4 Good Internal Rotation 4 Good PT-OP-Q Treatments Start: 06/26/23 12:07 Freq: Status: Active Protocol: Document 07/30/23 14:34 SP (Rec: 07/30/23 15:39 SP [id number]) Cardio Equipment Upper Body Ergometer (UBE) Duration (Minutes) 6 RPM 60 Seat Position 11 Height 3.5- reports feels like a good warm up Other fwd/back 1 min each direction alternating Therapeutic Exercises Sidelying Exercises open book Sidelying Exercise Name HEP reviewed Side left Resistance AROM Reps/Minutes x10 Comments improved scapular retraction and inferior glide inc AROM Abduction Sidelying Exercise Name HEP reviewed Side left Resistance 1# dB Reps/Minutes 10 Comments improved ROM post manual- less pec tension OH Standing Exercises TB shld IR & ER Standing Exercise Name HEP reviewed Side left Resistance TB #3 green Reps/Minutes 2x10 each Comments improved scap control L shld AROM Standing Exercise Name FF, ABD- reviewed HEP Side left Equipment Used mirror for self feedback corrections Reps/Minutes x10 Comments occasional cue for no shld shrug Shoulder extension Standing Exercise Name reviewed HEP Side bilateral Resistance Blue TB Reps/Minutes x20 Comments cued upright posture and chin nod CS neutral wall slide Standing Exercise Name FF lift off wall- added to HEP Side left Reps/Minutes x10 Comments cued no UT recruitment Therapeutic Activity Therapeutic Activity reaching/placing wt box over head shelves Name assimulate taking down holiday decorations off/on shelf Reps/Minutes 2#>>5#> 9# leg wts in crate x3 reps each resistace Comments cued BUE positioning support side vs 1 under crate/1 side depending on how high shelf, body mechanics. - pt reported muscle tiring, painfree. PT-OP-T Assessment and Plan Start: 06/26/23 12:07 Freq: Status: Active Protocol: Document 07/30/23 14:34 SP (Rec: 07/30/23 15:39 SP [id number]) Physical Therapy Assessment Goals Pain Impairment Pain rating at 5/10. Short Term Goal (STG) Pt to report pain at 3/10 at L shoulder. 07/16/23: MET GOAL: reports 2- 3/10, is ableto put seat belt on without pain now. STG Duration 07/17/23 GOAL MET Woven Wood Shade Assembler Goal (LTG) Pt to report pain <1/10 at L shoulder. 07/30/23: MET GOAL: painfree LTG Duration 08/14/23 GOAL MET 07/30/23 ROM Impairment Pt with flexion and abduction mobility at 130 deg. Short Term Goal (STG) Pt with 10 degree improvement in flexion and abduction mobility. 07/16/23: progressing: L shld AROM FF 133* standing 132 * seated, ABD 145* standing, 144 * seated (slight fwd), IR behind back T8 (improved from T10). 07/30/23: GOAL MET: AROM L shld: FF 150 gained 10 deg ABD (modified scaption): 155 gained 15 deg STG Duration 07/17/23 GOAL MET 07/30/23 Woven Wood Shade Assembler Goal (LTG) Pt with R=L shoulder ROM. LTG Duration 08/14/23 Strength Impairment Shoulder strength at 4/5 grossly on L. Short Term Goal (STG) Pt will demonstrate 4+/5 strength grossly at L shoulder . 07/26/23:Progressing; Pt with 4/5 to 4+/5 L shoulder strength grossly. STG Duration 07/17/23 [facility] Goal (LTG) Pt will demonstrate 5/5 strength grossly at L shoulder . LTG Duration 08/14/23 Quick Dash Impairment Pt with 34% score on Quick Dash Woven Wood Shade Assembler Goal (LTG) Pt with 15% score on Quick Dash. LTG Duration 08/14/23 Progress Towards Goals Progress Comments AROM L shld standing: FF 150 gained 10 deg ABD (modified scaption): 155 gained 15 deg Assessment Summary Assessment Pt making gains in AROM against gravity, able to increase resistance shld strengthening on side. She stated feels might be ready for continuing on own. Physical Therapy Plan Frequency and Duration Frequency of Treatment 2x/Week Duration of treatment (weeks) 7 Plan of Care Start Date 06/26/23 Plan of Care End Date 08/14/23 Therapeutic Interventions Therapeutic Interventions Balance Training,Home Exercise Program,Joint Mobilizations, Manual Therapy,Neuromuscular Re-education,Patient/Caregiver Education,Self-Care/Home Management,Soft Tissue Mobilization,Therapeutic Activities,Therapeutic Exercises Next Visit Focus/Plan Next Note Type Treatment Note Next Visit Plan COndense HEP, Possible DC next tx, if so pt message schedulers to cancell remaining appts. Add neck stretching to next tx for comfort support.
--- NOTE | 2023-08-02 10:37 | PT.OTN ---
Current Diagnoses Other shoulder lesions, left shoulder (08/02/23) Physical Therapy Treatment Note PT-OP-A Visit Information Start: 06/26/23 12:07 Freq: Status: Active Protocol: Document 08/02/23 10:37 AM (Rec: 08/02/23 11:31 AM [id number]) Out-Patient Physical Therapy Visit Information Visit Information Visit Type Discharge Summary Visit Start Time 10:36 Visit Stop Time 11:21 Total Visit Minutes 45 Visit Number 10 PT-OP-B Current Condition Start: 06/26/23 12:07 Freq: Status: Active Protocol: Document 07/02/23 15:17 AM (Rec: 07/02/23 15:23 AM [id number]) Current Condition History of Current Condition Onset Date 2 months ago Current Complaints L shoulder pain History of Current Condition Pt reports that she has had shoulder issues for a while, though recently fell on her driveway on to that side. Pt reports that she had loose shoes on and that is what contributed to the fall. Pt reports this increased the pain even more. Pt reports that she falls a lot. 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 Pt reports that she falls 1-2x/month. Pt reports that sometimes she gets light-headed though unsure of the cause. Pt is followed by a community health director, who she saw today. Pt reports that she is having increased incidences of falls/balance issues. PT-OP-C Subjective Start: 06/26/23 12:07 Freq: Status: Active Protocol: Document 08/02/23 10:37 AM (Rec: 08/02/23 11:31 AM [id number]) OP-PT Subjective Patient Comments Patient Comments Pt reports that she felt that she had adverse reaction to steroid injection at knee yesterday. Pt reports that she is back to baseline today. PT encouraged pt to contact provider regarding her symptoms. PT-OP-J Posture/Palpation/Skin Start: 06/26/23 12:07 Freq: Status: Active Protocol: Document 06/26/23 15:19 AM (Rec: 06/26/23 17:21 AM [id number]) Posture Evaluation Position Sitting Shoulder Posture (L) Forward Palpation Assessment Location L shoulder Palpation Location L pecs and periscapular muscles Palpation Findings Soft Tissue Tightness, Tenderness PT-OP-K Range of Motion Start: 06/26/23 12:07 Freq: Status: Active Protocol: Document 08/02/23 10:37 AM (Rec: 08/02/23 11:31 AM [id number]) Shoulder Goniometric Range of Motion Shoulder Left Active Shoulder ROM WFL Yes Testing Position Sitting Flexion 150 Abduction 160 Internal Rotation Behind Back (text) T8 Comments Aply ER: T4 PT-OP-L Special Tests Start: 06/26/23 12:07 Freq: Status: Active Protocol: Document 06/26/23 15:19 AM (Rec: 06/26/23 17:21 AM [id number]) Special Tests Shoulder Special Tests Sylvester Mike Impingement Test Results L shoulder + Elevation Impingement Test Results L shoulder + PT-OP-M Strength Start: 06/26/23 12:07 Freq: Status: Active Protocol: Document 06/26/23 15:19 AM (Rec: 06/26/23 17:21 AM [id number]) Shoulder Strength Shoulder Manual Muscle Testing Right Flexion 5 Normal Extension 5 Normal Abduction (C5) 5 Normal External Rotation 5 Normal Internal Rotation 5 Normal Left Flexion 4 Good Extension 4 Good Abduction (C5) 4 Good External Rotation 4 Good Internal Rotation 4 Good PT-OP-Q Treatments Start: 06/26/23 12:07 Freq: Status: Active Protocol: Document 08/02/23 10:37 AM (Rec: 08/02/23 11:31 AM [id number]) Cardio Equipment Upper Body Ergometer (UBE) Duration (Minutes) 6 RPM 60 Seat Position 11 Height 3.5- reports feels like a good warm up Other fwd/back 1 min each direction alternating Therapeutic Exercises Standing Exercises TB shld IR & ER Standing Exercise Name HEP reviewed Side left Resistance TB #3 green Reps/Minutes 2x10 each Comments improved scap control L shld AROM Standing Exercise Name FF, ABD- reviewed HEP Side left Equipment Used mirror for self feedback corrections Reps/Minutes x10 Comments occasional cue for no shld shrug Shoulder extension Standing Exercise Name reviewed HEP Side bilateral Resistance Blue TB Reps/Minutes x20 Comments cued upright posture and chin nod CS neutral Row Side bilateral Resistance blue TB Reps/Minutes x20 Comments cued upright posture and chin nod CS neutral wall slide Standing Exercise Name FF lift off wall- added to HEP Side bilateral Reps/Minutes x10 Comments cued no UT recruitment PT-OP-T Assessment and Plan Start: 06/26/23 12:07 Freq: Status: Active Protocol: Document 08/02/23 10:37 AM (Rec: 08/02/23 11:31 AM [id number]) Physical Therapy Assessment Goals ROM Impairment Pt with flexion and abduction mobility at 130 deg. Short Term Goal (STG) Pt with 10 degree improvement in flexion and abduction mobility. 07/16/23: progressing: L shld AROM FF 133* standing 132 * seated, ABD 145* standing, 144 * seated (slight fwd), IR behind back T8 (improved from T10). 07/30/23: GOAL MET: AROM L shld: FF 150 gained 10 deg ABD (modified scaption): 155 gained 15 deg STG Duration 07/17/23 GOAL MET 07/30/23 Surgical Garment Fitter Goal (LTG) Pt with R=L shoulder ROM. 08/01/23: Goal met LTG Duration 08/14/23 Strength Impairment Shoulder strength at 4/5 grossly on L. Short Term Goal (STG) Pt will demonstrate 4+/5 strength grossly at L shoulder . 07/26/23:Progressing; Pt with 4/5 to 4+/5 L shoulder strength grossly. STG Duration 07/17/23 Longterm Goal (LTG) Pt will demonstrate 5/5 strength grossly at L shoulder . Goal Met on 08/02/23 LTG Duration 08/14/23 Quick Dash Impairment Pt with 34% score on Quick Dash Longterm Goal (LTG) Pt with 15% score on Quick Dash. 08/02/23: Pt with 18% Quick Dash score, significantly improved since start of PT. LTG Duration 08/14/23 Progress Towards Goals Progress Towards Goals Goals Met Progress Comments All goals met, except for Quick Dash, which is improved from IE. Assessment Summary Assessment Pt agreeable to d/c today. Pt demonstrates good understanding of HEP. HEP condensed today. Pt demonstrates significant improvement in shoulder ROM and strength since start of PT . Pt encouraged to f/u with referring provider if symptoms return. Physical Therapy Plan Frequency and Duration Frequency of Treatment 2x/Week Duration of treatment (weeks) 7 Plan of Care Start Date 06/26/23 Plan of Care End Date 08/14/23 Therapeutic Interventions Therapeutic Interventions Balance Training,Home Exercise Program,Joint Mobilizations, Manual Therapy,Neuromuscular Re-education,Patient/Caregiver Education,Self-Care/Home Management,Soft Tissue Mobilization,Therapeutic Activities,Therapeutic Exercises Discharge Physical Therapy Discharge Reasons Goals Met Discharge Comments Pt was seen in PT for 10 visits. Pt demonstrates improved shoulder ROM and strength since start of PT. Pt with reduced pain as well. Pt demonstrates good understanding of HEP. Next Visit Focus/Plan Next Note Type Treatment Note
== END 2023-08-06 09:00 | disposition home or self-care (01) ==
LOC: PHYS 10:30
PROVIDERS: Family Provider Internal Medicine; PCP Internal Medicine; Referring Provider Internal Medicine; Visit Provider Internal Medicine
DX: M75.82 Other shoulder lesions, left shoulder (principal)
CPT/HCPCS: 97110; 97140; 97161; 97535

== ENCOUNTER → 2023-11-11 12:38 | Outpatient (CLI) | payer OTHER, SELFPAY ==
--- NOTE | 2023-11-11 12:40 | DI.RAD.S_ITS ---
PROCEDURE: XR TIBIA FUBULA RT 2V INDICATIONS: Fall, right knee, lower extremity injury TECHNIQUE: 2 views of the tibia and fibula were acquired. COMPARISON: [facility], CR, XR KNEE RT 3V, 11/11/2023, 12:41. [facility], CR, XR ANKLE RT MIN 3V, 11/11/2023, 12:41. [facility], CR, XR TIBIA FIBULA RT 2V, 11/01/2022, 16:34. FINDINGS: Bones: No fractures or dislocations. No suspicious bony lesions. Soft tissues: No suspicious soft tissue calcifications or masses. IMPRESSION: No visualized acute fracture or dislocation. However, if clinical concern and/or pain persist, short interval imaging followup in 7-10 days is recommended, as occult injury cannot be definitively excluded. Dictated by: Dina Valle M.D. on 11/11/2023 at 13:19 Approved by: Dina Valle M.D. on 11/11/2023 at 13:19
--- NOTE | 2023-11-11 12:40 | DI.RAD.S_ITS ---
PROCEDURE: XR ANKLE RT MIN 3V INDICATIONS: Fall, right knee, lower extremity injury TECHNIQUE: 3 views of the ankle were acquired. COMPARISON: [facility], CR, XR KNEE RT 3V, 11/11/2023, 12:41. [facility], CR, XR TIBIA FIBULA RT 2V, 11/11/2023, 12:41. [facility], CR, XR ANKLE RT MIN 3V, 11/01/2022, 16:34. FINDINGS: Bones: No fractures or dislocations. Ankle mortise is normally aligned. No suspicious bony lesions. Soft tissues: No tibiotalar joint effusion. Achilles tendon appears normal. IMPRESSION: No visualized acute fracture or dislocation. However, if clinical concern and/or pain persist, short interval imaging followup in 7-10 days is recommended, as occult injury cannot be definitively excluded. Dictated by: Dina Valle M.D. on 11/11/2023 at 13:18 Approved by: Dina Valle M.D. on 11/11/2023 at 13:19
--- NOTE | 2023-11-11 12:40 | DI.RAD.S_ITS ---
PROCEDURE: XR KNEE RT 3V INDICATIONS: Fall, right knee, lower extremity injury TECHNIQUE: 3 views of the knee were acquired. COMPARISON: [facility], CR, XR TIBIA FIBULA RT 2V, 11/11/2023, 12:41. [facility], CR, XR KNEE RT 3V, 12/14/2022, 16:32. FINDINGS: Bones: No fractures or dislocations. Only the inferior most aspect of the previous diaphyseal lesion is included within the field of view. Tricompartmental arthritic changes are present. Soft tissues: Mild joint effusion. No suspicious soft tissue calcifications. IMPRESSION: No visualized acute fracture or dislocation. However, if clinical concern and/or pain persist, short interval imaging followup in 7-10 days is recommended, as occult injury cannot be definitively excluded. Dictated by: Dina Valle M.D. on 11/11/2023 at 13:17 Approved by: Dina Valle M.D. on 11/11/2023 at 13:18
== END ==
PROVIDERS: Family Provider Internal Medicine; PCP Internal Medicine; Referring Provider Physician Assistant Surgical; Visit Provider Physician Assistant Surgical
DX: S89.90XA Unspecified injury of unspecified lower leg, initial encounter (principal); M25.579 Pain in unspecified ankle and joints of unspecified foot; M79.604 Pain in right leg
CPT/HCPCS: 73562; 73590; 73610

== ENCOUNTER 2023-11-19 15:34 | Observation (INO) | payer OTHER, SELFPAY ==
[2023-11-19] VITALS (20 sets, daily range): BP systolic 157–210; BP diastolic 53–85; PULSE 60–68; RESP 18–24; TEMP 36.5–36.6; O2SAT 94–98; BMI 26.1
--- NOTE | 2023-11-19 15:52 | DI.RAD.S_ITS ---
PROCEDURE: XR RIBS RT MIN 3V W CXR 1V INDICATIONS: fall, SOB TECHNIQUE: 4 views of the ribs were acquired, along with a single view chest. COMPARISON: None. FINDINGS: Surgical changes and devices: Left cardiac pacemaker. Median sternotomy wires. Bones and chest wall: No fractures or dislocations. No suspicious bony lesions. Overlying soft tissues appear unremarkable. Lungs and pleura: No pleural effusions or pneumothorax. Lungs appear clear. Mediastinum: Mediastinal contours appear normal. Heart size is normal. IMPRESSION: No displaced rib fracture or pneumothorax. Dictated by: Tomas Cleaning M.D. on 11/19/2023 at 18:01 Approved by: Tomas Cleaning M.D. on 11/19/2023 at 18:02
--- NOTE | 2023-11-19 15:52 | DI.RAD.S_ITS ---
PROCEDURE: XR KNEE RT 3V INDICATIONS: fall, increased swelling. TECHNIQUE: 3 views of the knee were acquired. COMPARISON: [facility], CR, XR KNEE RT 3V, 11/11/2023, 12:41. FINDINGS: Bones: No fractures or dislocations. No suspicious bony lesions. Moderate tricompartmental degenerative changes Soft tissues: No joint effusion. No suspicious soft tissue calcifications. IMPRESSION: No acute bony abnormality or significant effusion. Tricompartmental osteoarthrosis. If there is persistent clinical concern for occult fracture given adequate mechanism of injury, consider repeat imaging in 10-14 days. Dictated by: Tomas Cleaning M.D. on 11/19/2023 at 18:01 Approved by: Tmoas Cleaning M.D. on 11/19/2023 at 18:01
--- NOTE | 2023-11-19 16:08 | DI.RAD.S_ITS ---
PROCEDURE: XR SHOULDER RT MIN 2V INDICATIONS: fall TECHNIQUE: 3 views of the shoulder were acquired. COMPARISON: [facility], CR, XR SHOULDER LT MIN 2V, 06/04/2023, 10:37. FINDINGS: Bones: No fractures or dislocations. No suspicious bony lesions. Visualized ribs appear intact. There are degenerative changes involving the acromioclavicular and glenohumeral joints. Coracoclavicular and acromioclavicular intervals are maintained. Soft tissues: No suspicious soft tissue calcifications. IMPRESSION: Degenerative changes of the acromioclavicular and glenohumeral joints. No acute fracture or dislocation. If there are persistent symptoms or clinical suspicion for pathology, then repeat radiographs or advanced imaging (CT or MRI) may be considered for further evaluation. Dictated by: Tomas Cleaning M.D. on 11/19/2023 at 18:02 Approved by: Tomas Cleaning M.D. on 11/19/2023 at 18:03
[2023-11-19 16:29] LABS: Add Manual Diff / Slide Review NO; Basophils Absolute Auto 0 /uL (0-100); Basophils Percent Auto 0.4 % (0-2); Eosinophils Absolute Auto 300 /uL (0-450); Eosinophils Percent Auto 2.9 % (2-4); Hematocrit 37.8 % (36-46); Hemoglobin 12.8 g/dL (12.0-16.0); Lymphocytes Absolute Auto 1500 /uL (1100-4500); Lymphocytes Percent Auto 17.4 % (25-40); Mean Corpuscular HGB Conc 33.8 % (30-36); Mean Corpuscular Hemoglobin 30.7 PG (26-34); Monocytes Absolute Auto 800 /uL (0-900); Monocytes Percent Auto 8.7 % (3-14); Neutrophils Absolute Auto 6200 /uL (1500-7000); Neutrophils Percent Auto 70.6 % (50-75); Platelet Count 223 X10^3/uL (150-400); Red Blood Cell Count 4.16 X10^6/uL (4.0-5.2); Red Cell Distribution Width 14.3 % (11.6-14.8); White Blood Cell Count 8.7 X10^3/uL (4.5-11.0)
[2023-11-19 16:41] LABS: Alanine Aminotransferase 27 IU/L (<35); Albumin 4.2 g/dL (3.5-5.0); Albumin Globulin Ratio 1.2 (1.0-2.8); Alkaline Phosphatase 115 U/L (38-126); Aspartate Aminotransferase 33 IU/L (14-36); BUN Creatinine Ratio 26.2 (6-22); Bilirubin Total 0.9 mg/dL (0.2-1.3); Blood Urea Nitrogen 17 mg/dL (7-17); C-Reactive Protein Quant 1.3 mg/dL (<1.0); Calcium 9.5 mg/dL (8.4-10.2); Carbon Dioxide 30 mmol/L (22-32); Chloride 104 mmol/L (98-107); Estimated Glomerular Filt Rate > 60 mL/min (>60); Globulin 3.4 g/dL (1.7-4.1); Glucose 95 mg/dL (80-110); HEMOLYSIS < 15 (0-50); Potassium 4.2 mmol/L (3.4-5.1); Sodium 138 mmol/L (137-145); Total Protein 7.6 g/dL (6.3-8.2)
[2023-11-19 16:48] LABS: Erythrocyte Sedimentation Rate 24 MM/HR (0-20)
[2023-11-19 16:51] LABS: NT-proBNP (BNP-Adult 18+) 484 pg/mL (<450); Troponin I < 0.012 ng/mL (0.01-0.034)
--- NOTE | 2023-11-19 18:18 | PC.NURSE ---
1740: Pt reports feeling dizzy after coming back from x-rays. Pt reports history of episodes of dizziness. Dizziness has subsided once in bed. Denies chest pain, denies SOB. Vitals rechecked.
--- NOTE | 2023-11-19 19:01 | ED_ITS ---
HPI - Extremity Injury (Lower) General Chief Complaint: Extremity Injury, Lower Stated Complaint: rt bursitis septic, chest pain, Possible PE Time Seen by Provider: 11/19/23 18:02 Source: patient Mode of arrival: Wheelchair History of Present Illness HPI Narrative: 83-year-old female. Approximately 10 days ago she sustained a fall where she scratched her right knee. Was seen by her primary doctor approximately 1 week ago. Been started on Keflex secondary to a cellulitis. She has been taking the Keflex as directed but feels like the redness has actually not improved and is somewhat worsening now spreading down her leg. She was also exquisitely tender over her kneecap. She is ambulatory. He was asked to here for discomfort to her right lower ribs that has been there since she fell. It does hurt her in the spot when she touches it and also takes a deep breath. She was also complaining of some right shoulder discomfort. No fevers. Related Data Home Medications Medication Instructions Recorded Confirmed multivitamin with minerals 1 tab PO DAILY 03/06/18 11/19/23 vit C 226 mg-vit E 90 mg-copper 1 cap PO DAILY 03/06/18 11/19/23 0.8 mg-zinc oxide-lutein 5 mg capsule (PreserVision Lutein) calcium citrate-vitamin D3 1 tab PO DAILY 06/04/23 11/19/23 levothyroxine 88 mcg tablet 88 mcg PO DAILY 06/04/23 11/19/23 omega-3 fatty acids-fish oil 360 1 cap PO BID 06/04/23 11/19/23 mg-1,200 mg capsule (Fish Oil) trospium 60 mg capsule,extended 60 mg PO QAM 06/04/23 11/19/23 release 24 hr ascorbic acid (vitamin C) 1,000 mg 1,000 mg PO DAILY 10/03/23 11/19/23 tablet rivaroxaban 20 mg tablet (Xarelto) 20 mg PO DAILY 10/03/23 11/19/23 fluconazole 150 mg tablet 150 mg PO DAILY PRN once for yeast 11/19/23 11/19/23 infection, repeat in 1 week iprn ropinirole 0.5 mg tablet 1 mg PO BEDTIME 11/19/23 11/19/23 Previous Rx's Medication Instructions Recorded metoprolol succinate 25 mg 25 mg PO BID #180 tabs 06/12/23 tablet,extended release 24 hr fluoxetine 20 mg capsule 20 mg PO DAILY #90 caps 07/02/23 rosuvastatin 10 mg tablet 10 mg PO DAILY #90 tabs 08/21/23 hydrocodone 5 mg-acetaminophen 325 1 tab PO Q4H PRN pain #14 tabs 11/13/23 mg tablet Allergies Allergy/AdvReac Type Severity Reaction Status Date / Time codeine [CODEINE] Allergy Mild NAUSEA Verified 11/19/23 15:39 tramadol [TRAMADOL] Allergy Unknown Hallucinati Verified 11/19/23 15:39 ng Review of Systems Review of Systems ROS Unobtainable: All systems reviewed & are unremarkable except as noted in HPI and below Patient History Medical History Chest pain Septic bursitis Slow transit constipation Osteopenia 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 Heart block atrioventricular Cerebrovascular disease Generalized anxiety disorder Depression, major, recurrent Mixed hyperlipidemia Essential hypertension Chronic anticoagulation Chronic atrial fibrillation Somatic dysfunction of lower extremity Family history of nephrolithiasis Postmenopausal atrophic vaginitis Hematuria Uterine prolapse Vaginal stricture Ptosis Inguinal hernia of right side without obstruction or gangrene Vitiligo (1977) Disorder of nasal sinus Foot arch pain (1984) Dry eye syndrome Nuclear sclerosis of both eyes Retinal drusen of both eyes Meniere's disease Infertility Chronic headaches (2003) Migraines RLS (restless legs syndrome) (1969) Urinary incontinence (2007) Tinnitus (1969) Vertigo (1969) Mumps (1944) Measles (1945) Chicken pox (1946) Chronic back pain (1961) Anxiety (1966) Depression (1967) Hemorrhoids Sleep apnea (2012) Chronotropic incompetence (09/29/14) Postmenopausal status (03/30/11) Surgical History H/O breast biopsy Hx of tonsillectomy Anesthesia H/O mitral valve repair (10/2009) Presence of cardiac pacemaker (2014) History of cardiac radiofrequency ablation (RFA) (2015) Status post hysterectomy Family History Brother Age: 84 Heart disease Prostate disease Irregular heartbeat Father Heart disease Hypertension Gallstones Diabetes mellitus Mother Ovarian cancer Heart disease Rheumatoid arthritis Grandfather Tuberculosis Family/Other Colon cancer Social History marital status: household members: spouse Smoking Status: Never smoker alcohol intake: current substance use type: does not use Smoking Status: Never smoker alcohol intake frequency: a few times a month Substance Use Type: does not use Exam Initial Vital Signs Initial Vital Signs: Vital Signs Temperature 97.7 F 11/19/23 15:39 Pulse Rate 60 11/19/23 15:39 Respiratory Rate 18 11/19/23 15:39 Blood Pressure 179/78 H 11/19/23 15:39 Pulse Oximetry 98 11/19/23 15:39 Oxygen Delivery Method Room Air 11/19/23 15:39 HENMT Head: normal to inspection and normocephalic Chest Other: Tenderness to palpation right lateral chest wall without crepitus. Resp Effort & Inspection: normal respiratory effort Auscultation: clear to auscultation bilaterally Cardio Rate: regular rate Rhythm: regular rhythm Skin Other: Induration and swelling to the prepatellar area of the right kneecap with overlying erythema. Is also erythema that tracks down her leg to her ankle. Significant ecchymosis around the area as well. Extrem Other: Patient can flex her right knee but it is somewhat limited because of pain. Right ankles unremarkable. Right hips unremarkable. Procedures Abscess I/D I&D #1: Site: lower extremity (Knee) Side (if applicable): right Local Anesthetic: lidocaine 1% Amount of anesthesia used (mL): 4 Technique: incised with #11 blade Irrigation: No Packing used?: none Course Orders Ordered: Hydrocodone Bitart/Acetaminophen (Hydrocodone/Acet 5/325 Tablet) 1 tab PO Q4H PRN PRN Reason: pain Last Admin: 11/19/23 22:57 Dose: 1 tab Documented By: SH Ascorbic Acid (Ascorbic Acid 500 Mg Tablet) 1,000 mg PO DAILY [facility] Atorvastatin Calcium (Atorvastatin 20 Mg Tablet) 20 mg PO DAILY [facility] Fish Oil (Fish Oil 1,000 Mg Capsule) 1,000 mg PO BID [facility] Fluconazole (Fluconazole 100 Mg Tablet) 150 mg PO DAILY PRN PRN Reason: yeast infection Fluoxetine HCl (Fluoxetine 20 Mg Capsule) 20 mg PO DAILY [facility] Hydralazine HCl (Hydralazine 20 Mg/Ml Vial) 10 mg IV Q4HR PRN PRN Reason: for sbp>160 Last Admin: 11/19/23 22:49 Dose: 10 mg Documented By: MT Hydromorphone HCl (Hydromorphone 0.5 Mg Inj) 0.5 mg IV Q2H PRN PRN Reason: Pain, Severe (7-10) Ceftriaxone Sodium 1,000 mg/ (Sodium Chloride) 100 mls @ 200 mls/hr IV Q24H [facility] Vancomycin HCl (Vancomycin) 1,000 mg in 200 mls @ 200 mls/hr IV NOW ONE Stop: 11/20/23 01:29 Last Admin: 11/20/23 00:33 Dose: 200 mls/hr Documented By: MT Vancomycin HCl/Dextrose (Vancomycin) 1,500 mg in 300 mls @ 200 mls/hr IV Q24H [facility] Levothyroxine Sodium (Levothyroxine 88 Mcg Tablet) 88 mcg PO DAILY [facility] Metoprolol Succinate (Metoprolol Er 25 Mg Tablet) 25 mg PO BID [facility] Multivitamins (Multivitamin 1 Tablet) 1 tab PO DAILY [facility] Naloxone HCl (Naloxone 0.4 Mg/Ml Vial) 0.2 mg IV Q2MIN PRN PRN Reason: Opiate Reversal Non-Formulary Medication (Calcium Citrate-Vitamin D3) 1 tab PO DAILY [facility] Non-Formulary Medication (Vit O-K-Ebbszj-Zinc-Lutein [Preservision Lutein]) 1 cap PO DAILY [facility] Oxybutynin Chloride (Oxybutynin 5 Mg Er Tab) 10 mg PO DAILY [facility] Rivaroxaban (Rivaroxaban 10 Mg Tablet) 20 mg PO DAILY [facility] Ropinirole HCl (Ropinirole 0.25 Mg Tablet) 1 mg PO BEDTIME [facility] Last Admin: 11/19/23 23:23 Dose: 1 mg Documented By: MT Vancomycin HCl (Vancomycin Per Pharmacy) 1 request MISC NOW [facility] Discontinued Medications Vancomycin HCl (Vancomycin) 1,000 mg in 200 mls @ 200 mls/hr IV NOW ONE Stop: 11/19/23 20:00 Last Infusion: 11/19/23 21:02 Dose: Infused Documented By: Admin: 11/19/23 19:51 Dose: 200 mls/hr Documented By: DESTINI Ceftriaxone Sodium 1,000 mg/ (Sodium Chloride) 100 mls @ 200 mls/hr IV NOW ONE Stop: 11/19/23 19:02 Last Infusion: 11/19/23 19:48 Dose: Infused Documented By: Admin: 11/19/23 19:12 Dose: 200 mls/hr Documented By: JABARI Non-Formulary Medication ([place]-3 Fatty Acids-Fish Oil [Fish Oil]) 1 cap PO BID [facility] Vital Signs Vital signs: Vital Signs - 8 hr 11/19/23 17:19 11/19/23 17:28 11/19/23 17:28 Pulse Rate 63 60 Respiratory Rate Blood Pressure 203/85 H Pulse Oximetry 97 Oxygen Delivery Method 11/19/23 17:29 11/19/23 17:29 11/19/23 17:30 Pulse Rate 60 60 Respiratory Rate Blood Pressure 183/79 H Pulse Oximetry 98 Oxygen Delivery Method Room Air 11/19/23 18:00 11/19/23 18:00 11/19/23 18:15 Pulse Rate 60 60 Respiratory Rate 20 21 Blood Pressure 210/82 H Pulse Oximetry 98 97 Oxygen Delivery Method 11/19/23 18:15 11/19/23 18:30 11/19/23 18:30 Pulse Rate 62 Respiratory Rate 22 Blood Pressure 170/74 H 167/73 H Pulse Oximetry 98 Oxygen Delivery Method Room Air 11/19/23 19:00 11/19/23 19:13 11/19/23 19:30 Pulse Rate 60 60 61 Respiratory Rate 20 24 19 Blood Pressure Pulse Oximetry 95 96 96 Oxygen Delivery Method 11/19/23 19:30 11/19/23 20:00 11/19/23 20:00 Pulse Rate 60 Respiratory Rate 24 Blood Pressure 168/75 H 202/80 H Pulse Oximetry 94 Oxygen Delivery Method MDM - Extremity Injury (Lower) Lab Data Attestation: I reviewed the patient's lab results. 11/19/23 16:17 11/19/23 16:17 Labs: Lab Results 11/19/23 Range/Units 16:17 WBC 8.7 (4.5-11.0) X10^3/uL RBC 4.16 (4.0-5.2) X10^6/uL Hgb 12.8 (12.0-16.0) g/dL Hct 37.8 (36-46) % MCV 91.0 (80-100) fL MCH 30.7 (26-34) PG MCHC 33.8 (30-36) % RDW 14.3 (11.6-14.8) % Plt Count 223 (150-400) X10^3/uL Neut % (Auto) 70.6 (50-75) % Lymph % (Auto) 17.4 L (25-40) % [place] % (Auto) 8.7 (3-14) % Eos % (Auto) 2.9 (2-4) % Baso % (Auto) 0.4 (0-2) % Neut # (Auto) 6200 (0010-9260) /uL Lymph # (Auto) 1500 (6339-4016) /uL [place] # (Auto) 800 (0-900) /uL Eos # (Auto) 300 (0-450) /uL Baso # (Auto) 0 (0-100) /uL ESR 24 H (0-20) MM/HR Sodium 138 (137-145) mmol/L Potassium 4.2 (3.4-5.1) mmol/L Chloride 104 (98-107) mmol/L Carbon Dioxide 30 (22-32) mmol/L BUN 17 (7-17) mg/dL Creatinine 0.65 (0.52-1.04) mg/dL Estimated GFR > 60 (>60) mL/min BUN/Creatinine Ratio 26.2 H (6-22) Glucose 95 (80-110) mg/dL Calcium 9.5 (8.4-10.2) mg/dL Total Bilirubin 0.9 (0.2-1.3) mg/dL AST 33 (14-36) IU/L ALT 27 (<35) IU/L Alkaline Phosphatase 115 (38-126) U/L Troponin I < 0.012 (0.01-0.034) ng/mL C-Reactive Protein 1.3 H (<1.0) mg/dL NT-Pro-B Natriuret Pep 484 H (<450) pg/mL Total Protein 7.6 (6.3-8.2) g/dL Albumin 4.2 (3.5-5.0) g/dL Globulin 3.4 (1.7-4.1) g/dL Albumin/Globulin Ratio 1.2 (1.0-2.8) Imaging Data Extremity x-ray #1: Radiologist's Impression: PROCEDURE: XR KNEE RT 3V INDICATIONS: fall, increased swelling. TECHNIQUE: 3 views of the knee were acquired. COMPARISON: [facility], , XR KNEE RT 3V, 11/11/2023, 12:41. FINDINGS: Bones: No fractures or dislocations. No suspicious bony lesions. Moderate tricompartmental degenerative changes Soft tissues: No joint effusion. No suspicious soft tissue calcifications. IMPRESSION: No acute bony abnormality or significant effusion. Tricompartmental osteoarthrosis. If there is persistent clinical concern for occult fracture given adequate mechanism of injury, consider repeat imaging in 10-14 days. rib X-ray: Radiologist's Impression: PROCEDURE: XR RIBS RT MIN 3V W CXR 1V INDICATIONS: fall, SOB TECHNIQUE: 4 views of the ribs were acquired, along with a single view chest. COMPARISON: None. FINDINGS: Surgical changes and devices: Left cardiac pacemaker. Median sternotomy wires. Bones and chest wall: No fractures or dislocations. No suspicious bony lesions. Overlying soft tissues appear unremarkable. Lungs and pleura: No pleural effusions or pneumothorax. Lungs appear clear. Mediastinum: Mediastinal contours appear normal. Heart size is normal. IMPRESSION: No displaced rib fracture or pneumothorax. Extremity x-ray #2: Radiologist's Impression: PROCEDURE: XR SHOULDER RT MIN 2V INDICATIONS: fall TECHNIQUE: 3 views of the shoulder were acquired. COMPARISON: [facility], , XR SHOULDER LT MIN 2V, 06/04/2023, 10:37. FINDINGS: Bones: No fractures or dislocations. No suspicious bony lesions. Visualized ribs appear intact. There are degenerative changes involving the acromioclavicular and glenohumeral joints. Coracoclavicular and acromioclavicular intervals are maintained. Soft tissues: No suspicious soft tissue calcifications. IMPRESSION: Degenerative changes of the acromioclavicular and glenohumeral joints. No acute fracture or dislocation. If there are persistent symptoms or clinical suspicion for pathology, then repeat radiographs or advanced imaging (CT or MRI) may be considered for further evaluation. [facility] Narrative Medical decision making narrative: Patient does have cellulitis to her right leg and a prepatellar abscess that was drained here in the ER. Patient has failed outpatient antibiotics. I have low suspicion for septic joint based on her presentation. Low suspicion for DVT. Low suspicion for pulmonary embolism. Afebrile. No fractures noted on x-rays. Given the lack of improvement with oral antibiotics will admit for IV antibiotics. Discussed the case with Dr.Cullath hospitalist on-call who will admit. Discharge Plan Departure Patient Disposition: Admitted As Inpatient Clinical Impression: Cellulitis, Chronic atrial fibrillation Admit Date/Time: 11/19/23 20:21 Admit Provider: Abbe Allison
[2023-11-19] MEDS: cefTRIAXone 1,000 MG in SODIUM CHLORIDE 0.9% 100 ML 200 MG IV (19:12)
--- NOTE | 2023-11-19 19:25 | PC.NURSE ---
Patient with drainage from I&D, serosanginous. Incision is covered with non-adherent dressing, 3 4x4 gauze squares, and wrapped in kerlix and coband.
[2023-11-19] MEDS: VANCOMYCIN 1,000 MG/200 ML PIGGYBACK 200 MG IV (19:51)
[2023-11-19] MEDS: HYDRALAZINE 20 MG/ML VIAL 10 MG IV (22:49)
[2023-11-19] MEDS: HYDROCODONE/ACET 5/325 TABLET 1 TAB PO (22:57)
[2023-11-19] MEDS: ROPINIROLE 0.25 MG TABLET 1 MG PO (23:23)
[2023-11-20] VITALS (13 sets, daily range): BP systolic 131–159; BP diastolic 42–59; PULSE 58–63; RESP 16–20; TEMP 35.7–37.1; O2SAT 92–99
[2023-11-20] MEDS: VANCOMYCIN 1,000 MG/200 ML PIGGYBACK 200 MG IV (00:33)
[2023-11-20 04:30] LABS: Add Manual Diff / Slide Review NO; Basophils Absolute Auto 0 /uL (0-100); Basophils Percent Auto 0.3 % (0-2); Eosinophils Absolute Auto 200 /uL (0-450); Eosinophils Percent Auto 2.8 % (2-4); Hematocrit 34.7 % (36-46); Hemoglobin 11.9 g/dL (12.0-16.0); Lymphocytes Absolute Auto 1400 /uL (1100-4500); Lymphocytes Percent Auto 17.7 % (25-40); Mean Corpuscular HGB Conc 34.3 % (30-36); Mean Corpuscular Hemoglobin 31.1 PG (26-34); Mean Corpuscular Volume 90.8 fL (80-100); Monocytes Absolute Auto 700 /uL (0-900); Monocytes Percent Auto 8.8 % (3-14); Neutrophils Absolute Auto 5400 /uL (1500-7000); Neutrophils Percent Auto 70.4 % (50-75); Platelet Count 202 X10^3/uL (150-400); Red Blood Cell Count 3.82 X10^6/uL (4.0-5.2); White Blood Cell Count 7.7 X10^3/uL (4.5-11.0)
[2023-11-20 04:44] LABS: INR 1.2 (0.9-1.3); Prothrombin Time 14.3 SECONDS (9.4-12.5)
[2023-11-20 04:52] LABS: BUN Creatinine Ratio 31.6 (6-22); Blood Urea Nitrogen 18 mg/dL (7-17); Calcium 8.8 mg/dL (8.4-10.2); Carbon Dioxide 25 mmol/L (22-32); Chloride 108 mmol/L (98-107); Estimated Glomerular Filt Rate > 60 mL/min (>60); Glucose 103 mg/dL (80-110); HEMOLYSIS < 15 (0-50); Magnesium 1.9 mg/dL (1.6-2.3); Potassium 3.9 mmol/L (3.4-5.1); Sodium 136 mmol/L (137-145)
[2023-11-20 05:00] LABS: NT-proBNP (BNP-Adult 18+) 410 pg/mL (<450)
--- NOTE | 2023-11-20 05:48 | P.HP_ITS ---
History of Present Illness History of Present Illness Date Patient Seen: 11/19/23 Time Patient Seen: 21:45 Chief complaint: rt bursitis septic, chest pain, Possible PE Narrative: 83 years old female with a possible close 3 of hypertension, anxiety, dyslipidemia, atrial fibrillation on chronic anticoagulation, migraine, sleep apnea and multiple other medical issues presented to the emergency room for progressive erythema with edema and tenderness to right lower extremity around the knee. Patient sustained a fall with a subsequent faint bruise about 10 days ago. Was being managed by primary in the outpatient setting with oral Keflex and conservative management. Due to progression of the underlying erythema, eventually was sent to the emergency room. Patient is able to flex her knee. Denies any fever episodes. Denies any chest pain or shortness of breath. An x- ray of the knee shows no acute bony abnormalities or effusion. Does show osteoarthritis. Patient also does complain of chest pain on the right side worse with deep inspiration and an x-ray does not show any evidence of fractures. 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 Cerebrovascular disease Generalized anxiety disorder Depression, major, recurrent Mixed hyperlipidemia Essential hypertension Chronic anticoagulation Chronic atrial fibrillation Somatic dysfunction of lower extremity Family history of nephrolithiasis Postmenopausal atrophic vaginitis Hematuria Uterine prolapse Vaginal stricture Ptosis Inguinal hernia of right side without obstruction or gangrene Vitiligo (1977) Disorder of nasal sinus Foot arch pain (1984) Dry eye syndrome Nuclear sclerosis of both eyes Retinal drusen of both eyes Meniere's disease Infertility Chronic headaches (2003) Migraines RLS (restless legs syndrome) (1969) Urinary incontinence (2007) Tinnitus (1969) Vertigo (1969) Mumps (1945) Measles (1946) Chicken pox (194) Chronic back pain (1961) Anxiety (1967) Depression (1967) Hemorrhoids Sleep apnea (2012) Chronotropic incompetence (09/29/14) Postmenopausal status (03/30/11) Surgical History H/O breast biopsy Hx of tonsillectomy Anesthesia H/O mitral valve repair (10/2009) Presence of cardiac pacemaker (2015) History of cardiac radiofrequency ablation (RFA) (2016) Status post hysterectomy Family History Brother Age: 84 Heart disease Prostate disease Irregular heartbeat Father Heart disease Hypertension Gallstones Diabetes mellitus Mother Ovarian cancer Heart disease Rheumatoid arthritis Grandfather Tuberculosis Family/Other Colon cancer Social History marital status: household members: spouse Smoking Status: Never smoker alcohol intake: current substance use type: does not use Meds Home Medications and Allergies Home Medications Medication Instructions Recorded Confirmed Type multivitamin with minerals 1 tab PO DAILY 03/06/18 11/19/23 History vit C 226 mg-vit E 90 mg-copper 1 cap PO DAILY 03/06/18 11/19/23 History 0.8 mg-zinc oxide-lutein 5 mg capsule (PreserVision Lutein) calcium citrate-vitamin D3 1 tab PO DAILY 06/04/23 11/19/23 History levothyroxine 88 mcg tablet 88 mcg PO DAILY 06/04/23 11/19/23 History omega-3 fatty acids-fish oil 360 1 cap PO BID 06/04/23 11/19/23 History mg-1,200 mg capsule (Fish Oil) trospium 60 mg capsule,extended 60 mg PO QAM 06/04/23 11/19/23 History release 24 hr metoprolol succinate 25 mg 25 mg PO BID #180 tabs 06/12/23 11/19/23 Rx tablet,extended release 24 hr fluoxetine 20 mg capsule 20 mg PO DAILY #90 caps 07/02/23 11/19/23 Rx rosuvastatin 10 mg tablet 10 mg PO DAILY #90 tabs 08/21/23 11/19/23 Rx ascorbic acid (vitamin C) 1,000 mg 1,000 mg PO DAILY 10/03/23 11/19/23 History tablet rivaroxaban 20 mg tablet (Xarelto) 20 mg PO DAILY 10/03/23 11/19/23 History hydrocodone 5 mg-acetaminophen 325 1 tab PO Q4H PRN pain #14 tabs 11/13/23 11/19/23 Rx mg tablet fluconazole 150 mg tablet 150 mg PO DAILY PRN once for yeast 11/19/23 11/19/23 History infection, repeat in 1 week iprn ropinirole 0.5 mg tablet 1 mg PO BEDTIME 11/19/23 11/19/23 History Allergies Allergy/AdvReac Type Severity Reaction Status Date / Time codeine [CODEINE] Allergy Mild NAUSEA Verified 11/19/23 15:39 tramadol [TRAMADOL] Allergy Unknown Hallucinati Verified 11/19/23 15:39 ng Review of Systems Review of Systems Narrative: A 12 point review of system was done and is negative unless otherwise stated in history of present illness Exam Vital Signs (past 8 hours): - 11/19/23 22:08 11/19/23 22:08 11/19/23 22:49 Temperature 97.9 F Pulse Rate 68 68 Respiratory Rate 20 Blood Pressure 174/57 H 176/58 H Pulse Oximetry 98 98 Oxygen Delivery Method Room Air Oxygen Flow Rate 0 11/19/23 23:30 11/20/23 02:08 11/20/23 04:59 Temperature 97.3 F L Pulse Rate 68 58 L Respiratory Rate 19 Blood Pressure 157/53 H 131/48 L Pulse Oximetry 98 97 Oxygen Delivery Method Room Air Oxygen Flow Rate 0 Oxygen Delivery Method Room Air Oxygen Flow Rate 0 Narrative Exam Narrative: Decreased range of motion of the right knee. Dressing in place. No active bleeding. Patient is able to flex the knee bilaterally Air entry equal bilaterally no wheezes no crackles Objective Labs 11/20/23 04:06 11/20/23 04:06 Labs: Laboratory Results - last 24 hr 11/19/23 11/20/23 16:17 04:06 WBC 8.7 7.7 RBC 4.16 3.82 L Hgb 12.8 11.9 L Hct 37.8 34.7 L MCV 91.0 90.8 MCH 30.7 31.1 MCHC 33.8 34.3 RDW 14.3 14.0 Plt Count 223 202 Neut % (Auto) 70.6 70.4 Lymph % (Auto) 17.4 L 17.7 L [place] % (Auto) 8.7 8.8 Eos % (Auto) 2.9 2.8 Baso % (Auto) 0.4 0.3 Neut # (Auto) 6200 5400 Lymph # (Auto) 1500 1400 [place] # (Auto) 800 700 Eos # (Auto) 300 200 Baso # (Auto) 0 0 ESR 24 H PT 14.3 H INR 1.2 Sodium 138 136 L Potassium 4.2 3.9 Chloride 104 108 H Carbon Dioxide 30 25 BUN 17 18 H Creatinine 0.65 0.57 Estimated GFR > 60 > 60 BUN/Creatinine Ratio 26.2 H 31.6 H Glucose 95 103 Calcium 9.5 8.8 Magnesium 1.9 Total Bilirubin 0.9 AST 33 ALT 27 Alkaline Phosphatase 115 Troponin I < 0.012 C-Reactive Protein 1.3 H NT-Pro-B Natriuret Pep 484 H 410 Total Protein 7.6 Albumin 4.2 Globulin 3.4 Albumin/Globulin Ratio 1.2 Assessment & Plan Assessment & Plan narrative: 83 years old female with a possible close 3 of hypertension, anxiety, dyslipidemia, atrial fibrillation on chronic anticoagulation, migraine, sleep apnea and multiple other medical issues presented to the emergency room for progressive erythema with edema and tenderness to right lower extremity around the knee. Patient sustained a fall with a subsequent faint bruise about 10 days ago. Was being managed by primary in the outpatient setting with oral Keflex and conservative management. Due to progression of the underlying erythema, eventually was sent to the emergency room. Patient is able to flex her knee. Denies any fever episodes. Denies any chest pain or shortness of breath. An x- ray of the knee shows no acute bony abnormalities or effusion. Does show osteoarthritis. Patient also does complain of chest pain on the right side worse with deep inspiration and an x-ray does not show any evidence of fractures. Patient received IV Rocephin/vancomycin and admitted for further evaluation 1 lower extremity cellulitis/suprapatellar bursitis/infection with no articular involvement at this time. Did receive IV Rocephin/vancomycin in the emergency room which may be continued for now pending culture results. Wound care and consult physical therapy for mobility. Pain control with [place] as needed 2. Atrial fibrillation. Rate control on home dose of Toprol XL and anticoagulation with Xarelto 3. Restless leg syndrome on home Requip 4 Dyslipidemia resume the home statin 5 Gait instability will consult physical therapy as above 6 DVT prophylaxis on Xarelto 7 chest wall pain on the right side worse with deep inspiration likely appears more of a contusion/bruise. No fractures noted. Encourage incentive spirometry CODE STATUS reviewed currently patient is full code Patient will be admitted under inpatient status given the failed outpatient management of the lower extremity cellulitis and the need for IV antibiotics with expected length of stay greater than 2 midnights Patient was evaluated with the help of the video communication device. Location of the provider is [facility]. Time spent is 10 minutes Quality VTE Deep Vein Thrombosis/Pulmonary Embolism Present on Admission: No
--- NOTE | 2023-11-20 06:32 | PC.ADMIT ---
[email or web address] [place] Admission Note: Patient admitted to AC unit from ED at 21:45 transferred via stretcher, SBA to bed. Alert and oriented x 4, cooperative with care. Oriented to room and call light. Bed in low/locked position, bed alarm on and call light within reach. The patient,Isis Adan,83 y/o, was given written information regarding hospital policies, unit procedures and contact persons. Patient's smoking status: Never smoker. Vital Signs - 8 hr 11/19/23 22:49 11/19/23 23:30 11/20/23 02:08 Temperature Pulse Rate 68 68 Respiratory Rate Blood Pressure 176/58 H 157/53 H Pulse Oximetry 98 Oxygen Delivery Method Room Air Oxygen Flow Rate 11/20/23 04:59 11/20/23 06:00 Temperature 97.3 F L Pulse Rate 58 L Respiratory Rate 19 Blood Pressure 131/48 L Pulse Oximetry 97 97 Oxygen Delivery Method Room Air Oxygen Flow Rate 0
--- NOTE | 2023-11-20 06:42 | PC.WOUNDPHOT ---
Bruising to LLE.
[2023-11-20] MEDS: HYDROCODONE/ACET 5/325 TABLET 1 TAB PO ×2 (07:38→12:43)
[2023-11-20] MEDS: LEVOTHYROXINE 88 MCG TABLET PO (07:44)
--- NOTE | 2023-11-20 08:01 | PM.HP.1 ---
History of Present Illness History of Present Illness Chief complaint: rt bursitis septic, chest pain, Possible PE Narrative: From overnight provider: 83 years old female with a possible close 3 of hypertension, anxiety, dyslipidemia, atrial fibrillation on chronic anticoagulation, migraine, sleep apnea and multiple other medical issues presented to the emergency room for progressive erythema with edema and tenderness to right lower extremity around the knee. Patient sustained a fall with a subsequent faint bruise about 10 days ago. Was being managed by primary in the outpatient setting with oral Keflex and conservative management. Due to progression of the underlying erythema, eventually was sent to the emergency room. Patient is able to flex her knee. Denies any fever episodes. Denies any chest pain or shortness of breath. An x-ray of the knee shows no acute bony abnormalities or effusion. Does show osteoarthritis. Patient also does complain of chest pain on the right side worse with deep inspiration and an x-ray does not show any evidence of fractures. Patient received IV Rocephin/vancomycin and admitted for further evaluation. 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 Cerebrovascular disease Generalized anxiety disorder Depression, major, recurrent Mixed hyperlipidemia Essential hypertension Chronic anticoagulation Chronic atrial fibrillation Somatic dysfunction of lower extremity Family history of nephrolithiasis Postmenopausal atrophic vaginitis Hematuria Uterine prolapse Vaginal stricture Ptosis Inguinal hernia of right side without obstruction or gangrene Vitiligo (1977) Disorder of nasal sinus Foot arch pain (1984) Dry eye syndrome Nuclear sclerosis of both eyes Retinal drusen of both eyes Meniere's disease Infertility Chronic headaches (2003) Migraines RLS (restless legs syndrome) (1969) Urinary incontinence (2007) Tinnitus (1969) Vertigo (1969) Mumps (194) Measles (194) Chicken pox (194) Chronic back pain (1961) Anxiety (1966) Depression (1967) Hemorrhoids Sleep apnea (2012) Chronotropic incompetence (09/29/14) Postmenopausal status (03/30/11) Surgical History H/O breast biopsy Hx of tonsillectomy Anesthesia H/O mitral valve repair (10/2009) Presence of cardiac pacemaker (2014) History of cardiac radiofrequency ablation (RFA) (2015) Status post hysterectomy Family History Brother Age: 84 Heart disease Prostate disease Irregular heartbeat Father Heart disease Hypertension Gallstones Diabetes mellitus Mother Ovarian cancer Heart disease Rheumatoid arthritis Grandfather Tuberculosis Family/Other Colon cancer Social History marital status: household members: spouse Smoking Status: Never smoker alcohol intake: current substance use type: does not use Meds Home Medications and Allergies Home Medications Medication Instructions Recorded Confirmed Type multivitamin with minerals 1 tab PO DAILY 03/06/18 11/19/23 History vit C 226 mg-vit E 90 mg-copper 1 cap PO DAILY 03/06/18 11/19/23 History 0.8 mg-zinc oxide-lutein 5 mg capsule (PreserVision Lutein) calcium citrate-vitamin D3 1 tab PO DAILY 06/04/23 11/19/23 History levothyroxine 88 mcg tablet 88 mcg PO DAILY 06/04/23 11/19/23 History omega-3 fatty acids-fish oil 360 1 cap PO BID 06/04/23 11/19/23 History mg-1,200 mg capsule (Fish Oil) trospium 60 mg capsule,extended 60 mg PO QAM 06/04/23 11/19/23 History release 24 hr metoprolol succinate 25 mg 25 mg PO BID #180 tabs 06/12/23 11/19/23 Rx tablet,extended release 24 hr fluoxetine 20 mg capsule 20 mg PO DAILY #90 caps 07/02/23 11/19/23 Rx rosuvastatin 10 mg tablet 10 mg PO DAILY #90 tabs 08/21/23 11/19/23 Rx ascorbic acid (vitamin C) 1,000 mg 1,000 mg PO DAILY 10/03/23 11/19/23 History tablet rivaroxaban 20 mg tablet (Xarelto) 20 mg PO DAILY 10/03/23 11/19/23 History hydrocodone 5 mg-acetaminophen 325 1 tab PO Q4H PRN pain #14 tabs 11/13/23 11/19/23 Rx mg tablet fluconazole 150 mg tablet 150 mg PO DAILY PRN once for yeast 11/19/23 11/19/23 History infection, repeat in 1 week iprn ropinirole 0.5 mg tablet 1 mg PO BEDTIME 11/19/23 11/19/23 History Allergies Allergy/AdvReac Type Severity Reaction Status Date / Time codeine [CODEINE] Allergy Mild NAUSEA Verified 11/19/23 15:39 tramadol [TRAMADOL] Allergy Unknown Hallucinati Verified 11/19/23 15:39 ng Review of Systems Review of Systems Narrative: A 12 point review of system was done and is negative unless otherwise stated in history of present illness Exam Vital Signs (past 8 hours): - 11/20/23 02:08 11/20/23 04:59 11/20/23 06:00 Temperature 97.3 F L Pulse Rate 58 L Respiratory Rate 19 Blood Pressure 131/48 L Pulse Oximetry 98 97 97 Oxygen Delivery Method Room Air Room Air Oxygen Flow Rate 0 Oxygen Delivery Method Room Air Oxygen Flow Rate 0 Narrative Exam Narrative: GEN: no acute distress HEENT: moist mucous membranes, PERRL NECK: trachea midline, no JVD CV: regular rate and rhythm, no murmurs PULM: clear bilaterally ABD: soft, nontender, nondistended, no organomegaly EXT: erythema, pain and swelling of R pre-patellar area NEURO: awake, alert, oriented, no focal deficits Objective Labs 11/20/23 04:06 11/20/23 04:06 Labs: Laboratory Results - last 24 hr 11/19/23 11/20/23 16:17 04:06 WBC 8.7 7.7 RBC 4.16 3.82 L Hgb 12.8 11.9 L Hct 37.8 34.7 L MCV 91.0 90.8 MCH 30.7 31.1 MCHC 33.8 34.3 RDW 14.3 14.0 Plt Count 223 202 Neut % (Auto) 70.6 70.4 Lymph % (Auto) 17.4 L 17.7 L [place] % (Auto) 8.7 8.8 Eos % (Auto) 2.9 2.8 Baso % (Auto) 0.4 0.3 Neut # (Auto) 6200 5400 Lymph # (Auto) 1500 1400 [place] # (Auto) 800 700 Eos # (Auto) 300 200 Baso # (Auto) 0 0 ESR 24 H PT 14.3 H INR 1.2 Sodium 138 136 L Potassium 4.2 3.9 Chloride 104 108 H Carbon Dioxide 30 25 BUN 17 18 H Creatinine 0.65 0.57 Estimated GFR > 60 > 60 BUN/Creatinine Ratio 26.2 H 31.6 H Glucose 95 103 Calcium 9.5 8.8 Magnesium 1.9 Total Bilirubin 0.9 AST 33 ALT 27 Alkaline Phosphatase 115 Troponin I < 0.012 C-Reactive Protein 1.3 H NT-Pro-B Natriuret Pep 484 H 410 Total Protein 7.6 Albumin 4.2 Globulin 3.4 Albumin/Globulin Ratio 1.2 Assessment & Plan Assessment & Plan narrative: 1. lower extremity cellulitis/suprapatellar bursitis/infection with no articular involvement at this time. S/p I&D in ED with pus drainage. Did receive IV Rocephin/vancomycin in the emergency room which may be continued for now pending culture results. Wound care and consult physical therapy for mobility. Pain control with [place] as needed. 2. Atrial fibrillation. Rate control on home dose of Toprol XL and anticoagulation with Xarelto 3. Restless leg syndrome on home Requip 4 Dyslipidemia resume the home statin 5 Gait instability will consult physical therapy as above 6 DVT prophylaxis on Xarelto 7 chest wall pain on the right side worse with deep inspiration likely appears more of a contusion/bruise. No fractures noted. Encourage incentive spirometry CODE STATUS reviewed currently patient is full code Patient will be admitted under inpatient status given the failed outpatient management of the lower extremity cellulitis and the need for IV antibiotics with expected length of stay greater than 2 midnights Patient was evaluated with the help of the video communication device. Location of the provider [facility]. Time spent is 10 minutes Quality VTE Deep Vein Thrombosis/Pulmonary Embolism Present on Admission: No
[2023-11-20] MEDS: OXYBUTYNIN 5 MG ER TAB 10 MG PO (08:09)
[2023-11-20] MEDS: FLUoxetine 20 MG CAPSULE PO (08:09)
[2023-11-20] MEDS: ASCORBIC ACID 500 MG TABLET 1000 MG PO (08:09)
[2023-11-20] MEDS: MULTIVITAMIN 1 TABLET 1 TAB PO (08:09)
[2023-11-20] MEDS: FISH OIL 1,000 MG CAPSULE 1000 MG PO ×2 (08:09→20:34)
[2023-11-20] MEDS: METOPROLOL ER 25 MG TABLET PO ×2 (08:10→20:37)
[2023-11-20] MEDS: CALCIUM CARBONATE 500 MG TAB PO (08:29)
[2023-11-20] MEDS: cefTRIAXone 1,000 MG in SODIUM CHLORIDE 0.9% 100 ML 200 MG IV (08:31)
--- NOTE | 2023-11-20 09:42 | OT.IP.EVAL ---
Past Medical History (Last Reviewed 11/20/23 @ 01:21 by Jamison Carlson DO) Anxiety (1967) Cerebrovascular disease Chest pain Chicken pox (1946) Chronic anticoagulation Chronic atrial fibrillation Chronic back pain (1961) Chronic headaches (2003) Chronotropic incompetence (09/29/14) Depression (1968) Depression, major, recurrent Disorder of nasal sinus Dry eye syndrome Essential hypertension Family history of nephrolithiasis Foot arch pain (1984) Generalized anxiety disorder Heart block atrioventricular Hematuria Hemorrhoids Infertility Inguinal hernia of right side without obstruction or gangrene Measles (1945) Meniere's disease Migraines Mixed hyperlipidemia Mumps (1944) Neoplasm of left femur Nuclear sclerosis of both eyes Osteopenia Postmenopausal atrophic vaginitis Postmenopausal status (03/30/11) Primary osteoarthritis involving multiple joints Ptosis Retinal drusen of both eyes RLS (restless legs syndrome) (1969) Septic bursitis Sleep apnea (2012) Slow transit constipation Somatic dysfunction of lower extremity Tinnitus (1969) Urinary incontinence (2007) Uterine prolapse Vaginal stricture Vertigo (1969) Vitiligo (1977) Surgical History (Last Reviewed 11/13/23 @ 04:59 by Eben Allen MD) Anesthesia H/O breast biopsy H/O mitral valve repair (10/2009) History of cardiac radiofrequency ablation (RFA) (2015) Hx of tonsillectomy Presence of cardiac pacemaker (2014) Status post hysterectomy Occupational Therapy Inpatient Evaluation/Re-Eval M1 PT/OT-IP Prior Functional Status Start: 11/20/23 10:25 Freq: NEEDED Status: Active Protocol: Document 11/20/23 09:42 [facility] (Rec: 11/20/23 10:43 [facility] [id number]) Medical Review Prior Functional Status Medical History Reviewed Yes Communication Independent Mobility and Gait Pt states did not use a device prior but admits to being unsteady at times on her feet. Activities of Daily Living and IADL's Pt able to do all ADl and ADL needs. Prior Functional Level (Other details) Pt has a supportive but has limitations for activity tolerance. Social History Household Members spouse Living Arrangements House Number of Floors (Floors) Two Floors Number of Stairs To Enter/Railing? 1 step from the front with no rails and 7 step and 1/2 wall on the left, landing, and another 7 steps with left rail going down to the laundry, art/craft, and computer areas. Pt has been considering getting the laundry moved upstairs. Home Environment High Toilet,Walk in Shower Home Equipment Hand Held Shower,Grab Bars In Shower M2 OT-IP Current Condition Start: 11/20/23 10:25 Freq: Status: Active Protocol: Document 11/20/23 09:42 [facility] (Rec: 11/20/23 10:43 [facility] [id number]) Occupational Therapy Current Condition Current Condition Evaluation Date 11/20/23 Treatment Diagnosis RLE cellulitis Diagnosis Onset Date 11/19/23 M3 OT- IP Subjective and Pain Start: 11/20/23 10:25 Freq: Status: Active Protocol: Document 11/20/23 09:42 [facility] (Rec: 11/20/23 10:43 [facility] [id number]) OT- Subjective Occupational Therapy Visit Type Type Initial Evaluation Visit Start Time 09:00 Visit Stop Time 09:42 Occupational Therapy Visit Comments Patient Comments Pt agreed to get up and wanting to use the bathroom. Pt's came in at the end of the session. Patient/Caregiver Goals TO go home. OT Pain Assessment Pain When Pain Assessed At Rest Pain Present Pain Present Pain Reported Location Right knee Intensity 2 Scale Used Numeric (0 - 10) M4 OT- IP ADL's Start: 11/20/23 10:25 Freq: Status: Active Protocol: Document 11/20/23 09:42 [facility] (Rec: 11/20/23 10:43 [facility] [id number]) OT [id number] General Evaluation Self-Feeding Ability Independent OT ADL-Grooming General Evaluation Grooming Ability Standby Assistance Areas Needing Assistance Retrieving/Set-up of Grooming Items Comments OT Grooming Comments While standing after set-up. OT ADL-Oral Care General Eval Oral Care Ability Independent Comments Oral Care Comments While standing. OT ADL-Dressing General Eval Lower Body Dressing Ability Maximum Assistance Comments OT Dressing Comments At this time due to right knee pain and IV at right elbow crease needing assist for LB dressing needs. Able to show pt use of shipper and receiving and sock aid to assist with her needs. OT ADL-Toileting General Evaluation Toileting Ability Standby Assistance Comments OT Toileting Comments Suggested pt get a BSC as prior pt states at times has difficulty to stand up. OT ADL-Bathing Comments OT Bathing Comments Pt states has a high enough built in seat to use at home from showering needs. M5 OT- IP IADL's Start: 11/20/23 10:25 Freq: Status: Active Protocol: Document 11/20/23 09:42 [facility] (Rec: 11/20/23 10:43 [facility] [id number]) OT-Instrumental Activities of Daily Living Deficits IADL Deficits Identified Deficits Home Safety Awareness Awareness of Need for Assistance at Home Good Awareness Ability to Problem Solve Emergency Able to Problem Solve Situations Medication Management Medication Management No Deficits Identified Medication Management Comments Pt uses a pill organizer. Money Management Money Management Comments Pt's does the bills. Meal Preparation Meal Preparation Comments Pt will need assist or to take lots of rest breaks. Book Packer Book Packer Comments Pt will need assist or to take lots of rest breaks. M6 OT- IP Functional Cognition Start: 11/20/23 10:25 Freq: Status: Active Protocol: Document 11/20/23 09:42 [facility] (Rec: 11/20/23 10:43 [facility] [id number]) Cognitive Factors Limiting Selfcare Function Cognitive Ability Level of Alertness Alert Patient Orientation Name,Age,Birthday,Month,Date, Year,Day of Week,Place, Situation Attention Span Ability Capable of Focused Attention, Capable of Sustained Attention Ability to Follow Commands Able to Follow Multi-Step Commands Cognitive Comments Cognitive Assessment Comments Pt intact and able to follow multiple commands for ADL and IADL needs. Pt needing initial vc for safety and pain management for positioning needs for right knee. OT- Vision and Hearing OT- Hearing Assessment OT- Hearing Assessment WFL OT- Vision Assessment Visual Acuity WFL Visual Attentiveness WFL Occular Pursuits WFL M7 OT- IP Mobility and Balance Start: 11/20/23 10:25 Freq: Status: Active Protocol: Document 11/20/23 09:42 [facility] (Rec: 11/20/23 10:43 [facility] [id number]) OT- Bed Mobility Assessment Supine to Sit Supine to Sit Assist Standby Assistance Scooting Scooting to Edge of Bed Standby Assistance Scooting Up and Down in Bed Standby Assistance OT-Transfer Assessment Sit to and From Stand Sit to and from Stand Standby Assistance Transfers Transfer Ability Standby Assistance Technique Transfer Destination Bed,Chair,Toilet Transfer Technique Stand Step Pivot Devices Transfer Assistive Devices Gait Belt,Front Wheeled Walker Comments Mobility Comments SBA for all mobility needs with FWW. OT- Balance Assessment Sitting Balance and Reactions Static Sitting Balance Ability Normal Dynamic Sitting Balance Ability Normal Standing Balance and Reactions Static Standing Balance Ability Good Dynamic Standing Balance Ability Good Comments Other Balance Tests/Deviations/Treatment With FWW use, suggested pt get : a FWW for home use. M8 OT- IP Objective Assessments Start: 11/20/23 10:25 Freq: Status: Active Protocol: Document 11/20/23 09:42 [facility] (Rec: 11/20/23 10:43 [facility] [id number]) OT Gross Range of Motion Upper Extremity Range of Motion Assessment Within Functional Limits OT Strength Upper Extremity Strength Assessment Within Functional Limits OT- Coordination Assessment Upper Extremity Finger to Nose Test Within Functional Limits OT-Muscle Tone Assessment Muscle Tone WNL Yes OT Sensation Assessment Comments Summary Comments Intact M9 OT- IP Assessment and Plan Start: 11/20/23 10:25 Freq: Status: Active Protocol: Document 11/20/23 09:42 [facility] (Rec: 11/20/23 10:43 [facility] [id number]) OT Summary Assessment and Plan Potential Rehabilitation Potential Excellent Analytic Complexity at Evaluation Low Summary OT Impairments Pain,Range of Motion,Strength, Balance,Functional Mobility, Dressing,Bathing,Activity Tolerance Progress Towards Goals Progressing Toward Goals Assessment Summary Pt low complexity and main barriers are pain and now needing use of FWW for mobility needs. Pt can also benefit from getting a BSC, and LB dressing equipment to increased ease for ADL needs. Pt to go home with her to assist. Pt would benefit from outpt PT for balance needs. Goals Dressing Goal Independent,Hot Dip Tinning Supervisor,Sock Aid Toileting Goal Independent Bathing Goal Independent Toilet Transfer Goal Independent Shower Transfer Goal Independent Days to Meet Goals 3 Treatment Plan OT Treatment Plan ADL Training,Functional Mobility,Patient/Family Education,Discharge Planning Discharge Recommendations OT Discharge Recommendations Home with Assistance, Outpatient PT Home Equipment Needs BSC, FWW, LB dressing equipment Transportation Needs at Discharge Private Vehicle
[2023-11-20] MEDS: CHOLECALCIFEROL (VITAMIN D3) 400 UNIT TABLET PO (09:54)
[2023-11-20] MEDS: VIT C/E/ZN/COPPR/LUTEIN/ZEAXAN CAPSULE 1 CAP PO (10:05)
--- NOTE | 2023-11-20 10:05 | PT.IIE ---
Surgical History (Last Reviewed 11/13/23 @ 04:59 by Eben Allen MD) Anesthesia H/O breast biopsy H/O mitral valve repair (10/2009) History of cardiac radiofrequency ablation (RFA) (2015) Hx of tonsillectomy Presence of cardiac pacemaker (2014) Status post hysterectomy Medical History (Last Reviewed 11/20/23 @ 01:21 by Jamison Carlson DO) Anxiety (1966) Cerebrovascular disease Chest pain Chicken pox (1946) Chronic anticoagulation Chronic atrial fibrillation Chronic back pain (1961) Chronic headaches (2003) Chronotropic incompetence (09/29/14) Depression (1968) Depression, major, recurrent Disorder of nasal sinus Dry eye syndrome Essential hypertension Family history of nephrolithiasis Foot arch pain (1984) Generalized anxiety disorder Heart block atrioventricular Hematuria Hemorrhoids Infertility Inguinal hernia of right side without obstruction or gangrene Measles (1945) Meniere's disease Migraines Mixed hyperlipidemia Mumps (1944) Neoplasm of left femur Nuclear sclerosis of both eyes Osteopenia Postmenopausal atrophic vaginitis Postmenopausal status (03/30/11) Primary osteoarthritis involving multiple joints Ptosis Retinal drusen of both eyes RLS (restless legs syndrome) (1969) Septic bursitis Sleep apnea (2012) Slow transit constipation Somatic dysfunction of lower extremity Tinnitus (1969) Urinary incontinence (2007) Uterine prolapse Vaginal stricture Vertigo (1969) Vitiligo (1977) Physical Therapy Inpatient Evaluation/Re-Eval M1 PT/OT-IP Prior Functional Status Start: 11/20/23 11:37 Freq: NEEDED Status: Active Protocol: Document 11/20/23 10:05 AB (Rec: 11/20/23 11:52 AB [id number]) Medical Review Prior Functional Status Medical History Reviewed Yes Communication able to make needs known Mobility and Gait pt stated that she was independent with all mobilities and ambulation without AD but started using a quad cane after recent fall. pt stated that she had at least 6 falls last year. Social History Household Members spouse Living Arrangements House Number of Floors (Floors) Two Floors Number of Stairs To Enter/Railing? pt has 1 step to enter the house to laundry area: 7 steps L sided ledge + landing + 7 steps L rail descending Home Environment High Toilet,Walk in Shower, Built-In Shower Seat Home Equipment Quad Cane,Hand Held Shower, Grab Bars In Shower Additional Social History Comment pt stated that spouse will be able to assist her some but limited due to his own medical conditions M2 PT-IP Current Condition Start: 11/20/23 11:37 Freq: NEEDED Status: Active Protocol: Document 11/20/23 10:05 AB (Rec: 11/20/23 11:52 AB [id number]) Physical Therapy Current Condition Current Condition Evaluation Date 11/20/23 Treatment Diagnosis LLE cellulitis; pre-patellar bursitis s/p drain; difficulty in walking Onset Date 11/19/23 M3 PT-IP Subjective Start: 11/20/23 11:37 Freq: NEEDED Status: Active Protocol: Document 11/20/23 10:05 AB (Rec: 11/20/23 11:52 AB [id number]) Subjective Physical Therapy Visit Type Type Initial Evaluation Visit Start Time 10:05 Visit Stop Time 10:50 Number of FIRE EATER Visits 0 Physical Therapy Visit Comments Patient Comments agreeable to do PT Therapy Pain Assessment Pain When Pain Assessed At Rest Location Right Lower Leg Intensity 6 Scale Used Numeric (0 - 10) Pain Management Techniques Distraction,Modification of Treatment,Re-positioning, Timing of Activity with Medications M4 PT-IP Mobility and Gait Start: 11/20/23 11:37 Freq: NEEDED Status: Active Protocol: Document 11/20/23 10:05 AB (Rec: 11/20/23 11:52 AB [id number]) PT-Bed Mobility Assessment Supine to Sit Supine to Sit Standby Assistance Sit to Supine Sit to Supine Standby Assistance PT-Transfer Assessment Sit to and From Stand Sit to and from Stand Standby Assistance,1 Person Assistance,Use of Upper Extremities Equipment Transfer Assistive Device Gait Belt,Front Wheeled Walker Orthotic/Prosthetic Devices or Brace: No Transfers Transfer Destination Bed Transfer Technique ambulated Transfer Ability Level of Assist Contact Guard Assistance,1 Person Assistance,Use of Upper Extremities Comments Mobility Comments pt sitting on the chair and agreeable to do PT. pt completed sit to stand CGA and ambulated in room using FWW ~ 30 ft SBA. pt sat on EOB and completed bed mobility sit<> supine SBA. Assessed ambulation without AD and pt completed in room ~ 30 ft requiring min A and cues. presents with antalgic gait and slight LOB x 3. pt sat back on chair and positioned on chair. educated pt on safety and use of FWW at this time. pt agreed. pt stated that she used a quad cane before but does not feel too steady with a quad cane. pt with h/o falls and recommending use of FWW at this time for safety. pt agreed and stated that she will tell her spouse to borrow one. call light and table positioned next to pt. Gait Assessment Gait Gait Assistance Required: Contact Guard Assist,Minimum Assistance Distance (Feet) 30 Able to Maintain Weight Bearing Status Yes During Gait Assistive Devices Assistive Device None,Gait Belt,Front Wheeled Walker Orthotic/Prosthetic Devices or Brace: No Gait Deviations General Gait Pattern Antalgic,Decreased Stride Length,Decreased Feet Clearance Factors Limiting Gait Function Factors Limiting Gait Function Decreased Activity Tolerance, Decreased Strength,Pain,Poor Balance,Poor Safety Awareness PT-Balance Assessment Sitting Balance and Reactions Static Sitting Balance Ability Normal Dynamic Sitting Balance Ability Good Standing Balance and Reactions Static Standing Balance Ability Fair Dynamic Standing Balance Ability Poor Device Used without AD M5 PT-IP Objective Assessments Start: 11/20/23 11:37 Freq: NEEDED Status: Active Protocol: Document 11/20/23 10:05 AB (Rec: 11/20/23 11:52 AB [id number]) Orientation Orientation/Cognition Level of Alertness Alert Orientation Name,Place,Situation Safety Awareness Decreased Safety Awareness Memory Description No Deficits Noted Comments with slight confusion Gross Range of Motion Lower Extremity ROM Assessment Within Functional Limits Strength Lower Extremity Strength Assessment Within Functional Limits Coordination Assessment Gross Coordination Gross Coordination WNL Muscle Tone Muscle Tone WNL Yes M6 PT-IP Treatment Start: 11/20/23 11:37 Freq: NEEDED Status: Active Protocol: Document 11/20/23 10:05 AB (Rec: 11/20/23 11:52 AB [id number]) Physical Therapy Treatment Education Education Provided Safety M7 PT-IP Assessment and Plan Start: 11/20/23 11:37 Freq: NEEDED Status: Active Protocol: Document 11/20/23 10:05 AB (Rec: 11/20/23 11:52 AB [id number]) PT Summary Assessment and Plan Potential Rehabilitation Potential Fair Status of Condition at Evaluation Evolving Summary Impairments Pain,ROM,Strength,Balance, Coordination,Sensation,Tone, Cognition,Bed Mobility, Transfers,Gait,Activity Tolerance Assessment Summary pt is an 83 y/o F who presented to the ED for RLE pain and swelling after falling. pt admitted for R LE cellulitis and also has pre- patellar abscess/bursitis s/p drainage. pt currently requiring SBA for bed mobility and ambulation using FWW. assessed ambulation without AD and pt requiring min A and presenting with unsteady antalgic gait. recommending use of fWW at this time. pt also has h/o falls. pt will require outpt PT . Goals Bed Mobility Goal Independent Transfer Goal Independent,Front Wheeled Walker Gait Goal Independent,Front Wheel Walker Gait Distance 300 Other Goals improve transfers/ambulation using LRAD/without AD > 300 ft mod I up/down 1 step using FWW/ without AD mod I up/down 15 steps L rail mod I Days to Meet Goals 10 Frequency of Treatment Frequency Of Treatment Once a Day Treatment Plan Physical Therapy Treatment Plan Bed Mobility Training,Transfer Training,Gait Training, Therapeutic Exercise,Balance Retraining,Discharge Planning, Hot or Cold Pack,Neuromuscular Re-ed,Coordination Retraining Precautions Other Precautions falls Recommendations To Nursing Amount of Assist Needed 1 Person Assist Discharge Recommendations PT Discharge Recommendations Home with Assistance, Outpatient PT Equipment Needed for Home Before FWW Discharge Transportation Needs at Discharge Private Vehicle
[2023-11-20] MEDS: VANCOMYCIN 1,250 MG/250 ML PIGGYBACK 200 MG IV (12:46)
--- NOTE | 2023-11-20 15:09 | CM.DANOTE ---
DCP Assessment Note Pt is an 83yo F here following cellulites. PCP Eben Allen Payer James of [facility] and self pay [employer] reviewed EMR. Per hospitalist in morning rounds, anticipate one more day of iv abx and dc home tomorrow on PO. Per PT/OT, rec home with assistance and OP therapies. [employer] entered room and introduced self and role. Pt resting in bed. Pt lives at home with spouse Abad ([phone]). Pt is indep/drives/ambulates without DME normally. Pt reports things have been getting harder for her and spouse at home overtime. Want to remain home, don't think they need assistance now, but are open to it in the future. [employer] provided pt with [employer] booklet for list of caregivers/transport/DME/additional resources for future use. Pt reports PT rec a walker- spouse was trying to get one but likely couldn't? Asked this [employer] to place order for walker for home. [employer] placed order for walker for home use and updated PT team. Plan: anticipate dc home tomorrow with spouse. Spouse to transport in POV. CM team will follow closely for additional needs. RICARDA Crain Discharge Planning/Care Management CM Discharge Assessment Start: 11/20/23 15:07 Freq: Status: Active Protocol: Document 11/20/23 15:08 (Rec: 11/20/23 15:08 [id number]) Discharge Planning Assessment Assigned Chro RICARDA Eddy DPOA/Assigned Designee Name aBm, spouse Contact Information [phone] Advance Directives? Yes Advance Directives on File No: states full code History Provided By Patient Prior Living Arrangements House Household Members spouse Type of transporation used prior to Drives own vehicle admit Independent with ADL's Yes Is patient alert and oriented? Yes Discharge Plan Home Transportation Arrangement spouse in POV Referrals Initiated None needed Whiteboard Updated in Patient Room with Yes name and ext. # of Chro Review Status In Process Next Review Type Continued Stay Review
[2023-11-20] MEDS: RIVAROXABAN 10 MG TABLET 20 MG PO (17:45)
[2023-11-20] MEDS: ROPINIROLE 0.25 MG TABLET 1 MG PO (18:01)
[2023-11-20] MEDS: ATORVASTATIN 20 MG TABLET PO (20:34)
[2023-11-21] VITALS (8 sets, daily range): BP systolic 137–163; BP diastolic 51–60; PULSE 60–63; RESP 16–18; TEMP 36.3–37.7; O2SAT 93–96
[2023-11-21] MEDS: VANCOMYCIN 1,250 MG/250 ML PIGGYBACK 200 MG IV ×2 (00:30→13:45)
[2023-11-21] MEDS: LEVOTHYROXINE 88 MCG TABLET PO (05:30)
[2023-11-21] MEDS: cefTRIAXone 1,000 MG in SODIUM CHLORIDE 0.9% 100 ML 200 MG IV (08:08)
[2023-11-21] MEDS: FISH OIL 1,000 MG CAPSULE 1000 MG PO (08:20)
[2023-11-21] MEDS: OXYBUTYNIN 5 MG ER TAB 10 MG PO (08:20)
[2023-11-21] MEDS: MULTIVITAMIN 1 TABLET 1 TAB PO (08:20)
[2023-11-21] MEDS: FLUoxetine 20 MG CAPSULE PO (08:20)
[2023-11-21] MEDS: ASCORBIC ACID 500 MG TABLET 1000 MG PO (08:20)
[2023-11-21] MEDS: METOPROLOL ER 25 MG TABLET PO (08:20)
[2023-11-21] MEDS: VIT C/E/ZN/COPPR/LUTEIN/ZEAXAN CAPSULE 1 CAP PO (08:20)
[2023-11-21] MEDS: CALCIUM CARBONATE 500 MG TAB PO (08:21)
[2023-11-21] MEDS: CHOLECALCIFEROL (VITAMIN D3) 400 UNIT TABLET PO (08:22)
--- NOTE | 2023-11-21 09:37 | OT.IP.TRT ---
Occupational Therapy Treatment Note M2 OT-IP Current Condition Start: 11/20/23 10:25 Freq: Status: Active Protocol: Document 11/20/23 09:42 [facility] (Rec: 11/20/23 10:43 [facility] [id number]) Occupational Therapy Current Condition Current Condition Evaluation Date 11/20/23 Treatment Diagnosis RLE cellulitus Diagnosis Onset Date 11/19/23 M3 OT- IP Subjective and Pain Start: 11/20/23 10:25 Freq: Status: Active Protocol: Document 11/21/23 10:19 [facility] (Rec: 11/21/23 10:24 [facility] [id number]) OT- Subjective Occupational Therapy Visit Type Type Treatment Note Visit Start Time 09:10 Visit Stop Time 09:37 Occupational Therapy Visit Comments Patient Comments Pt not sure if wanting to get a FWW from the hospital or if here in the hospital another day plans to get a FWW from [employer]. Patient/Caregiver Goals TO go home. OT Pain Assessment Pain When Pain Assessed At Rest Pain Present Pain Present Pain Reported M6 OT- IP Functional Cognition Start: 11/20/23 10:25 Freq: Status: Active Protocol: Document 11/21/23 10:19 [facility] (Rec: 11/21/23 10:24 [facility] [id number]) Cognitive Factors Limiting Selfcare Function Cognitive Ability Level of Alertness Alert Patient Orientation Name,Age,Birthday,Month,Date, Year,Day of Week,Place, Situation Attention Span Ability Capable of Focused Attention, Capable of Sustained Attention Ability to Follow Commands Able to Follow Multi-Step Commands Cognitive Tests SLUMS Pt scored 29/30 which implies normal for her cognition. Pt admit that she has difficulty with her short term memory at time. Pt aware needing a little more time to come up with answers on the assessment . Pt able to recall 4/5 objects after time passes. Cognitive Comments Cognitive Assessment Comments Able to call places in town with pt to see about getting a FWW if going home today. [facility] to hold the FWW for her if going home today. . M9 OT- IP Assessment and Plan Start: 11/20/23 10:25 Freq: Status: Active Protocol: Document 11/21/23 10:19 [facility] (Rec: 11/21/23 10:24 [facility] [id number]) OT Summary Assessment and Plan Potential Rehabilitation Potential Excellent Analytic Complexity at Evaluation Low Summary OT Impairments Pain,Range of Motion,Strength, Balance,Functional Mobility, Dressing,Bathing,Activity Tolerance Progress Towards Goals Progressing Toward Goals Assessment Summary Pt still having pain and difficulty to move her RLE. Pt looking to get BSC, LB dressing equipment, and fww for home use. Pt to go home when medically stable. Goals Dressing Goal Independent,Car Dispatcher,Sock Aid Toileting Goal Independent Bathing Goal Independent Toilet Transfer Goal Independent Shower Transfer Goal Independent Days to Meet Goals 3 Frequency of Treatment Frequency Of Treatment Once a Day Treatment Plan OT Treatment Plan ADL Training,Functional Mobility,Patient/Family Education,Discharge Planning Discharge Recommendations OT Discharge Recommendations Home with Assistance, Outpatient PT Home Equipment Needs BSC, FWW, LB dressing equipment Transportation Needs at Discharge Private Vehicle
--- NOTE | 2023-11-21 10:58 | PT.IPTN ---
Physical Therapy Treatment Note M2 PT-IP Current Condition Start: 11/20/23 11:37 Freq: NEEDED Status: Active Protocol: Document 11/20/23 10:05 AB (Rec: 11/20/23 11:52 AB [id number]) Physical Therapy Current Condition Current Condition Evaluation Date 11/20/23 Treatment Diagnosis LLE cellulitis; pre-patellar bursitis s/p drain; difficulty in walking Onset Date 11/19/23 M3 PT-IP Subjective Start: 11/20/23 11:37 Freq: NEEDED Status: Active Protocol: Document 11/21/23 11:42 TS (Rec: 11/21/23 11:50 TS [id number]) Subjective Physical Therapy Visit Type Type Treatment Note Visit Start Time 10:58 Visit Stop Time 11:23 Number of [employer] OPERATOR Visits 1 Physical Therapy Visit Comments Patient Comments Pt found resting in chair, is agreeable to PT. Therapy Pain Assessment Pain When Pain Assessed At Rest Pain Present Pain Present Pain Reported M4 PT-IP Mobility and Gait Start: 11/20/23 11:37 Freq: NEEDED Status: Active Protocol: Document 11/21/23 11:42 TS (Rec: 11/21/23 11:50 TS [id number]) PT-Transfer Assessment Sit to and From Stand Sit to and from Stand Standby Assistance,1 Person Assistance,Use of Upper Extremities Equipment Transfer Assistive Device Gait Belt,Front Wheeled Walker Orthotic/Prosthetic Devices or Brace: No Comments Mobility Comments STS from chair SBA with FWW. She ambulated ~175'SBA, demonstrates good balance and safety awareness. She performed steps with FWW x2 CGA and x6 SBA with use of handrails. She ambulated back to room, sat in chair. FWW cindy dispensed for pt. Gait Assessment Gait Gait Assistance Required: Standby Assistance Distance (Feet) 175 Able to Maintain Weight Bearing Status Yes During Gait Assistive Devices Assistive Device Gait Belt,Front Wheeled Walker Gait Deviations General Gait Pattern Antalgic,Decreased Stride Length,Decreased Feet Clearance Factors Limiting Gait Function Factors Limiting Gait Function Decreased Activity Tolerance, Decreased Strength,Pain,Poor Balance,Poor Safety Awareness Comments Gait Comments See mobility comments Stair Climbing Assessment Evaluation Level of Assist On Stairs Standby Assistance,Contact Guard Assistance Devices Stair Climbing Assistive Devices Front Wheel Walker,Left Railing,Right Railing Technique/Endurance Stair Climbing Direction Ascend and Descend Stair Climbing Technique Step to Step Number of Steps Climbed 8 Comments Stair Climbing Comments See mobility comments PT-Balance Assessment Sitting Balance and Reactions Static Sitting Balance Ability Normal Dynamic Sitting Balance Ability Good Standing Balance and Reactions Static Standing Balance Ability Good Dynamic Standing Balance Ability Good Device Used FWW M5 PT-IP Objective Assessments Start: 11/20/23 11:37 Freq: NEEDED Status: Active Protocol: Document 11/20/23 10:05 AB (Rec: 11/20/23 11:52 AB [id number]) Orientation Orientation/Cognition Level of Alertness Alert Orientation Name,Place,Situation Safety Awareness Decreased Safety Awareness Memory Description No Deficits Noted Comments with slight confusion Gross Range of Motion Lower Extremity ROM Assessment Within Functional Limits Strength Lower Extremity Strength Assessment Within Functional Limits Coordination Assessment Gross Coordination Gross Coordination WNL Muscle Tone Muscle Tone WNL Yes M6 PT-IP Treatment Start: 11/20/23 11:37 Freq: NEEDED Status: Active Protocol: Document 11/21/23 11:42 TS (Rec: 11/21/23 11:50 TS [id number]) Physical Therapy Treatment Education Education Provided Safety M7 PT-IP Assessment and Plan Start: 11/20/23 11:37 Freq: NEEDED Status: Active Protocol: Document 11/21/23 11:42 TS (Rec: 11/21/23 11:50 TS [id number]) PT Summary Assessment and Plan Potential Rehabilitation Potential Fair Summary Impairments Pain,ROM,Strength,Balance, Coordination,Sensation,Tone, Cognition,Bed Mobility, Transfers,Gait,Activity Tolerance Progress Towards Goals Progressing Toward Goals Assessment Summary Isis is progressing well with her mobility. She performed STS SBA with good balance and use of FWW. She progressed her gait to ~175' SBA with FWW. She performed stairs x6 with B handrails SBA and x2 CGA with FWW on platfork step, pt had no buckling or LOB. PT is recommending pt return home with assist. Goals Bed Mobility Goal Independent Transfer Goal Independent,Front Wheeled Walker Gait Goal Independent,Front Wheel Walker Gait Distance 300 Other Goals improve transfers/ambulation using LRAD/without AD > 300 ft mod I up/down 1 step using FWW/ without AD mod I up/down 15 steps L rail mod I Days to Meet Goals 10 Frequency of Treatment Frequency Of Treatment Once a Day Treatment Plan Physical Therapy Treatment Plan Bed Mobility Training,Transfer Training,Gait Training, Therapeutic Exercise,Balance Retraining,Discharge Planning, Hot or Cold Pack,Neuromuscular Re-ed,Coordination Retraining Precautions Other Precautions falls Recommendations To Nursing Amount of Assist Needed Standby Assistance Discharge Recommendations PT Discharge Recommendations Home with Assistance, Outpatient PT Equipment Needed for Home Before FWW Discharge Transportation Needs at Discharge Private Vehicle
--- NOTE | 2023-11-21 12:19 | DI.US.S_ITS ---
PROCEDURE: US PERIP VENOUS LOW EXTREM RT INDICATIONS: CALF PAIN TECHNIQUE: Real-time imaging, as well as color and pulse Doppler interrogation, were performed of the lower extremity deep veins from the inguinal ligament to the popliteal fossa, with documentation of the visualized calf veins. COMPARISON: [facility], , [facility]3] VENOUS LOW EXTREM RT, 04/24/2019, 13:17. FINDINGS: The common femoral, femoral, popliteal, and the visualized calf veins are normally compressible, and free of intraluminal thrombus. Color and pulse Doppler demonstrate normal phasic intraluminal flow. There is normal augmentation response to distal compression maneuver. IMPRESSION: No findings of right lower extremity deep venous thrombosis. Dictated by: Mariana Miller M.D. on 11/21/2023 at 15:17 Approved by: Mariana Miller M.D. on 11/21/2023 at 15:17
[2023-11-21 13:29] LABS: Vancomycin Trough 12.8 ug/mL (10-20)
[2023-11-21] MEDS: VANCOMYCIN TROUGH 1 REQUEST MISC (13:45)
--- NOTE | 2023-11-21 15:24 | P.DS_ITS ---
History of Present Illness History of Present Illness Chief complaint: rt bursitis septic, chest pain, Possible PE Narrative: 83 years old female with a possible close 3 of hypertension, anxiety, dyslipidemia, atrial fibrillation on chronic anticoagulation, migraine, sleep apnea and multiple other medical issues presented to the emergency room for progressive erythema with edema and tenderness to right lower extremity around the knee. Patient sustained a fall with a subsequent faint bruise about 10 days ago. Was being managed by primary in the outpatient setting with oral Keflex and conservative management. Due to progression of the underlying erythema, eventually was sent to the emergency room. Patient is able to flex her knee. Denies any fever episodes. Denies any chest pain or shortness of breath. An x- ray of the knee shows no acute bony abnormalities or effusion. Does show osteoarthritis. Patient also does complain of chest pain on the right side worse with deep inspiration and an x-ray does not show any evidence of fractures. Patient received IV Rocephin/vancomycin and admitted for further evaluation. Discharge Providers Provider Date of admission: 11/19/23 20:21 Discharge Date: 11/21/23 Primary care physician: Eben Allen MD Consults: 11/19/23 22:11 Consult to Occupational Therapy Evaluate & Treat Comment: Physician Instructions: Evaluate and treat Consult to Physical Therapy Evaluate & Treat Comment: Physician Instructions: Evaluate and Treat 11/20/23 15:09 Consult to Physical Therapy Evaluate & Treat Comment: Physician Instructions: walker for home use Discharge provider: Ismael Armas DO Summary Hospital Course Discharge Diagnosis: 1. Infected prepatellar bursitis with no articular involvement at this time. S/p I&D in ED with pus drainage. Did receive IV Rocephin/vancomycin in the emergency room which may be continued for now. Pain, swelling and erythema improved. Discharged on 5 more days of po cefadroxil. Ortho curbsided who did not recommend further debridement and continuing abx. 2. Atrial fibrillation. Rate control on home dose of Toprol XL and anticoagulation with Xarelto 3. Restless leg syndrome on home Requip 4 Dyslipidemia resume the home statin 5 Gait instability will consult physical therapy as above 6 DVT prophylaxis on Xarelto 7 chest wall pain on the right side worse with deep inspiration likely appears more of a contusion/bruise. No fractures noted. Encourage incentive spirometry. Hospital Course: Admitted for R knee pain after falling on it. Sent to ED by PCP due to concern for infected bursitis. Underwent I&D of superficial knee. Placed on IV abx and pain, swelling and erythema improved. DVT US negative. Ortho curbsided who recommended IV abx alone and no further debridement. Discharged on 5 more days of po cefadroxil and will f/up with PCP next week to check on healing. Exam Vital Signs (past 8 hours): - 11/21/23 08:00 11/21/23 10:00 11/21/23 12:00 Temperature 97.6 F 97.4 F L Pulse Rate 60 60 Respiratory Rate 16 16 Blood Pressure 163/60 H 137/51 L Pulse Oximetry 96 96 95 Oxygen Delivery Method Room Air Oxygen Flow Rate 0 0 11/21/23 14:00 Temperature Pulse Rate Respiratory Rate Blood Pressure Pulse Oximetry 96 Oxygen Delivery Method Room Air Oxygen Flow Rate Oxygen Delivery Method Room Air Oxygen Flow Rate 0 Narrative Exam Narrative: GEN: no acute distress HEENT: moist mucous membranes, PERRL NECK: trachea midline, no JVD CV: regular rate and rhythm, no murmurs PULM: clear bilaterally ABD: soft, nontender, nondistended, no organomegaly EXT: erythema, pain and swelling of R pre-patellar area has improved, bruising around knee and calf NEURO: awake, alert, oriented, no focal deficits Objective Labs 11/20/23 04:06 11/20/23 04:06 Labs: Laboratory Results - last 24 hr 11/21/23 12:50 Vancomycin Trough 12.8 PFSH Medical History Chest pain Septic bursitis Slow transit constipation Osteopenia 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 Heart block atrioventricular Cerebrovascular disease Generalized anxiety disorder Depression, major, recurrent Mixed hyperlipidemia Essential hypertension Chronic anticoagulation Chronic atrial fibrillation Somatic dysfunction of lower extremity Family history of nephrolithiasis Postmenopausal atrophic vaginitis Hematuria Uterine prolapse Vaginal stricture Ptosis Inguinal hernia of right side without obstruction or gangrene Vitiligo (1977) Disorder of nasal sinus Foot arch pain (1984) Dry eye syndrome Nuclear sclerosis of both eyes Retinal drusen of both eyes Meniere's disease Infertility Chronic headaches (2003) Migraines RLS (restless legs syndrome) (1969) Urinary incontinence (2007) Tinnitus (1969) Vertigo (1969) Mumps (194) Measles (194) Chicken pox (1947) Chronic back pain (196) Anxiety (1966) Depression (1967) Hemorrhoids Sleep apnea (2012) Chronotropic incompetence (09/29/14) Postmenopausal status (03/30/11) Surgical History H/O breast biopsy Hx of tonsillectomy Anesthesia H/O mitral valve repair (10/2009) Presence of cardiac pacemaker (2014) History of cardiac radiofrequency ablation (RFA) (2015) Status post hysterectomy Family History Brother Age: 84 Heart disease Prostate disease Irregular heartbeat Father Heart disease Hypertension Gallstones Diabetes mellitus Mother Ovarian cancer Heart disease Rheumatoid arthritis Grandfather Tuberculosis Family/Other Colon cancer Social History marital status: household members: spouse Smoking Status: Never smoker alcohol intake: current substance use type: does not use Discharge Plan Discharge Plan Patient Disposition: Home Provider Discharge Comment: I've put you on 5 more days of oral antibiotics. Discharge orders & Medications Prescriptions: New cefadroxil 500 mg capsule 500 mg PO BID 5 Days Qty: 10 0RF Continued metoprolol succinate 25 mg tablet extended release 24 hr 25 mg PO BID Qty: 180 3RF fluoxetine 20 mg capsule 20 mg PO DAILY Qty: 90 3RF Rx Instructions: TAKE 1 CAPSULE(20 MG) BY MOUTH DAILY FOR DEPRESSION OR ANXIETY rosuvastatin 10 mg tablet 10 mg PO DAILY Qty: 90 3RF trospium 60 mg capsule,extended release 24hr 60 mg PO QAM levothyroxine 88 mcg tablet 88 mcg PO DAILY omega-3 fatty acids-fish oil [Fish Oil] 360-1,200 mg capsule 1 cap PO BID calcium citrate-vitamin D3 1 tab PO DAILY Xarelto 20 mg tablet 20 mg PO DAILY ascorbic acid (vitamin C) 1,000 mg tablet 1,000 mg PO DAILY hydrocodone-acetaminophen 5-325 mg tablet 1 tab PO Q4H PRN (Reason: pain) Qty: 14 0RF fluconazole 150 mg tablet 150 mg PO DAILY PRN (Reason: once for yeast infection, repeat in 1 week iprn) ropinirole 0.5 mg tablet 1 mg PO BEDTIME Rx Instructions: TAKE ONE TO TWO TABLETS BY MOUTH AT BEDTIME; MAXIMUM DAILY DOSE IS 2 TABLETS multivitamin with minerals Tablet 1 tab PO DAILY PreserVision Lutein 226 mg-200 unit -5 mg-0.8 mg Capsule 1 cap PO DAILY Follow up/Referrals: Eben Allen MD [Primary Care Provider] - 3-5 Days Visit Report/Discharge Packet Stand Alone Forms: Patient Portal/API, Stroke Signs & Symptoms Discharge Data Primary Care Provider: Eben Allen V Attending Provider: Abbe Allison Admit Date/Time: 11/19/23 20:21 Quality VTE Deep Vein Thrombosis/Pulmonary Embolism Present on Admission: No
--- NOTE | 2023-11-21 15:33 | PC.NURSE ---
Addendum entered by Aubree Camacho R.N. 11/21/23 17:02: Patient escorted via w/ch by RN to private vehicle with at 1620 this afternoon for discharge home with all of her personal belongings including new FWW. Original Note: Patient is A&OX4. VSS, afebrile on RA. She reports moderate pain to her R knee but declines wanting to take any pain medications. MD at bedside this afternoon evaluating wound. Patient reports it does feel better, but she has pain behind her R calf. BLE's with +1 edema. no redness or warmth other than light redness around R Knee debriedment site. Dressing changed to R knee. After U/S completed at bedside, patient is cleared for discharge home. She verbalizes understanding of activity, s/sx of infection worsening, medications, and plan to follow up in a wekk with PCP.
--- NOTE | 2023-12-02 11:22 | PC.NURSE ---
Late Entry: Vancomycin infusion initiated 11/20 at 0033 complete at 0134.
== END 2023-11-21 16:20 | disposition home or self-care (01) ==
LOC: ED 20:19 → AC 20:38
PROVIDERS: Emergency Medicine; Admitting Provider Internal Medicine; Emergency Provider Emergency Medicine; Family Provider Internal Medicine; PCP Internal Medicine; Referring Provider Emergency Medicine; Visit Provider Internal Medicine
DX: M71.161 Other infective bursitis, right knee (principal); L03.115 Cellulitis of right lower limb; R07.9 Chest pain, unspecified; I48.91 Unspecified atrial fibrillation; R26.89 Other abnormalities of gait and mobility
CPT/HCPCS: 10060; 36415; 71101; 73030; 73562; 80048; 80053; 80202; 82962; 83735; 83880; 84484; 85025; 85610; 85651; 86140; 93971; 96365; 96366; 96367; 96375; 97116; 97129; 97162; 97165; 97530; 97535; 99284; G0378; A9270; J0360; J0696

== ENCOUNTER → 2023-12-31 13:17 | Outpatient (CLI) | payer OTHER, SELFPAY ==
[2023-11-19 20:41] VITALS: BMI 26.1
--- NOTE | 2023-12-31 13:18 | DI.MG.S_ITS ---
BILATERAL DIGITAL SCREENING MAMMOGRAM 3D/2D WITH CAD: 12/31/2023 CLINICAL: Routine screening. Family history of breast cancer. Comparison is made to exams dated: 12/24/2022 mammogram, 01/19/2022 mammogram, and 12/29/2020 mammogram - [facility]. Both breasts are heterogeneously dense, which may obscure small masses (category c / 51-75% glandular tissue). Current study was also evaluated with a Computer Aided Detection (CAD) system. There are benign post operative findings in both breasts. No significant masses, calcifications, or other findings are seen in either breast. There has been no significant interval change. IMPRESSION: BENIGN There is no mammographic evidence of malignancy. A 1 year screening mammogram is recommended. Based on the Tyrer Cuzick model (a risk assessment model) the patient's lifetime risk is 0.6% and her 10 year risk is 0.0%. According to the ACR, ACS, and NCCN guidelines, an annual breast MRI exam along with mammogram is recommended if the patient's lifetime risk is 20% or greater. This exam was interpreted at Station ID: [id number]. NOTE: For mammograms, a report in lay terms will be sent to the patient. Approximately 15% of breast malignancies will not be visualized mammographically. In the management of a palpable breast mass, a negative mammogram must not discourage biopsy of a clinically suspicious lesion. Electronically Signed By: Jenna zayas/norm:12/31/2023 18:17:14 letter sent: Normal Exam ACR BI-RADS Category 2: Benign Finding(s) 3342F
== END ==
PROVIDERS: Family Provider Internal Medicine; PCP Internal Medicine; Referring Provider Internal Medicine; Visit Provider Internal Medicine
DX: Z12.31 Encounter for screening mammogram for malignant neoplasm of breast (principal); Z80.3 Family history of malignant neoplasm of breast; R92.333 Mammographic heterogeneous density, bilateral breasts
CPT/HCPCS: 77063; 77067

== ENCOUNTER → 2024-04-02 10:47 | Outpatient (CLI) | payer OTHER, SELFPAY ==
[2023-11-19 20:41] VITALS: BMI 26.1
[2024-04-02 13:15] LABS: HEMOLYSIS < 15 (0-50); Iron 92 ug/dL (37-170)
[2024-04-02 13:27] LABS: Percent Iron Saturation 28 % (15-50); Total Iron Binding Capacity 332 ug/dL (265-497); Transferrin 266 mg/dL (206-381)
[2024-04-02 13:47] LABS: Ferritin 28 ng/mL (11-264)
== END ==
LOC: LAB 10:48
PROVIDERS: Family Provider Internal Medicine; PCP Internal Medicine; Referring Provider Internal Medicine Sleep Medicine; Visit Provider Internal Medicine Sleep Medicine
DX: G25.81 Restless legs syndrome (principal); E83.10 Disorder of iron metabolism, unspecified
CPT/HCPCS: 36415; 82728; 83540; 83550

== ENCOUNTER → 2024-06-05 12:53 | Outpatient (CLI) | payer OTHER, SELFPAY ==
[2023-11-19 20:41] VITALS: BMI 26.1
== END ==
PROVIDERS: Family Provider Internal Medicine; PCP Internal Medicine; Visit Provider Student in an Organized Health Care Education/Training Program
DX: R30.0 Dysuria (principal)
CPT/HCPCS: 87077; 87086; 87186

== ENCOUNTER → 2024-06-15 | Outpatient (CLI) | payer OTHER, SELFPAY ==
[2023-11-19 20:41] VITALS: BMI 26.1
--- NOTE | 2024-06-15 | DI.CT.S_ITS ---
PROCEDURE: CT HEAD/BRAIN WO CON INDICATIONS: Transient cerebral ischemic attack, unspecified TECHNIQUE: Noncontrast 4.5 mm thick angled axial sections acquired from the foramen magnum to the vertex, with coronal and sagittal reformats. For radiation dose reduction, the following was used: automated exposure control, adjustment of mA and/or kV according to patient size. COMPARISON: [facility], CT, CT HEAD/BRAIN WO CON, 04/10/2023, 14:58. FINDINGS: Image quality: Diagnostic. CSF spaces: Basal cisterns are patent. No extra-axial fluid collections. The ventricles are symmetric in size and shape. Brain: No intracranial bleeds or masses. There is cerebral volume loss for age, with resultant ventricular and sulcal prominence. There are periventricular and deep white matter chronic small vessel ischemic changes. There is intracranial internal carotid artery atherosclerosis. Skull and face: Calvarium and visualized facial bones appear intact, without suspicious lesions. Bilateral lens replacements. Sinuses: Visualized sinuses and mastoids are clear. IMPRESSION: No acute intracranial pathology. CT cannot exclude acute infarct, if indicated, MRI can be obtained for further evaluation. Dictated by: Chi Fink M.D. on 06/15/2024 at 10:51 Approved by: Chi Fink M.D. on 06/15/2024 at 10:52
--- NOTE | 2024-06-15 | DI.ECHO.S_ITS ---
[facility] : : [address] : : [place] : : [id number] : : Phone: [phone] Echocardiogram Report + + :Name: RUPESH DA SILVA Study Date: 06/15/2024 Height: 70.5 in: :[facility] ReadingLocation: Weight: 176 lb : : Gender: Female BSA: 2.0 m2 : :: 1940 Age: 84 yrs BP: 157/86 mmHg: :Reason For Study: VALVULAR HEART DISEASE : :Ordering Physician: BRITTA BHARDWAJ Performed By: Rachel Enriquez : :Referring: BRITTA BHARDWAJ : + + Interpretation Summary 1. Mildly compromised LV contractility with EF 40-45%. Paradoxical septal motion. No LVH. Unable to comment on diastolic function. 2. Normal RV contractility. 3. Normal chamber sizes. 4. Mild MR. 5. Mild TR with estmiated PSAP of 27 mmHg. 6. No obvious intracardiac shunts. 7. No obvious intracardiac masses/thrombi. Pacemaker wires noted in RA/RV. 8. No hemodynamically significant pericardial effusion. 9. Low right sided filling pressures. Conclusion: Mildly compromised LV systolic function with mild mitral and tricuspid regurgitation. Procedure: A two-dimensional transthoracic echocardiogram with color flow and Doppler was performed. The study quality was technically adequate. Comparison is made with the echocardiogram of 10/06/2009. The heart rate ranged between 60 bpm during the study. The patient has a paced rhythm. Left Ventricle: The left ventricle is normal in size and wall thickness. The ejection fraction is estimated to be 40-45%. There is a mild dyssynchronous contraction pattern due to the paced rhythm. Right Ventricle: There is a pacemaker lead in the right ventricle. The right ventricle is normal size. The right ventricular systolic function is normal. Atria: The left atrial size is normal. Right atrial size is normal. There is no Doppler evidence for an interatrial shunt. Mitral Valve: The mitral valve leaflets appear borderline thickened, but open well. Patient history of mitral valve repair. The mitral valve mean gradient is 3.6 mmHg. There is mild mitral regurgitation. Aortic Valve: The aortic valve is trileaflet. The aortic valve opens well. There is no aortic valve stenosis. There is trace aortic regurgitation. Tricuspid Valve: The tricuspid valve leaflets are thin and pliable. There is mild tricuspid regurgitation. The right ventricular systolic pressure is estimated to be at least 27 mmHg based on an estimated right atrial pressure of 3 mm Hg. Pulmonic Valve: The pulmonic valve leaflets are thin and pliable; valve motion is normal. There is trace pulmonic regurgitation. Great Vessels: The aortic root is normal size. The dimensions of the ascending aorta are normal. The IVC is of normal diameter and collapses greater than 50% with a sniff. This suggests a low right atrial pressure of 3 mm Hg. Pericardium/ Pleura There is no pericardial effusion. There is no pleural effusion. MMode/2D Measurements & Calculations LVIDd: 5.7 cm LVOT diam: 2.1 cm LVIDs: 3.7 cm Ao root diam: 3.2 cm FS: 35.5 % asc Aorta Diam: 3.1 cm IVSd: 0.91 cm Ao Arch Diam (Prox Trans): 2.7 cm LVPWd: 0.86 cm LV burnett. diameter/BSA (cm/m^2): 2.9 LV sys. diameter/BSA (cm/m^2): 1.9 LA A2 area: 25.8 cm2 RA long axis: 5.9 cm LA A4 area: 21.7 cm2 RA area: 19.9 cm2 LA length (vol): 5.8 cm RA vol: 56.9 ml LA vol: 82.1 ml RA : 28.6 ml/m2 LA vol index: 41.3 ml/m2 IVC diam: 1.3 cm RVD1 (basal): 3.6 cm TAPSE: 1.3 cm Doppler Measurements & Calculations Ao V2 max: 118.9 cm/sec LVOT Max Scott: 61.0 cm/sec Ao V2 mean: 80.5 cm/sec LV V1 max P.5 mmHg Ao max P.7 mmHg LV V1 VTI: 13.9 cm Ao mean P.9 mmHg DIMITRI(I,D): 2.0 cm2 Ao V2 VTI: 24.8 cm DIMITRI(V,D): 1.8 cm2 sev ratio: 0.56 DIMITRI indexed to BSA (cm^2/m^2): 1.0 MV E max scott: 126.7 cm/sec TR max scott: 246.0 cm/sec MV A max scott: 93.6 cm/sec TR max P.2 mmHg MV E/A: 1.4 PA V2 max: 75.5 cm/sec Med Peak E' Scott: 3.7 cm/sec PA V2 mean: 54.0 cm/sec E/E' med: 33.9 PA mean P.3 mmHg Lat Peak E' Scott: 6.1 cm/sec PA pr(Accel): 32.8 mmHg E/E' lat: 20.9 E/e' average: 27.4 MV dec time: 0.23 sec MVA(VTI): 1.2 cm2 MV V2 mean: 88.3 cm/sec SV(LVOT): 49.9 ml MV mean P.6 mmHg MV V2 VTI: 42.0 cm Reading Physician:
== END ==
PROVIDERS: Family Provider Internal Medicine; PCP Internal Medicine; Referring Provider Internal Medicine; Visit Provider Internal Medicine
DX: G45.9 Transient cerebral ischemic attack, unspecified (principal); I08.1 Rheumatic disorders of both mitral and tricuspid valves
CPT/HCPCS: 70450; 93306

== ENCOUNTER → 2024-06-18 11:13 | Outpatient (CLI) | payer OTHER, SELFPAY ==
[2023-11-19 20:41] VITALS: BMI 26.1
[2024-06-18 12:49] LABS: Hematocrit 38.2 % (36-46); Hemoglobin 12.8 g/dL (12.0-16.0); Mean Corpuscular HGB Conc 33.5 % (30-36); Mean Corpuscular Hemoglobin 30.4 PG (26-34); Platelet Count 252 X10^3/uL (150-400); Red Cell Distribution Width 15.5 % (11.6-14.8)
[2024-06-18 15:53] LABS: Alanine Aminotransferase 46 IU/L (<35); Albumin 3.7 g/dL (3.5-5.0); Albumin Globulin Ratio 1.2 (1.0-2.8); Alkaline Phosphatase 149 U/L (38-126); Aspartate Aminotransferase 34 IU/L (14-36); BUN Creatinine Ratio 23.9 (6-22); Bilirubin Total 0.6 mg/dL (0.2-1.3); Blood Urea Nitrogen 17 mg/dL (7-17); Carbon Dioxide 33 mmol/L (22-32); Chloride 102 mmol/L (98-107); Cholesterol 129 mg/dL (140-199); Estimated Glomerular Filt Rate > 60 mL/min (>60); Glucose 82 mg/dL (80-110); HDL Cholesterol 53 mg/dL (40-60); HEMOLYSIS < 15 (0-50); LDL Cholesterol Calculated 48 mg/dL (<100); Potassium 4.6 mmol/L (3.4-5.1); Sodium 138 mmol/L (137-145); Total Protein 6.7 g/dL (6.3-8.2); Triglycerides 141 mg/dL (35-150)
[2024-06-18 15:57] LABS: HEMOLYSIS < 15 (0-50); Iron 112 ug/dL (37-170)
[2024-06-18 16:08] LABS: Percent Iron Saturation 38 % (15-50); Total Iron Binding Capacity 298 ug/dL (265-497); Transferrin 234 mg/dL (206-381)
[2024-06-18 16:35] LABS: Ferritin 132 ng/mL (11-264)
[2024-06-18 17:46] LABS: Free T4, Direct Thyroxine 1.32 ng/dL (0.78-2.19)
== END ==
PROVIDERS: Family Provider Internal Medicine; PCP Internal Medicine; Referring Provider Internal Medicine; Visit Provider Internal Medicine
DX: I50.22 Chronic systolic (congestive) heart failure (principal); E03.9 Hypothyroidism, unspecified; E78.2 Mixed hyperlipidemia; D64.9 Anemia, unspecified
CPT/HCPCS: 36415; 80053; 80061; 82728; 83540; 83550; 84439; 84443; 85027

== ENCOUNTER → 2024-09-24 14:16 | Outpatient (CLI) | payer OTHER, SELFPAY ==
[2024-09-17 13:05] VITALS: BMI 26.1
[2024-09-24 15:31] LABS: Alanine Aminotransferase 48 IU/L (<35); Albumin 3.9 g/dL (3.5-5.0); Albumin Globulin Ratio 1.3 (1.0-2.8); Alkaline Phosphatase 102 U/L (38-126); Aspartate Aminotransferase 51 IU/L (14-36); Bilirubin Total 0.5 mg/dL (0.2-1.3); Bilirubin Unconjugated 0.3 mg/dL (0.0-1.1); Globulin 2.9 g/dL (1.7-4.1); HEMOLYSIS < 15 (0-50); Total Protein 6.8 g/dL (6.3-8.2)
[2024-09-24 16:35] LABS: Free T4, Direct Thyroxine 0.84 ng/dL (0.78-2.19)
== END ==
PROVIDERS: Family Provider Internal Medicine; PCP Internal Medicine; Referring Provider Internal Medicine; Visit Provider Internal Medicine
DX: E03.9 Hypothyroidism, unspecified (principal); R79.89 Other specified abnormal findings of blood chemistry
CPT/HCPCS: 36415; 80076; 84439; 84443

== ENCOUNTER → 2024-10-30 14:19 | Outpatient (CLI) | payer OTHER, SELFPAY ==
[2024-09-17 13:05] VITALS: BMI 26.1
[2024-10-30 15:12] LABS: Influenza A - CEPHEID Flu A NEGATIVE (NEGATIVE); Influenza B - CEPHEID Flu B NEGATIVE (NEGATIVE); Respiratory Syncytial Virus Negative (Negative)
[2024-10-30 15:13] LABS: COVID-19 CEPHEID 4-PLEX PCR Negative (Negative)
== END ==
PROVIDERS: Family Provider Internal Medicine; PCP Internal Medicine; Visit Provider Physician Assistant Surgical
DX: R05.1 Acute cough (principal)
CPT/HCPCS: 0241U; 87070

== ENCOUNTER → 2024-10-30 16:57 | Outpatient (CLI) | payer OTHER, SELFPAY ==
[2024-09-17 13:05] VITALS: BMI 26.1
--- NOTE | 2024-10-30 16:58 | DI.RAD.S_ITS ---
PROCEDURE: XR CHEST 2V INDICATIONS: Cough, soft crackles TECHNIQUE: 2 views of the chest were acquired. COMPARISON: None. FINDINGS: Surgical changes and devices: Left chest wall pacemaker leads are in the region of right atrium and right ventricle. Median sternotomy wires and prosthetic heart valve is seen. Lungs and pleura: Lungs are clear. No pleural effusions or pneumothorax. Mediastinum: Mediastinal contours are normal. Heart size is enlarged. Bones and chest wall: No suspicious bony abnormalities. Soft tissues appear unremarkable. IMPRESSION: No acute cardiopulmonary pathology. Dictated by: Warner Bhardwaj M.D. on 10/30/2024 at 17:11 Approved by: Warner Bhardwaj M.D. on 10/30/2024 at 17:12
== END ==
PROVIDERS: Family Provider Internal Medicine; PCP Internal Medicine; Referring Provider Physician Assistant Surgical; Visit Provider Physician Assistant Surgical
DX: R05.1 Acute cough (principal)
CPT/HCPCS: 0241U; 71046; 87070

== ENCOUNTER → 2025-01-12 12:48 | Outpatient (CLI) | payer OTHER, SELFPAY ==
[2024-09-17 13:05] VITALS: BMI 26.1
--- NOTE | 2025-01-13 19:47 | DI.NM.S_ITS ---
DATE OF SERVICE: 01/13/2025 NUCLEAR CARDIOLOGY MYOCARDIAL PERFUSION STUDY PROCEDURE: Pharmacologic vasodilator stress and rest myocardial perfusion imaging with gating to assess ejection fraction and regional wall motion. ORDERING PROVIDER: Brannon Bhardwaj MD. INDICATIONS: The patient is an 84-year-old female status post mitral valve repair and atrial fibrillation requiring pacemaker with recently documented reduced left ventricular systolic function. CARDIAC STRESS: Per protocol, 0.4 mg of regadenoson was infused with a normal hemodynamic response. She had no chest discomfort or other anginal symptoms but developed a mild headache and mild dyspnea. Her resting ECG shows ventricular pacing with appropriate atrial sensing. ST-segment analysis cannot be performed because of her ventricular pacing but there are no obvious ST-segment shifts with stress. She had rare isolated PVCs but no complex ventricular ectopy. Per protocol, 25.0 millicuries of technetium-99m Myoview was injected and she was imaged 15 minutes later using a gated SPECT acquisition protocol. The day prior while at rest she was injected with 24.8 millicuries of technetium-99m Myoview and was imaged 15 minutes later again using a gated SPECT acquisition protocol. FINDINGS: 1. Raw Data: There is fairly good myocardial tracer uptake but slight breast shadows are noted. The lung/heart ratio is normal at 0.24 with a normal TID ratio of 1.17. 2. Quantitated gated SPECT: Post-stress ejection fraction is 64% but with apical hypokinesis and a slight dyssynchronous contraction pattern consistent with a paced rhythm. The resting ejection fraction is 52% with a similar contraction pattern and mildly increased left ventricular volumes with an end-diastolic volume of 142 mL. 3. Myocardial perfusion imaging: Post-stress supine images show a fairly normal myocardial perfusion pattern except for reduced tracer activity in the very distal anterior wall and apex in a pattern consistent with the paced rhythm. The prone images show a similar perfusion pattern, and the resting images also show a similar perfusion pattern without any significant improvement in the apical defect. IMPRESSION: 1. Abnormal, but low risk, myocardial perfusion study. 2. Relatively small, fixed apical defect, most likely related to the ventricularly paced rhythm, although a previous nontransmural myocardial infarction cannot be entirely excluded. There is no evidence for any significant myocardial ischemia. 3. Preserved left ventricular systolic function but with an apical wall motion abnormality. Left ventricular volumes are mildly increased. 4. No angina with pharmacologic vasodilator stress. Ventricular pacing precludes assessment of the ST segments. There were rare PVCs but no other arrhythmias. Loco Isis - RS/fn/LAKIA doc#: [id number]/job#: [id number] dd: 01/13/2025 17:23:00 dt: 01/13/2025 17:43:00 DICTATING MD/COPIES TO: Victor Manuel Barahona MD; Brannon Bhardwaj MD COPIES MNE: CHULA;
== END ==
PROVIDERS: Family Provider Internal Medicine; PCP Internal Medicine; Referring Provider Internal Medicine; Visit Provider Internal Medicine
DX: I42.9 Cardiomyopathy, unspecified (principal); R94.39 Abnormal result of other cardiovascular function study; I48.0 Paroxysmal atrial fibrillation; I11.0 Hypertensive heart disease with heart failure; I50.9 Heart failure, unspecified; R07.9 Chest pain, unspecified; Z95.0 Presence of cardiac pacemaker
CPT/HCPCS: 78452; 93017; A9502; J2785

== ENCOUNTER → 2025-02-04 15:06 | Outpatient (CLI) | payer OTHER, SELFPAY ==
[2024-09-17 13:05] VITALS: BMI 26.1
[2025-02-04 16:14] LABS: BUN Creatinine Ratio 27.3 (6-22); Blood Urea Nitrogen 21 mg/dL (7-17); Calcium 9.6 mg/dL (8.4-10.2); Carbon Dioxide 30 mmol/L (22-32); Chloride 103 mmol/L (98-107); Estimated Glomerular Filt Rate > 60 mL/min (>60); Glucose 87 mg/dL (70-99); HEMOLYSIS < 15 (0-50); Potassium 4.7 mmol/L (3.4-5.1); Sodium 137 mmol/L (137-145)
== END ==
PROVIDERS: Family Provider Internal Medicine; PCP Internal Medicine; Referring Provider Internal Medicine; Visit Provider Internal Medicine
DX: I50.22 Chronic systolic (congestive) heart failure (principal)
CPT/HCPCS: 36415; 80048

== ENCOUNTER → 2025-03-31 10:12 | Outpatient (CLI) | payer OTHER, SELFPAY ==
[2024-09-17 13:05] VITALS: BMI 26.1
--- NOTE | 2025-03-31 10:14 | DI.US.S_ITS ---
US breast LT limited, MM diagnostic mammo BI: 03/31/2025 BI-RADS: 1 CLINICAL: 85-year old female for bilateral diagnostic mammogram and left diagnostic breast ultrasound. No Tyrer-Cuzick risk score calculation due to patient's age being over 84 years old. No personal or first-degree family history of breast cancer. Current reported family history of breast cancer: maternal aunt and second maternal aunt's daughter. The patient reports nipple abnormality (6 months) consisting of a white bump in the left breast. The patient had prior bilateral breast biopsies. PRIOR EXAMS 12/31/2023, 12/24/2022, 01/19/2022, 12/29/2020. MAMMOGRAPHY TECHNIQUE: 2D and 3D (tomosynthesis) digital mammographic views obtained, with additional images as needed for full coverage. Current study was also evaluated with a Computer Aided Detection (CAD) system. ULTRASOUND TECHNIQUE TARGETED Left Breast Ultrasound: Real-time ultrasound exam was performed focused to area of clinical and/or imaging concern. Real-time reyes scale and color doppler imaging of the area of clinical interest was performed with image documentation. DENSITY C. The breasts are heterogeneously dense, which may obscure small masses. MAMMOGRAPHY FINDINGS Right: No suspicious mass, asymmetry, microcalcification, or other abnormality seen. Left (finding-1): Central, Retroareolar, Far Anterior depth: A skin marker was placed in the area of concern, and no mammographic abnormalities are identified or to account for concern by the patient of nipple symptoms. No suspicious mass, asymmetry, microcalcification, or other abnormality seen. Left: An implanted medical support assistant obscures a portion of the breast/axilla. ULTRASOUND FINDINGS Left (finding-1): Central, Retroareolar, Skin Depth, Nipple: There is no sonographic abnormality to account for concern by the patient of nipple symptoms. There are two simple cysts within the nipple-areolar complex measuring up to 2 mm in size. These likely represent incidental benign Mcneal tubercles. IMPRESSION: * No evidence of malignancy. RECOMMENDATIONS Left * Clinical follow-up is recommended, and further management of palpable abnormalities or other focal signs or symptoms should be based on the results of clinical evaluation. If palpable abnormality or other concerning symptom persists or progresses, further clinical evaluation should be considered. Bilateral * Annual screening mammography. COMMENTS: Findings and recommendations were conveyed to the patient during today's evaluation. OVERALL ASSESSMENT CATEGORY BI-RADS-1: Negative. The [employer] recommends annual screening mammography beginning at age 40 for women with average risk of breast cancer. ELECTRONICALLY SIGNED: Ebony Lange M.D. on 03/31/2025 at 12:26:40 PM PT Interpreting Station ID: [id number]
== END ==
PROVIDERS: Family Provider Internal Medicine; PCP Internal Medicine; Referring Provider Internal Medicine; Visit Provider Internal Medicine
DX: N60.02 Solitary cyst of left breast (principal); N63.20 Unspecified lump in the left breast, unspecified quadrant; Z80.3 Family history of malignant neoplasm of breast; R92.333 Mammographic heterogeneous density, bilateral breasts
CPT/HCPCS: 76642; 77066; G0279

== ENCOUNTER → 2025-05-31 10:17 | Outpatient (CLI) | payer OTHER, SELFPAY ==
[2025-05-21 13:15] VITALS: BMI 26.5
[2025-05-31 10:43] LABS: Hematocrit 31.5 % (36-46); Hemoglobin 10.8 g/dL (12.0-16.0); Mean Corpuscular HGB Conc 34.1 % (30-36); Mean Corpuscular Hemoglobin 32.8 PG (26-34); Mean Corpuscular Volume 96.0 fL (80-100); Platelet Count 208 X10^3/uL (150-400)
[2025-05-31 11:10] LABS: HEMOLYSIS < 15 (0-50); Iron 74 ug/dL (37-170)
[2025-05-31 11:15] LABS: Alanine Aminotransferase 30 IU/L (<35); Albumin 4.0 g/dL (3.5-5.0); Albumin Globulin Ratio 1.7 (1.0-2.8); Alkaline Phosphatase 105 U/L (38-126); Blood Urea Nitrogen 23 mg/dL (7-17); Calcium 9.3 mg/dL (8.4-10.2); Carbon Dioxide 29 mmol/L (22-32); Chloride 102 mmol/L (98-107); Estimated Glomerular Filt Rate > 60 mL/min (>60); Globulin 2.4 g/dL (1.7-4.1); Glucose 90 mg/dL (70-99); HEMOLYSIS < 15 (0-50); Potassium 4.2 mmol/L (3.4-5.1); Sodium 138 mmol/L (137-145); Total Protein 6.4 g/dL (6.3-8.2)
[2025-05-31 11:23] LABS: Percent Iron Saturation 25 % (15-50); Total Iron Binding Capacity 295 ug/dL (265-497); Transferrin 235 mg/dL (206-381)
[2025-05-31 11:44] LABS: TSH w/ Reflex to FT4 9.21 uIU/mL (0.47-4.68)
[2025-05-31 11:50] LABS: Ferritin 234 ng/mL (11-264)
[2025-05-31 12:02] LABS: Vitamin B12 Reflex MMA if <400 585 pg/mL (239-931)
[2025-05-31 14:00] LABS: Free T4, Direct Thyroxine 1.27 ng/dL (0.78-2.19)
== END ==
PROVIDERS: Family Provider Internal Medicine; PCP Internal Medicine; Referring Provider Internal Medicine; Visit Provider Internal Medicine
DX: E53.8 Deficiency of other specified B group vitamins (principal); D64.9 Anemia, unspecified; R79.89 Other specified abnormal findings of blood chemistry; E03.9 Hypothyroidism, unspecified
CPT/HCPCS: 36415; 80053; 82607; 82728; 83540; 83550; 84439; 84443; 85027

== ENCOUNTER → 2025-07-20 10:45 | Outpatient (CLI) | payer OTHER, SELFPAY ==
[2025-05-21 13:15] VITALS: BMI 26.5
[2025-07-20 11:45] LABS: Hematocrit 40.5 % (36-46); Hemoglobin 13.4 g/dL (12.0-16.0); Mean Corpuscular HGB Conc 33.0 % (30-36); Mean Corpuscular Hemoglobin 31.0 PG (26-34); Mean Corpuscular Volume 94.0 fL (80-100); Platelet Count 154 X10^3/uL (150-400)
[2025-07-20 12:00] LABS: Alanine Aminotransferase 30 IU/L (<35); Albumin 4.3 g/dL (3.5-5.0); Albumin Globulin Ratio 1.7 (1.0-2.8); Alkaline Phosphatase 122 U/L (38-126); Blood Urea Nitrogen 21 mg/dL (7-17); Calcium 9.7 mg/dL (8.4-10.2); Carbon Dioxide 29 mmol/L (22-32); Chloride 101 mmol/L (98-107); Cholesterol 114 mg/dL (140-199); Estimated Glomerular Filt Rate > 60 mL/min (>60); Globulin 2.6 g/dL (1.7-4.1); Glucose 91 mg/dL (70-99); HDL Cholesterol 59 mg/dL (40-60); HEMOLYSIS < 15 (0-50); Hemoglobin A1C% w Est Avg Glu 5.4 % (4.0-6.0); Potassium 4.5 mmol/L (3.4-5.1); Sodium 138 mmol/L (137-145); Total Protein 6.9 g/dL (6.3-8.2); Triglycerides 94 mg/dL (35-150)
[2025-07-20 12:27] LABS: TSH w/ Reflex to FT4 7.44 uIU/mL (0.47-4.68)
[2025-07-20 12:52] LABS: Free T4, Direct Thyroxine 0.98 ng/dL (0.78-2.19)
== END ==
PROVIDERS: Family Provider Internal Medicine; PCP Internal Medicine; Referring Provider Internal Medicine; Visit Provider Internal Medicine
DX: E03.9 Hypothyroidism, unspecified (principal); R79.89 Other specified abnormal findings of blood chemistry; E78.2 Mixed hyperlipidemia
CPT/HCPCS: 36415; 80053; 80061; 83036; 84439; 84443; 85027

== ENCOUNTER → 2025-07-29 11:24 | Outpatient (CLI) | payer OTHER, SELFPAY ==
[2025-05-21 13:15] VITALS: BMI 26.5
[2025-07-29 12:58] LABS: Sample 1 Time 10/31/25
[2025-07-29 12:59] LABS: Sample 2 time 11/03/25; Sample 3 time 11/04/25
== END ==
PROVIDERS: Family Provider Internal Medicine; PCP Internal Medicine; Referring Provider Internal Medicine; Visit Provider Internal Medicine
DX: R19.5 Other fecal abnormalities (principal)
CPT/HCPCS: 82270